=== PATIENT | female | born 1950 | race Caucasian/White ===

== ENCOUNTER 2016-07-28 13:16 | Emergency (ER) | payer OTHER ==
[2016-07-28 14:19] VITALS: RESP 16
[2016-07-28] MEDS ORDERED: PANTOPRAZOLE 40 MG/10 ML VIAL IVP STA (15:47)
--- NOTE | 2016-07-28 15:50 | ED ---
General Adult HPI - General Chief complaint: Recheck/Abnormal Lab/Rx Stated complaint: bleeding/cancer patient Time Seen by Provider: 07/28/16 15:29 Source: patient, RN notes reviewed Mode of arrival: ambulatory Limitations: no limitations - History of Present Illness Initial comments: Patient is a pleasant 65-year-old female presenting to the emergency department with concerns regarding her platelet level. Patient last had it checked 2 days ago and 29. Patient has lung cancer and is a chemotherapy. Patient has had mild bloody nose. No bleeding at this time. Patient has had some blood-tinged sputum. No dyspnea except for her chronic dyspnea. Patient has noticed some red spots on her legs. - Related Data Home Medications Medication Instructions Recorded Confirmed ALPRAZolam [Xanax] 0.25 mg PO DAILY PRN 01/08/14 07/28/16 Omeprazole 20 mg PO BID 01/08/14 07/28/16 amLODIPine BESYLATE [Amlodipine 5 mg PO QAM 01/08/14 07/28/16 Besylate] Aspirin EC [Ecotrin Low Dose] 81 mg PO HS 04/21/14 07/28/16 Atorvastatin [Lipitor] 80 mg PO HS 04/21/14 07/28/16 Budesonide [Pulmicort] 0.5 mg INHALATION RT-BID 04/21/14 07/28/16 Citalopram Hydrobromide [CeleXA] 40 mg PO HS 11/15/15 07/28/16 Levothyroxine Sodium [Synthroid] 50 mcg PO QAM 11/15/15 07/28/16 Losartan-Hctz 50-12.5 mg [Hyzaar 1 tab PO QAM 11/15/15 07/28/16 50-12.5] Insulin Aspart (For Pump) [NovoLOG 0.01 unit SQ-PUMP CONTINUOUS 03/20/16 (For Pump)] Calcium Carbonate [Calcium] 600 mg PO BID 07/28/16 07/28/16 Cholecalciferol [Vitamin D3] 5,000 unit PO DAILY 07/28/16 07/28/16 Clopidogrel [Plavix] 75 mg PO QAM 07/28/16 07/28/16 L.acidoph,Paracasei, B.lactis 1 cap PO BID 07/28/16 07/28/16 [Probiotic] Magnesium Oxide 400 mg PO DAILY 07/28/16 07/28/16 Metoprolol Succinate [Toprol XL] 25 mg PO BID 07/28/16 07/28/16 Ubidecarenone [Co Q-10] 400 mg PO DAILY 07/28/16 07/28/16 Vitamin B Complex 1 cap PO DAILY 07/28/16 07/28/16 Previous Rx's Medication Instructions Recorded Nitroglycerin Sl Tabs [Nitrostat] 0.4 mg SUBLINGUAL Q5M PRN #25 tab 01/09/14 Allergies Allergy/AdvReac Type Severity Reaction Status Date / Time adhesive Allergy Rash/Hives Verified 07/28/16 15:44 venom-honey bee Allergy Anaphylaxis Verified 07/28/16 15:44 Review of Systems ROS Statement: Those systems with pertinent positive or pertinent negative responses have been documented in the HPI. ROS Other: All systems not noted in ROS Statement are negative. Constitutional: Denies: fever Eyes: Denies: eye pain ENT: Reports: epistaxis. Denies: ear pain Respiratory: Reports: cough Cardiovascular: Denies: palpitations Endocrine: Denies: fatigue Gastrointestinal: Denies: abdominal pain Genitourinary: Denies: urgency Musculoskeletal: Denies: back pain Skin: Reports: rash Neurological: Denies: weakness Past Medical History Past Medical History: Coronary Artery Disease (CAD), Cancer, Diabetes Mellitus, GERD/Reflux, Hyperlipidemia, Hypertension, Myocardial Infarction ([place]), Osteoarthritis (OA), Skin Disorder, Sleep Apnea/CPAP/BIPAP, Thyroid Disorder Additional Past Medical History / Comment(s): PULMONARY FIBROSIS/HTN, HAS AAA THAT DR'S ARE WATCHING, USES O2 NC 2L DURING THE DAY AND 4L AT NIGHT, STATES HAS "PINCHED NERVE" RT HIP TO KNEE WHICH CAUSES NUMBNESS ON THAT SIDE AT TIMES. HX PSORIASIS ON RIGHT ANKLE. lung ca Last Myocardial Infarction Date:: 1998 History of Any Multi-Drug Resistant Organisms: None Reported Past Surgical History: Bladder Surgery, Heart Catheterization With Stent, Hysterectomy, Orthopedic Surgery Additional Past Surgical History / Comment(s): STENT X2 AT 2 DIFFERENT TIMES HX 2 BLADDER SUSPENSIONS, KNEE ARTHROSCOPIES-R KNEE X 1 AND L KNEE X2, R HAND SX WITH PINNING, NOW REMOVED. R WRIST GANGLION CYST REMOVAL X 2. CAROL CATARACT SX Numerous surgeries on BOTH FEET, R/T NEUROMA'S Past Anesthesia/Blood Transfusion Reactions: No Reported Reaction Additional Past Anesthesia/Blood Transfusion Reaction / Comment(s): NEVER RECIEVED BLOOD. Date of Last Stent Placement:: 01/08/14 Past Psychological History: Anxiety, Depression Additional Psychological History / Comment(s): PT TAKES CILITAPRAM WHICH HELPS. 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 SHE CAN TAKE CARE OF HERSELF. Smoking Status: Former smoker Past Alcohol Use History: Rare Additional Past Alcohol Use History / Comment(s): Smoked 1 1/2 PPD for 43 yrs, quit in 2010. Past Drug Use History: None Reported Additional Drug Use History / Comment(s): patient has used cannibus oil x3 recently for pulmonary fibrosis. - Past Family History Father Family Medical History: Cancer, Hypertension Additional Family Medical History / Comment(s): FATHER OF LIVER CA AT AGE 67 YRS. HE ALSO HAD AORTIC ANEURYSM. Mother Family Medical History: Coronary Artery Disease (CAD), Diabetes Mellitus, Hypertension, Osteoarthritis (OA), Pulmonary Embolus Additional Family Medical History / Comment(s): MOTHER OF EMBOLISM IN LUNG FOLLOWING REHAB FOR HIP SURGERY AT AGE 65. General Exam Limitations: no limitations General appearance: alert, in no apparent distress Head exam: Present: atraumatic Eye exam: Present: normal appearance, PERRL ENT exam: Present: normal oropharynx, other (Dried blood bilateral nares) Neck exam: Present: normal inspection Respiratory exam: Present: decreased breath sounds Cardiovascular Exam: Present: regular rate, normal rhythm GI/Abdominal exam: Present: soft. Absent: tenderness Extremities exam: Present: normal inspection Neurological exam: Present: alert Psychiatric exam: Present: normal affect, normal mood Skin exam: Present: petechiae (Minimal petechial rash bilateral legs) Course Vital Signs 07/28/16 14:15 Temperature 98.5 F Pulse Rate 85 Respiratory 16 Rate Blood Pressure 139/86 O2 Sat by Pulse 93 L Oximetry Medical Decision Making - Medical Decision Making Patient reevaluated and resting comfortably in bed. Still no active bleeding. Case was discussed in detail with Dr. Raygoza who is familiar with this patient. He does recommend discharge and holding aspirin. This was relayed to the patient. Already held Plavix. - Lab Data Result diagrams: 07/28/16 15:55 07/28/16 15:55 Lab Results 07/28/16 07/28/16 07/28/16 Range/Units 15:55 15:55 15:55 WBC 3.1 L (3.8-10.6) k/uL RBC 4.18 (3.80-5.40) m/uL Hgb 12.7 (11.4-16.0) gm/dL Hct 35.3 (34.0-46.0) % MCV 84.5 (80.0-100.0) fL MCH 30.5 (25.0-35.0) pg MCHC 36.1 (31.0-37.0) g/dL RDW 13.2 (11.5-15.5) % Plt Count 23 L* (150-450) k/uL Neutrophils % (Manual) 15.0 % Lymphocytes % (Manual) 82.0 % Monocytes % (Manual) 2.0 % Eosinophils % (Manual) 1.0 % Neutrophils # (Manual) 0.5 L (1.3-7.7) k/uL Lymphocytes # (Manual) 2.5 (1.0-4.8) k/uL Monocytes # (Manual) 0.1 (0-1.0) k/uL Eosinophils # (Manual) 0.0 (0-0.7) k/uL Nucleated RBCs 0 (0-0) /100 WBC Manual Slide Review Performed Hyperchromasia Slight PT 10.8 (9.0-12.0) sec INR 1.1 (<1.1) APTT 22.0 (22.0-30.0) sec Sodium 139 (137-145) mmol/L Potassium 4.3 (3.5-5.1) mmol/L Chloride 101 (98-107) mmol/L Carbon Dioxide 29 (22-30) mmol/L Anion Gap 9 mmol/L BUN 14 (7-17) mg/dL Creatinine 0.60 (0.52-1.04) mg/dL Est GFR (MDRD) Af Amer >60 (>60 ml/min/1.73 sqM) Est GFR (MDRD) Non-Af >60 (>60 ml/min/1.73 sqM) Glucose 151 H (74-99) mg/dL Calcium 9.0 (8.4-10.2) mg/dL Total Bilirubin 0.7 (0.2-1.3) mg/dL AST 37 H (14-36) U/L ALT 53 H (9-52) U/L Alkaline Phosphatase 125 (38-126) U/L Total Protein 8.0 (6.3-8.2) g/dL Albumin 3.9 (3.5-5.0) g/dL - Radiology Data Radiology results: image reviewed (Chest x-ray shows diffuse increased lung markings) Disposition Clinical Impression: Thrombocytopenia Disposition: HOME SELF-CARE Condition: Stable Instructions: Thrombocytopenia (ED), Nosebleed (ED) Additional Instructions: Please follow-up with your oncologist Saturday. Please have your platelet level rechecked in the next day or 2. Return for bleeding, worsening rash, worsening symptoms or other concerns. Referrals: Gema Singleton DO [Primary Care Provider] - 1-2 days
[2016-07-28 16:21] LABS: ALT 53 U/L (9-52); AST 37 U/L (14-36); Alkaline Phosphatase 125 U/L (38-126); Anion Gap 9 mmol/L; Blood Urea Nitrogen 14 mg/dL (7-17); Carbon Dioxide 29 mmol/L (22-30); Chloride 101 mmol/L (98-107); Glucose 151 mg/dL (74-99); INR 1.1 (<1.1); Non-African American GFR(MDRD) >60 (>60 ml/min/1.73 sqM); Potassium 4.3 mmol/L (3.5-5.1); Prothrombin Time 10.8 sec (9.0-12.0); Sodium 139 mmol/L (137-145); Total Bilirubin 0.7 mg/dL (0.2-1.3)
[2016-07-28 16:26] LABS: Aty Lym Flag Slight; CH 31.6; CHCM 37.4; HCT 35.3 % (34.0-46.0); HDW 3.35; HGB 12.7 gm/dL (11.4-16.0); Hyperchromasia Slight; MCH 30.5 pg (25.0-35.0); MCHC 36.1 g/dL (31.0-37.0); MCV 84.5 fL (80.0-100.0); Mean Platelet Volume 7.2; RBC 4.18 m/uL (3.80-5.40); RDW 13.2 % (11.5-15.5); WBC 3.1 k/uL (3.8-10.6); WBC (Perox) 2.94
--- NOTE | 2016-07-28 16:29 | XR ---
EXAMINATION TYPE: XR chest 2V DATE OF EXAM: 07/28/2016 4:22 PM COMPARISON: NONE INDICATION: 11/15/2015 TECHNIQUE: Single frontal view of the chest is obtained. FINDINGS: The heart size is normal. The pulmonary vasculature is normal. There is diffuse increased lung markings. Findings appear suggestive for pulmonary fibrosis. Findings appear to be worsening from 11/15/2015 IMPRESSION: 1. Correlate for pulmonary fibrosis. Atypical pulmonary edema could be considered. Lymphangitic metas tasis is not excluded.
[2016-07-28 16:46] LABS: Add Differential Manual Differential
[2016-07-28 16:53] LABS: Nucleated Red Blood Cells 0 /100 WBC (0-0); Total Cells Counted 100
[2016-07-28 16:55] LABS: Manual Review Performed
[2016-07-28 17:49] VITALS: BP 137/62; PULSE 76; TEMP 97.5
== END 2016-07-28 17:49 | disposition home or self-care (01) ==
LOC: EC 13:16
DX: D69.6 Thrombocytopenia, unspecified (principal); I25.10 Atherosclerotic heart disease of native coronary artery without angina pectoris; E11.9 Type 2 diabetes mellitus without complications; K21.9 Gastro-esophageal reflux disease without esophagitis; E78.5 Hyperlipidemia, unspecified; I10 Essential (primary) hypertension; I25.2 Old myocardial infarction; M19.90 Unspecified osteoarthritis, unspecified site; E07.9 Disorder of thyroid, unspecified; F41.9 Anxiety disorder, unspecified; F32.9 Major depressive disorder, single episode, unspecified; Z87.891 Personal history of nicotine dependence; Z85.828 Personal history of other malignant neoplasm of skin; Z79.82 Long term (current) use of aspirin; Z79.51 Long term (current) use of inhaled steroids; Z79.4 Long term (current) use of insulin; Z79.01 Long term (current) use of anticoagulants; Z79.899 Other long term (current) drug therapy; Z91.030 Bee allergy status; Z91.048 Other nonmedicinal substance allergy status
CPT/HCPCS: 99283; 96374; 36415; 80053; 85025; 85610; 85730; 71020; C9113

== ENCOUNTER 2016-08-23 23:31 | Inpatient (IN) | payer OTHER ==
[2016-08-24 00:39] LABS: Anisocytosis Marked; Basophils # (A) 0.1 k/uL (0-0.2); Basophils % (A) 0 %; CH 32.3; CHCM 35.5; Eosinophils # (A) 0.1 k/uL (0-0.7); Eosinophils % (A) 1 %; HCT 24.2 % (34.0-46.0); HDW 3.76; Luc # (Auto) 0.48; Luc % (Auto) 3; Lymphocytes # (A) 2.3 k/uL (1.0-4.8); Lymphocytes % (A) 14 %; MCH 31.8 pg (25.0-35.0); MCHC 34.6 g/dL (31.0-37.0); Macrocytosis Slight; Mean Platelet Volume 7.5; Monocytes # (A) 0.9 k/uL (0-1.0); Monocytes % (A) 5 %; Neutrophils # (A) 12.9 k/uL (1.3-7.7); Neutrophils % (A) 77 %; Poikilocytosis Slight; RBC 2.63 m/uL (3.80-5.40); RDW 24.5 % (11.5-15.5); WBC 16.8 k/uL (3.8-10.6); WBC (Perox) 17.18
[2016-08-24 00:50] LABS: ALT 48 U/L (9-52); AST 46 U/L (14-36); Alkaline Phosphatase 163 U/L (38-126); Anion Gap 9 mmol/L; Blood Urea Nitrogen 11 mg/dL (7-17); Calcium 8.7 mg/dL (8.4-10.2); Carbon Dioxide 26 mmol/L (22-30); Chloride 101 mmol/L (98-107); Glucose 222 mg/dL (74-99); Non-African American GFR(MDRD) >60 (>60 ml/min/1.73 sqM); Potassium 3.8 mmol/L (3.5-5.1); Sodium 136 mmol/L (137-145); Total Bilirubin 0.5 mg/dL (0.2-1.3)
[2016-08-24 00:55] LABS: INR 1.1 (<1.1); Prothrombin Time 11.3 sec (9.0-12.0)
--- NOTE | 2016-08-24 00:56 | XR ---
EXAM: XR Chest, 2 Views CLINICAL HISTORY: Reason: difficulty breathing TECHNIQUE: Frontal and lateral views of the chest. COMPARISON: Recent 07/28/16 radiographs. FINDINGS: Lungs: There is again diffuse coarsening of the interstitial markings suggesting the presence of chronic interstitial lung disease. No superimposed infiltrate has developed. Pleural space: No pleural effusion or pneumothorax has developed. Heart: Stable cardiomegaly. Mediastinum: The mediastinal contours are stable including aortic calcification and ectasia. Bones/joints: The bones are stable. IMPRESSION: Allowing for slight differences in technique, no significant change in findings suggestive of pulmonary fibrosis. No superimposed infiltrate or pleural effusion has developed.
[2016-08-24 01:01] LABS: Creatine Kinase 90 U/L (30-135)
[2016-08-24 01:04] LABS: Partial Thromboplastin Time 20.4 sec (22.0-30.0)
[2016-08-24 01:14] LABS: Creatine Kinase MB 1.7 ng/mL (0.0-2.4); Troponin I <0.012 ng/mL (0.000-0.034)
[2016-08-24 01:22] LABS: HGB 8.4 gm/dL (11.4-16.0)
--- NOTE | 2016-08-24 01:28 | ED ---
SOB HPI - General Chief Complaint: Shortness of Breath Stated Complaint: ELOISA Time Seen by Provider: 08/23/16 23:59 Source: patient Mode of arrival: EMS Limitations: no limitations - History of Present Illness Initial Comments: This patient is a 65-year-old woman who presents tonight after she became more short of breath than usual. 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 She states that she has been more short of breath than usual over the past couple of days but it became much worse tonight, and her home pulse oximetry readings were much lower than usual. Patient denies chest pain. No fever or chills. Denies productive cough. No change in urination or bowel movements. The patient does have some leg edema but states that this been going on for number weeks and that she did have a duplex Doppler for this previously. She is not having any pain associated with the edema. MD Complaint: shortness of breath -: hour(s) Severity: moderate Consistency: constant Improves With: oxygen Known History Of: other (Pulmonary hypertension, lung cancer) Treatments Prior to Arrival: oxygen - Related Data Home Medications Medication Instructions Recorded Confirmed ALPRAZolam [Xanax] 0.25 mg PO DAILY PRN 01/08/14 08/24/16 Omeprazole 20 mg PO BID 01/08/14 08/24/16 amLODIPine BESYLATE [Amlodipine 5 mg PO QAM 01/08/14 08/24/16 Besylate] Aspirin EC [Ecotrin Low Dose] 81 mg PO HS 04/21/14 08/24/16 Atorvastatin [Lipitor] 80 mg PO HS 04/21/14 08/24/16 Budesonide [Pulmicort] 0.5 mg INHALATION RT-BID 04/21/14 08/24/16 Citalopram Hydrobromide [CeleXA] 40 mg PO HS 11/15/15 08/24/16 Levothyroxine Sodium [Synthroid] 50 mcg PO QAM 11/15/15 08/24/16 Losartan-Hctz 50-12.5 mg [Hyzaar 1 tab PO QAM 11/15/15 08/24/16 50-12.5] Insulin Aspart (For Pump) [NovoLOG 0.01 unit SQ-PUMP CONTINUOUS 03/20/16 (For Pump)] Calcium Carbonate [Calcium] 600 mg PO BID 07/28/16 08/24/16 Cholecalciferol [Vitamin D3] 5,000 unit PO DAILY 07/28/16 08/24/16 Clopidogrel [Plavix] 75 mg PO DAILY 07/28/16 08/24/16 L.acidoph,Paracasei, B.lactis 1 cap PO BID 07/28/16 08/24/16 [Probiotic] Magnesium Oxide 400 mg PO HS 07/28/16 08/24/16 Ubidecarenone [Co Q-10] 400 mg PO DAILY 07/28/16 08/24/16 Vitamin B Complex 1 cap PO DAILY 07/28/16 08/24/16 Furosemide [Lasix] 20 mg PO DAILY PRN 08/24/16 08/24/16 Previous Rx's Medication Instructions Recorded Nitroglycerin Sl Tabs [Nitrostat] 0.4 mg SUBLINGUAL Q5M PRN #25 tab 01/09/14 Amoxicillin/Potassium Clav 1 tab PO Q12HR #10 tab 08/30/16 [Augmentin 875-125 Tablet] Ipratropium-Albuterol Nebulize 3 ml INHALATION RT-QID PRN #120 neb 08/30/16 [Duoneb 0.5 mg-3 mg/3 ml Soln] Metoprolol Succinate (ER) [Toprol 25 mg PO BID tab 08/30/16 XL] predniSONE 10 mg PO DIRECTED #30 tab 08/30/16 Allergies Allergy/AdvReac Type Severity Reaction Status Date / Time adhesive Allergy Rash/Hives Verified 08/24/16 08:10 venom-honey bee Allergy Anaphylaxis Verified 08/24/16 08:10 Review of Systems ROS Statement: Those systems with pertinent positive or pertinent negative responses have been documented in the HPI. ROS Other: All systems not noted in ROS Statement are negative. Constitutional: Denies: fever, chills, weakness Respiratory: Reports: dyspnea. Denies: wheezes, hemoptysis Cardiovascular: Reports: edema. Denies: chest pain, palpitations, dyspnea on exertion, orthopnea, syncope Gastrointestinal: Denies: abdominal pain, vomiting, diarrhea, melena, hematochezia Genitourinary: Denies: dysuria Musculoskeletal: Denies: back pain Skin: Denies: rash Neurological: Denies: headache, weakness, numbness Psychiatric: Reports: anxiety Past Medical History Past Medical History: Coronary Artery Disease (CAD), Cancer, Diabetes Mellitus, GERD/Reflux, Hyperlipidemia, Hypertension, Myocardial Infarction ([place]), Osteoarthritis (OA), Skin Disorder, Sleep Apnea/CPAP/BIPAP, Thyroid Disorder Additional Past Medical History / Comment(s): PULMONARY FIBROSIS/HTN, HAS AAA THAT DR'S ARE WATCHING, USES O2 NC 3L DURING THE DAY AND 4L AT NIGHT, STATES HAS "PINCHED NERVE" RT HIP TO KNEE WHICH CAUSES NUMBNESS ON THAT SIDE AT TIMES. HX PSORIASIS ON RIGHT ANKLE. 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 Last Myocardial Infarction Date:: 1998 History of Any Multi-Drug Resistant Organisms: None Reported Past Surgical History: Bladder Surgery, Heart Catheterization With Stent, Hysterectomy, Orthopedic Surgery Additional Past Surgical History / Comment(s): STENT X2 AT 2 DIFFERENT TIMES HX 2 BLADDER SUSPENSIONS, KNEE ARTHROSCOPIES-R KNEE X 1 AND L KNEE X2, R HAND SX WITH PINNING, NOW REMOVED. R WRIST GANGLION CYST REMOVAL X 2. CAROL CATARACT SX Numerous surgeries on BOTH FEET, R/T NEUROMA'S Past Anesthesia/Blood Transfusion Reactions: No Reported Reaction Additional Past Anesthesia/Blood Transfusion Reaction / Comment(s): NEVER RECIEVED BLOOD. Date of Last Stent Placement:: 01/08/14 Past Psychological History: Anxiety, Depression Additional Psychological History / Comment(s): PT TAKES CILITAPRAM WHICH HELPS. 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 SHE CAN TAKE CARE OF HERSELF. Smoking Status: Former smoker Past Alcohol Use History: Rare Additional Past Alcohol Use History / Comment(s): Smoked 1 1/2 PPD for 43 yrs, quit in 2010. Past Drug Use History: None Reported Additional Drug Use History / Comment(s): patient has used cannibus oil x3 recently for pulmonary fibrosis. - Past Family History Father Family Medical History: Cancer, Hypertension Additional Family Medical History / Comment(s): FATHER OF LIVER CA AT AGE 67 YRS. HE ALSO HAD AORTIC ANEURYSM. Mother Family Medical History: Coronary Artery Disease (CAD), Diabetes Mellitus, Hypertension, Osteoarthritis (OA), Pulmonary Embolus Additional Family Medical History / Comment(s): MOTHER OF EMBOLISM IN LUNG FOLLOWING REHAB FOR HIP SURGERY AT AGE 65. General Exam Limitations: no limitations General appearance: alert, in no apparent distress Head exam: Present: atraumatic, normocephalic Eye exam: Present: normal appearance. Absent: scleral icterus, conjunctival injection Respiratory exam: Present: normal lung sounds bilaterally, rales (Dry rales bilaterally), decreased breath sounds. Absent: respiratory distress, wheezes, rhonchi, stridor, chest wall tenderness, accessory muscle use, prolonged expiratory Cardiovascular Exam: Present: regular rate, normal rhythm, normal heart sounds. Absent: systolic murmur, diastolic murmur, rubs, gallop GI/Abdominal exam: Present: soft. Absent: distended, tenderness, guarding, rebound, rigid Extremities exam: Present: normal inspection, normal capillary refill, pedal edema (There is edema of the bilateral legs to just above the ankles.). Absent : calf tenderness Back exam: Present: normal inspection. Absent: CVA tenderness (R), CVA tenderness (L) Neurological exam: Present: alert Skin exam: Present: warm, dry, intact, normal color. Absent: rash Course Vital Signs 08/23/16 08/24/16 08/24/16 23:33 00:50 02:02 Temperature 97.2 F L Pulse Rate 88 81 76 Respiratory 26 H 18 18 Rate Blood Pressure 134/61 139/63 122/59 O2 Sat by Pulse 100 100 96 Oximetry 08/24/16 08/24/16 08/24/16 04:08 06:11 06:59 Temperature 100 F H 97.8 F 100.1 F H Pulse Rate 79 84 93 Respiratory 20 18 18 Rate Blood Pressure 124/56 129/59 139/71 O2 Sat by Pulse 92 L 92 L 91 L Oximetry 08/24/16 08/24/16 08/24/16 08:26 09:35 09:36 Temperature Pulse Rate 83 84 Respiratory 18 Rate Blood Pressure 119/64 138/62 O2 Sat by Pulse 97 Oximetry 08/24/16 08/24/16 09:40 13:17 Temperature Pulse Rate 84 88 Respiratory 20 Rate Blood Pressure 146/67 O2 Sat by Pulse 95 Oximetry Medical Decision Making - Lab Data Result diagrams: 08/29/16 08:27 08/29/16 08:27 Lab Results 08/23/16 08/23/16 08/23/16 Range/Units 23:54 23:54 23:54 WBC 16.8 H (3.8-10.6) k/uL RBC 2.63 L (3.80-5.40) m/uL Hgb 8.4 L D (11.4-16.0) gm/dL Hct 24.2 L (34.0-46.0) % MCV 92.0 D (80.0-100.0) fL MCH 31.8 (25.0-35.0) pg MCHC 34.6 (31.0-37.0) g/dL RDW 24.5 H (11.5-15.5) % Plt Count 73 L D (150-450) k/uL Neutrophils % 77 % Lymphocytes % 14 % Monocytes % 5 % Eosinophils % 1 % Basophils % 0 % Neutrophils # 12.9 H (1.3-7.7) k/uL Lymphocytes # 2.3 (1.0-4.8) k/uL Monocytes # 0.9 (0-1.0) k/uL Eosinophils # 0.1 (0-0.7) k/uL Basophils # 0.1 (0-0.2) k/uL Poikilocytosis Slight Anisocytosis Marked Macrocytosis Slight PT (9.0-12.0) sec INR (<1.1) APTT (22.0-30.0) sec Sodium 136 L (137-145) mmol/L Potassium 3.8 (3.5-5.1) mmol/L Chloride 101 (98-107) mmol/L Carbon Dioxide 26 (22-30) mmol/L Anion Gap 9 mmol/L BUN 11 (7-17) mg/dL Creatinine 0.70 (0.52-1.04) mg/dL Est GFR (MDRD) Af Amer >60 (>60 ml/min/1.73 sqM) Est GFR (MDRD) Non-Af >60 (>60 ml/min/1.73 sqM) Glucose 222 H (74-99) mg/dL Plasma Lactic Acid Sal (0.7-2.0) mmol/L Calcium 8.7 (8.4-10.2) mg/dL Total Bilirubin 0.5 (0.2-1.3) mg/dL AST 46 H (14-36) U/L ALT 48 (9-52) U/L Alkaline Phosphatase 163 H (38-126) U/L Total Creatine Kinase 90 (30-135) U/L CK-MB (CK-2) 1.7 (0.0-2.4) ng/mL CK-MB (CK-2) Rel Index 1.9 Troponin I <0.012 (0.000-0.034) ng/mL NT-Pro-B Natriuret Pep pg/mL Total Protein 6.0 L (6.3-8.2) g/dL Albumin 3.2 L (3.5-5.0) g/dL 08/23/16 08/23/16 08/23/16 Range/Units 23:54 23:54 23:54 WBC (3.8-10.6) k/uL RBC (3.80-5.40) m/uL Hgb (11.4-16.0) gm/dL Hct (34.0-46.0) % MCV (80.0-100.0) fL MCH (25.0-35.0) pg MCHC (31.0-37.0) g/dL RDW (11.5-15.5) % Plt Count (150-450) k/uL Neutrophils % % Lymphocytes % % Monocytes % % Eosinophils % % Basophils % % Neutrophils # (1.3-7.7) k/uL Lymphocytes # (1.0-4.8) k/uL Monocytes # (0-1.0) k/uL Eosinophils # (0-0.7) k/uL Basophils # (0-0.2) k/uL Poikilocytosis Anisocytosis Macrocytosis PT 11.3 (9.0-12.0) sec INR 1.1 (<1.1) APTT 20.4 L (22.0-30.0) sec Sodium (137-145) mmol/L Potassium (3.5-5.1) mmol/L Chloride (98-107) mmol/L Carbon Dioxide (22-30) mmol/L Anion Gap mmol/L BUN (7-17) mg/dL Creatinine (0.52-1.04) mg/dL Est GFR (MDRD) Af Amer (>60 ml/min/1.73 sqM) Est GFR (MDRD) Non-Af (>60 ml/min/1.73 sqM) Glucose (74-99) mg/dL Plasma Lactic Acid Sal 3.2 H* (0.7-2.0) mmol/L Calcium (8.4-10.2) mg/dL Total Bilirubin (0.2-1.3) mg/dL AST (14-36) U/L ALT (9-52) U/L Alkaline Phosphatase (38-126) U/L Total Creatine Kinase (30-135) U/L CK-MB (CK-2) (0.0-2.4) ng/mL CK-MB (CK-2) Rel Index Troponin I (0.000-0.034) ng/mL NT-Pro-B Natriuret Pep 471 pg/mL Total Protein (6.3-8.2) g/dL Albumin (3.5-5.0) g/dL - EKG Data -: EKG Interpreted by Me EKG shows normal: sinus rhythm, axis (Normal), intervals (Normal) Rate: normal (Rate proximal he 77 bpm) Interpretation: other (Incomplete right bundle branch block) Critical Care Time Critical Care Time: Yes (40 minutes) Disposition Clinical Impression: COPD (chronic obstructive pulmonary disease), Pneumonia, Sepsis Disposition: ADMITTED IP TO THIS HOSP
[2016-08-24] MEDS ORDERED: SODIUM CHLORIDE 0.9% 500 ML IV STA (06:14)
[2016-08-24] MEDS ORDERED: LEVOFLOXACIN 750 MG TAB PO STA (06:44)
[2016-08-24] MEDS ORDERED: PIPERACILLIN-TAZOBACTAM 3.375 GM in DEXTROSE/WATER 1 50ML.BAG IVPB STA (06:45)
[2016-08-24] MEDS ORDERED: PNEUMONIA PROTOCOL UTILIZED 1 EACH MISC PO PRN (06:45)
[2016-08-24] MEDS ORDERED: NITROGLYCERIN SL TABS 0.4 MG TAB SUBLINGUAL PRN (06:48)
[2016-08-24] MEDS: IPRATROPIUM-ALBUTEROL 3 ML NEB INHALATION SCH ×4 (09:32→20:16)
[2016-08-24] MEDS: BUDESONIDE 0.5 MG/2 ML NEBU INHALATION SCH ×2 (09:33→20:12)
[2016-08-24 11:06] LABS: Glucose,Whole Blood 152 mg/dL (75-99)
[2016-08-24] MEDS: amLODIPine 5 MG TAB PO SCH (14:00)
[2016-08-24] MEDS: LEVOTHYROXINE 50 MCG TAB PO SCH (14:01)
[2016-08-24] MEDS: METOPROLOL SUCCINATE (ER) 25 MG TAB.ER.24H PO SCH ×2 (14:02→21:55)
[2016-08-24] MEDS: CALCIUM CARBONATE 500 MG CHEWABLE PO SCH ×2 (14:02→21:55)
[2016-08-24] MEDS: LOSARTAN-HCTZ 50-12.5 MG 1 EACH TAB PO SCH (14:03)
[2016-08-24] MEDS: CLOPIDOGREL 75 MG TAB PO SCH (14:04)
[2016-08-24] MEDS: MAGNESIUM OXIDE 400 MG TAB PO SCH (14:04)
[2016-08-24] MEDS: PANTOPRAZOLE 40 MG TABLET PO SCH ×2 (14:04→16:36)
[2016-08-24] MEDS: HEPARIN SODIUM,PORCINE 5,000 UNIT/ML 1 ML VIAL SQ SCH ×2 (14:05→23:25)
[2016-08-24] MEDS: PIPERACILLIN-TAZOBACTAM 3.375 GM in DEXTROSE/WATER 1 50ML.BAG IVPB SCH ×2 (16:36→23:23)
[2016-08-24 17:36] LABS: Glucose,Whole Blood 175 mg/dL (75-99)
[2016-08-24 20:58] LABS: Glucose,Whole Blood 209 mg/dL (75-99)
[2016-08-24] MEDS: ATORVASTATIN 80 MG TAB PO SCH (21:54)
[2016-08-24] MEDS: ASPIRIN 81 MG CHEW PO SCH (21:54)
[2016-08-24] MEDS: CITALOPRAM HYDROBROMIDE 20 MG TAB PO SCH (21:55)
[2016-08-25 02:20] LABS: Glucose,Whole Blood 131 mg/dL (75-99)
[2016-08-25] MEDS: ALPRAZolam 0.25 MG TAB PO PRN ×3 (03:16→22:37)
[2016-08-25] MEDS: LEVOTHYROXINE 50 MCG TAB PO SCH (06:52)
[2016-08-25 07:26] LABS: Glucose,Whole Blood 131 mg/dL (75-99)
[2016-08-25] MEDS: MAGNESIUM OXIDE 400 MG TAB PO SCH (08:25)
[2016-08-25] MEDS: LEVOFLOXACIN 750 MG TAB PO SCH (08:25)
[2016-08-25] MEDS: CLOPIDOGREL 75 MG TAB PO SCH (08:25)
[2016-08-25] MEDS: METOPROLOL SUCCINATE (ER) 25 MG TAB.ER.24H PO SCH ×2 (08:25→22:37)
[2016-08-25] MEDS: CALCIUM CARBONATE 500 MG CHEWABLE PO SCH ×2 (08:25→22:37)
[2016-08-25] MEDS: LOSARTAN-HCTZ 50-12.5 MG 1 EACH TAB PO SCH (08:25)
[2016-08-25] MEDS: amLODIPine 5 MG TAB PO SCH (08:25)
[2016-08-25] MEDS: PANTOPRAZOLE 40 MG TABLET PO SCH ×2 (08:25→16:43)
[2016-08-25] MEDS: PIPERACILLIN-TAZOBACTAM 3.375 GM in DEXTROSE/WATER 1 50ML.BAG IVPB SCH ×2 (08:25→15:23)
[2016-08-25] MEDS: HEPARIN SODIUM,PORCINE 5,000 UNIT/ML 1 ML VIAL SQ SCH ×2 (08:28→15:23)
[2016-08-25] MEDS ORDERED: RX INFO: IV CONTRAST WAS GIVEN 1 EACH MISC MISCELLANE PRN (08:34)
--- NOTE | 2016-08-25 09:54 | CT ---
EXAMINATION TYPE: CT angio chest DATE OF EXAM: 08/25/2016 9:31 AM COMPARISON: 01/17/2014 HISTORY: 65 year-old female shortness of breath, possible PE. History of squamous cell lung cancer an d pulmonary fibrosis. TECHNIQUE: Contiguous axial scanning of the chest performed with IV Contrast, patient injected with 1 00 mL of Omnipaque 350. Coronal/sagittal MIP reconstructions performed. CT DLP: 607.8 mGycm Automated exposure control for dose reduction was used. FINDINGS: The heart is mildly enlarged without pericardial effusion. Mitral annular calcifications and coronary vessel calcifications are present. Aorta shows with conventional arch vessel branching anatomy. 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 Satisfactory opacification of the pulmonary arterial system. There is borderline to mildly enlarged c aliber to the main right and left pulmonary arteries are 2.7 and 2.5 cm, respectively, suggesting und erlying pulmonary arterial hypertension. There is respiratory motion limiting assessment for pulmonar y embolus. No definite pulmonary embolus seen. As compared to 2013, there is progressive mediastinal lymphadenopathy now conglomerate measuring up t o 1.7 cm right peritracheal region, 1.1 cm prevascular space, 1.8 cm left tracheobronchial angle, 2.5 cm subcarinal region. Redemonstrated subpleural microcystic change and centrilobular emphysema with areas of mosaic attenua tion, septal lines in the lower lungs, and groundglass opacities. No pleural effusion. Some of these subpleural cystic changes progressed in the mid to lower lungs as compared to prior exam. Moderate-sized hernia. Visualized upper abdomen shows a diverticulum of the gastric fundus similar t o prior. Bones: No osseous destructive process. IMPRESSION: 1. PULMONARY ARTERIAL HYPERTENSION WITHOUT EVIDENCE FOR PULMONARY EMBOLUS. 2. PROGRESSIVE MEDIASTINAL LYMPHADENOPATHY NOW MEASURING UP TO 2.5 CM. METASTATIC DISEASE, ATYPICAL S YSTEMIC INFECTIONS, AND INFLAMMATORY PROCESSES SUCH SARCOIDOSIS ARE IN THE DIFFERENTIAL. 3. COMBINATION OF COPD AND SUBPLEURAL CYSTIC CHANGE WHICH SHOWS AN UPPER LUNG PREDOMINANCE THOUGH THE SUBPLEURAL CHANGES HAVE PROGRESSED IN THE MID AND LOWER LUNGS COMPARED TO 2014. CORRELATE FOR ANY KNOWN DIAGNOSIS SUCH UIP/FIBROTIC NSIP. 4. EXTENSIVE RETICULATIONS AND NEW GROUND GLASS OPACITIES IN THE LOWER LUNGS. FINDINGS ARE NONSPECIFI C; CORRELATE FOR ANY INFECTIOUS SIGNS/SYMPTOMS. INFLAMMATORY PROCESSES SUCH HYPERSENSITIVITY PNEUM ONITIS ARE THE DIFFERENTIAL. OTHERWISE, FINDINGS MAY REFLECT PROGRESSION IN PATIENT'S UNDERLYING PERCH MENDER LAZ PULMONARY DISEASE. 5. MODERATE-SIZED HIATAL HERNIA.
[2016-08-25 11:48] LABS: Glucose,Whole Blood 140 mg/dL (75-99)
[2016-08-25 11:54] VITALS: BMI 37.4
[2016-08-25] MEDS: BUDESONIDE 0.5 MG/2 ML NEBU INHALATION SCH ×2 (13:01→20:30)
[2016-08-25] MEDS: IPRATROPIUM-ALBUTEROL 3 ML NEB INHALATION SCH ×2 (13:01)
--- NOTE | 2016-08-25 13:41 | P.CNPUL ---
History of Present Illness Consult date: 08/25/16 Reason for consult: dyspnea, COPD, pulmonary fibrosis Chief complaint: Shortness of breath and cough History of present illness: This is a 65-year-old female who is well-known to [facility]. The patient presented emergency department complaining of shortness of breath, and hypoxemia. The patient has known IPF, COPD, lung cancer, pulmonary hypertension. She is currently undergoing chemotherapy. She states she was very short of breath at home and checked her oxygen saturation which was in the 60s. She increased her oxygen at home but her saturation did not improve. She states her cough is nonproductive. She did recently have lower extremity edema and was started on Lasix. Her edema is improving somewhat. She had a lower extremity Doppler due to the swelling which was negative for DVT. CTA of the chest was done and shows no pulmonary embolism. It does show new groundglass opacities concerning for an acute inflammatory process. She does have chronic IPF and lymphadenopathy which is stage III squamous cell carcinoma. Review of Systems All systems: negative Past Medical History Past Medical History: Coronary Artery Disease (CAD), Cancer, Diabetes Mellitus, GERD/Reflux, Hyperlipidemia, Hypertension, Myocardial Infarction (NH), Osteoarthritis (OA), Skin Disorder, Sleep Apnea/CPAP/BIPAP, Thyroid Disorder Additional Past Medical History / Comment(s): "IDIOPATHIC PULMONARY FIBROSIS DX 2014/PULMONARY HTN DX 2016, HAS AAA THAT DR'S ARE WATCHING, USES O2 NC 3L DURING THE DAY AND 4L AT NIGHT/OR W/ WALKING AND 5 LITERS FOR RECOVERY, STATES HAS "PINCHED NERVE" RT HIP TO KNEE WHICH CAUSES NUMBNESS ON THAT SIDE AT TIMES. HX PSORIASIS ON RIGHT ANKLE. DX 2-2016 W/ LUNG CA - squamous cell with central lymph node involvement. HAS HAD 2 SERIES OF CHEMO(LATEST TX WAS ON 08-09-16) NO RADIATION, DM-HAS INSULIN PUMP, 2NDARYCATARACTS Last Myocardial Infarction Date:: 1998 History of Any Multi-Drug Resistant Organisms: None Reported Past Surgical History: Bladder Surgery, Heart Catheterization, Heart Catheterization With Stent, Hysterectomy, Orthopedic Surgery Additional Past Surgical History / Comment(s): STENT X2 AT 2 DIFFERENT TIMES HX 2 BLADDER SUSPENSIONS, KNEE ARTHROSCOPIES-R KNEE X 1 AND L KNEE X2, R HAND SX WITH PINNING, NOW REMOVED. R WRIST GANGLION CYST REMOVAL X 2. CAROL CATARACT SX Numerous surgeries on BOTH FEET, R/T NEUROMA'S, TOOTH PULLED,BRONCHOSOPY, ENLARGED LYMPH NODE BX, COLONOSOCPY/POLYPS-NEG Past Anesthesia/Blood Transfusion Reactions: No Reported Reaction Additional Past Anesthesia/Blood Transfusion Reaction / Comment(s): NEVER RECIEVED BLOOD. Date of Last Stent Placement:: 01/08/14 Past Psychological History: Anxiety, Depression Additional Psychological History / Comment(s): PT TAKES CITALOPRAM BUT SHE FEELS NOT HELPING MUCH PT LIVES AT HOME WITH AND ADULT SON. SHE CAN TAKE CARE OF HERSELF. NO OUTSIDE SERVICES. HAS HOME 02/BIPAP, INSULIN PUMP.PT USED TO WORK A CARDIOVASCULAR TECHNOLOGIST. Smoking Status: Former smoker Past Alcohol Use History: Rare Additional Past Alcohol Use History / Comment(s): STARTED SMOKING AT AGE 16, quit in 2010, WAS SMOKING 2 PPD. Past Drug Use History: None Reported Additional Drug Use History / Comment(s): patient has used cannibus oil ON RARE OCC for pulmonary fibrosis. - Past Family History Father Family Medical History: Cancer, Hypertension Additional Family Medical History / Comment(s): FATHER OF LIVER CA AT AGE 67 YRS. HE ALSO HAD AORTIC ANEURYSM. Mother Family Medical History: Coronary Artery Disease (CAD), Diabetes Mellitus, Hypertension, Osteoarthritis (OA), Pulmonary Embolus Additional Family Medical History / Comment(s): MOTHER OF EMBOLISM IN LUNG FOLLOWING REHAB FOR HIP SURGERY AT AGE 65. Medications and Allergies Home Medications Medication Instructions Recorded Confirmed Type ALPRAZolam [Xanax] 0.25 mg PO DAILY PRN 01/08/14 08/24/16 History Omeprazole 20 mg PO BID 01/08/14 08/24/16 History amLODIPine BESYLATE [Amlodipine 5 mg PO QAM 01/08/14 08/24/16 History Besylate] Aspirin EC [Ecotrin Low Dose] 81 mg PO HS 04/21/14 08/24/16 History Atorvastatin [Lipitor] 80 mg PO HS 04/21/14 08/24/16 History Budesonide [Pulmicort] 0.5 mg INHALATION RT-BID 04/21/14 08/24/16 History Citalopram Hydrobromide [CeleXA] 40 mg PO HS 11/15/15 08/24/16 History Levothyroxine Sodium [Synthroid] 50 mcg PO QAM 11/15/15 08/24/16 History Losartan-Hctz 50-12.5 mg [Hyzaar 1 tab PO QAM 11/15/15 08/24/16 History 50-12.5] Insulin Aspart (For Pump) [NovoLOG 0.01 unit SQ-PUMP CONTINUOUS 03/20/16 History (For Pump)] Calcium Carbonate [Calcium] 600 mg PO BID 07/28/16 08/24/16 History Cholecalciferol [Vitamin D3] 5,000 unit PO DAILY 07/28/16 08/24/16 History Clopidogrel [Plavix] 75 mg PO DAILY 07/28/16 08/24/16 History L.acidoph,Paracasei, B.lactis 1 cap PO BID 07/28/16 08/24/16 History [Probiotic] Magnesium Oxide 400 mg PO HS 07/28/16 08/24/16 History Ubidecarenone [Co Q-10] 400 mg PO DAILY 07/28/16 08/24/16 History Vitamin B Complex 1 cap PO DAILY 07/28/16 08/24/16 History Furosemide [Lasix] 20 mg PO DAILY PRN 08/24/16 08/24/16 History Metoprolol Succinate [Toprol XL] 25 mg PO BID 08/24/16 08/24/16 History Allergies Allergy/AdvReac Type Severity Reaction Status Date / Time adhesive Allergy Rash/Hives Verified 08/24/16 08:10 venom-honey bee Allergy Anaphylaxis Verified 08/24/16 08:10 Physical Exam Osteopathic Statement: *. No significant issues noted on an osteopathic structural exam other than those noted in the History and Physical/Consult. Vitals: Vital Signs Temp Pulse Pulse Resp BP Pulse Ox 08/25/16 13:18 80 08/25/16 13:02 84 08/25/16 07:00 97.5 F L 76 16 119/65 94 L 08/24/16 23:00 97.7 F 85 20 129/84 97 08/24/16 20:27 74 08/24/16 20:16 75 97 08/24/16 16:40 97.9 F 84 18 149/72 92 L Intake and Output 08/24/16 08/25/16 08/25/16 22:59 06:59 14:59 Intake Total 300 Balance 300 Intake: Oral 300 Other: Voiding Method Toilet Toilet # Voids 2 1 Weight 98.883 kg Patient Weight 08/26/16 06:59 Weight 98.883 kg Gen.: Patient is alert and oriented 3, no acute distress, overweight Cardiovascular: Regular rate and rhythm, S1/S2 Lungs: Diminished breath sounds bilaterally with scattered crackles Abdomen: Soft nontender nondistended positive bowel sounds Extremities: Trace to 1+ edema, right greater than left Results - Laboratory Findings CBC and BMP: 08/23/16 23:54 08/23/16 23:54 PT/INR, D-dimer PT 11.3 sec (9.0-12.0) 08/23/16 23:54 INR 1.1 (<1.1) 08/23/16 23:54 Abnormal lab findings: Abnormal Labs 08/23/16 08/23/16 08/23/16 23:54 23:54 23:54 WBC 16.8 H RBC 2.63 L Hgb 8.4 L D Hct 24.2 L RDW 24.5 H Plt Count 73 L D Neutrophils # 12.9 H APTT 20.4 L Sodium 136 L Glucose 222 H POC Glucose (mg/dL) Plasma Lactic Acid Sal AST 46 H Alkaline Phosphatase 163 H Total Protein 6.0 L Albumin 3.2 L 08/23/16 08/24/16 08/24/16 23:54 11:02 17:19 WBC RBC Hgb Hct RDW Plt Count Neutrophils # APTT Sodium Glucose POC Glucose (mg/dL) 152 H 175 H Plasma Lactic Acid Sal 3.2 H* AST Alkaline Phosphatase Total Protein Albumin 08/24/16 08/25/16 08/25/16 20:51 02:18 07:20 WBC RBC Hgb Hct RDW Plt Count Neutrophils # APTT Sodium Glucose POC Glucose (mg/dL) 209 H 131 H 131 H Plasma Lactic Acid Sal AST Alkaline Phosphatase Total Protein Albumin 08/25/16 11:46 WBC RBC Hgb Hct RDW Plt Count Neutrophils # APTT Sodium Glucose POC Glucose (mg/dL) 140 H Plasma Lactic Acid Sal AST Alkaline Phosphatase Total Protein Albumin - Diagnostic Findings Chest x-ray: report reviewed, image reviewed CT scan - chest: report reviewed, image reviewed Assessment and Plan Plan: Acute on chronic hypoxic respiratory failure Acute exacerbation of COPD Idiopathic pulmonary fibrosis Sepsis with SIRS Community acquired pneumonia Pulmonary hypertension Squamous cell carcinoma of the lung Diabetes mellitus type 2 Lower extremity edema GERD Dyslipidemia Hypertension History of coronary artery disease Obstructive sleep apnea on CPAP Hypothyroidism History of tobacco abuse, quit in 2010 O2 to maintain saturation greater than equal to 88% Pulmicort Duonebs PRN Solumedrol taper Antibiotics: Levaquin and Zosyn Sputum, blood cultures Continue Lasix once daily for now GI and DVT prophylaxis, patient encouraged to use heparin subcu due to immobility and cancer she is at higher risk of DVT Incentive spirometry and pulmonary hygiene BS control Thank you for this consultation. We will continue to follow along.
[2016-08-25] MEDS: methylPREDNISolone SOD SUCCI 40 MG/ML 1 ML VIAL IV SCH (15:24)
[2016-08-25] MEDS: IPRATROPIUM-ALBUTEROL 3 ML NEB INHALATION PRN ×2 (16:08→20:30)
[2016-08-25 17:23] LABS: Glucose,Whole Blood 185 mg/dL (75-99)
--- NOTE | 2016-08-25 18:45 | HP ---
DATE OF ADMISSION: CHIEF COMPLAINT: Fatigue and difficulty in breathing. HISTORY OF PRESENT ILLNESS: Ms. Culp is a 65-year-old female who was diagnosed with squamous cell carcinoma of the lung, completed 2 cycles of chemotherapy, type 2 diabetes mellitus, GERD, coronary artery disease, hypertension, and OH, osteoarthritis, sleep apnea admitted to the hospital with a chief complaint of difficulty in breathing and fatigue. Patient is recently diagnosed with stage III squamous lung cancer of the right lung about 3 months back and she completed 2 cycles of chemotherapy. The last chemotherapy was around the ninth of this month. She has been feeling okay but for the past 3 to 4 days has been more short of breath and was having cough, which is productive in nature and last night her symptoms became so worse when she checked her pulse ox it was showing as low as 65 and so she came in to the hospital for further evaluation. The patient denies having any fevers, chills, or rigors. No chest pain or palpitations. She denies having any loss of consciousness or weakness in her extremities. Initially the patient thought that it was because of her lung cancer that her symptoms have been worsening but she was so short of breath that she decided to come to the ER. Patient did get a CTA of the chest this morning as there was a suspicion for PE, but it was negative for PE, but positive for new ground-glass opacities in the bilateral lower lung zambrano. She has empirically been started on Zosyn and Levaquin in view of her recent chemotherapy cycles. REVIEW OF SYSTEMS: CONSTITUTIONAL: Denies having any fevers, chills, or rigors. CARDIAC: No chest pain, no palpitations. RESPIRATORY: As per HPI. GI: No nausea, vomiting, or diarrhea. : No dysuria, hematuria. HEMATOLOGICAL: No history of easy bruising or recurrent infections. MUSCULOSKELETAL: Denies having any joint pains or swelling. SKIN: No rashes. NEUROLOGICAL: Denies having any headaches, weakness or tingling or numbness. PSYCHIATRIC: Patient's reports some anxiety. All 13 review of systems are done and negative except for ones mentioned in the HPI. Past medical history significant for coronary artery disease, squamous cell lung cancer, type 2 diabetes mellitus, hypertension, hyperlipidemia, OH, osteoarthritis, sleep apnea, pulmonary fibrosis. PAST SURGICAL HISTORY: Bladder surgery, heart catheterization with stent, hysterectomy, orthopedic surgery, cardiac stent placement, bilateral cataract surgery, right wrist ganglion cyst removal, knee arthroscopies of the right knee and left knee x2. SOCIAL HISTORY: The patient is a former smoker, smoked almost for 30 years 1 pack per day. She quit 17 years back. Occasional alcohol use. No history of intravenous drug abuse. FAMILY HISTORY: Father at age of 67 due to liver cancer and he also had some bladder cancer issues. Mother significant for coronary artery disease, diabetes mellitus, hypertension, osteoarthritis, and PE. ALLERGIES: POSITIVE FOR VENOM OF HONEY BEE AND ADHESIVE TAPE. Patient's home medications: 1. Amlodipine 5 mg p.o. q.a.m. 2. Omeprazole 20 mg p.o. b.i.d. 3. Xanax 0.25 mg p.o. daily. 4. Nitroglycerin 0.4 mg sublingual q.5 minutes p.r.n. for chest pain. 5. Lipitor 80 mg p.o. q.h.s. 6. Pulmicort b.i.d. 7. Aspirin 81 mg p.o. q.h.s. 8. Losartan hydrochlorothiazide 50/12.5, 1 tablet p.o. q.a.m. 9. Citalopram 40 mg p.o. q.h.s. 10. Levothyroxine 50 mcg p.o. daily. 11. Insulin pump. 12. Coenzyme Q 400 mg p.o. daily. 13. Cholecalciferol 1000 units p.o. daily. 14. Calcium carbonate 600 mg p.o. b.i.d. 15. Magnesium oxide 400 mg p.o. q.h.s. 16. Lactobacillus probiotic 1 capsule p.o. b.i.d. 17. Vitamin B complex 1 tablet p.o. b.i.d. 18. Plavix 75 mg p.o. daily. 19. Lasix 80 mg p.o. daily. 20. Metoprolol 25 mg p.o. b.i.d. On examination, patient's vital signs temperature 96.3, heart rate 86, respiratory rate 16, blood pressure 130/82, saturating at 93% on 5 liters of nasal cannula. GENERAL EXAMINATION: Patient appears to be in slight respiratory distress as she just came out of the restroom and she then sat on a chair beside her bed. HEAD: Atraumatic. Normocephalic. EYES: Pupils round, and reactive to light. Mild pallor. No icterus. NECK: No JVD. No thyromegaly. CARDIOVASCULAR: S1, S2 heard. LUNGS: Diminished breath sounds in all lung zambrano. No active wheezing. Positive for rhonchi in all lung zambrano. ABDOMEN: Soft, nontender. Bowel sounds positive. Organomegaly difficult to appreciate due to huge body habitus. EXTREMITIES: No edema. No cyanosis. No clubbing. CLIMATOLOGY PROFESSOR: Alert, awake, oriented x3. No focal neurological deficits. PSYCHIATRIC: Appropriate mood and affect. SKIN: No rashes. Patient's labs: White count of 16.8, hemoglobin is 8.4, platelets of 73, PT of 11.1, INR 1.1. Sodium is 136, potassium 3.8, chloride 101, bicarb 26, BUN 11, creatinine 0.78, plasma lactic acid level 3.2, AST 46, ALT 48, alkaline phosphatase 163, albumin is 3.2, total protein of 3. Patient did have a CTA of the chest, which was negative for PE but positive new ground-glass opacities in bilateral lower lung zambrano and moderate sized hiatal hernia, pulmonary arterial hypertension without evidence of pulmonary embolism and there is mediastinal lymphadenopathy measuring 2.5 cm consistent with her metastatic disease. ASSESSMENT AND PLAN: 1. Sepsis secondary to health care associated pneumonia. 2. Acute on chronic hypoxic respiratory failure secondary to #1. 3. Acute exacerbation of chronic obstructive pulmonary disease. 4. Chronic obstructive pulmonary disease and pulmonary fibrosis. 5. Squamous cell carcinoma of the right lung with mediastinal lymphadenopathy. 6. Type 2 diabetes mellitus. 7. Gastroesophageal reflux disease. 8. Dyslipidemia. 9. Hypertension. 10. History of coronary artery disease, status post stenting. 11. Obstructive sleep apnea, on CPAP. 12. Hypothyroidism. 13. History of tobacco abuse, quit 17 years back. 14. Multiple orthopedic surgeries in the past. 15. History of anxiety and depression. PLAN: The plan is to continue the patient on antibiotics in the form of Zosyn and Levaquin and continue with breathing treatments, IV steroids and resume her home medications. Overall prognosis is guarded do to chronic multiple conditions and newly diagnosed lung cancer. The treatment plan was discussed in detail with the patient at the bedside.
[2016-08-25 21:08] LABS: Glucose,Whole Blood 279 mg/dL (75-99)
[2016-08-25] MEDS: ASPIRIN 81 MG CHEW PO SCH (22:37)
[2016-08-25] MEDS: CITALOPRAM HYDROBROMIDE 20 MG TAB PO SCH (22:37)
[2016-08-25] MEDS: ATORVASTATIN 80 MG TAB PO SCH (22:37)
[2016-08-26] MEDS: PIPERACILLIN-TAZOBACTAM 3.375 GM in DEXTROSE/WATER 1 50ML.BAG IVPB SCH ×3 (00:49→15:14)
[2016-08-26] MEDS: methylPREDNISolone SOD SUCCI 40 MG/ML 1 ML VIAL IV SCH ×3 (00:49→15:14)
[2016-08-26] MEDS: HEPARIN SODIUM,PORCINE 5,000 UNIT/ML 1 ML VIAL SQ SCH ×3 (00:49→15:14)
[2016-08-26 02:12] LABS: Glucose,Whole Blood 208 mg/dL (75-99)
[2016-08-26] MEDS: LEVOTHYROXINE 50 MCG TAB PO SCH (06:54)
[2016-08-26] MEDS: LEVOFLOXACIN 750 MG TAB PO SCH (06:54)
[2016-08-26 07:33] LABS: Glucose,Whole Blood 220 mg/dL (75-99)
[2016-08-26] MEDS: METOPROLOL SUCCINATE (ER) 25 MG TAB.ER.24H PO SCH ×2 (07:47→21:08)
[2016-08-26] MEDS: MAGNESIUM OXIDE 400 MG TAB PO SCH (07:48)
[2016-08-26] MEDS: LOSARTAN-HCTZ 50-12.5 MG 1 EACH TAB PO SCH (07:48)
[2016-08-26] MEDS: PANTOPRAZOLE 40 MG TABLET PO SCH ×2 (07:48→15:14)
[2016-08-26] MEDS: FUROSEMIDE 20 MG TAB PO SCH (07:48)
[2016-08-26] MEDS: CALCIUM CARBONATE 500 MG CHEWABLE PO SCH ×2 (07:48→21:07)
[2016-08-26] MEDS: amLODIPine 5 MG TAB PO SCH (07:48)
[2016-08-26] MEDS: CLOPIDOGREL 75 MG TAB PO SCH (07:48)
[2016-08-26] MEDS: BUDESONIDE 0.5 MG/2 ML NEBU INHALATION SCH ×2 (08:07→21:10)
[2016-08-26] MEDS: IPRATROPIUM-ALBUTEROL 3 ML NEB INHALATION PRN ×4 (08:07→21:10)
[2016-08-26 09:45] LABS: Anisocytosis Marked; Basophils % (A) 0 %; CHCM 33.7; Eosinophils % (A) 0 %; HCT 25.4 % (34.0-46.0); HDW 3.98; HGB 8.3 gm/dL (11.4-16.0); Hypochromasia Slight; Luc % (Auto) 1; Lymphocytes # (A) 1.3 k/uL (1.0-4.8); Lymphocytes % (A) 7 %; MCH 31.6 pg (25.0-35.0); MCHC 32.8 g/dL (31.0-37.0); MCV 96.3 fL (80.0-100.0); Macrocytosis Moderate; Mean Platelet Volume 7.5; Monocytes # (A) 0.4 k/uL (0-1.0); Monocytes % (A) 2 %; Neutrophils # (A) 17.9 k/uL (1.3-7.7); Neutrophils % (A) 90 %; Poikilocytosis Slight; RBC 2.63 m/uL (3.80-5.40); WBC 19.9 k/uL (3.8-10.6); WBC (Perox) 20.76
[2016-08-26 09:59] LABS: Anion Gap 12 mmol/L; Blood Urea Nitrogen 12 mg/dL (7-17); Calcium 9.3 mg/dL (8.4-10.2); Carbon Dioxide 24 mmol/L (22-30); Chloride 103 mmol/L (98-107); Glucose 194 mg/dL (74-99); Non-African American GFR(MDRD) >60 (>60 ml/min/1.73 sqM); Potassium 4.2 mmol/L (3.5-5.1); Sodium 139 mmol/L (137-145)
[2016-08-26 10:24] LABS: RDW 26.4 % (11.5-15.5)
[2016-08-26 12:15] LABS: Glucose,Whole Blood 286 mg/dL (75-99)
--- NOTE | 2016-08-26 15:22 | P.CONS ---
History of Present Illness - Reason for Consult Consult date: 08/25/16 Squamous cell lung cancer on chemotherapy - History of Present Illness The patient is 65-year-old lady, with a complicated past medical history. She has a long-standing history of idiopathic pulmonary fibrosis with progression, followed by Drs. Barrios and Jaime. She was actually being evaluated for a lung transplant. As part of preprocedure workup, she had a computed tomography scan done that revealed evidence of a right hilar lung mass. Biopsy was positive for squamous cell carcinoma. PET scan appear to indicate stage III disease. Given her underlying lung disease, her situation was quite complicated and she was referred to the [facility]. After extensive discussion with the 11 with the patient, it was decided to treat her with the chemotherapy and possible sequential radiation. She was started on carboplatin and Gemzar, and is status post 2 cycles. The patient is normally on 3-4 L of oxygen at home. His last chemo treatment about a week ago, she had been feeling progressively more tired. On the day of admission, the patient states that she felt " totally drained", as if she was going to collapse. Oxygen saturation dropped into the 60s. She therefore came into the emergency room. Chest x-ray showed the known changes of pulmonary fibrosis without definite evidence of pneumonia. She was therefore admitted for further management. She has a mild cough and has brought up a small amount of blood at home. However this is not very prominent. She denied any fevers, but was noted to have low grade one, in the ER. Consult was therefore placed a further evaluation and recommendations. Review of Systems Constitutional: Reports fatigue, Reports weakness Eyes: denies blurred vision, denies pain Ears: deny: decreased hearing, ear discharge, earache, tinnitus Ears, nose, mouth and throat: Denies headache, Denies sore throat Cardiovascular: Reports palpitations, Reports shortness of breath Respiratory: Reports cough, Reports dyspnea, Reports hemoptysis (minor) Gastrointestinal: Denies abdominal pain, Denies diarrhea, Denies nausea, Denies vomiting Genitourinary: Denies dysuria, Denies hematuria Menstruation: Reports postmenopausal Musculoskeletal: Reports muscle weakness Integumentary: Denies pruritus, Denies rash Neurological: Reports weakness Psychiatric: Denies anxiety, Denies depression Endocrine: Reports fatigue Hematologic/Lymphatic: Reports as per HPI Past Medical History Past Medical History: Coronary Artery Disease (CAD), Cancer, Diabetes Mellitus, GERD/Reflux, Hyperlipidemia, Hypertension, Myocardial Infarction (MS), Osteoarthritis (OA), Skin Disorder, Sleep Apnea/CPAP/BIPAP, Thyroid Disorder Additional Past Medical History / Comment(s): "IDIOPATHIC PULMONARY FIBROSIS DX 2014/PULMONARY HTN DX 2016, HAS AAA THAT DR'S ARE WATCHING, USES O2 NC 3L DURING THE DAY AND 4L AT NIGHT/OR W/ WALKING AND 5 LITERS FOR RECOVERY, STATES HAS "PINCHED NERVE" RT HIP TO KNEE WHICH CAUSES NUMBNESS ON THAT SIDE AT TIMES. HX PSORIASIS ON RIGHT ANKLE. DX 2-2017 W/ LUNG CA - squamous cell with central lymph node involvement. HAS HAD 2 SERIES OF CHEMO(LATEST TX WAS ON 08-09-16) NO RADIATION, DM-HAS INSULIN PUMP, 2NDARYCATARACTS Last Myocardial Infarction Date:: 1998 History of Any Multi-Drug Resistant Organisms: None Reported Past Surgical History: Bladder Surgery, Heart Catheterization, Heart Catheterization With Stent, Hysterectomy, Orthopedic Surgery Additional Past Surgical History / Comment(s): STENT X2 AT 2 DIFFERENT TIMES HX 2 BLADDER SUSPENSIONS, KNEE ARTHROSCOPIES-R KNEE X 1 AND L KNEE X2, R HAND SX WITH PINNING, NOW REMOVED. R WRIST GANGLION CYST REMOVAL X 2. CAROL CATARACT SX Numerous surgeries on BOTH FEET, R/T NEUROMA'S, TOOTH PULLED,BRONCHOSOPY, ENLARGED LYMPH NODE BX, COLONOSOCPY/POLYPS-NEG Past Anesthesia/Blood Transfusion Reactions: No Reported Reaction Additional Past Anesthesia/Blood Transfusion Reaction / Comm: NEVER RECIEVED BLOOD. Date of Last Stent Placement:: 01/08/14 Past Psychological History: Anxiety, Depression Additional Psychological History / Comment(s): PT TAKES CITALOPRAM BUT SHE FEELS NOT HELPING MUCH PT LIVES AT HOME WITH AND ADULT SON. SHE CAN TAKE CARE OF HERSELF. NO OUTSIDE SERVICES. HAS HOME 02/BIPAP, INSULIN PUMP.PT USED TO WORK A ASSOCIATE ART DIRECTOR. Smoking Status: Former smoker Past Alcohol Use History: Rare Additional Past Alcohol Use History / Comment(s): STARTED SMOKING AT AGE 16, quit in 2010, WAS SMOKING 2 PPD. Past Drug Use History: None Reported Additional Drug Use History / Comment(s): patient has used cannibus oil ON RARE OCC for pulmonary fibrosis. - Past Family History Father Family Medical History: Cancer, Hypertension Additional Family Medical History / Comment(s): FATHER OF LIVER CA AT AGE 67 YRS. HE ALSO HAD AORTIC ANEURYSM. Mother Family Medical History: Coronary Artery Disease (CAD), Diabetes Mellitus, Hypertension, Osteoarthritis (OA), Pulmonary Embolus Additional Family Medical History / Comment(s): MOTHER OF EMBOLISM IN LUNG FOLLOWING REHAB FOR HIP SURGERY AT AGE 65. Medications and Allergies Home Medications Medication Instructions Recorded Confirmed Type ALPRAZolam [Xanax] 0.25 mg PO DAILY PRN 01/08/14 08/24/16 History Omeprazole 20 mg PO BID 01/08/14 08/24/16 History amLODIPine BESYLATE [Amlodipine 5 mg PO QAM 01/08/14 08/24/16 History Besylate] Aspirin EC [Ecotrin Low Dose] 81 mg PO HS 04/21/14 08/24/16 History Atorvastatin [Lipitor] 80 mg PO HS 04/21/14 08/24/16 History Budesonide [Pulmicort] 0.5 mg INHALATION RT-BID 04/21/14 08/24/16 History Citalopram Hydrobromide [CeleXA] 40 mg PO HS 11/15/15 08/24/16 History Levothyroxine Sodium [Synthroid] 50 mcg PO QAM 11/15/15 08/24/16 History Losartan-Hctz 50-12.5 mg [Hyzaar 1 tab PO QAM 11/15/15 08/24/16 History 50-12.5] Insulin Aspart (For Pump) [NovoLOG 0.01 unit SQ-PUMP CONTINUOUS 03/20/16 History (For Pump)] Calcium Carbonate [Calcium] 600 mg PO BID 07/28/16 08/24/16 History Cholecalciferol [Vitamin D3] 5,000 unit PO DAILY 07/28/16 08/24/16 History Clopidogrel [Plavix] 75 mg PO DAILY 07/28/16 08/24/16 History L.acidoph,Paracasei, B.lactis 1 cap PO BID 07/28/16 08/24/16 History [Probiotic] Magnesium Oxide 400 mg PO HS 07/28/16 08/24/16 History Ubidecarenone [Co Q-10] 400 mg PO DAILY 07/28/16 08/24/16 History Vitamin B Complex 1 cap PO DAILY 07/28/16 08/24/16 History Furosemide [Lasix] 20 mg PO DAILY PRN 08/24/16 08/24/16 History Metoprolol Succinate [Toprol XL] 25 mg PO BID 08/24/16 08/24/16 History Allergies Allergy/AdvReac Type Severity Reaction Status Date / Time adhesive Allergy Rash/Hives Verified 08/24/16 08:10 venom-honey bee Allergy Anaphylaxis Verified 08/24/16 08:10 Physical Exam Vitals: Vital Signs Temp Pulse Pulse Resp BP BP Pulse Ox 08/25/16 07:00 97.5 F L 76 16 119/65 94 L 08/24/16 23:00 97.7 F 85 20 129/84 97 08/24/16 20:27 74 08/24/16 20:16 75 97 08/24/16 16:40 97.9 F 84 18 149/72 92 L 08/24/16 13:17 88 20 146/67 95 08/24/16 09:40 84 08/24/16 09:36 84 08/24/16 09:35 138/62 Intake and Output 08/24/16 08/25/16 08/25/16 22:59 06:59 14:59 Intake Total 300 Balance 300 Intake: Oral 300 Other: Voiding Method Toilet # Voids 2 - Constitutional General appearance: mild distress - EENT Eyes: EOMI, PERRLA ENT: hearing grossly normal, normal oropharynx - Neck Neck: lymphadenopathy Thyroid: bilateral: normal size - Respiratory Respiratory: bilateral: rales (coarse) - Cardiovascular Rhythm: regular Heart sounds: normal: S1, S2 - Gastrointestinal General gastrointestinal: normal bowel sounds, soft - Integumentary Integumentary: normal - Neurologic Neurologic: CNII-XII intact - Musculoskeletal Musculoskeletal: generalized weakness, strength equal bilaterally - Psychiatric Psychiatric: A&O x's 3, appropriate affect Results CBC & Chem 7: 08/26/16 08:50 08/26/16 08:50 Labs: Abnormal Lab Results - Last 24 Hours (Table) 08/24/16 08/24/16 08/24/16 Range/Units 11:02 17:19 20:51 POC Glucose (mg/dL) 152 H 175 H 209 H (75-99) mg/dL 08/25/16 08/25/16 Range/Units 02:18 07:20 POC Glucose (mg/dL) 131 H 131 H (75-99) mg/dL Microbiology - Last 24 Hours (Table) 08/23/16 23:54 Blood Culture - Preliminary Blood No Growth after 24 hours Chest x-ray: report reviewed Assessment and Plan (1) Acute and chronic respiratory failure Narrative/Plan: The patient has known idiopathic pulmonary fibrosis and is oxygen dependent. However her current event represents a definite deterioration from her baseline. There is no definite evidence of infection at this time though the patient may have some tracheal bronchitis. She is on antibiotics. I will order a CTA of the chest to rule out a pulmonary embolus, given the acute deterioration, and her increased risk. Pulmonary medicine is on consult. Status: Acute (2) Squamous cell carcinoma of lung, stage III Narrative/Plan: The patient's history is as noted. She is actually tolerated chemotherapy well other than fatigue. Hemoglobin is low from chemo, but in a safe range. Continue to monitor counts. Status: Acute
--- NOTE | 2016-08-26 16:18 | P.PN ---
Subjective Principal diagnosis: Community acquired pneumonia Patient seen and examined. Patient states she is feeling better today. Her breathing is much easier today. She denies any fevers, chills. She states she is using her incentive spirometer. She was able to get up and walk to the bathroom. Objective - Vital Signs Vital signs: Vital Signs Temp 97.4 F L 08/26/16 15:00 Pulse 89 08/26/16 15:00 Resp 16 08/26/16 15:00 BP 133/75 08/26/16 15:00 Pulse Ox 94 L 08/26/16 15:00 Intake & Output 08/25/16 08/26/16 08/26/16 18:59 06:59 18:59 Intake Total 800 Balance 800 Weight 98.883 kg Intake: Oral 800 Other: Voiding Method Toilet Toilet # Voids 1 2 3 # Bowel Movements 1 - Exam Gen.: Patient is alert and oriented 3, no acute distress, overweight Cardiovascular: Regular rate and rhythm, S1/S2 Lungs: Diminished breath sounds bilaterally with scattered crackles Abdomen: Soft nontender nondistended positive bowel sounds Extremities: Trace to 1+ edema, right greater than left - Labs CBC & Chem 7: 08/26/16 08:50 08/26/16 08:50 Labs: Abnormal Lab Results - Last 24 Hours (Table) 08/25/16 08/25/16 08/26/16 Range/Units 16:57 20:58 02:06 WBC (3.8-10.6) k/uL RBC (3.80-5.40) m/uL Hgb (11.4-16.0) gm/dL Hct (34.0-46.0) % RDW (11.5-15.5) % Neutrophils # (1.3-7.7) k/uL Glucose (74-99) mg/dL POC Glucose (mg/dL) 185 H 279 H 208 H (75-99) mg/dL 08/26/16 08/26/16 08/26/16 Range/Units 07:26 08:50 08:50 WBC 19.9 H (3.8-10.6) k/uL RBC 2.63 L (3.80-5.40) m/uL Hgb 8.3 L (11.4-16.0) gm/dL Hct 25.4 L (34.0-46.0) % RDW 26.4 H (11.5-15.5) % Neutrophils # 17.9 H (1.3-7.7) k/uL Glucose 194 H (74-99) mg/dL POC Glucose (mg/dL) 220 H (75-99) mg/dL 08/26/16 Range/Units 12:08 WBC (3.8-10.6) k/uL RBC (3.80-5.40) m/uL Hgb (11.4-16.0) gm/dL Hct (34.0-46.0) % RDW (11.5-15.5) % Neutrophils # (1.3-7.7) k/uL Glucose (74-99) mg/dL POC Glucose (mg/dL) 286 H (75-99) mg/dL Microbiology - Last 24 Hours (Table) 08/24/16 08:57 Blood Culture - Preliminary Blood No Growth after 48 hours 08/24/16 08:49 Blood Culture - Preliminary Blood No Growth after 48 hours 08/23/16 23:54 Blood Culture - Preliminary Blood No Growth after 48 hours 08/25/16 16:20 Gram Stain - Preliminary Sputum Assessment and Plan Plan: Acute on chronic hypoxic respiratory failure Acute exacerbation of COPD Idiopathic pulmonary fibrosis Sepsis with SIRS Community acquired pneumonia Pulmonary hypertension Squamous cell carcinoma of the lung Diabetes mellitus type 2 Lower extremity edema GERD Dyslipidemia Hypertension History of coronary artery disease Obstructive sleep apnea on CPAP Hypothyroidism History of tobacco abuse, quit in 2010 O2 to maintain saturation greater than equal to 88% Pulmicort Duonebs PRN Solumedrol taper Antibiotics: Levaquin and Zosyn Sputum, blood cultures Continue Lasix once daily for now GI and DVT prophylaxis, patient encouraged to use heparin subcu due to immobility and cancer she is at higher risk of DVT Incentive spirometry and pulmonary hygiene BS control
[2016-08-26 17:08] LABS: Glucose,Whole Blood 233 mg/dL (75-99)
[2016-08-26] MEDS: Insulin Aspart (For Pump) 100 UNIT/ML VIAL SQ-PUMP SCH (18:17)
--- NOTE | 2016-08-26 18:57 | PN ---
CHIEF COMPLAINT: Difficulty in breathing DATE OF SERVICE: 08/26/2016 INTERVAL HISTORY: Ms. Culp is a 65-year-old female who was diagnosed with squamous cell carcinoma of the lung, completed 2 cycles of chemotherapy, Type 2 diabetes mellitus, GERD, coronary artery disease, hypertension, NM, osteoarthritis, sleep apnea, admitted to the hospital with a chief complaint of difficulty in breathing and fatigue. She was recently diagnosed with stage III squamous cell lung cancer and completed 2 cycles of chemotherapy. The last chemotherapy was ninth of this month. She is currently being treated for ( ) associated pneumonia. She is on Levaquin and Zosyn. Patient today is sitting up in the bed, appears to be comfortable. She states that she has difficulty in breathing with mild exertion and once she is back to her bed and after a few minutes she feels better and she states that it has improved and the shortness of breath has improved to some extent compared to when she came in. REVIEW OF SYSTEMS: CONSTITUTIONAL: Denies having any fevers, chills, or rigors. CARDIAC: No chest pain or palpitations. GASTROINTESTINAL: No abdominal pain, nausea or vomiting. No diarrhea. : No dysuria, or hematuria. The patient's medications have been reviewed. On examination, patient's vital signs: temperature 97.5, heart rate 89, respiratory rate is 16, blood pressure 133/75, saturating at 94% on 6 liters of nasal cannula. GENERAL EXAMINATION: Patient appears to be no acute distress. HEAD: Atraumatic, nontraumatic. EYES: Pupils, equal, round, and reactive to light. Mild pallor. No icterus. NECK: No JVD. No thyromegaly. CARDIOVASCULAR: S1, S2 heard. LUNGS: Diminished breath sounds in all lung zambrano. Right breath sounds are less compared to the left side and no active wheezing. ABDOMEN: Soft, nontender. Bowel sounds positive. EXTREMITIES: No edema. No cyanosis, no clubbing. LAMINA SEARCHER: Alert, awake and oriented x3. No focal deficits. PSYCHIATRIC: Appropriate mood and affect. SKIN: No rash. The patient's labs: White count of 19.9, hemoglobin is 8.3, platelets of 218. Sodium is 139, potassium 4.24, chloride 103, bicarb 24, BUN 12, creatinine 0.64. ASSESSMENT AND PLAN: 1. Sepsis secondary to health care associated pneumonia. 2. Acute on chronic hypoxic respiratory failure secondary to number one. 3. Acute exacerbation of chronic obstructive pulmonary disease. 4. Squamous cell carcinoma of the lung with mediastinal lymphadenopathy. 5. Type 2 diabetes mellitus. 6. Gastroesophageal reflux disease. 7. Dyslipidemia. 8. Hypertension. 9. History of coronary artery disease, status post stenting. 10. Obstructive sleep apnea. 11. Hypothyroidism, 12. History of multiple orthopedic surgeries in the past. 13. History of anxiety and depression. PLAN: Continue the patient on Zosyn and Levaquin. Continue with IV steroids and continue the rest of the current medication regimen. Overall prognosis is guarded due to chronic multiple conditions and newly diagnosed lung cancer. Further recommendations to follow depending on the progress of the patient. MTDD
[2016-08-26 20:11] LABS: Glucose,Whole Blood 226 mg/dL (75-99)
[2016-08-26] MEDS: ATORVASTATIN 80 MG TAB PO SCH (21:04)
[2016-08-26] MEDS: CITALOPRAM HYDROBROMIDE 20 MG TAB PO SCH (21:07)
[2016-08-26] MEDS: ASPIRIN 81 MG CHEW PO SCH (21:07)
[2016-08-27] MEDS: PIPERACILLIN-TAZOBACTAM 3.375 GM in DEXTROSE/WATER 1 50ML.BAG IVPB SCH ×4 (00:38→23:16)
[2016-08-27] MEDS: HEPARIN SODIUM,PORCINE 5,000 UNIT/ML 1 ML VIAL SQ SCH ×4 (00:39→23:02)
[2016-08-27] MEDS: methylPREDNISolone SOD SUCCI 40 MG/ML 1 ML VIAL IV SCH ×2 (05:44→17:48)
[2016-08-27] MEDS: LEVOTHYROXINE 50 MCG TAB PO SCH (06:12)
[2016-08-27 07:29] LABS: Glucose,Whole Blood 148 mg/dL (75-99)
[2016-08-27 07:51] LABS: Anisocytosis Marked; Basophils % (A) 0 %; CH 31.9; CHCM 33.8; Eosinophils % (A) 0 %; HCT 24.6 % (34.0-46.0); HDW 4.23; HGB 8.2 gm/dL (11.4-16.0); Hypochromasia Slight; Luc # (Auto) 0.31; Luc % (Auto) 2; Lymphocytes # (A) 1.6 k/uL (1.0-4.8); Lymphocytes % (A) 10 %; MCHC 33.3 g/dL (31.0-37.0); MCV 95.9 fL (80.0-100.0); Macrocytosis Moderate; Mean Platelet Volume 7.2; Monocytes # (A) 0.6 k/uL (0-1.0); Monocytes % (A) 4 %; Neutrophils # (A) 13.4 k/uL (1.3-7.7); Neutrophils % (A) 84 %; Poikilocytosis Moderate; RBC 2.57 m/uL (3.80-5.40); WBC (Perox) 16.36
[2016-08-27 07:59] LABS: RDW 27.4 % (11.5-15.5)
[2016-08-27] MEDS ORDERED: INSULIN LISPRO (humaLOG) 300 UNIT/3 ML VIAL SQ PRN (08:05)
[2016-08-27] MEDS ORDERED: INSPUCOR MISCELLANE PRN ×2 (08:05→11:50)
[2016-08-27] MEDS ORDERED: INSULIN PUMP BASAL RATES 1 EACH MISC MISCELLANE PRN (08:05)
[2016-08-27] MEDS: LEVOFLOXACIN 750 MG TAB PO SCH (08:20)
[2016-08-27] MEDS: PANTOPRAZOLE 40 MG TABLET PO SCH ×2 (08:20→17:48)
[2016-08-27] MEDS: CALCIUM CARBONATE 500 MG CHEWABLE PO SCH ×2 (08:20→19:39)
[2016-08-27] MEDS: FUROSEMIDE 20 MG TAB PO SCH (08:20)
[2016-08-27] MEDS: CLOPIDOGREL 75 MG TAB PO SCH (08:20)
[2016-08-27] MEDS: LOSARTAN-HCTZ 50-12.5 MG 1 EACH TAB PO SCH (08:21)
[2016-08-27] MEDS: amLODIPine 5 MG TAB PO SCH (08:21)
[2016-08-27] MEDS: METOPROLOL SUCCINATE (ER) 25 MG TAB.ER.24H PO SCH ×2 (08:21→23:01)
[2016-08-27 08:26] LABS: Anion Gap 9 mmol/L; Blood Urea Nitrogen 14 mg/dL (7-17); Carbon Dioxide 27 mmol/L (22-30); Chloride 104 mmol/L (98-107); Glucose 129 mg/dL (74-99); Non-African American GFR(MDRD) >60 (>60 ml/min/1.73 sqM); Potassium 3.9 mmol/L (3.5-5.1); Sodium 140 mmol/L (137-145)
[2016-08-27] MEDS: BUDESONIDE 0.5 MG/2 ML NEBU INHALATION SCH ×3 (09:43→21:16)
[2016-08-27 10:27] LABS: Hemoglobin A1C 8.6 % (4.2-6.1)
[2016-08-27 11:38] LABS: Glucose,Whole Blood 244 mg/dL (75-99)
[2016-08-27] MEDS ORDERED: INSULIN PUMP TARGET GLUCOSE 1 EACH MISC MISCELLANE PRN (11:48)
[2016-08-27] MEDS ORDERED: INSULIN PUMP ACTIVE INSULIN 1 EACH MISC MISCELLANE PRN (11:48)
[2016-08-27] MEDS: IPRATROPIUM-ALBUTEROL 3 ML NEB INHALATION PRN ×3 (12:17→21:16)
[2016-08-27] MEDS ORDERED: INSULIN PUMP MEAL BOLUS 1 UNIT MISC MISCELLANE SCH (12:30)
[2016-08-27] MEDS: MAGNESIUM OXIDE 400 MG TAB PO SCH (13:25)
--- NOTE | 2016-08-27 14:32 | P.PN ---
Subjective Principal diagnosis: Patient seen and examined. Patient states she is feeling better today. She states her cough is improving. She is on 6L NC. She usually uses 4-5L at baseline. Objective - Vital Signs Vital signs: Vital Signs Temp 97.4 F L 08/27/16 07:00 Pulse 88 08/27/16 12:32 Resp 20 08/27/16 07:00 BP 137/63 08/27/16 07:00 Pulse Ox 95 08/27/16 12:15 Intake & Output 08/26/16 08/27/16 08/27/16 18:59 06:59 18:59 Intake Total 1000 Balance 1000 Intake: Oral 1000 Other: Voiding Method Toilet Toilet Toilet # Voids 3 1 - Exam Gen.: Patient is alert and oriented 3, no acute distress, overweight Cardiovascular: Regular rate and rhythm, S1/S2 Lungs: Diminished breath sounds bilaterally with scattered crackles Abdomen: Soft nontender nondistended positive bowel sounds Extremities: Trace to 1+ edema, right greater than left - Labs CBC & Chem 7: 08/27/16 07:15 08/27/16 07:15 Labs: Abnormal Lab Results - Last 24 Hours (Table) 08/26/16 08/26/16 08/27/16 Range/Units 17:04 20:06 07:10 WBC (3.8-10.6) k/uL RBC (3.80-5.40) m/uL Hgb (11.4-16.0) gm/dL Hct (34.0-46.0) % RDW (11.5-15.5) % Neutrophils # (1.3-7.7) k/uL Glucose (74-99) mg/dL POC Glucose (mg/dL) 233 H 226 H 148 H (75-99) mg/dL Hemoglobin A1c (4.2-6.1) % 08/27/16 08/27/16 08/27/16 Range/Units 07:15 07:15 07:15 WBC 16.0 H (3.8-10.6) k/uL RBC 2.57 L (3.80-5.40) m/uL Hgb 8.2 L (11.4-16.0) gm/dL Hct 24.6 L (34.0-46.0) % RDW 27.4 H (11.5-15.5) % Neutrophils # 13.4 H (1.3-7.7) k/uL Glucose 129 H (74-99) mg/dL POC Glucose (mg/dL) (75-99) mg/dL Hemoglobin A1c 8.6 H (4.2-6.1) % 08/27/16 Range/Units 11:34 WBC (3.8-10.6) k/uL RBC (3.80-5.40) m/uL Hgb (11.4-16.0) gm/dL Hct (34.0-46.0) % RDW (11.5-15.5) % Neutrophils # (1.3-7.7) k/uL Glucose (74-99) mg/dL POC Glucose (mg/dL) 244 H (75-99) mg/dL Hemoglobin A1c (4.2-6.1) % Microbiology - Last 24 Hours (Table) 08/24/16 08:57 Blood Culture - Preliminary Blood No Growth after 72 hours 08/24/16 08:49 Blood Culture - Preliminary Blood No Growth after 72 hours 08/25/16 16:20 Gram Stain - Final Sputum Sputum Culture - Final 08/23/16 23:54 Blood Culture - Preliminary Blood No Growth after 72 hours Assessment and Plan Plan: Acute on chronic hypoxic respiratory failure Acute exacerbation of COPD Idiopathic pulmonary fibrosis Sepsis with SIRS Community acquired pneumonia Pulmonary hypertension Squamous cell carcinoma of the lung Diabetes mellitus type 2 Lower extremity edema GERD Dyslipidemia Hypertension History of coronary artery disease Obstructive sleep apnea on CPAP Hypothyroidism History of tobacco abuse, quit in 2010 O2 to maintain saturation greater than equal to 88% Pulmicort Duonebs PRN Solumedrol taper Antibiotics: Levaquin and Zosyn Sputum, blood cultures Continue Lasix once daily for now GI and DVT prophylaxis, patient encouraged to use heparin subcu due to immobility and cancer she is at higher risk of DVT Incentive spirometry and pulmonary hygiene BS control
--- NOTE | 2016-08-27 15:27 | P.PN ---
Subjective Principal diagnosis: SOB, ELOISA Pt seen today in follow up, she states feeling good but her O2 needs are still quite high compared to baseline. She is tolerating oral intake, no fevers, nausea, diarrhea or constipation, she is ambulating to bathroom. Her O2 is currently at 6L requiring 10L for recovery after activity. Her baseline is 3L sitting, 4L moving and 5L for recovery. Objective - Vital Signs Vital signs: Vital Signs Temp 97.4 F L 08/27/16 07:00 Pulse 88 08/27/16 12:32 Resp 20 08/27/16 07:00 BP 137/63 08/27/16 07:00 Pulse Ox 95 08/27/16 12:15 Intake & Output 08/26/16 08/27/16 08/27/16 18:59 06:59 18:59 Intake Total 1000 Balance 1000 Intake: Oral 1000 Other: Voiding Method Toilet Toilet Toilet # Voids 3 1 - Constitutional General appearance: Present: cooperative, no acute distress - EENT Eyes: Present: EOMI, normal appearance ENT: Present: normal oropharynx - Respiratory Respiratory: bilateral: CTA, diminished - Cardiovascular Rhythm: regular Heart sounds: normal: S1, S2 - Peripheral edema leg Peripheral Edema: bilateral: None - Gastrointestinal General gastrointestinal: Present: normal bowel sounds, soft - Integumentary Integumentary: Present: pale - Neurologic Neurologic: Present: CNII-XII intact - Musculoskeletal Musculoskeletal: Present: generalized weakness, strength equal bilaterally - Psychiatric Psychiatric: Present: A&O x's 3, appropriate affect, intact judgment & insight - Labs CBC & Chem 7: 08/27/16 07:15 08/27/16 07:15 Labs: Abnormal Lab Results - Last 24 Hours (Table) 08/26/16 08/26/16 08/27/16 Range/Units 17:04 20:06 07:10 WBC (3.8-10.6) k/uL RBC (3.80-5.40) m/uL Hgb (11.4-16.0) gm/dL Hct (34.0-46.0) % RDW (11.5-15.5) % Neutrophils # (1.3-7.7) k/uL Glucose (74-99) mg/dL POC Glucose (mg/dL) 233 H 226 H 148 H (75-99) mg/dL Hemoglobin A1c (4.2-6.1) % 08/27/16 08/27/16 08/27/16 Range/Units 07:15 07:15 07:15 WBC 16.0 H (3.8-10.6) k/uL RBC 2.57 L (3.80-5.40) m/uL Hgb 8.2 L (11.4-16.0) gm/dL Hct 24.6 L (34.0-46.0) % RDW 27.4 H (11.5-15.5) % Neutrophils # 13.4 H (1.3-7.7) k/uL Glucose 129 H (74-99) mg/dL POC Glucose (mg/dL) (75-99) mg/dL Hemoglobin A1c 8.6 H (4.2-6.1) % 08/27/16 Range/Units 11:34 WBC (3.8-10.6) k/uL RBC (3.80-5.40) m/uL Hgb (11.4-16.0) gm/dL Hct (34.0-46.0) % RDW (11.5-15.5) % Neutrophils # (1.3-7.7) k/uL Glucose (74-99) mg/dL POC Glucose (mg/dL) 244 H (75-99) mg/dL Hemoglobin A1c (4.2-6.1) % Microbiology - Last 24 Hours (Table) 08/24/16 08:57 Blood Culture - Preliminary Blood No Growth after 72 hours 08/24/16 08:49 Blood Culture - Preliminary Blood No Growth after 72 hours 08/25/16 16:20 Gram Stain - Final Sputum Sputum Culture - Final 08/23/16 23:54 Blood Culture - Preliminary Blood No Growth after 72 hours - Imaging and Cardiology CT scan - chest: report reviewed Assessment and Plan (1) Squamous cell carcinoma of lung, stage III Narrative/Plan: Pt is tolerating treatment rather well. [place] that her current condition is r/t more to exacerbation of her Pulmonary fibrosis as she is improving with abx and steroids. Pulmonary following and we will defer to them for management CTA was negative for PE Status: Chronic (2) Anemia aplastic aregenerative Narrative/Plan: Secondary to chemotherapy. No acute intervention at this time. Status: Acute
[2016-08-27] MEDS: INSULIN PUMP MEAL BOLUS 1 UNIT MISC MISCELLANE SCH ×3 (15:30→23:01)
[2016-08-27 17:13] LABS: Glucose,Whole Blood 153 mg/dL (75-99)
[2016-08-27] MEDS: Insulin Aspart (For Pump) 100 UNIT/ML VIAL SQ-PUMP SCH (17:35)
[2016-08-27] MEDS: ASPIRIN 81 MG CHEW PO SCH (19:38)
[2016-08-27] MEDS: ATORVASTATIN 80 MG TAB PO SCH (19:38)
[2016-08-27] MEDS: CITALOPRAM HYDROBROMIDE 20 MG TAB PO SCH (19:39)
[2016-08-27 20:34] LABS: Glucose,Whole Blood 180 mg/dL (75-99)
[2016-08-28] MEDS: INSULIN PUMP MEAL BOLUS 1 UNIT MISC MISCELLANE SCH ×5 (00:30→23:37)
[2016-08-28 02:19] LABS: Glucose,Whole Blood 217 mg/dL (75-99)
[2016-08-28] MEDS: LEVOTHYROXINE 50 MCG TAB PO SCH (06:33)
[2016-08-28] MEDS: methylPREDNISolone SOD SUCCI 40 MG/ML 1 ML VIAL IV SCH ×2 (06:33→17:48)
[2016-08-28] MEDS: LEVOFLOXACIN 750 MG TAB PO SCH (06:33)
[2016-08-28 06:59] LABS: Glucose,Whole Blood 134 mg/dL (75-99)
[2016-08-28] MEDS: IPRATROPIUM-ALBUTEROL 3 ML NEB INHALATION PRN ×4 (07:06→20:04)
[2016-08-28] MEDS: BUDESONIDE 0.5 MG/2 ML NEBU INHALATION SCH ×2 (07:06→20:04)
[2016-08-28 07:30] VITALS: RESP 20
--- NOTE | 2016-08-28 08:19 | PN ---
DATE OF SERVICE: 08/27/2016 This 65-year-old woman who was admitted with difficulty in breathing and chronic obstructive pulmonary disease acute exacerbation. The patient is being closely monitored. The patient is also being followed by Hematology/Oncology Team as well as Dr. Sandoval. No chest pain, no palpitations. No fever. On exam, alert and oriented x3. Pulse is 80. Blood pressure 130/61, respirations 20, temperature 97.9, pulse ox 97% on 6-L. HEENT: Conjunctivae normal. NECK: No jugular venous distention. CARDIOVASCULAR: S1 and S2, muffled. RESPIRATORY: Breath sounds diminished at the bases. A few scattered rhonchi and crackles. ABDOMEN: Soft, nontender. No mass palpable. LEGS: No edema, no swelling. NERVOUS SYSTEM: No focal deficits. LABS: WBC 16, hemoglobin 8.2, glucose 244. ASSESSMENT: 1. Chronic obstructive pulmonary disease acute exacerbation with acute healthcare associated pneumonia with associated sepsis, present on admission. 2. Acute hypoxic respiratory failure secondary to chronic obstructive pulmonary disease acute exacerbation, present on admission. 3. Squamous cell carcinoma of the lung with mediastinal lymphadenopathy. 4. Diabetes mellitus type 2. 5. History of gastroesophageal reflux disease. 6. Hypertension, essential. 7. Hyperlipidemia. 8. History of coronary artery disease, coronary artery bypass graft. 9. Obstructive sleep apnea. 10. History of hypothyroidism. 11. History of multiple orthopedic surgeries in the past. 12. History of anxiety and depression, not otherwise specified. 13. Obesity with body mass index of 37.4. 14. FULL CODE. RECOMMENDATIONS AND DISCUSSION: I recommended to continue current medications. Continue to monitor and symptomatic treatment. The lungs appear to be improving at this time. Would recommend to continue broad-spectrum IV antibiotics and steroids have been tapered. Closely follow with Dr. Sandoval. Prognosis guarded because of multiple complex medical issues. Further recommendations to follow.
[2016-08-28] MEDS: amLODIPine 5 MG TAB PO SCH (08:26)
[2016-08-28] MEDS: LOSARTAN-HCTZ 50-12.5 MG 1 EACH TAB PO SCH (08:26)
[2016-08-28] MEDS: HEPARIN SODIUM,PORCINE 5,000 UNIT/ML 1 ML VIAL SQ SCH ×3 (08:26→23:38)
[2016-08-28] MEDS: CLOPIDOGREL 75 MG TAB PO SCH (08:26)
[2016-08-28] MEDS: PANTOPRAZOLE 40 MG TABLET PO SCH ×2 (08:26→17:47)
[2016-08-28] MEDS: METOPROLOL SUCCINATE (ER) 25 MG TAB.ER.24H PO SCH ×2 (08:26→21:03)
[2016-08-28] MEDS: FUROSEMIDE 20 MG TAB PO SCH (08:26)
[2016-08-28] MEDS: CALCIUM CARBONATE 500 MG CHEWABLE PO SCH ×2 (08:26→21:03)
[2016-08-28] MEDS: PIPERACILLIN-TAZOBACTAM 3.375 GM in DEXTROSE/WATER 1 50ML.BAG IVPB SCH ×3 (09:12→23:38)
[2016-08-28 11:32] LABS: Glucose,Whole Blood 245 mg/dL (75-99)
[2016-08-28] MEDS: MAGNESIUM OXIDE 400 MG TAB PO SCH (13:18)
[2016-08-28] MEDS: Insulin Aspart (For Pump) 100 UNIT/ML VIAL SQ-PUMP SCH (15:28)
[2016-08-28 17:19] LABS: Glucose,Whole Blood 184 mg/dL (75-99)
--- NOTE | 2016-08-28 18:19 | P.PN ---
Subjective Principal diagnosis: Acute on chronic hypoxic respiratory failure Patient seen and examined. Patient states her breathing is much better today. She is on 5L NC and 8L NC for recovery after activity. She says her cough is improving. She has no other concerns or needs at this time. Objective - Vital Signs Vital signs: Vital Signs Temp 98 F 08/28/16 15:00 Pulse 76 08/28/16 16:25 Resp 20 08/28/16 15:00 BP 105/54 08/28/16 15:00 Pulse Ox 98 08/28/16 16:17 Intake & Output 08/27/16 08/28/16 08/28/16 18:59 06:59 18:59 Intake Total 50 1250 50 Balance 50 1250 50 Intake: Intake, IV Titration 50 50 50 Amount Piperacillin-Tazobactam 3 50 50 50 .375 gm In Dextrose/Water 1 50ml.bag @ 12.5 mls/hr IVPB Q8HR JOSE Rx#: [id number] Oral 1200 Other: Voiding Method Toilet Toilet # Voids 3 - Exam Gen.: Patient is alert and oriented 3, no acute distress, overweight Cardiovascular: Regular rate and rhythm, S1/S2 Lungs: Diminished breath sounds bilaterally with scattered crackles Abdomen: Soft nontender nondistended positive bowel sounds Extremities: Trace to 1+ edema, right greater than left - Labs CBC & Chem 7: 08/27/16 07:15 08/27/16 07:15 Labs: Abnormal Lab Results - Last 24 Hours (Table) 08/27/16 08/28/16 08/28/16 Range/Units 20:13 02:16 06:58 POC Glucose (mg/dL) 180 H 217 H 134 H (75-99) mg/dL 08/28/16 08/28/16 Range/Units 11:26 17:17 POC Glucose (mg/dL) 245 H 184 H (75-99) mg/dL Microbiology - Last 24 Hours (Table) 08/24/16 08:57 Blood Culture - Preliminary Blood No Growth after 96 hours 08/24/16 08:49 Blood Culture - Preliminary Blood No Growth after 96 hours 08/23/16 23:54 Blood Culture - Preliminary Blood No Growth after 96 hours Assessment and Plan Plan: Acute on chronic hypoxic respiratory failure Acute exacerbation of COPD Idiopathic pulmonary fibrosis Sepsis with SIRS Community acquired pneumonia Pulmonary hypertension Squamous cell carcinoma of the lung Diabetes mellitus type 2 Lower extremity edema GERD Dyslipidemia Hypertension History of coronary artery disease Obstructive sleep apnea on CPAP Hypothyroidism History of tobacco abuse, quit in 2010 O2 to maintain saturation greater than equal to 88% Pulmicort Duonebs PRN Solumedrol taper Antibiotics: Levaquin and Zosyn Sputum, blood cultures Continue Lasix once daily for now GI and DVT prophylaxis, patient encouraged to use heparin subcu due to immobility and cancer she is at higher risk of DVT Incentive spirometry and pulmonary hygiene BS control
--- NOTE | 2016-08-28 19:39 | PN ---
DATE OF SERVICE: 08/28/2016 This 65-year-old woman who was admitted with COPD, acute exacerbation, as well as acute hypoxic respiratory failure, is being closely monitored. Patient is still periodically hypoxic. No chest pain. No palpitation. No fever. On exam, alert and oriented x3. Pulse is 68, blood pressure 120/58, respiration 20, temperature 98 degrees, pulse ox 98% on 6 L. HEENT: Conjunctivae normal. NECK: No jugular venous distention. CARDIOVASCULAR SYSTEM: S1, S2 muffled. RESPIRATORY SYSTEM: Breath sounds diminished at the bases. Bilateral scattered rhonchi and expiratory wheezing and crackles. ABDOMEN: Soft, non-tender. LEGS: No edema. No swelling. NERVOUS SYSTEM: No focal deficit. Labs at this time show glucose 135, 245. Other labs are noted. ASSESSMENT: 1. Chronic obstructive pulmonary disease, acute exacerbation, with acute healthcare-associated pneumonia with associated sepsis, due to possibly gram negative bacteria, present on admission. 2. Acute hypoxic respiratory failure secondary to chronic obstructive pulmonary disease, acute exacerbation, present on admission. 3. Squamous cell carcinoma of the lung with mediastinal lymphadenopathy. 4. Diabetes mellitus, type 2. 5. History of gastroesophageal reflux disease. 6. Hypertension, essential. 7. Hyperlipidemia. 8. History of coronary artery disease, coronary artery bypass grafting. 9. Obstructive sleep apnea. 10. History of hypothyroidism. 11. History of multiple orthopedic surgeries in the past. 12. Anxiety, depression not otherwise specified. 13. Obesity with a body mass index of 37.4. 14. FULL CODE. RECOMMENDATIONS AND DISCUSSION: I recommend to continue with the current medications, continue with the monitoring, symptomatic treatment. Otherwise, at this time we will continue with the bronchodilators and steroids, closely follow with Pulmonary. Further recommendations to follow. MTDD
[2016-08-28 20:39] LABS: Glucose,Whole Blood 183 mg/dL (75-99)
[2016-08-28] MEDS: CITALOPRAM HYDROBROMIDE 20 MG TAB PO SCH (21:03)
[2016-08-28] MEDS: ATORVASTATIN 80 MG TAB PO SCH (21:03)
[2016-08-28] MEDS: ASPIRIN 81 MG CHEW PO SCH (21:04)
[2016-08-29 02:32] LABS: Glucose,Whole Blood 205 mg/dL (75-99)
[2016-08-29] MEDS: methylPREDNISolone SOD SUCCI 40 MG/ML 1 ML VIAL IV SCH (06:30)
[2016-08-29] MEDS: LEVOTHYROXINE 50 MCG TAB PO SCH (06:30)
[2016-08-29] MEDS: PANTOPRAZOLE 40 MG TABLET PO SCH ×2 (09:11→17:15)
[2016-08-29] MEDS: amLODIPine 5 MG TAB PO SCH (09:11)
[2016-08-29] MEDS: CALCIUM CARBONATE 500 MG CHEWABLE PO SCH ×2 (09:11→21:53)
[2016-08-29] MEDS: LOSARTAN-HCTZ 50-12.5 MG 1 EACH TAB PO SCH (09:11)
[2016-08-29] MEDS: FUROSEMIDE 20 MG TAB PO SCH (09:11)
[2016-08-29] MEDS: METOPROLOL SUCCINATE (ER) 25 MG TAB.ER.24H PO SCH ×2 (09:12→21:53)
[2016-08-29] MEDS: HEPARIN SODIUM,PORCINE 5,000 UNIT/ML 1 ML VIAL SQ SCH ×2 (09:12→17:08)
[2016-08-29] MEDS: CLOPIDOGREL 75 MG TAB PO SCH (09:13)
[2016-08-29] MEDS: LEVOFLOXACIN 750 MG TAB PO SCH (09:13)
[2016-08-29] MEDS: PIPERACILLIN-TAZOBACTAM 3.375 GM in DEXTROSE/WATER 1 50ML.BAG IVPB SCH ×2 (09:14→17:06)
[2016-08-29] MEDS: IPRATROPIUM-ALBUTEROL 3 ML NEB INHALATION PRN ×4 (09:20→21:31)
[2016-08-29] MEDS: INSULIN PUMP MEAL BOLUS 1 UNIT MISC MISCELLANE SCH ×3 (09:20→17:45)
[2016-08-29] MEDS: BUDESONIDE 0.5 MG/2 ML NEBU INHALATION SCH ×2 (09:20→21:30)
[2016-08-29 09:29] LABS: ALT 71 U/L (9-52); AST 71 U/L (14-36); Alkaline Phosphatase 97 U/L (38-126); Anion Gap 9 mmol/L; Blood Urea Nitrogen 19 mg/dL (7-17); Calcium 9.3 mg/dL (8.4-10.2); Carbon Dioxide 28 mmol/L (22-30); Chloride 103 mmol/L (98-107); Glucose 98 mg/dL (74-99); Non-African American GFR(MDRD) >60 (>60 ml/min/1.73 sqM); Potassium 4.1 mmol/L (3.5-5.1); Sodium 140 mmol/L (137-145); Total Bilirubin 0.7 mg/dL (0.2-1.3)
[2016-08-29 09:53] LABS: Anisocytosis Marked; CH 32.7; CHCM 33.2; HCT 26.7 % (34.0-46.0); HDW 4.24; HGB 8.5 gm/dL (11.4-16.0); Hypochromasia Slight; MCH 32.2 pg (25.0-35.0); MCHC 31.9 g/dL (31.0-37.0); MCV 100.8 fL (80.0-100.0); Macrocytosis Marked; Mean Platelet Volume 6.9; Poikilocytosis Moderate; RBC 2.65 m/uL (3.80-5.40); WBC 13.7 k/uL (3.8-10.6); WBC (Perox) 14.34
[2016-08-29 10:18] LABS: RDW 28.2 % (11.5-15.5)
--- NOTE | 2016-08-29 11:22 | XR ---
EXAMINATION TYPE: XR chest 1V portable DATE OF EXAM: 08/29/2016 11:14 AM COMPARISON: 08/24/2016 HISTORY: Difficulty breathing TECHNIQUE: Single frontal view of the chest is obtained. FINDINGS: Mediastinal upper prominence is noted. Diffuse interstitial pattern again noted. No sizabl e effusion or pneumothorax. Arthropathy of the shoulders and mild cardiomegaly. Pulmonary artery somewhat prominent in size. IMPRESSION: 1. Stable diffuse interstitial pattern correlate for chronic interstitial lung disease or fibrosis. 2. Upper mediastinal soft tissue prominence may be related to mediastinal adenopathy previously descr ibed by CT scan. 3. Prominence of the pulmonary arteries can be seen with pulmonary arterial hypertension
--- NOTE | 2016-08-29 11:38 | CDI ---
In responding to this query, please exercise your independent professional judgment. The [facility] Coding Staff and Clinical Documentation Specialists appreciate your assistance in clarifying documentation, maintaining compliance with coding guidelines, accurately documenting patients condition and capturing severity of illness. The fact that a question is asked does not imply that any particular answer is desired or expected. Communication forms are a method of clarifying documentation and are not made part of the Legal Health Record. Thank you in advance for your clarification. Last Revision, February 2015 Gil Villalta [address] [place] [address] Documentation Clarification Form Date: 08/29/2016 11:23:00 AM From: Norma Xiong RN, CCDS Admit Date: 08/24/2016 6:45:00 AM Patient Name: Kayleigh Culp Visit Number: [id number] Dr. Berg, Conflicting documentation regarding Specificity of Pneumonia is noted. History/Risk Factors: Squamous cell lung CA, DM2, HTN, Pulmonary Fibrosis, Sepsis this admission Clinical Indicators: 08/28 Attending Progress Note: "acute healthcare-associated pneumonia." 08/28 Pulmonary Progress Note: "Community acquired pneumonia." WBC: 16.8/19.9/16 Left shift:12.9/17.9/13.4 CXR: pulmonary fibrosis 08/28 Attending Lung/Breathing assessment: RESPIRATORY SYSTEM: Breath sounds diminished at the bases. Bilateral scattered rhonchi and expiratory wheezing and crackles" Treatment: Antibiotics: Zosyn 3.375 IVPB Q 8 hrs, Levaquin 750mg PO QD, Ceftriaxone 1gm IVPB x1 O2: NRB, fluctuating between 5-10L NC Breathing TX: Duoneb QID and PRN, Pulmicort BID In order to capture the severity of condition, please clarify if the condition signifies and you are treating for: Aspiration Pneumonia, identify if: Due to solids or liquids Bacterial Pneumonia, specify causal organism (if known) Gram Negative Pneumonia Due to Strep Due to Staph Due to E. coli Other bacteria (specify) Viral Pneumonia, specify casual organism (if known) Ventilator Associated Pneumonia Unable to determine Link any associated conditions to the pneumonia: Influenza with secondary gram negative pneumonia Sepsis due to pneumonia Acute respiratory failure due to pneumonia Other, please specify Please document in your progress notes and discharge summary in order to capture severity of illness and risk of mortality. Include clinical findings that support your diagnosis. FYI: Press F11 to launch patient chart. Place X here if this finding has no clinical significance, is not applicable or if you are not able to provide any additional documentation. DEMARCUS
[2016-08-29 12:37] LABS: Glucose,Whole Blood 238 mg/dL (75-99)
[2016-08-29 13:01] LABS: Add Differential Manual Differential
[2016-08-29 13:03] LABS: Band Neutrophils % 0.5 %; Nucleated Red Blood Cells 0 /100 WBC (0-0); Total Cells Counted 200
[2016-08-29 13:04] LABS: Polychromasia Present
[2016-08-29] MEDS: MAGNESIUM OXIDE 400 MG TAB PO SCH (14:07)
[2016-08-29 16:54] LABS: Glucose,Whole Blood 227 mg/dL (75-99)
[2016-08-29] MEDS: Insulin Aspart (For Pump) 100 UNIT/ML VIAL SQ-PUMP SCH (17:13)
--- NOTE | 2016-08-29 19:57 | PN ---
DATE OF SERVICE: 08/29/2016 HISTORY OF PRESENT ILLNESS: The patient is a 65-year-old female who came in with problems with dyspnea with cough, where she does have a history of pulmonary fibrosis and COPD in addition to lung cancer, stage III, squamous cell. Patient states that she has been getting chemo. She has been having some problems with cough with sputum being dark and thick. She does have problems with chronic diarrhea. She was admitted with community-acquired pneumonia and was started on antibiotics and nebulizer treatments, including IV steroids. The patient states that she is doing better overall. She has an appointment with physicians at [facility] on September 06. On physical examination, vital signs show temperature 97.2, heart rate 82, respiratory rate 20, blood pressure 126/61, oxygen saturation 95% on 5 L. LABS: WBC is 13.7, hemoglobin 8.5, hematocrit 26.7, platelets 425. Sodium 140, potassium 4.1, chloride 103, carbon dioxide 28. BUN 19, creatinine 0.76. Glucose 238. Calcium 9.3. Total bilirubin 0.7, AST 71, ALT 71, alkaline phosphatase 97. Total protein 7. Albumin 3.8. Sputum with polymorphonuclear leukocytes, few epithelial, rare Gram-positive cocci. Blood cultures with no growth. Chest x-ray with stable diffuse interstitial pattern; correlate for chronic interstitial lung disease or fibrosis with upper mediastinal soft tissue prominence related to mediastinal adenopathy previously described on CT scan, and prominence of pulmonary arteries can be seen with pulmonary arterial hypertension. GENERAL: Patient is a 65-year-old female who appears relatively comfortable at this time. HEENT: Pupils are reactive. Mucous membranes are moist. NECK: Short, supple, thick. LUNGS: Sounds are diminished. No rhonchi or wheezes can be heard. CARDIOVASCULAR: S1, S2 heard; regular. ABDOMEN: Soft. Bowel sounds are present. EXTREMITIES: No significant edema. NEUROLOGIC: She is awake, alert. IMPRESSION: 1. Acute on chronic hypoxic respiratory failure on admission, improved. 2. Acute exacerbation of chronic obstructive pulmonary disease. 3. Idiopathic pulmonary fibrosis. 4. Sepsis with systemic inflammatory response syndrome, improved. 5. Community-acquired pneumonia. 6. Pulmonary hypertension. 7. Squamous cell carcinoma of the lung. 8. Diabetes mellitus, type 2. 9. Gastroesophageal reflux disease. 10. Dyslipidemia. 11. Hypertension. 12. History of coronary artery disease. 13. Obstructive sleep apnea where she uses CPAP. 14. Hypothyroidism. Plans are to continue with oxygen to keep saturations 90% or better. Continue with nebulizer treatments and antibiotics. Continue with GI and DVT prophylaxis. Continue with pulmonary hygiene. Increase activity as tolerated. Will continue to follow patient with you and make further changes as necessary. DEMARCUS
--- NOTE | 2016-08-29 20:06 | PN ---
DATE OF SERVICE: 08/29/2016 This 65-year-old woman was admitted with COPD, acute exacerbation. She also had pneumonia, possibly Gram-negative. No chest pain. No palpitation. No fever. On exam, alert and oriented x3. Pulse 80, blood pressure 121/80, respiration 20, temperature 97.4, pulse ox 94% on 5 L. HEENT: Conjunctivae normal. NECK: No jugular venous distention. CARDIOVASCULAR SYSTEM: S1, S2 muffled. RESPIRATORY SYSTEM: Breath sounds diminished at the bases. A few scattered rhonchi and crackles. ABDOMEN: Soft, non-tender. LEGS: No edema. No swelling. NERVOUS SYSTEM: No focal deficit. LABS: WBC 13.6, hemoglobin 8.5. AST 71, ALT 71. ASSESSMENT: 1. Chronic obstructive pulmonary disease, acute exacerbation, with acute healthcare-associated pneumonia with possibly Gram-negative bacteria with associated sepsis, present on admission. 2. Acute hypoxic respiratory failure secondary to chronic obstructive pulmonary disease, acute exacerbation, present on admission. 3. Squamous cell carcinoma of the lung with mediastinal lymphadenopathy. 4. Diabetes mellitus, type 2. 5. History of gastroesophageal reflux disease. 6. Hypertension, essential, history. 7. Hyperlipidemia. 8. History of coronary artery disease, coronary artery bypass graft. 9. History of obstructive sleep apnea. 10. History of hypothyroidism. 11. History of multiple orthopedic surgeries in the past. 12. Anxiety, depression not otherwise specified. 13. Obesity with body mass index of 37.4. 14. FULL CODE. RECOMMENDATIONS AND DISCUSSION: I recommend to continue with the current medications, continue with the monitoring, symptomatic treatment. Otherwise, at this time I recommend continuing with bronchodilators, antibiotics. The patient still requires a high dose of oxygen. We will continue with current medications, taper to p.o. steroids. Guarded prognosis. Further recommendations to follow.
[2016-08-29] MEDS: ATORVASTATIN 80 MG TAB PO SCH (21:53)
[2016-08-29] MEDS: CITALOPRAM HYDROBROMIDE 20 MG TAB PO SCH (21:53)
[2016-08-29] MEDS: ASPIRIN 81 MG CHEW PO SCH (21:53)
[2016-08-30] MEDS: HEPARIN SODIUM,PORCINE 5,000 UNIT/ML 1 ML VIAL SQ SCH ×2 (00:04→07:42)
[2016-08-30] MEDS: PIPERACILLIN-TAZOBACTAM 3.375 GM in DEXTROSE/WATER 1 50ML.BAG IVPB SCH ×2 (00:04→07:43)
[2016-08-30] MEDS: INSULIN PUMP MEAL BOLUS 1 UNIT MISC MISCELLANE SCH ×3 (00:07→13:16)
[2016-08-30 02:05] LABS: Glucose,Whole Blood 114 mg/dL (75-99)
[2016-08-30 03:14] LABS: Glucose,Whole Blood 81 mg/dL (75-99)
[2016-08-30] MEDS: LEVOTHYROXINE 50 MCG TAB PO SCH (06:21)
[2016-08-30] MEDS: LOSARTAN-HCTZ 50-12.5 MG 1 EACH TAB PO SCH (07:42)
[2016-08-30] MEDS: PANTOPRAZOLE 40 MG TABLET PO SCH (07:42)
[2016-08-30] MEDS: CLOPIDOGREL 75 MG TAB PO SCH (07:42)
[2016-08-30] MEDS: amLODIPine 5 MG TAB PO SCH (07:43)
[2016-08-30] MEDS: FUROSEMIDE 20 MG TAB PO SCH (07:43)
[2016-08-30] MEDS: METOPROLOL SUCCINATE (ER) 25 MG TAB.ER.24H PO SCH (07:43)
[2016-08-30] MEDS: CALCIUM CARBONATE 500 MG CHEWABLE PO SCH (07:43)
[2016-08-30 07:51] VITALS: BP 117/79; TEMP 96.7
[2016-08-30] MEDS: LEVOFLOXACIN 750 MG TAB PO SCH (07:51)
[2016-08-30 07:55] LABS: Glucose,Whole Blood 168 mg/dL (75-99)
[2016-08-30] MEDS: IPRATROPIUM-ALBUTEROL 3 ML NEB INHALATION PRN ×2 (08:42→11:35)
[2016-08-30] MEDS: BUDESONIDE 0.5 MG/2 ML NEBU INHALATION SCH (08:42)
[2016-08-30] MEDS ORDERED: predniSONE 20 MG TAB PO SCH (09:00)
[2016-08-30 11:33] LABS: Glucose,Whole Blood 186 mg/dL (75-99)
[2016-08-30 11:45] VITALS: PULSE 74
[2016-08-30] MEDS: MAGNESIUM OXIDE 400 MG TAB PO SCH (12:42)
--- NOTE | 2016-08-30 15:53 | PN ---
DATE OF SERVICE: 08/30/2016 HISTORY OF PRESENT ILLNESS: The patient is a 65-year-old female who is doing much better. She states that she hopes to be discharged later today. She is going to [facility] on September 06 to talk about radiation therapy. She has had 2 treatments of chemo for stage III squamous cell lung cancer. Patient has been up on her own to the bathroom. She has been doing better breathing-nguyễn. She has had no nausea or vomiting. She is eating okay. She has problems with chronic diarrhea. On physical examination, vital signs show temperature of 96.7, heart rate 70, respiratory rate 20, blood pressure 117/79, oxygen saturation on 6 L 98%. LABS: Glucose of 168. Blood cultures and sputum have been negative. GENERAL: Patient is a 65-year-old female who appears in no acute distress at this time. HEENT: Pupils are reactive. Mucous membranes are moist. NECK: Short, supple, thick. LUNGS: Sounds are diminished, but no wheezes or rhonchi are heard. CARDIOVASCULAR: S1, S2 heard; regular. ABDOMEN: Soft. Bowel sounds are present. EXTREMITIES: No edema. Gait is normal. NEUROLOGIC: She is awake, alert. IMPRESSION: 1. Acute on chronic hypoxic respiratory failure on admission, improved. 2. Acute exacerbation of chronic obstructive pulmonary disease. 3. Idiopathic pulmonary fibrosis. 4. Sepsis with systemic inflammatory response syndrome, improved. 5. Community-acquired pneumonia. 6. Pulmonary hypertension. 7. Squamous cell carcinoma of the lung where she is following at [facility] for radiation. 8. Diabetes mellitus, type 2. 9. Gastroesophageal reflux disease. 10. Dyslipidemia. 11. Hypertension. 12. History of coronary artery disease. 13. Obstructive sleep apnea where she does use CPAP. 14. Hypothyroidism. Plans are to continue patient with oxygen. Titrate to keep saturations 90% or better. Continue with her nebulizer treatments as ordered. Continue with antibiotics and continue with tapering steroids. Continue with GI and DVT prophylaxis. Continue with pulmonary hygiene. Anticipate patient to be discharged today. She appears to be stable pulmonary-nguyễn at this time. She should follow up with Dr. Barrios or Dr. Sandoval in the office in one week.
--- NOTE | 2016-08-31 08:56 | DS ---
DATE OF ADMISSION: 08/24/2016 DATE OF DISCHARGE: 08/30/2016 DATE OF SERVICE: 08/30/2016 FINAL DIAGNOSES: 1. Chronic obstructive pulmonary disease acute exacerbation with acute healthcare-associated pneumonia with possibly Gram-negative bacteria with associated sepsis, present on admission. 2. Acute hypoxic respiratory failure secondary to chronic obstructive pulmonary disease acute exacerbation, present on admission. 3. Squamous cell carcinoma of the lung with mediastinal lymphadenopathy. 4. Diabetes mellitus type 2. 5. History of gastroesophageal reflux disease. 6. Hypertension, essential, history. 7. Hyperlipidemia. 8. History of coronary artery disease, coronary artery bypass grafting. 9. History of obstructive sleep apnea. 10. History of hypothyroidism. 11. History of multiple orthopedic surgeries in the past. 12. Anxiety, depression, not otherwise specified. 13. Obesity with body mass index of 37.4. 14. FULL CODE. DISCHARGE DISPOSITION: The patient will be discharged in a stable condition with guarded prognosis. Total time taken 35 minutes. HISTORY OF PRESENT ILLNESS: This 65-year-old woman with a past medical history of multiple medical problems as mentioned earlier being followed by Dr. Gema Singleton in the outpatient setting admitted with COPD acute exacerbation and multiple medical problems. Dr. Layla Sandoval saw the patient. Care was coordinated. The patient improved significantly. The patient also uses CPAP and oxygen also. On exam, vitals are stable. CARDIOVASCULAR: S1 and S2 muffled. RESPIRATORY: A few scattered rhonchi. ABDOMEN: Soft. NERVOUS SYSTEM: normal DISCHARGE ADVICE: 1. Diet is cardiac. 2. Activity limited until followup. 3. Follow up with Dr. Singleton in 2 to 3 days. 4. Follow up with Dr. Sandoval as advised. Medications are: 1. Xanax 0.25 daily p.r.n. 2. Norvasc 5 mg q.a.m. 3. Augmentin 1 p.o. b.i.d. for 5 days. 4. Ecotrin 81 mg q.h.s. 5. Lipitor 80 mg q.h.s. 6. Pulmicort 0.5 b.i.d. 7. Calcium carbonate 600 mg p.o. b.i.d. 8. Vitamin D3, 5000 daily. 9. Celexa 40 mg q.h.s. 10. Plavix 75 mg p.o. daily. 11. Lasix 20 mg daily p.r.n. 12. Insulin pump. 13. Albuterol Atrovent updrafts q.i.d. and p.r.n. 14. Probiotic 1 p.o. b.i.d. 15. Synthroid 50 mcg p.o. q.a.m. 16. Losartan hydrochlorothiazide 1 tablet p.o. q.a.m. 17. Magnesium oxide 400 mg q.h.s. 18. Toprol XL 25 mg p.o. b.i.d.. 19. Nitroglycerin 0.4 sublingual p.r.n. 20. Omeprazole 20 mg b.i.d. 21. Prednisone taper 40 mg daily for 3 days, 30 for 3 days, 20 for 3 days, 10 for 3 days and stop. 22. Co-enzyme Q 400 mg p.o. daily. 23. Vitamin B complex 1 p.o. daily. Once again, the patient will be discharged in stable condition with guarded prognosis. DEMARCUS
== END 2016-08-30 16:32 | disposition home or self-care (01) | DRG 871 ==
LOC: EC 23:31 → 4MS4W 08-24 06:45 → 5ONC 08-26 18:47
PROVIDERS: ADMIT Internal Medicine; ATTEND Internal Medicine
DX: A41.50 Gram-negative sepsis, unspecified (principal); J96.21 Acute and chronic respiratory failure with hypoxia; D61.1 Drug-induced aplastic anemia; C34.91 Malignant neoplasm of unspecified part of right bronchus or lung; J18.9 Pneumonia, unspecified organism; C77.1 Secondary and unspecified malignant neoplasm of intrathoracic lymph nodes; J44.0 Chronic obstructive pulmonary disease with (acute) lower respiratory infection; J44.1 Chronic obstructive pulmonary disease with (acute) exacerbation; I27.2 Other secondary pulmonary hypertension; J84.112 Idiopathic pulmonary fibrosis; I10 Essential (primary) hypertension; E78.5 Hyperlipidemia, unspecified; G47.33 Obstructive sleep apnea (adult) (pediatric); E66.9 Obesity, unspecified; E11.9 Type 2 diabetes mellitus without complications; I25.10 Atherosclerotic heart disease of native coronary artery without angina pectoris; T45.1X5A Adverse effect of antineoplastic and immunosuppressive drugs, initial encounter; K21.9 Gastro-esophageal reflux disease without esophagitis; E03.9 Hypothyroidism, unspecified; F32.9 Major depressive disorder, single episode, unspecified; F41.9 Anxiety disorder, unspecified; K52.9 Noninfective gastroenteritis and colitis, unspecified; K44.9 Diaphragmatic hernia without obstruction or gangrene; I71.4 Abdominal aortic aneurysm, without rupture; R53.1 Weakness; I45.10 Unspecified right bundle-branch block; I25.2 Old myocardial infarction; L40.9 Psoriasis, unspecified; F12.90 Cannabis use, unspecified, uncomplicated; M19.90 Unspecified osteoarthritis, unspecified site; R60.0 Localized edema; Z95.5 Presence of coronary angioplasty implant and graft; Z87.891 Personal history of nicotine dependence; Z68.37 Body mass index [BMI] 37.0-37.9, adult; Z80.0 Family history of malignant neoplasm of digestive organs; Z79.02 Long term (current) use of antithrombotics/antiplatelets; Z95.1 Presence of aortocoronary bypass graft; Z79.899 Other long term (current) drug therapy; Z82.49 Family history of ischemic heart disease and other diseases of the circulatory system; Z83.3 Family history of diabetes mellitus; Z80.52 Family history of malignant neoplasm of bladder; Z99.81 Dependence on supplemental oxygen; Z71.3 Dietary counseling and surveillance; Z90.710 Acquired absence of both cervix and uterus; Z92.21 Personal history of antineoplastic chemotherapy; Z91.030 Bee allergy status; Z91.048 Other nonmedicinal substance allergy status; Z98.42 Cataract extraction status, left eye; Z98.41 Cataract extraction status, right eye; Z86.010 Personal history of colon polyps; Z79.82 Long term (current) use of aspirin; Z79.4 Long term (current) use of insulin; Z79.51 Long term (current) use of inhaled steroids; Z96.41 Presence of insulin pump (external) (internal); Y95 Nosocomial condition
CPT/HCPCS: 36415; 71010; 71020; 71275; 80048; 80053; 82550; 82553; 83036; 83605; 83880; 84484; 85025; 85610; 85730; 87040; 87070; 87205; 93005; 94640; 94760

== ENCOUNTER 2016-09-15 22:59 | Inpatient (IN) | payer OTHER ==
[2016-09-15] MEDS ORDERED: ASPIRIN 81 MG CHEW PO STA (23:39)
[2016-09-15] MEDS ORDERED: NITROGLYCERIN SL TABS 0.4 MG TAB SUBLINGUAL STA (23:39)
[2016-09-15] MEDS ORDERED: NITROGLYCERIN OINT 1 INCH/GM PACKET TOPICAL STA (23:39)
--- NOTE | 2016-09-15 23:42 | ED ---
General Adult HPI - General Chief complaint: Chest Pain Stated complaint: Chest Pain Time Seen by Provider: 09/15/16 23:00 Source: patient, RN notes reviewed Mode of arrival: wheelchair Limitations: no limitations - History of Present Illness Initial comments: This is a 65-year-old female with past medical history significant for lung cancer and coronary artery disease diabetes high blood pressure high cholesterol. Patient states about 2:00 this afternoon she started having chest pain which has progressively gotten worse throughout the day. Patient states associated with that she is also very short of breath. Patient states exertion makes it worse. Patient states she is not nauseous with the pain does radiate to her back. Patient denies any episodes of diaphoresis. Patient denies lightheadedness dizziness or near syncopal episode. Patient denies headache patient denies numbness weakness. Patient denies abdominal pain patient denies nausea vomiting diarrhea - Related Data Home Medications Medication Instructions Recorded Confirmed ALPRAZolam [Xanax] 0.25 mg PO DAILY PRN 01/08/14 08/24/16 Omeprazole 20 mg PO BID 01/08/14 08/24/16 amLODIPine BESYLATE [Amlodipine 5 mg PO QAM 01/08/14 08/24/16 Besylate] Aspirin EC [Ecotrin Low Dose] 81 mg PO HS 04/21/14 08/24/16 Atorvastatin [Lipitor] 80 mg PO HS 04/21/14 08/24/16 Budesonide [Pulmicort] 0.5 mg INHALATION RT-BID 04/21/14 08/24/16 Citalopram Hydrobromide [CeleXA] 40 mg PO HS 11/15/15 08/24/16 Levothyroxine Sodium [Synthroid] 50 mcg PO QAM 11/15/15 08/24/16 Losartan-Hctz 50-12.5 mg [Hyzaar 1 tab PO QAM 11/15/15 08/24/16 50-12.5] Insulin Aspart (For Pump) [NovoLOG 0.01 unit SQ-PUMP CONTINUOUS 03/20/16 (For Pump)] Calcium Carbonate [Calcium] 600 mg PO BID 07/28/16 08/24/16 Cholecalciferol [Vitamin D3] 5,000 unit PO DAILY 07/28/16 08/24/16 Clopidogrel [Plavix] 75 mg PO DAILY 07/28/16 08/24/16 L.acidoph,Paracasei, B.lactis 1 cap PO BID 07/28/16 08/24/16 [Probiotic] Magnesium Oxide 400 mg PO HS 07/28/16 08/24/16 Ubidecarenone [Co Q-10] 400 mg PO DAILY 07/28/16 08/24/16 Vitamin B Complex 1 cap PO DAILY 07/28/16 08/24/16 Furosemide [Lasix] 20 mg PO DAILY PRN 08/24/16 08/24/16 Previous Rx's Medication Instructions Recorded Nitroglycerin Sl Tabs [Nitrostat] 0.4 mg SUBLINGUAL Q5M PRN #25 tab 01/09/14 Amoxicillin/Potassium Clav 1 tab PO Q12HR #10 tab 08/30/16 [Augmentin 875-125 Tablet] Ipratropium-Albuterol Nebulize 3 ml INHALATION RT-QID PRN #120 neb 08/30/16 [Duoneb 0.5 mg-3 mg/3 ml Soln] Metoprolol Succinate (ER) [Toprol 25 mg PO BID tab 08/30/16 XL] predniSONE 10 mg PO DIRECTED #30 tab 08/30/16 Allergies Allergy/AdvReac Type Severity Reaction Status Date / Time adhesive Allergy Rash/Hives Verified 08/24/16 08:10 venom-honey bee Allergy Anaphylaxis Verified 08/24/16 08:10 Review of Systems ROS Statement: Those systems with pertinent positive or pertinent negative responses have been documented in the HPI. ROS Other: All systems not noted in ROS Statement are negative. Past Medical History Past Medical History: Coronary Artery Disease (CAD), Cancer, Diabetes Mellitus, GERD/Reflux, Hyperlipidemia, Hypertension, Myocardial Infarction ([place]), Osteoarthritis (OA), Skin Disorder, Sleep Apnea/CPAP/BIPAP, Thyroid Disorder Additional Past Medical History / Comment(s): PULMONARY FIBROSIS/HTN, HAS AAA THAT DR'S ARE WATCHING, USES O2 NC 3L DURING THE DAY AND 4L AT NIGHT, STATES HAS "PINCHED NERVE" RT HIP TO KNEE WHICH CAUSES NUMBNESS ON THAT SIDE AT TIMES. HX PSORIASIS ON RIGHT ANKLE. 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 Last Myocardial Infarction Date:: 1998 History of Any Multi-Drug Resistant Organisms: None Reported Past Surgical History: Bladder Surgery, Heart Catheterization With Stent, Hysterectomy, Orthopedic Surgery Additional Past Surgical History / Comment(s): STENT X2 AT 2 DIFFERENT TIMES HX 2 BLADDER SUSPENSIONS, KNEE ARTHROSCOPIES-R KNEE X 1 AND L KNEE X2, R HAND SX WITH PINNING, NOW REMOVED. R WRIST GANGLION CYST REMOVAL X 2. CAROL CATARACT SX Numerous surgeries on BOTH FEET, R/T NEUROMA'S Past Anesthesia/Blood Transfusion Reactions: No Reported Reaction Additional Past Anesthesia/Blood Transfusion Reaction / Comment(s): NEVER RECIEVED BLOOD. Date of Last Stent Placement:: 01/08/14 Past Psychological History: Anxiety, Depression Additional Psychological History / Comment(s): PT TAKES CILITAPRAM WHICH HELPS. 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 SHE CAN TAKE CARE OF HERSELF. Smoking Status: Former smoker Past Alcohol Use History: Rare Additional Past Alcohol Use History / Comment(s): Smoked 1 1/2 PPD for 43 yrs, quit in 2010. Past Drug Use History: None Reported Additional Drug Use History / Comment(s): patient has used cannibus oil x3 recently for pulmonary fibrosis. - Past Family History Father Family Medical History: Cancer, Hypertension Additional Family Medical History / Comment(s): FATHER OF LIVER CA AT AGE 67 YRS. HE ALSO HAD AORTIC ANEURYSM. Mother Family Medical History: Coronary Artery Disease (CAD), Diabetes Mellitus, Hypertension, Osteoarthritis (OA), Pulmonary Embolus Additional Family Medical History / Comment(s): MOTHER OF EMBOLISM IN LUNG FOLLOWING REHAB FOR HIP SURGERY AT AGE 65. General Exam - General Exam Comments Initial Comments: GENERAL: Patient is well-developed and well-nourished. Patient is nontoxic and well- hydrated and is in mild distress. ENT: Neck is soft and supple. No significant lymphadenopathy is noted. Oropharynx is clear. Moist mucous membranes. Neck has full range of motion without eliciting any pain. EYES: The sclera were anicteric and conjunctiva were pink and moist. Extraocular movements were intact and pupils were equal round and reactive to light. Eyelids were unremarkable. PULMONARY: Patient has diminished breath sounds on the right with dry crackles on the left lower left mid lung CARDIOVASCULAR: There is a regular rate and rhythm without any murmurs gallops or rubs. ABDOMEN: Soft and nontender with normal bowel sounds. No palpable organomegaly was noted. There is no palpable pulsatile mass. SKIN: Skin is clear with no lesions or rashes and otherwise unremarkable. NEUROLOGIC: Patient is alert and oriented x3. Cranial nerves II through XII are grossly intact. Motor and sensory are also intact. Normal speech, volume and content. Symmetrical smile. MUSCULOSKELETAL: Normal extremities with adequate strength and full range of motion. No lower extremity swelling or edema. No calf tenderness. LYMPHATICS: No significant lymphadenopathy is noted PSYCHIATRIC: Normal psychiatric evaluation. Normal interpersonal interactions appears functionally intact in deals appropriately with others. No signs of depression. No signs of anxiety. Limitations: no limitations Course Vital Signs 09/15/16 09/16/16 09/16/16 23:03 00:01 00:06 Temperature 97.7 F Pulse Rate 89 66 72 Respiratory 28 H 22 16 Rate Blood Pressure 152/78 119/62 102/57 O2 Sat by Pulse 86 L 98 97 Oximetry 09/16/16 09/16/16 09/16/16 00:32 01:28 01:30 Temperature Pulse Rate 64 68 68 Respiratory 18 18 18 Rate Blood Pressure 113/53 132/82 142/82 O2 Sat by Pulse 98 98 98 Oximetry 09/16/16 09/16/16 09/16/16 01:37 01:42 01:48 Temperature Pulse Rate 84 79 82 Respiratory 18 22 18 Rate Blood Pressure 178/81 175/106 177/98 O2 Sat by Pulse 98 100 100 Oximetry 09/16/16 01:55 Temperature Pulse Rate 80 Respiratory 18 Rate Blood Pressure 185/83 O2 Sat by Pulse 100 Oximetry Procedures - Chest Tube Insertion Consent Obtained: verbal consent Time Out Performed: Yes Side of Procedure: right Indication: Pneumothorax Site Prep: Chloroprep Local Anesthesia: Lidocaine 1%, With Epi Insertion Site: 5th Intercostal Space Scalpel: #15 Open into Pleural Space Using: Trocar Tube Size (Nigerian): 28 Returns: Air Sutured in Place: Yes Type of Suture: Vicryl Attached to Suction: Yes Type of Suction: Pleuravac Repeat X-ray Results: Lung Inflated Patient Tolerated Procedure: well Medical Decision Making - Medical Decision Making EKG shows a normal sinus rhythm at 70 bpm PA interval is 172 QRS is 104 QT interval 422 QTC is 453. Patient's EKG shows no ST segment elevation or depression or T wave abnormalities are noted Chest x-ray shows a pneumothorax. CT of the chest shows about a 50% pneumothorax. Portable chest post chest tube shows reinflation of the right lung as well as no longer any deviation of the mediastinum to the left. - Lab Data Result diagrams: 09/15/16 23:45 09/15/16 23:45 Lab Results 09/15/16 09/15/16 09/15/16 Range/Units 23:45 23:45 23:45 WBC 5.0 (3.8-10.6) k/uL RBC 3.39 L (3.80-5.40) m/uL Hgb 11.5 D (11.4-16.0) gm/dL Hct 34.5 (34.0-46.0) % MCV 101.9 H (80.0-100.0) fL MCH 33.8 (25.0-35.0) pg MCHC 33.2 (31.0-37.0) g/dL RDW 19.4 H (11.5-15.5) % Plt Count 211 (150-450) k/uL Neutrophils % 65 % Lymphocytes % 27 % Monocytes % 1 % Eosinophils % 4 % Basophils % 0 % Neutrophils # 3.3 (1.3-7.7) k/uL Lymphocytes # 1.4 (1.0-4.8) k/uL Monocytes # 0.1 (0-1.0) k/uL Eosinophils # 0.2 (0-0.7) k/uL Basophils # 0.0 (0-0.2) k/uL Anisocytosis Slight Macrocytosis Moderate PT (9.0-12.0) sec INR (<1.1) APTT (22.0-30.0) sec Sodium 137 (137-145) mmol/L Potassium 4.4 (3.5-5.1) mmol/L Chloride 101 (98-107) mmol/L Carbon Dioxide 27 (22-30) mmol/L Anion Gap 9 mmol/L BUN 21 H (7-17) mg/dL Creatinine 0.60 (0.52-1.04) mg/dL Est GFR (MDRD) Af Amer >60 (>60 ml/min/1.73 sqM) Est GFR (MDRD) Non-Af >60 (>60 ml/min/1.73 sqM) Glucose 246 H (74-99) mg/dL Calcium 8.7 (8.4-10.2) mg/dL Magnesium 1.7 (1.6-2.3) mg/dL Total Bilirubin 0.6 (0.2-1.3) mg/dL AST 83 H (14-36) U/L ALT 109 H (9-52) U/L Alkaline Phosphatase 90 (38-126) U/L Total Creatine Kinase 43 (30-135) U/L CK-MB (CK-2) 1.8 (0.0-2.4) ng/mL CK-MB (CK-2) Rel Index 4.2 Troponin I <0.012 (0.000-0.034) ng/mL NT-Pro-B Natriuret Pep pg/mL Total Protein 6.3 (6.3-8.2) g/dL Albumin 3.4 L (3.5-5.0) g/dL 09/15/16 09/15/16 Range/Units 23:45 23:45 WBC (3.8-10.6) k/uL RBC (3.80-5.40) m/uL Hgb (11.4-16.0) gm/dL Hct (34.0-46.0) % MCV (80.0-100.0) fL MCH (25.0-35.0) pg MCHC (31.0-37.0) g/dL RDW (11.5-15.5) % Plt Count (150-450) k/uL Neutrophils % % Lymphocytes % % Monocytes % % Eosinophils % % Basophils % % Neutrophils # (1.3-7.7) k/uL Lymphocytes # (1.0-4.8) k/uL Monocytes # (0-1.0) k/uL Eosinophils # (0-0.7) k/uL Basophils # (0-0.2) k/uL Anisocytosis Macrocytosis PT 10.8 (9.0-12.0) sec INR 1.1 (<1.1) APTT 21.8 L (22.0-30.0) sec Sodium (137-145) mmol/L Potassium (3.5-5.1) mmol/L Chloride (98-107) mmol/L Carbon Dioxide (22-30) mmol/L Anion Gap mmol/L BUN (7-17) mg/dL Creatinine (0.52-1.04) mg/dL Est GFR (MDRD) Af Amer (>60 ml/min/1.73 sqM) Est GFR (MDRD) Non-Af (>60 ml/min/1.73 sqM) Glucose (74-99) mg/dL Calcium (8.4-10.2) mg/dL Magnesium (1.6-2.3) mg/dL Total Bilirubin (0.2-1.3) mg/dL AST (14-36) U/L ALT (9-52) U/L Alkaline Phosphatase (38-126) U/L Total Creatine Kinase (30-135) U/L CK-MB (CK-2) (0.0-2.4) ng/mL CK-MB (CK-2) Rel Index Troponin I (0.000-0.034) ng/mL NT-Pro-B Natriuret Pep 363 pg/mL Total Protein (6.3-8.2) g/dL Albumin (3.5-5.0) g/dL Disposition Clinical Impression: Pneumothorax, Chest pain Disposition: ADMITTED IP TO THIS HOSP Referrals: Gema Singleton DO [Primary Care Provider] - 1-2 days Time of Disposition: 01:59
[2016-09-16] MEDS: NITROGLYCERIN SL TABS 0.4 MG TAB SUBLINGUAL STA ×2 (00:02→00:04)
[2016-09-16 00:12] LABS: Anisocytosis Slight; Basophils % (A) 0 %; CHCM 33.5; Eosinophils # (A) 0.2 k/uL (0-0.7); Eosinophils % (A) 4 %; HCT 34.5 % (34.0-46.0); HDW 3.25; HGB 11.5 gm/dL (11.4-16.0); Luc # (Auto) 0.12; Luc % (Auto) 3; Lymphocytes # (A) 1.4 k/uL (1.0-4.8); Lymphocytes % (A) 27 %; MCH 33.8 pg (25.0-35.0); MCHC 33.2 g/dL (31.0-37.0); MCV 101.9 fL (80.0-100.0); Macrocytosis Moderate; Mean Platelet Volume 6.5; Monocytes # (A) 0.1 k/uL (0-1.0); Monocytes % (A) 1 %; Neutrophils # (A) 3.3 k/uL (1.3-7.7); Neutrophils % (A) 65 %; RBC 3.39 m/uL (3.80-5.40); RDW 19.4 % (11.5-15.5); WBC (Perox) 5.14
[2016-09-16 00:16] LABS: INR 1.1 (<1.1); Prothrombin Time 10.8 sec (9.0-12.0)
[2016-09-16 00:23] LABS: Partial Thromboplastin Time 21.8 sec (22.0-30.0)
[2016-09-16 00:24] LABS: ALT 109 U/L (9-52); AST 83 U/L (14-36); Alkaline Phosphatase 90 U/L (38-126); Anion Gap 9 mmol/L; Blood Urea Nitrogen 21 mg/dL (7-17); Calcium 8.7 mg/dL (8.4-10.2); Carbon Dioxide 27 mmol/L (22-30); Chloride 101 mmol/L (98-107); Glucose 246 mg/dL (74-99); Magnesium 1.7 mg/dL (1.6-2.3); Non-African American GFR(MDRD) >60 (>60 ml/min/1.73 sqM); Potassium 4.4 mmol/L (3.5-5.1); Sodium 137 mmol/L (137-145); Total Bilirubin 0.6 mg/dL (0.2-1.3); Total Protein 6.3 g/dL (6.3-8.2)
[2016-09-16 00:40] LABS: Creatine Kinase 43 U/L (30-135)
[2016-09-16] MEDS ORDERED: ONDANSETRON 4 MG/2 ML VIAL IVP STA (00:43)
[2016-09-16] MEDS ORDERED: HYDROmorphone 1 MG/ML 1 ML SYRINGE IVP STA ×2 (00:43→02:05)
--- NOTE | 2016-09-16 00:51 | XR ---
Exam: XR CXR 2 VIEWS History: Chest pain. Shortness of breath. History of recent pneumonia. Pulmonary fibrosis and lung cancer. Comparison: Radiographs of the chest dated 08/24/16. Technique: 2 views. Findings: There is an apparent linear interface at the lateral portion of the right lung and increased retrosternal lucency on lateral projection. Findings are suspicious for a right-sided pneumothorax, at least approximately 25% of the right hemithoracic volume. There is questionable mild leftward shift of mediastinal structures. This may be secondary to technique or positioning. Correlate clinically for developing tension pneumothorax. Redemonstration of extensive interstitial thickening/fibrosis. This limits sensitivity in the detection of a consolidation. No significant effusion. The heart shadow is mildly enlarged. Impression: Right-sided pneumothorax. Questionable leftward shift of mediastinal structures. [employer] 09/16/16 00:54 Call Doctor Regarding Pneumothorax, called Dr. Farooq on 09/16 00:54 (-04:00)
[2016-09-16 00:53] LABS: Creatine Kinase MB 1.8 ng/mL (0.0-2.4); Troponin I <0.012 ng/mL (0.000-0.034)
--- NOTE | 2016-09-16 01:13 | CT ---
ADDENDUM - Added by Carlyle Hill M.D. on 09/16/2016 1:15 AM (-07:00) Exam: CT CHEST Without Contrast History: Pain. Concern for pneumothorax. Shortness of breath. Comparison: Contrast-enhanced CT chest dated 08/25/16. Technique: Continuous axial images of the chest were obtained without intravenous contrast. Coronal and sagittal reformatting was provided. Findings: There is a right-sided pneumothorax. This occupies approximately 30-40% of the right hemithoracic volume. It exerts mild mass effect on the mediastinal structures with minimal leftward shift of midline, raising concern for tension pneumothorax. There is redemonstration of extensive diffuse fibrosis throughout the lungs with cystic changes as previously discussed in great detail on most recent prior. Suggestion of pulmonary hypertension on this noncontrast study. Heart is not enlarged. No pericardial or pleural effusion. Coronary and aortic calcific atherosclerosis. Remainder of examination is not appreciably changed compared to 08/25/16. Impression: 1. Moderate right-sided pneumothorax with suspicion for developing tension. Correlate clinically. 2. Remainder of examination has not substantially changed. CTDI vol = 20.00 mGy DLP = 729.60 mGycm One or more of the following dose reduction techniques were used: automated exposure control, adjustment of the mA and/or kV according to patient size, use of iterative reconstruction technique. [employer] 09/16/16 01:14 Call Doctor Regarding Pneumothorax, called Dr. Farooq on 09/16 01:13 (-04:00)
[2016-09-16] MEDS ORDERED: NITROGLYCERIN SL TABS 0.4 MG TAB SUBLINGUAL PRN (02:00)
[2016-09-16] MEDS ORDERED: ETOMIDATE 2 MG/ML 10 ML VIAL IVP STA ×2 (02:05→02:06)
--- NOTE | 2016-09-16 02:34 | XR ---
Exam: XR CXR 1 VIEW History: Pneumothorax. Pain. Comparison: Radiographs and CT chest performed earlier the same day. Technique: Single frontal view. Findings/impression: Interval placement of right-sided chest tube with decreased right pneumothorax. Likely residual minute pneumothorax at the apex. There is suggestion of moderate soft tissue emphysema along the right thoracic wall. Left mediastinal shift has resolved. Remainder of examination is as previously discussed.
[2016-09-16 02:55] LABS: Glucose,Whole Blood 196 mg/dL (75-99)
[2016-09-16 03:14] VITALS: BMI 36.7
[2016-09-16] MEDS: HYDROmorphone 1 MG/ML 1 ML SYRINGE IVP PRN ×3 (03:36→19:51)
[2016-09-16 06:21] LABS: Creatine Kinase 94 U/L (30-135)
[2016-09-16 06:32] LABS: Creatine Kinase MB 1.9 ng/mL (0.0-2.4); Troponin I <0.012 ng/mL (0.000-0.034)
[2016-09-16 06:32] LABS: Glucose,Whole Blood 216 mg/dL (75-99)
[2016-09-16] MEDS: INSULIN LISPRO (humaLOG) 300 UNIT/3 ML VIAL SQ SCH ×4 (07:10→22:07)
--- NOTE | 2016-09-16 08:16 | P.GSCN ---
<Uma Doe - Last Filed: 09/16/16 08:05> History of Present Illness Consult date: 09/16/16 Reason for Consult: Right pneumothorax, chest tube management. Requesting physician: Mariusz Farooq History of present illness: This 65-year-old female with a previous history of squamous cell lung cancer currently receiving chemotherapy, CAD, diabetes, hypertension, hyperlipidemia, ROXANA, hypothyroid, and pulmonary fibrosis with home oxygen use presented to the emergency department with increasing chest pain and shortness of breath. Her symptoms were getting worse over the day especially with exertion. She denied nausea, diaphoresis, lightheadedness, dizziness, or syncopal episodes. She was here approximated 2 weeks ago with pneumonia. In the emergency room chest x- ray done demonstrated right-sided pneumothorax approximately 25%. Follow-up chest CT demonstrated pneumothorax of 30-40% with mediastinal deviation to the left. Chest tube was placed in the emergency room with subsequent full lung expansion and resolution of mediastinal deviation. Dr. Lenz was consulted for chest tube management. Review of Systems 14 point review systems was completed and was negative except as noted in HPI. Past Medical History Past Medical History: Coronary Artery Disease (CAD), Cancer, Diabetes Mellitus, GERD/Reflux, Hyperlipidemia, Hypertension, Myocardial Infarction (NE), Osteoarthritis (OA), Skin Disorder, Sleep Apnea/CPAP/BIPAP, Thyroid Disorder Additional Past Medical History / Comment(s): PULMONARY FIBROSIS/HTN, HAS AAA THAT DR'S ARE WATCHING, USES O2 NC 6L DURING THE DAY AND 7L AT NIGHT, STATES HAS "PINCHED NERVE" RT HIP TO KNEE WHICH CAUSES NUMBNESS ON THAT SIDE AT TIMES. HX PSORIASIS ON RIGHT ANKLE. 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 Last Myocardial Infarction Date:: 1998 History of Any Multi-Drug Resistant Organisms: None Reported Past Surgical History: Bladder Surgery, Heart Catheterization With Stent, Hysterectomy, Orthopedic Surgery Additional Past Surgical History / Comment(s): STENT X2 AT 2 DIFFERENT TIMES HX 2 BLADDER SUSPENSIONS, KNEE ARTHROSCOPIES-R KNEE X 1 AND L KNEE X2, R HAND SX WITH PINNING, NOW REMOVED. R WRIST GANGLION CYST REMOVAL X 2. CAROL CATARACT SX Numerous surgeries and bone work on BOTH FEET, R/T NEUROMA'S Past Anesthesia/Blood Transfusion Reactions: No Reported Reaction Additional Past Anesthesia/Blood Transfusion Reaction / Comm: NEVER RECIEVED BLOOD. Date of Last Stent Placement:: 01/08/14 Past Psychological History: Anxiety, Depression Additional Psychological History / Comment(s): PT TAKES CILITAPRAM WHICH HELPS. 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 SHE CAN TAKE CARE OF HERSELF. Smoking Status: Former smoker Past Alcohol Use History: Rare Additional Past Alcohol Use History / Comment(s): Smoked 2 PPD for 43 yrs, quit in 1999. Past Drug Use History: None Reported Additional Drug Use History / Comment(s): patient has used cannibus oil x3 recently for pulmonary fibrosis. - Past Family History Father Family Medical History: Cancer, Hypertension Additional Family Medical History / Comment(s): FATHER OF LIVER CA AT AGE 67 YRS. HE ALSO HAD AORTIC ANEURYSM. Mother Family Medical History: Coronary Artery Disease (CAD), Diabetes Mellitus, Hypertension, Osteoarthritis (OA), Pulmonary Embolus Additional Family Medical History / Comment(s): MOTHER OF EMBOLISM IN LUNG FOLLOWING REHAB FOR HIP SURGERY AT AGE 65. Medications and Allergies Home Medications Medication Instructions Recorded Confirmed Type ALPRAZolam [Xanax] 0.25 mg PO DAILY PRN 01/08/14 09/16/16 History Omeprazole 20 mg PO BID 01/08/14 09/16/16 History amLODIPine BESYLATE [Amlodipine 5 mg PO QAM 01/08/14 09/16/16 History Besylate] Aspirin EC [Ecotrin Low Dose] 81 mg PO HS 04/21/14 09/16/16 History Atorvastatin [Lipitor] 80 mg PO HS 04/21/14 09/16/16 History Budesonide [Pulmicort] 0.5 mg INHALATION RT-BID 04/21/14 09/16/16 History Citalopram Hydrobromide [CeleXA] 40 mg PO HS 11/15/15 09/16/16 History Levothyroxine Sodium [Synthroid] 50 mcg PO QAM 11/15/15 09/16/16 History Losartan-Hctz 50-12.5 mg [Hyzaar 1 tab PO QAM 11/15/15 09/16/16 History 50-12.5] Insulin Aspart (For Pump) [NovoLOG See Protocol SQ-PUMP CONTINUOUS 03/20/1602/22 History (For Pump)] Cholecalciferol [Vitamin D3] 5,000 unit PO BID 07/28/16 09/16/16 History Clopidogrel [Plavix] 75 mg PO QAM 07/28/16 09/16/16 History L.acidoph,Paracasei, B.lactis 1 cap PO BID 07/28/16 09/16/16 History [Probiotic] Magnesium Oxide 400 mg PO HS 07/28/16 09/16/16 History Ubidecarenone [Co Q-10] 400 mg PO DAILY 07/28/16 09/16/16 History Furosemide [Lasix] 20 mg PO DAILY PRN 08/24/16 09/16/16 History Calcium Carbonate 500 mg PO BID 09/16/16 09/16/16 History Metoprolol Succinate [Toprol XL] 25 mg PO BID 09/16/16 09/16/16 History Allergies Allergy/AdvReac Type Severity Reaction Status Date / Time adhesive Allergy Rash/Hives Verified 09/16/16 08:23 venom-honey bee Allergy Anaphylaxis Verified 09/16/16 08:23 Surgical - Exam Vital Signs Temp Pulse Resp BP Pulse Ox 97.7 F 89 28 H 152/78 86 L 09/15/16 23:03 09/15/16 23:03 09/15/16 23:03 09/15/16 23:03 09/15/16 23:03 - General well developed, well nourished, no distress, moderate pain - Eyes PERRL, normal ocular movement - ENT no hearing loss - Neck trachea midline - Respiratory Lungs sounds diminished bilaterally. Respirations even, nonlabored. Currently on 8 L high flow oxygen with saturations of 95%. Right pleural chest tube to - 20 cm wall suction, 13 mL serous drainage overnight, 30 mL since placement. Minimal air leak present. Able to achieve 1000 mL on incentive spirometry. - Cardiovascular S1, S2 present. Regular rate and rhythm, normal sinus rhythm on telemetry. No edema present. - Abdomen Abdomen: soft, non tender, bowel sounds - Genitourinary Deferred - Rectum Deferred - Neurologic normal coordination, normal sensation - Psychiatric oriented to time, oriented to person, oriented to place, speech is normal, memory intact Results - Labs 09/15/16 23:45 09/15/16 23:45 Abnormal Lab Results - Last 24 Hours (Table) 09/15/16 09/15/16 09/15/16 Range/Units 23:45 23:45 23:45 RBC 3.39 L (3.80-5.40) m/uL MCV 101.9 H (80.0-100.0) fL RDW 19.4 H (11.5-15.5) % APTT 21.8 L (22.0-30.0) sec BUN 21 H (7-17) mg/dL Glucose 246 H (74-99) mg/dL POC Glucose (mg/dL) (75-99) mg/dL AST 83 H (14-36) U/L ALT 109 H (9-52) U/L Albumin 3.4 L (3.5-5.0) g/dL 09/16/16 09/16/16 Range/Units 02:53 06:17 RBC (3.80-5.40) m/uL MCV (80.0-100.0) fL RDW (11.5-15.5) % APTT (22.0-30.0) sec BUN (7-17) mg/dL Glucose (74-99) mg/dL POC Glucose (mg/dL) 196 H 216 H (75-99) mg/dL AST (14-36) U/L ALT (9-52) U/L Albumin (3.5-5.0) g/dL Diabetes panel 09/15/16 Range/Units 23:45 Sodium 137 (137-145) mmol/L Potassium 4.4 (3.5-5.1) mmol/L Chloride 101 (98-107) mmol/L Carbon Dioxide 27 (22-30) mmol/L BUN 21 H (7-17) mg/dL Creatinine 0.60 (0.52-1.04) mg/dL Glucose 246 H (74-99) mg/dL Calcium 8.7 (8.4-10.2) mg/dL AST 83 H (14-36) U/L ALT 109 H (9-52) U/L Alkaline Phosphatase 90 (38-126) U/L Total Protein 6.3 (6.3-8.2) g/dL Albumin 3.4 L (3.5-5.0) g/dL Calcium panel 09/15/16 Range/Units 23:45 Calcium 8.7 (8.4-10.2) mg/dL Albumin 3.4 L (3.5-5.0) g/dL Pituitary panel 09/15/16 Range/Units 23:45 Sodium 137 (137-145) mmol/L Potassium 4.4 (3.5-5.1) mmol/L Chloride 101 (98-107) mmol/L Carbon Dioxide 27 (22-30) mmol/L BUN 21 H (7-17) mg/dL Creatinine 0.60 (0.52-1.04) mg/dL Glucose 246 H (74-99) mg/dL Calcium 8.7 (8.4-10.2) mg/dL Adrenal panel 09/15/16 Range/Units 23:45 Sodium 137 (137-145) mmol/L Potassium 4.4 (3.5-5.1) mmol/L Chloride 101 (98-107) mmol/L Carbon Dioxide 27 (22-30) mmol/L BUN 21 H (7-17) mg/dL Creatinine 0.60 (0.52-1.04) mg/dL Glucose 246 H (74-99) mg/dL Calcium 8.7 (8.4-10.2) mg/dL Total Bilirubin 0.6 (0.2-1.3) mg/dL AST 83 H (14-36) U/L ALT 109 H (9-52) U/L Alkaline Phosphatase 90 (38-126) U/L Total Protein 6.3 (6.3-8.2) g/dL Albumin 3.4 L (3.5-5.0) g/dL - Imaging Chest x-ray: report reviewed, image reviewed CT scan - chest: report reviewed, image reviewed Assessment and Plan (1) Hyperlipidemia Status: Acute (2) Obstructive sleep apnea Status: Acute (3) Pulmonary fibrosis Status: Acute (4) Tobacco dependence in remission Status: Acute (5) Chest pain Status: Acute (6) Pneumothorax Status: Acute (7) Diabetes Status: Acute (8) HTN (hypertension) Status: Acute (9) Hypothyroid Status: Acute (10) Squamous cell carcinoma of lung, stage III Status: Chronic Plan: The patient was seen and examined at the bedside. Chart/diagnostics were reviewed. The patient is currently in no distress with the exception of pain at chest tube site. Currently the chest tube is functioning well. Incentive spirometry encouraged. Wean oxygen as tolerated. Ambulate patient as tolerated. Medical comorbidities to be managed by internal medicine service. Oral pain medication added. Will discuss the case with Dr. Lenz for further recommendations. Thank you for the consult. We look forward to working to the care of your patient. 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 This patient has unresectable stage III carcinoma of the lung. She is undergoing chemotherapy. She has diffuse emphysematous bleb changes. The lung appears to be well expanded with the placement of the chest tube. I see no sign of air leak at this time. Impression: Spontaneous pneumothorax with multiple etiologies. Recommendation: Would avoid steroids and NSAIDs if at all possible. Maintain chest tube until air leak is resolved as certainly is possible. Surgical - Exam Osteopathic Statement: *. No significant issues noted on an osteopathic structural exam other than those noted in the History and Physical/Consult. Vital Signs Temp Pulse Resp BP Pulse Ox 97.7 F 89 28 H 152/78 86 L 09/15/16 23:03 09/15/16 23:03 09/15/16 23:03 09/15/16 23:03 09/15/16 23:03 Results - Labs 09/17/16 05:24 09/17/16 05:24 Abnormal Lab Results - Last 24 Hours (Table) 09/16/16 09/16/16 09/16/16 Range/Units 05:36 11:39 16:28 WBC (3.8-10.6) k/uL RBC (3.80-5.40) m/uL Hgb (11.4-16.0) gm/dL Hct (34.0-46.0) % MCV (80.0-100.0) fL RDW (11.5-15.5) % Lymphocytes # (1.0-4.8) k/uL Glucose (74-99) mg/dL POC Glucose (mg/dL) 208 H 217 H (75-99) mg/dL Hemoglobin A1c 6.3 H (4.2-6.1) % Triglycerides (<150) mg/dL 09/16/16 09/17/16 09/17/16 Range/Units 20:56 05:24 05:24 WBC 3.6 L (3.8-10.6) k/uL RBC 3.13 L (3.80-5.40) m/uL Hgb 10.5 L (11.4-16.0) gm/dL Hct 33.1 L (34.0-46.0) % MCV 105.7 H (80.0-100.0) fL RDW 19.1 H (11.5-15.5) % Lymphocytes # 0.9 L (1.0-4.8) k/uL Glucose 189 H (74-99) mg/dL POC Glucose (mg/dL) 154 H (75-99) mg/dL Hemoglobin A1c (4.2-6.1) % Triglycerides 198 H (<150) mg/dL 09/17/16 Range/Units 05:48 WBC (3.8-10.6) k/uL RBC (3.80-5.40) m/uL Hgb (11.4-16.0) gm/dL Hct (34.0-46.0) % MCV (80.0-100.0) fL RDW (11.5-15.5) % Lymphocytes # (1.0-4.8) k/uL Glucose (74-99) mg/dL POC Glucose (mg/dL) 208 H (75-99) mg/dL Hemoglobin A1c (4.2-6.1) % Triglycerides (<150) mg/dL Diabetes panel 09/16/16 09/17/16 Range/Units 05:36 05:24 Sodium 137 (137-145) mmol/L Potassium 4.4 (3.5-5.1) mmol/L Chloride 101 (98-107) mmol/L Carbon Dioxide 29 (22-30) mmol/L BUN 16 (7-17) mg/dL Creatinine 0.55 (0.52-1.04) mg/dL Glucose 189 H (74-99) mg/dL Hemoglobin A1c 6.3 H (4.2-6.1) % Calcium 8.5 (8.4-10.2) mg/dL Triglycerides 198 H (<150) mg/dL HDL Cholesterol 43 (40-60) mg/dL Calcium panel 09/17/16 Range/Units 05:24 Calcium 8.5 (8.4-10.2) mg/dL Pituitary panel 09/17/16 Range/Units 05:24 Sodium 137 (137-145) mmol/L Potassium 4.4 (3.5-5.1) mmol/L Chloride 101 (98-107) mmol/L Carbon Dioxide 29 (22-30) mmol/L BUN 16 (7-17) mg/dL Creatinine 0.55 (0.52-1.04) mg/dL Glucose 189 H (74-99) mg/dL Calcium 8.5 (8.4-10.2) mg/dL Adrenal panel 09/17/16 Range/Units 05:24 Sodium 137 (137-145) mmol/L Potassium 4.4 (3.5-5.1) mmol/L Chloride 101 (98-107) mmol/L Carbon Dioxide 29 (22-30) mmol/L BUN 16 (7-17) mg/dL Creatinine 0.55 (0.52-1.04) mg/dL Glucose 189 H (74-99) mg/dL Calcium 8.5 (8.4-10.2) mg/dL
[2016-09-16] MEDS: HYDROcodone/APAP 5-325MG 1 EACH TAB PO PRN ×3 (08:39→23:32)
[2016-09-16 11:48] LABS: Glucose,Whole Blood 208 mg/dL (75-99)
[2016-09-16 12:08] LABS: Creatine Kinase 131 U/L (30-135)
[2016-09-16 12:21] LABS: Troponin I <0.012 ng/mL (0.000-0.034)
[2016-09-16] MEDS ORDERED: FUROSEMIDE 20 MG TAB PO PRN (15:38)
[2016-09-16] MEDS ORDERED: ALPRAZolam 0.25 MG TAB PO PRN (15:38)
[2016-09-16] MEDS: IPRATROPIUM-ALBUTEROL 3 ML NEB INHALATION SCH ×2 (16:17→20:25)
[2016-09-16 16:30] LABS: Glucose,Whole Blood 217 mg/dL (75-99)
[2016-09-16] MEDS: PANTOPRAZOLE 40 MG TABLET PO SCH (16:47)
[2016-09-16] MEDS: ATORVASTATIN 80 MG TAB PO SCH (19:56)
[2016-09-16] MEDS: ASPIRIN 81 MG CHEW PO SCH (19:57)
[2016-09-16] MEDS: CITALOPRAM HYDROBROMIDE 20 MG TAB PO SCH (19:57)
[2016-09-16] MEDS: METOPROLOL SUCCINATE (ER) 25 MG TAB.ER.24H PO SCH (19:58)
[2016-09-16] MEDS: MAGNESIUM OXIDE 400 MG TAB PO SCH (19:58)
[2016-09-16] MEDS: BUDESONIDE 0.5 MG/2 ML NEBU INHALATION SCH (20:25)
[2016-09-16 21:00] LABS: Glucose,Whole Blood 154 mg/dL (75-99)
[2016-09-17] MEDS ORDERED: INSPUCOR MISCELLANE PRN ×2 (01:44→18:00)
[2016-09-17] MEDS ORDERED: INSULIN LISPRO (humaLOG) 300 UNIT/3 ML VIAL SQ PRN (01:44)
[2016-09-17] MEDS ORDERED: INSULIN PUMP BASAL RATES 1 EACH MISC MISCELLANE PRN (01:44)
[2016-09-17] MEDS: IPRATROPIUM-ALBUTEROL 3 ML NEB INHALATION SCH ×6 (03:33→23:41)
[2016-09-17 05:52] LABS: Glucose,Whole Blood 208 mg/dL (75-99)
[2016-09-17] MEDS: LEVOTHYROXINE 50 MCG TAB PO SCH (06:38)
[2016-09-17] MEDS: PANTOPRAZOLE 40 MG TABLET PO SCH ×2 (06:38→17:12)
[2016-09-17] MEDS: HYDROcodone/APAP 5-325MG 1 EACH TAB PO PRN ×3 (06:41→23:23)
[2016-09-17] MEDS: INSULIN LISPRO (humaLOG) 300 UNIT/3 ML VIAL SQ SCH ×4 (06:59→20:41)
[2016-09-17 07:09] LABS: Anisocytosis Slight; Basophils % (A) 1 %; CH 33.9; CHCM 32.2; Eosinophils # (A) 0.2 k/uL (0-0.7); Eosinophils % (A) 4 %; HCT 33.1 % (34.0-46.0); HDW 2.95; HGB 10.5 gm/dL (11.4-16.0); Luc # (Auto) 0.06; Luc % (Auto) 2; Lymphocytes # (A) 0.9 k/uL (1.0-4.8); Lymphocytes % (A) 25 %; MCH 33.4 pg (25.0-35.0); MCHC 31.6 g/dL (31.0-37.0); MCV 105.7 fL (80.0-100.0); Macrocytosis Marked; Mean Platelet Volume 6.8; Monocytes % (A) 1 %; Neutrophils # (A) 2.5 k/uL (1.3-7.7); Neutrophils % (A) 68 %; RBC 3.13 m/uL (3.80-5.40); RDW 19.1 % (11.5-15.5); WBC 3.6 k/uL (3.8-10.6)
[2016-09-17 07:44] LABS: Anion Gap 7 mmol/L; Blood Urea Nitrogen 16 mg/dL (7-17); Calcium 8.5 mg/dL (8.4-10.2); Carbon Dioxide 29 mmol/L (22-30); Chloride 101 mmol/L (98-107); Cholesterol 150 mg/dL (<200); Glucose 189 mg/dL (74-99); HDL Cholesterol 43 mg/dL (40-60); Non-African American GFR(MDRD) >60 (>60 ml/min/1.73 sqM); Potassium 4.4 mmol/L (3.5-5.1); Sodium 137 mmol/L (137-145); Triglycerides 198 mg/dL (<150)
[2016-09-17] MEDS: amLODIPine 5 MG TAB PO SCH (08:03)
[2016-09-17] MEDS: LOSARTAN-HCTZ 50-12.5 MG 1 EACH TAB PO SCH (08:03)
[2016-09-17] MEDS: CLOPIDOGREL 75 MG TAB PO SCH (08:03)
[2016-09-17] MEDS: METOPROLOL SUCCINATE (ER) 25 MG TAB.ER.24H PO SCH ×2 (08:04→19:59)
--- NOTE | 2016-09-17 08:09 | XR ---
EXAMINATION TYPE: XR chest 1V portable DATE OF EXAM: 09/17/2016 COMPARISON: Prior chest x-ray 09/16/2016 HISTORY: Pneumothorax, status post chest tube placement TECHNIQUE: Single frontal view of the chest is obtained. FINDINGS: Right-sided chest tube remains in place. Subcutaneous emphysema present. Interstitial wise ges within the lungs again noted. The heart remains enlarged. No sizable pneumothorax or pleural effu luis armando. IMPRESSION: Stable findings.
[2016-09-17] MEDS: BUDESONIDE 0.5 MG/2 ML NEBU INHALATION SCH ×2 (08:57→20:13)
[2016-09-17 09:00] LABS: Manual Review Performed
[2016-09-17] MEDS ORDERED: ASPIRIN 325 MG TAB PO SCH (09:00)
[2016-09-17] MEDS ORDERED: NON-FORMULARY DRUG (Ubidecarenone [Co Q-10] 400 MG) PO SCH (09:00)
[2016-09-17 09:20] LABS: Hemoglobin A1C 6.3 % (4.2-6.1)
--- NOTE | 2016-09-17 10:18 | P.PN ---
Progress Note - Text Subjective: Patient resting comfortably with chest tube in place on nasal cannula. Objective: Chest x-ray shows lung to be well expanded. Assessing the Pleur- evac we see no obvious evidence of ongoing air leak. Assessment: Spontaneous pneumothorax with what appears to be a resolved air leak. Plan: DC wall suction. Continue to observe chest x-rays.
[2016-09-17] MEDS: HYDROmorphone 1 MG/ML 1 ML SYRINGE IVP PRN ×2 (11:26→19:52)
[2016-09-17 11:49] LABS: Glucose,Whole Blood 207 mg/dL (75-99)
--- NOTE | 2016-09-17 12:18 | HP ---
DATE OF ADMISSION: CHIEF COMPLAINT: Chest pain with difficulty in breathing. HISTORY OF PRESENT ILLNESS: Ms. Culp is a 65-year-old female with a past medical history of stage III lung cancer, coronary artery disease, diabetes mellitus, hypertension, hyperlipidemia, pulmonary fibrosis, coming into the hospital with a chief complaint of chest pain with difficulty in breathing. Patient states that patient was having left-sided chest pain that progressively worsened throughout the day and that also she was very short of breath and exertion made it worse. Patient denies having any lightheadedness, dizziness or syncopal episodes. Denies having any headaches, blurring of vision or slurring of speech or numbness or weakness. Patient denies having abdominal pain, nausea, vomiting, or diarrhea. Patient denies having any fevers, chills, or rigors. Patient does have his diagnosis of stage III lung cancer and currently finished her chemotherapy last week. She follows with Dr. Kulkarni and Dr. Chiquita Barrios as outpatient and her primary care physician is Dr. Gema Singleton. Patient did get a chest x-ray in the ED which was showing right-sided pneumothorax so a chest tube was placed with reinflation of the right lung in the ED. Eventually, the patient is admitted for further management and care. REVIEW OF SYSTEMS: The review of systems are done and negative except for the ones mentioned in the HPI. Past medical history significant for stage III lung cancer, coronary artery disease, diabetes mellitus, hypertension, hyperlipidemia, pulmonary fibrosis. PAST SURGICAL HISTORY: Knee arthroplasty. Right wrist ganglionic cyst removal. SOCIAL HISTORY: She smoked for 43 years, 1-1/2 packs per day and quit in 2010. 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 No history of intravenous drug abuse. Occasional alcohol. FAMILY HISTORY: Denies having any family history of lung cancer. Positive for hypertension and liver cancer in father. Mother has coronary artery disease, diabetes mellitus, hypertension and PE. Patient's allergies to ADHESIVE TAPE, HONEY BEE VENOM. Patient's home medications: 1. Amlodipine 5 mg p.o. q.a.m. 2. Omeprazole 20 mg p.o. b.i.d. 3. Xanax 0.25 mg p.o. daily. 4. Nitroglycerins 0.4 mg sublingual q.5 minutes p.r.n. for chest pain. 5. Lipitor 80 mg p.o. q.h.s. 6. Pulmicort 0.5 mg b.i.d. 7. Aspirin 81 mg p.o. daily. 8. Losartan hydrochlorothiazide 50/12.5 one tablet p.o. daily. 9. Citalopram 40 mg p.o. q.h.s. 10. Levothyroxine 50 mcg p.o. daily. 11. Insulin pump. 12. Coenzyme-Q 100 mg capsule p.o. daily. 13. Vitamin D3 one thousand units p.o. daily. 14. Magnesium oxide 500 mg p.o. daily. 15. Probiotics 1 capsule p.o. b.i.d. 16. Plavix 75 mg p.o. daily. 17. Lasix 20 mg p.o. daily. 18. Calcium carbonate 500 mg p.o. b.i.d. 19. Metipranolol XL 50 mg p.o. b.i.d. PATIENT'S VITALS: Temperature 96.8, heart rate 86, respiratory rate 18, blood pressure 136/83, saturating at 98% on 8 L of high-flow oxygen. HEAD: Atraumatic, normocephalic. Pupils round and reactive to light. LUNGS: Patient has bilateral Velcro crackles, slightly diminished at the lower lung bases. CARDIOVASCULAR: S1, S2 heard. ABDOMEN: Soft, nontender. Bowel sounds positive. SKIN: No rashes. CALL CENTER SUPPORT CONSULTANT: Alert, awake, oriented x3. No focal neurological deficits. MUSCULOSKELETAL: No joint swelling or deformity. PSYCHIATRIC: Appropriate mood and affect. PATIENT'S LABS: White count of 5, hemoglobin is 11.5, platelets of 211. Sodium 137, potassium 4.4, chloride 101, bicarb 27, BUN 2, creatinine 0.60. Magnesium 1.7, calcium 8.7, troponin less than 0.012. Albumin 3.4, total protein 6.3, proBNP is 636. Patient had a CT of the chest, which is showing moderate right-sided pneumothorax with suspicion for developing tension and repeat chest x-ray after the chest tube placement showing residual minute pneumothorax at the apex on the right side. Left mediastinal shift has resolved. ASSESSMENT AND PLAN: 1. Acute right-sided pneumothorax. 2. Stage III squamous cell lung cancer. 3. Pulmonary fibrosis. 4. Chronic hypoxic respiratory failure. 5. Hyperlipidemia. 6. Obstructive sleep apnea. 7. History of coronary artery disease. 8. Type 2 diabetes mellitus, on insulin pump. 9. Hypertension. 10. Hypothyroidism. 11. History of depression. 12. Hypomagnesemia. PLAN: Status post chest tube placement. CT surgery, Dr. Lenz has been consulted for followup on chest tube. Will resume the patient's home medications. Will also consult Pulmonary, Respiratory and Oncology, Dr. Kulkarni who the patient follows for her fibrosis and lung cancer. Will resume her home medications. Further recommendations to follow depending on the progress of the patient.
--- NOTE | 2016-09-17 12:32 | P.CNPUL ---
History of Present Illness Consult date: 09/17/16 Reason for consult: dyspnea, chest pain, COPD, pneumothorax, pulmonary fibrosis Chief complaint: Spontaneous pneumothorax History of present illness: 65 year old female well[facility] to [facility] presented with chest pain and shortness of breath. The patient states it began suddenly and got worse throughout the day. She says she started making her brother a birthday cake and went to his house. She had worsening shortness of breath and came to the hospital. The patient denies any heavy lifting or exertion. She was found to have a right pneumothorax and chest tube was placed. The patient has known underlying emphysema and pulmonary fibrosis. She is also undergoing treatment for lung cancer. She was recently hospitalized for pneumonia and states she was starting to get back to her baseline. She was feeling really good at home. She felt like her breathing is back to baseline. Review of Systems All systems: negative Past Medical History Past Medical History: Coronary Artery Disease (CAD), Cancer, Diabetes Mellitus, GERD/Reflux, Hyperlipidemia, Hypertension, Myocardial Infarction ([place]), Osteoarthritis (OA), Skin Disorder, Sleep Apnea/CPAP/BIPAP, Thyroid Disorder Additional Past Medical History / Comment(s): PULMONARY FIBROSIS/HTN, HAS AAA THAT DR'S ARE WATCHING, USES O2 NC 6L DURING THE DAY AND 7L AT NIGHT, STATES HAS "PINCHED NERVE" RT HIP TO KNEE WHICH CAUSES NUMBNESS ON THAT SIDE AT TIMES. HX PSORIASIS ON RIGHT ANKLE. 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 Last Myocardial Infarction Date:: 1998 History of Any Multi-Drug Resistant Organisms: None Reported Past Surgical History: Bladder Surgery, Heart Catheterization With Stent, Hysterectomy, Orthopedic Surgery Additional Past Surgical History / Comment(s): STENT X2 AT 2 DIFFERENT TIMES HX 2 BLADDER SUSPENSIONS, KNEE ARTHROSCOPIES-R KNEE X 1 AND L KNEE X2, R HAND SX WITH PINNING, NOW REMOVED. R WRIST GANGLION CYST REMOVAL X 2. CAROL CATARACT SX Numerous surgeries and bone work on BOTH FEET, R/T NEUROMA'S Past Anesthesia/Blood Transfusion Reactions: No Reported Reaction Additional Past Anesthesia/Blood Transfusion Reaction / Comment(s): NEVER RECIEVED BLOOD. Date of Last Stent Placement:: 01/08/14 Past Psychological History: Anxiety, Depression Additional Psychological History / Comment(s): PT TAKES CILITAPRAM WHICH HELPS. 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 SHE CAN TAKE CARE OF HERSELF. Smoking Status: Former smoker Past Alcohol Use History: Rare Additional Past Alcohol Use History / Comment(s): Smoked 2 PPD for 43 yrs, quit in 1999. Past Drug Use History: None Reported Additional Drug Use History / Comment(s): patient has used cannibus oil x3 recently for pulmonary fibrosis. - Past Family History Father Family Medical History: Cancer, Hypertension Additional Family Medical History / Comment(s): FATHER OF LIVER CA AT AGE 67 YRS. HE ALSO HAD AORTIC ANEURYSM. Mother Family Medical History: Coronary Artery Disease (CAD), Diabetes Mellitus, Hypertension, Osteoarthritis (OA), Pulmonary Embolus Additional Family Medical History / Comment(s): MOTHER OF EMBOLISM IN LUNG FOLLOWING REHAB FOR HIP SURGERY AT AGE 65. Medications and Allergies Home Medications Medication Instructions Recorded Confirmed Type ALPRAZolam [Xanax] 0.25 mg PO DAILY PRN 01/08/14 09/16/16 History Omeprazole 20 mg PO BID 01/08/14 09/16/16 History amLODIPine BESYLATE [Amlodipine 5 mg PO QAM 01/08/14 09/16/16 History Besylate] Aspirin EC [Ecotrin Low Dose] 81 mg PO HS 04/21/14 09/16/16 History Atorvastatin [Lipitor] 80 mg PO HS 04/21/14 09/16/16 History Budesonide [Pulmicort] 0.5 mg INHALATION RT-BID 04/21/14 09/16/16 History Citalopram Hydrobromide [CeleXA] 40 mg PO HS 11/15/15 09/16/16 History Levothyroxine Sodium [Synthroid] 50 mcg PO QAM 11/15/15 09/16/16 History Losartan-Hctz 50-12.5 mg [Hyzaar 1 tab PO QAM 11/15/15 09/16/16 History 50-12.5] Insulin Aspart (For Pump) [NovoLOG See Protocol SQ-PUMP CONTINUOUS 03/20/1602/22 History (For Pump)] Cholecalciferol [Vitamin D3] 5,000 unit PO BID 07/28/16 09/16/16 History Clopidogrel [Plavix] 75 mg PO QAM 07/28/16 09/16/16 History L.acidoph,Paracasei, B.lactis 1 cap PO BID 07/28/16 09/16/16 History [Probiotic] Magnesium Oxide 400 mg PO HS 07/28/16 09/16/16 History Ubidecarenone [Co Q-10] 400 mg PO DAILY 07/28/16 09/16/16 History Furosemide [Lasix] 20 mg PO DAILY PRN 08/24/16 09/16/16 History Calcium Carbonate 500 mg PO BID 09/16/16 09/16/16 History Metoprolol Succinate [Toprol XL] 25 mg PO BID 09/16/16 09/16/16 History Allergies Allergy/AdvReac Type Severity Reaction Status Date / Time adhesive Allergy Rash/Hives Verified 09/16/16 08:23 venom-honey bee Allergy Anaphylaxis Verified 09/16/16 08:23 Physical Exam Osteopathic Statement: *. No significant issues noted on an osteopathic structural exam other than those noted in the History and Physical/Consult. Vitals: Vital Signs Temp Pulse Pulse Resp BP BP Pulse Ox 09/17/16 12:00 98.3 F 64 18 138/74 95 09/17/16 09:20 84 09/17/16 08:57 84 09/17/16 08:00 98.0 F 68 18 128/60 96 09/17/16 04:00 98.5 F 72 20 133/63 97 09/17/16 00:00 98.1 F 72 20 128/62 96 09/16/16 20:50 80 09/16/16 20:25 80 09/16/16 20:00 97.1 F L 72 20 133/67 99 09/16/16 16:00 96.8 F L 83 18 136/83 98 Intake and Output 09/16/16 09/17/16 09/17/16 22:59 06:59 14:59 Intake Total 180 Output Total 360 150 0 Balance -360 -150 180 Intake: Oral 180 Output: Chest Tube Drainage 30 0 0 Chest Tube Right Mid- 30 0 0 Axillary Chest Drainage 30 0 0 Right Lateral Chest 30 0 0 Urine 300 150 0 Other: Voiding Method Toilet Toilet Toilet Weight 97 kg Gen.: Patient is alert and oriented 3, no acute distress Cardiovascular: Regular rate and rhythm, S1/S2 Lungs: Diminished breath sounds bilaterally with scattered crackles Abdomen: Soft nontender nondistended positive bowel sounds Extremities: No edema Results - Laboratory Findings CBC and BMP: 09/17/16 05:24 09/17/16 05:24 PT/INR, D-dimer PT 10.8 sec (9.0-12.0) 09/15/16 23:45 INR 1.1 (<1.1) 09/15/16 23:45 Abnormal lab findings: Abnormal Labs 09/15/16 09/15/16 09/15/16 23:45 23:45 23:45 WBC RBC 3.39 L Hgb Hct MCV 101.9 H RDW 19.4 H Lymphocytes # APTT 21.8 L BUN 21 H Glucose 246 H POC Glucose (mg/dL) Hemoglobin A1c AST 83 H ALT 109 H Albumin 3.4 L Triglycerides 09/16/16 09/16/16 09/16/16 02:53 05:36 06:17 WBC RBC Hgb Hct MCV RDW Lymphocytes # APTT BUN Glucose POC Glucose (mg/dL) 196 H 216 H Hemoglobin A1c 6.3 H AST ALT Albumin Triglycerides 09/16/16 09/16/16 09/16/16 11:39 16:28 20:56 WBC RBC Hgb Hct MCV RDW Lymphocytes # APTT BUN Glucose POC Glucose (mg/dL) 208 H 217 H 154 H Hemoglobin A1c AST ALT Albumin Triglycerides 09/17/16 09/17/16 09/17/16 05:24 05:24 05:48 WBC 3.6 L RBC 3.13 L Hgb 10.5 L Hct 33.1 L MCV 105.7 H RDW 19.1 H Lymphocytes # 0.9 L APTT BUN Glucose 189 H POC Glucose (mg/dL) 208 H Hemoglobin A1c AST ALT Albumin Triglycerides 198 H 09/17/16 11:47 WBC RBC Hgb Hct MCV RDW Lymphocytes # APTT BUN Glucose POC Glucose (mg/dL) 207 H Hemoglobin A1c AST ALT Albumin Triglycerides - Diagnostic Findings Chest x-ray: report reviewed, image reviewed Assessment and Plan Plan: Acute on chronic hypoxic respiratory failure Spontaneous right pneumothorax Emphysema Idiopathic pulmonary fibrosis Pulmonary hypertension Squamous cell lung cancer Anemia, leukopenia Diabetes mellitus type 2 GERD Dyslipidemia Hypertension History of coronary artery disease Obstructive sleep apnea on CPAP Hypothyroidism History of tobacco abuse, quit in 2010 O2 to maintain saturation greater than equal to 88% Pulmicort Duo nebs Chest tube per thoracic surgery GI and DVT prophylaxis: Heparin and Protonix Incentive spirometry and pulmonary hygiene CPAP nightly Blood sugar control Thank you for this consultation we'll continue to follow along
[2016-09-17] MEDS: HEPARIN SODIUM,PORCINE 5,000 UNIT/ML 1 ML VIAL SQ SCH ×2 (15:50→23:23)
[2016-09-17 16:25] LABS: Glucose,Whole Blood 213 mg/dL (75-99)
--- NOTE | 2016-09-17 17:06 | P.CONS ---
History of Present Illness - Reason for Consult Consult date: 09/17/16 current chemotherapy Requesting physician: Marielos Hwang - Chief Complaint chest pain - History of Present Illness Ms. Culp is a very pleasan caucaian female pt of Dr. Kulkarni with a known diagnosis of idiopathic pulmonary fibrosis since early 2014 as well as advanced pulmonary hypertension since 2016, she is O2 dependent. She was being evaluated for a lung transplant at [facility] and was found to have enlarged mediastinal nodes on CT. She had bronchoscopy with EBUS and biopsies from 3 mediastinal locations and a RLL endobronchial lesion. 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 The pt was seen by Dr. Sandoval and she referred pt to Dr. Kulkarni for further evaluation and recommendations. Staging PET showed uptake in a dominant rt. hilar mass, 2.8 x 2.5 cm with SUV of 9.87, rt paratacheal node, 3.8 cm had a SUV of 14.87, with a second abnormal node at this level suspected. Pt was not felt to be a candidate for concommitant chemo/RT due to her underlying pulmonary conditions so she was referred to [facility], they agreed with the same, it was decided to treat her with Carbo/Gemzar followed by radiation, she is s/p 2 cycles day 1 & 8 and cycle 3 day 1. Pt states that she was having left sided chest pain and right sided pleuritic pain, both increased with deep breathing, she came to ER and was found to have right tension pneumothorax. She has a chest tube in place, small amount of bloody fluid noted in collection container, pt states pain is much better after procedure, she only has discomfort with deep breathing, no increased O2 needs, she denies chest trauma or terrible cough prior to symptoms, she states feeling well other nguyễn and has been handling treatment well. Review of Systems All systems: negative Constitutional: Reports as per HPI Past Medical History Past Medical History: Coronary Artery Disease (CAD), Cancer, Diabetes Mellitus, GERD/Reflux, Hyperlipidemia, Hypertension, Myocardial Infarction ([place]), Osteoarthritis (OA), Skin Disorder, Sleep Apnea/CPAP/BIPAP, Thyroid Disorder Additional Past Medical History / Comment(s): PULMONARY FIBROSIS/HTN, HAS AAA THAT 'Rosmery ARE WATCHING, USES O2 NC 6L DURING THE DAY AND 7L AT NIGHT, STATES HAS "PINCHED NERVE" RT HIP TO KNEE WHICH CAUSES NUMBNESS ON THAT SIDE AT TIMES. HX PSORIASIS ON RIGHT ANKLE. 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 Last Myocardial Infarction Date:: 1998 History of Any Multi-Drug Resistant Organisms: None Reported Past Surgical History: Bladder Surgery, Heart Catheterization With Stent, Hysterectomy, Orthopedic Surgery Additional Past Surgical History / Comment(s): STENT X2 AT 2 DIFFERENT TIMES HX 2 BLADDER SUSPENSIONS, KNEE ARTHROSCOPIES-R KNEE X 1 AND L KNEE X2, R HAND SX WITH PINNING, NOW REMOVED. R WRIST GANGLION CYST REMOVAL X 2. CAROL CATARACT SX Numerous surgeries and bone work on BOTH FEET, R/T NEUROMA'S Past Anesthesia/Blood Transfusion Reactions: No Reported Reaction Additional Past Anesthesia/Blood Transfusion Reaction / Comm: NEVER RECIEVED BLOOD. Date of Last Stent Placement:: 01/08/14 Past Psychological History: Anxiety, Depression Additional Psychological History / Comment(s): PT TAKES CILITAPRAM WHICH HELPS. 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 SHE CAN TAKE CARE OF HERSELF. Smoking Status: Former smoker Past Alcohol Use History: Rare Additional Past Alcohol Use History / Comment(s): Smoked 2 PPD for 43 yrs, quit in 1999. Past Drug Use History: None Reported Additional Drug Use History / Comment(s): patient has used cannibus oil x3 recently for pulmonary fibrosis. - Past Family History Father Family Medical History: Cancer, Hypertension Additional Family Medical History / Comment(s): FATHER OF LIVER CA AT AGE 67 YRS. HE ALSO HAD AORTIC ANEURYSM. Mother Family Medical History: Coronary Artery Disease (CAD), Diabetes Mellitus, Hypertension, Osteoarthritis (OA), Pulmonary Embolus Additional Family Medical History / Comment(s): MOTHER OF EMBOLISM IN LUNG FOLLOWING REHAB FOR HIP SURGERY AT AGE 65. Medications and Allergies Home Medications Medication Instructions Recorded Confirmed Type ALPRAZolam [Xanax] 0.25 mg PO DAILY PRN 01/08/14 09/16/16 History Omeprazole 20 mg PO BID 01/08/14 09/16/16 History amLODIPine BESYLATE [Amlodipine 5 mg PO QAM 01/08/14 09/16/16 History Besylate] Aspirin EC [Ecotrin Low Dose] 81 mg PO HS 04/21/14 09/16/16 History Atorvastatin [Lipitor] 80 mg PO HS 04/21/14 09/16/16 History Budesonide [Pulmicort] 0.5 mg INHALATION RT-BID 04/21/14 09/16/16 History Citalopram Hydrobromide [CeleXA] 40 mg PO HS 11/15/15 09/16/16 History Levothyroxine Sodium [Synthroid] 50 mcg PO QAM 11/15/15 09/16/16 History Losartan-Hctz 50-12.5 mg [Hyzaar 1 tab PO QAM 11/15/15 09/16/16 History 50-12.5] Insulin Aspart (For Pump) [NovoLOG See Protocol SQ-PUMP CONTINUOUS 03/20/1602/22 History (For Pump)] Cholecalciferol [Vitamin D3] 5,000 unit PO BID 07/28/16 09/16/16 History Clopidogrel [Plavix] 75 mg PO QAM 07/28/16 09/16/16 History L.acidoph,Paracasei, B.lactis 1 cap PO BID 07/28/16 09/16/16 History [Probiotic] Magnesium Oxide 400 mg PO HS 07/28/16 09/16/16 History Ubidecarenone [Co Q-10] 400 mg PO DAILY 07/28/16 09/16/16 History Furosemide [Lasix] 20 mg PO DAILY PRN 08/24/16 09/16/16 History Calcium Carbonate 500 mg PO BID 09/16/16 09/16/16 History Metoprolol Succinate [Toprol XL] 25 mg PO BID 09/16/16 09/16/16 History Allergies Allergy/AdvReac Type Severity Reaction Status Date / Time adhesive Allergy Rash/Hives Verified 09/16/16 08:23 venom-honey bee Allergy Anaphylaxis Verified 09/16/16 08:23 Physical Exam Vitals: Vital Signs Temp Pulse Pulse Resp BP BP Pulse Ox 09/17/16 16:13 74 09/17/16 16:05 68 09/17/16 16:00 98.1 F 65 19 129/66 98 09/17/16 14:01 80 09/17/16 13:47 84 09/17/16 12:00 98.3 F 64 18 138/74 95 09/17/16 09:20 84 09/17/16 08:57 84 09/17/16 08:00 98.0 F 68 18 128/60 96 09/17/16 04:00 98.5 F 72 20 133/63 97 09/17/16 00:00 98.1 F 72 20 128/62 96 09/16/16 20:50 80 09/16/16 20:25 80 09/16/16 20:00 97.1 F L 72 20 133/67 99 Intake and Output 09/17/16 09/17/16 09/17/16 06:59 14:59 22:59 Intake Total 330 200 Output Total 150 0 200 Balance -150 330 0 Intake: Oral 330 200 Output: Chest Tube Drainage 0 0 0 Chest Tube Right Mid- 0 0 0 Axillary Chest Drainage 0 0 0 Right Lateral Chest 0 0 0 Urine 150 0 200 Other: Voiding Method Toilet Toilet Toilet # Voids 2 Weight 97 kg - Constitutional General appearance: cooperative, no acute distress, obese - EENT Eyes: anicteric sclerae, EOMI, PERRLA, normal appearance ENT: hearing grossly normal, normal oropharynx - Neck Neck: no lymphadenopathy - Respiratory Respiratory: right: diminished (base), left: CTA - Cardiovascular Heart sounds: normal: S1, S2 leg Peripheral Edema: bilateral: None - Gastrointestinal General gastrointestinal: no absent bowel sounds, no decreased bowel sounds, no distended, no hepatomegaly, no hyperactive bowel sounds, normal bowel sounds, no organomegaly, no rigid, no scaphoid, soft, no splenomegaly, no tenderness, no umbilical hernia, no ventral hernia - Integumentary Integumentary: normal - Neurologic Neurologic: CNII-XII intact - Musculoskeletal Musculoskeletal: strength equal bilaterally - Psychiatric Psychiatric: A&O x's 3, appropriate affect, intact judgment & insight Results CBC & Chem 7: 09/17/16 05:24 09/17/16 05:24 Labs: Abnormal Lab Results - Last 24 Hours (Table) 09/16/16 09/16/16 09/17/16 Range/Units 05:36 20:56 05:24 WBC (3.8-10.6) k/uL RBC (3.80-5.40) m/uL Hgb (11.4-16.0) gm/dL Hct (34.0-46.0) % MCV (80.0-100.0) fL RDW (11.5-15.5) % Lymphocytes # (1.0-4.8) k/uL Glucose 189 H (74-99) mg/dL POC Glucose (mg/dL) 154 H (75-99) mg/dL Hemoglobin A1c 6.3 H (4.2-6.1) % Triglycerides 198 H (<150) mg/dL 09/17/16 09/17/16 09/17/16 Range/Units 05:24 05:48 11:47 WBC 3.6 L (3.8-10.6) k/uL RBC 3.13 L (3.80-5.40) m/uL Hgb 10.5 L (11.4-16.0) gm/dL Hct 33.1 L (34.0-46.0) % MCV 105.7 H (80.0-100.0) fL RDW 19.1 H (11.5-15.5) % Lymphocytes # 0.9 L (1.0-4.8) k/uL Glucose (74-99) mg/dL POC Glucose (mg/dL) 208 H 207 H (75-99) mg/dL Hemoglobin A1c (4.2-6.1) % Triglycerides (<150) mg/dL 09/17/16 Range/Units 16:23 WBC (3.8-10.6) k/uL RBC (3.80-5.40) m/uL Hgb (11.4-16.0) gm/dL Hct (34.0-46.0) % MCV (80.0-100.0) fL RDW (11.5-15.5) % Lymphocytes # (1.0-4.8) k/uL Glucose (74-99) mg/dL POC Glucose (mg/dL) 213 H (75-99) mg/dL Hemoglobin A1c (4.2-6.1) % Triglycerides (<150) mg/dL Chest x-ray: report reviewed CT scan - chest: report reviewed Assessment and Plan (1) Squamous cell carcinoma of lung, stage III Narrative/Plan: Pt is current on her treatment and follow up, she is due for weekly chemo this . Based on how quickly she recovers from her tension pneumothorax treatment may be kept on schedule. Her CBC should remain stable as she is on a weekly regimen that has milder sandy. We will monitor her CBC while inpatient. Status: Chronic (2) Leucopenia Narrative/Plan: Chemo induced, mild, ANC is adequate. Status: Acute (3) Antineoplastic chemotherapy induced anemia Narrative/Plan: Mild, no intervention Status: Acute Plan: Chest pain/tension pneumothorax-notes reviewed, defer management to Cardiothoracic Surgeon
[2016-09-17] MEDS: INSULIN PUMP MEAL BOLUS 1 UNIT MISC MISCELLANE SCH ×2 (17:12→21:31)
[2016-09-17] MEDS ORDERED: INSULIN PUMP ACTIVE INSULIN 1 EACH MISC MISCELLANE PRN (18:00)
[2016-09-17] MEDS ORDERED: INSULIN PUMP TARGET GLUCOSE 1 EACH MISC MISCELLANE PRN (18:00)
[2016-09-17] MEDS: ATORVASTATIN 80 MG TAB PO SCH (19:59)
[2016-09-17] MEDS: MAGNESIUM OXIDE 400 MG TAB PO SCH (19:59)
[2016-09-17] MEDS: ASPIRIN 81 MG CHEW PO SCH (19:59)
[2016-09-17] MEDS: CITALOPRAM HYDROBROMIDE 20 MG TAB PO SCH (19:59)
[2016-09-17 20:21] LABS: Glucose,Whole Blood 212 mg/dL (75-99)
[2016-09-18] MEDS: HYDROmorphone 1 MG/ML 1 ML SYRINGE IVP PRN ×2 (03:12→15:09)
[2016-09-18] MEDS: IPRATROPIUM-ALBUTEROL 3 ML NEB INHALATION SCH ×5 (05:01→20:33)
[2016-09-18 05:59] LABS: Glucose,Whole Blood 164 mg/dL (75-99)
[2016-09-18] MEDS: LEVOTHYROXINE 50 MCG TAB PO SCH (06:18)
[2016-09-18] MEDS: PANTOPRAZOLE 40 MG TABLET PO SCH ×2 (06:18→18:02)
[2016-09-18] MEDS: HYDROcodone/APAP 5-325MG 1 EACH TAB PO PRN ×3 (06:22→20:01)
[2016-09-18 06:48] LABS: Anisocytosis Slight; Basophils % (A) 1 %; CHCM 32.8; Eosinophils # (A) 0.1 k/uL (0-0.7); Eosinophils % (A) 2 %; HCT 32.2 % (34.0-46.0); HGB 10.3 gm/dL (11.4-16.0); Luc # (Auto) 0.05; Luc % (Auto) 1; Lymphocytes # (A) 0.6 k/uL (1.0-4.8); Lymphocytes % (A) 17 %; MCH 33.2 pg (25.0-35.0); MCHC 31.9 g/dL (31.0-37.0); Macrocytosis Marked; Mean Platelet Volume 6.7; Monocytes % (A) 1 %; Neutrophils # (A) 2.8 k/uL (1.3-7.7); Neutrophils % (A) 79 %; RDW 18.6 % (11.5-15.5); WBC 3.5 k/uL (3.8-10.6); WBC (Perox) 3.83
--- NOTE | 2016-09-18 06:48 | PN ---
DATE OF SERVICE: 09/17/2016 INTERVAL HISTORY: Ms. Culp is a 65-year-old female with a past medical history of stage III lung cancer, coronary artery disease, diabetes mellitus, hypertension, hyperlipidemia, pulmonary fibrosis admitted to the hospital with a chief complaint of chest pain and difficulty in breathing. The patient did have a chest x-ray which was showing right pneumothorax with shift of the mediastinum to the left side. So the patient had a chest tube placed and has been doing well so far. Today the patient is sitting up in the bed, appears to be in no acute distress. She does not have any active complaints. REVIEW OF SYSTEMS: CONSTITUTIONAL: Denies having any fevers, chills or rigors. RESPIRATORY: No cough or difficulty in breathing. CARDIAC: No chest pain or palpitations. GI: No abdominal pain, nausea, vomiting, or diarrhea. : No dysuria or hematuria. Patient's medications have been reviewed. On examination, patient's vital signs are temperature 98.1, heart rate 87, respiratory rate 18, blood pressure 195/89, saturating at 95% on 5 L of nasal. GENERAL: Patient appears to be in no acute distress. HEAD: Atraumatic, normocephalic. Pupils round and reactive to light. NECK: No JVD. No thyromegaly. CARDIOVASCULAR: S1, S2 heard. LUNGS: The patient has bilateral Velcro crackles, slightly diminished at the lower lung bases. ABDOMEN: Soft, nontender. Bowel sounds positive. EXTREMITIES: No edema, no cyanosis, no clubbing. Peripheral pulses are ( ). [employer]: Alert , awake, oriented x3. No focal neurological deficits. SKIN: No rashes. MUSCULOSKELETAL: No joint swelling or deformity. PSYCHIATRIC: Appropriate mood and affect. PATIENT'S LABS: White count of 3.6, hemoglobin 10.5, platelets 187. Sodium 137, potassium 4.4, chloride 101, bicarb 29. BUN 16, creatinine 0.55. ASSESSMENT AND PLAN: 1. Acute right-sided pneumothorax. 2. Stage III squamous cell lung cancer. 3. Pulmonary fibrosis. 4. Chronic hypoxic respiratory failure. 5. Hyperlipidemia. 6. Obstructive sleep apnea. 7. History of coronary artery disease. 8. Type 2 diabetes mellitus on insulin pump. 9. Hypertension. 10. Hypothyroidism. 11. History of depression. 12. Hypomagnesemia. PLAN: Patient is status post chest tube placement. CT surgery, Dr. Lenz, on board and has evaluated the patient. Continue the rest of her medication regimen. Oncology, Dr. Kulkarni, was also consulted as she is having chemotherapy for her lung cancer. Further recommendations to follow depending on the progress of the patient.
[2016-09-18] MEDS: BUDESONIDE 0.5 MG/2 ML NEBU INHALATION SCH ×2 (06:54→20:33)
[2016-09-18 06:57] LABS: Anion Gap 4 mmol/L; Blood Urea Nitrogen 16 mg/dL (7-17); Calcium 8.9 mg/dL (8.4-10.2); Carbon Dioxide 33 mmol/L (22-30); Chloride 100 mmol/L (98-107); Glucose 161 mg/dL (74-99); Non-African American GFR(MDRD) >60 (>60 ml/min/1.73 sqM); Potassium 5.2 mmol/L (3.5-5.1); Sodium 137 mmol/L (137-145)
--- NOTE | 2016-09-18 08:04 | XR ---
EXAMINATION TYPE: XR chest 1V portable DATE OF EXAM: 09/18/2016 COMPARISON: 09/17/2016 HISTORY: Pneumothorax FINDINGS: There are bilateral pleural effusions with cardiomegaly and bibasilar infiltrate. There is a diffuse interstitial pattern. Right-sided chest tube seen which appears stable. No sizable pneumothorax. Small amount of subcutaneo us emphysema. Atherosclerotic change aorta and cardiomegaly stable. IMPRESSION: 1. No sizable pneumothorax. Areas of infiltrate and interstitial changes suggest chronic interstitial pulmonary fibrosis with superimposed atelectasis or infiltrate. Superimposed venous congestion or pn eumonitis also in the differential diagnosis.
--- NOTE | 2016-09-18 08:45 | P.PN ---
Subjective Principal diagnosis: Right spontaneous pneumothorax, placement of a pleural chest tube. Patient's currently sitting up in bed in no acute distress. Does complain of pain in chest tube site. Otherwise has no overall concerns. Objective - Vital Signs Vital signs: Vital Signs Temp 98.6 F 09/18/16 00:00 Pulse 88 09/18/16 07:10 Resp 17 09/18/16 04:00 BP 141/80 09/18/16 04:00 Pulse Ox 99 09/18/16 04:00 Intake & Output 09/17/16 09/18/16 09/18/16 18:59 06:59 18:59 Intake Total 680 Output Total 200 0 Balance 480 0 Weight 97.6 kg Intake: Oral 680 Output: Chest Tube Drainage 0 0 Chest Tube Right Mid- 0 0 Axillary Chest Drainage 0 0 Right Lateral Chest 0 0 Urine 200 Other: Voiding Method Toilet Toilet # Voids 2 1 - Constitutional General appearance: Present: cooperative, no acute distress, obese - Respiratory Details: Lungs sounds diminished bilaterally. Respirations even, nonlabored. Currently on 6 L high flow nasal cannula with oxygen saturation 99%. Right pleural chest tube to waterseal, 0 output in the last 24 hours. No air leak present. - Cardiovascular Details: S1, S2 present. Regular rate and rhythm, normal sinus rhythm on telemetry. - Gastrointestinal Gastrointestinal Comment(s): Abdomen soft, nontender, nondistended. Active bowel sounds 4 quadrants. Tolerating diet. - Genitourinary Genitourinary Comment(s): Continues to void clear, yellow urine. - Musculoskeletal Musculoskeletal: Present: gait normal, strength equal bilaterally - Psychiatric Psychiatric: Present: A&O x's 3, appropriate affect, intact judgment & insight - Allied health notes Allied health notes reviewed: nursing - Labs CBC & Chem 7: 09/18/16 06:23 09/18/16 06:20 Labs: Abnormal Lab Results - Last 24 Hours (Table) 09/16/16 09/17/16 09/17/16 Range/Units 05:36 05:24 11:47 WBC 3.6 L (3.8-10.6) k/uL RBC 3.13 L (3.80-5.40) m/uL Hgb 10.5 L (11.4-16.0) gm/dL Hct 33.1 L (34.0-46.0) % MCV 105.7 H (80.0-100.0) fL RDW 19.1 H (11.5-15.5) % Lymphocytes # 0.9 L (1.0-4.8) k/uL Potassium (3.5-5.1) mmol/L Carbon Dioxide (22-30) mmol/L Glucose (74-99) mg/dL POC Glucose (mg/dL) 207 H (75-99) mg/dL Hemoglobin A1c 6.3 H (4.2-6.1) % 09/17/16 09/17/16 09/18/16 Range/Units 16:23 20:20 05:58 WBC (3.8-10.6) k/uL RBC (3.80-5.40) m/uL Hgb (11.4-16.0) gm/dL Hct (34.0-46.0) % MCV (80.0-100.0) fL RDW (11.5-15.5) % Lymphocytes # (1.0-4.8) k/uL Potassium (3.5-5.1) mmol/L Carbon Dioxide (22-30) mmol/L Glucose (74-99) mg/dL POC Glucose (mg/dL) 213 H 212 H 164 H (75-99) mg/dL Hemoglobin A1c (4.2-6.1) % 09/18/16 09/18/16 Range/Units 06:20 06:23 WBC 3.5 L (3.8-10.6) k/uL RBC 3.10 L (3.80-5.40) m/uL Hgb 10.3 L (11.4-16.0) gm/dL Hct 32.2 L (34.0-46.0) % MCV 104.0 H (80.0-100.0) fL RDW 18.6 H (11.5-15.5) % Lymphocytes # 0.6 L (1.0-4.8) k/uL Potassium 5.2 H (3.5-5.1) mmol/L Carbon Dioxide 33 H (22-30) mmol/L Glucose 161 H (74-99) mg/dL POC Glucose (mg/dL) (75-99) mg/dL Hemoglobin A1c (4.2-6.1) % - Imaging and Cardiology Chest x-ray: image reviewed Assessment and Plan (1) Hyperlipidemia Status: Acute (2) Obstructive sleep apnea Status: Acute (3) Pulmonary fibrosis Status: Acute (4) Tobacco dependence in remission Status: Acute (5) Chest pain Status: Acute (6) Pneumothorax Status: Acute (7) Diabetes Status: Acute (8) HTN (hypertension) Status: Acute (9) Hypothyroid Status: Acute (10) Squamous cell carcinoma of lung, stage III Status: Chronic Plan: 1. Toradol added to pain medication regimen for better pain control. 2. Leave chest tube to water seal for one more day. CXR in am. 3. Medical comorbidities to be managed by primary care service. 4. Wean O2 as tolerated. Encourage incentive spirometry. 5. GI/DVT prophylaxis. 6. Increase activity, ambulate in hallway. 7. More recommendations as patient progresses. Time with Patient: Greater than 30
[2016-09-18] MEDS: HEPARIN SODIUM,PORCINE 5,000 UNIT/ML 1 ML VIAL SQ SCH ×3 (09:26→23:32)
[2016-09-18] MEDS: KETOROLAC 30 MG/ML 1 ML VIAL IVP SCH ×4 (09:26→23:33)
[2016-09-18] MEDS: METOPROLOL SUCCINATE (ER) 25 MG TAB.ER.24H PO SCH ×2 (09:27→20:00)
[2016-09-18] MEDS: LOSARTAN-HCTZ 50-12.5 MG 1 EACH TAB PO SCH (09:27)
[2016-09-18] MEDS: amLODIPine 5 MG TAB PO SCH (09:27)
[2016-09-18] MEDS: CLOPIDOGREL 75 MG TAB PO SCH (09:27)
[2016-09-18] MEDS: INSULIN PUMP MEAL BOLUS 1 UNIT MISC MISCELLANE SCH ×4 (09:27→23:15)
[2016-09-18 11:18] LABS: Glucose,Whole Blood 201 mg/dL (75-99)
--- NOTE | 2016-09-18 15:31 | P.PN ---
Subjective 65-year-old female with history of idiopathic pulmonary fibrosis and chronic hypoxic respiratory failure comes in the hospital with the poor as was her chest pain. Patient was noted to have a right-sided pneumothorax. Patient underwent a chest tube placement. Currently chest tube is off suction. States to be feeling better. Denies having any headaches blurry vision nausea vomiting diarrhea. Patient's past medical history includes squamous cell lung cancer stage III U by the primary fibrosis And pulmonary hypertension secondary to pulmonary fibrosis. Objective - Vital Signs Vital signs: Vital Signs Temp 96.3 F L 09/18/16 13:08 Pulse 80 09/18/16 15:17 Resp 18 09/18/16 13:08 BP 124/59 09/18/16 13:08 Pulse Ox 99 09/18/16 13:08 Intake & Output 09/17/16 09/18/16 09/18/16 18:59 06:59 18:59 Intake Total 680 360 Output Total 200 0 0 Balance 480 0 360 Weight 97.6 kg Intake: Oral 680 360 Output: Chest Tube Drainage 0 0 0 Chest Tube Right Mid- 0 0 0 Axillary Chest Drainage 0 0 0 Right Lateral Chest 0 0 0 Urine 200 Other: Voiding Method Toilet Toilet Toilet # Voids 2 1 1 - Exam Physical exam Gen. appearance oriented 3 in no distress Neck is supple no JVD Lungs is dry crackles present posteriorly. Currently on 6 L of supplemental oxygen Heart S1-S2 heard regular rate and rhythm no murmurs appreciated Abdomen is soft nontender no organomegaly bowel sounds are intact Neurologically cranial nerves II-12 grossly intact no focal motor or sensory deficits noted Skin no abnormalities appreciated - Labs CBC & Chem 7: 09/18/16 06:23 09/18/16 06:20 Labs: Abnormal Lab Results - Last 24 Hours (Table) 09/17/16 09/17/16 09/18/16 Range/Units 16:23 20:20 05:58 WBC (3.8-10.6) k/uL RBC (3.80-5.40) m/uL Hgb (11.4-16.0) gm/dL Hct (34.0-46.0) % MCV (80.0-100.0) fL RDW (11.5-15.5) % Lymphocytes # (1.0-4.8) k/uL Potassium (3.5-5.1) mmol/L Carbon Dioxide (22-30) mmol/L Glucose (74-99) mg/dL POC Glucose (mg/dL) 213 H 212 H 164 H (75-99) mg/dL 09/18/16 09/18/16 09/18/16 Range/Units 06:20 06:23 11:14 WBC 3.5 L (3.8-10.6) k/uL RBC 3.10 L (3.80-5.40) m/uL Hgb 10.3 L (11.4-16.0) gm/dL Hct 32.2 L (34.0-46.0) % MCV 104.0 H (80.0-100.0) fL RDW 18.6 H (11.5-15.5) % Lymphocytes # 0.6 L (1.0-4.8) k/uL Potassium 5.2 H (3.5-5.1) mmol/L Carbon Dioxide 33 H (22-30) mmol/L Glucose 161 H (74-99) mg/dL POC Glucose (mg/dL) 201 H (75-99) mg/dL Assessment and Plan Plan: #1 right-sided spontaneous pneumothorax #2 acute on chronic hypoxic respiratory failure secondary to idiopathic pulmonary fibrosis #3 squamous cell lung cancer #4 objective sleep apnea #5 the diabetes most type II on insulin pump with a basal rate of 2-2.1 units per hour #6 hypertension #7 days history of depression #8 history of depression Plan Continue ongoing care chest tube management per CT surgery Blood glucose levels are appropriate did review insulin pump settings Patient appears to be stable continue ongoing care will likely discharge the patient in the next 48 hours once chest tube is discontinued we'll monitor the patient another 24 hours to ensure there is no reaccumulation of air
[2016-09-18 16:59] LABS: Glucose,Whole Blood 162 mg/dL (75-99)
--- NOTE | 2016-09-18 17:36 | P.PN ---
Subjective Principal diagnosis: Spontaneous pneumothorax Patient seen and examined. Patient states she is feeling much better today. The Toradol is helping with pain. Her breathing is back to baseline. She has no needs or complaints at this time. Objective - Vital Signs Vital signs: Vital Signs Temp 96.8 F L 09/18/16 16:58 Pulse 68 09/18/16 16:58 Resp 18 09/18/16 16:58 BP 163/70 09/18/16 16:58 Pulse Ox 98 09/18/16 16:58 Intake & Output 09/17/16 09/18/16 09/18/16 18:59 06:59 18:59 Intake Total 680 600 Output Total 200 0 0 Balance 480 0 600 Weight 97.6 kg Intake: Oral 680 600 Output: Chest Tube Drainage 0 0 0 Chest Tube Right Mid- 0 0 0 Axillary Chest Drainage 0 0 0 Right Lateral Chest 0 0 0 Urine 200 Other: Voiding Method Toilet Toilet Toilet # Voids 2 1 1 - Exam Gen.: Patient is alert and oriented 3, no acute distress Cardiovascular: Regular rate and rhythm, S1/S2 Lungs: Diminished breath sounds bilaterally with scattered crackles Abdomen: Soft nontender nondistended positive bowel sounds Extremities: No edema - Labs CBC & Chem 7: 09/18/16 06:23 09/18/16 06:20 Labs: Abnormal Lab Results - Last 24 Hours (Table) 09/17/16 09/18/16 09/18/16 Range/Units 20:20 05:58 06:20 WBC (3.8-10.6) k/uL RBC (3.80-5.40) m/uL Hgb (11.4-16.0) gm/dL Hct (34.0-46.0) % MCV (80.0-100.0) fL RDW (11.5-15.5) % Lymphocytes # (1.0-4.8) k/uL Potassium 5.2 H (3.5-5.1) mmol/L Carbon Dioxide 33 H (22-30) mmol/L Glucose 161 H (74-99) mg/dL POC Glucose (mg/dL) 212 H 164 H (75-99) mg/dL 09/18/16 09/18/16 09/18/16 Range/Units 06:23 11:14 16:57 WBC 3.5 L (3.8-10.6) k/uL RBC 3.10 L (3.80-5.40) m/uL Hgb 10.3 L (11.4-16.0) gm/dL Hct 32.2 L (34.0-46.0) % MCV 104.0 H (80.0-100.0) fL RDW 18.6 H (11.5-15.5) % Lymphocytes # 0.6 L (1.0-4.8) k/uL Potassium (3.5-5.1) mmol/L Carbon Dioxide (22-30) mmol/L Glucose (74-99) mg/dL POC Glucose (mg/dL) 201 H 162 H (75-99) mg/dL Assessment and Plan Plan: Acute on chronic hypoxic respiratory failure Spontaneous right pneumothorax Emphysema Idiopathic pulmonary fibrosis Pulmonary hypertension Squamous cell lung cancer Anemia, leukopenia Diabetes mellitus type 2 GERD Dyslipidemia Hypertension History of coronary artery disease Obstructive sleep apnea on CPAP Hypothyroidism History of tobacco abuse, quit in 2010 O2 to maintain saturation greater than equal to 88% Pulmicort Duo nebs Chest tube per thoracic surgery GI and DVT prophylaxis: Heparin and Protonix Incentive spirometry and pulmonary hygiene CPAP nightly Blood sugar control Outpatient pulmonary follow up
[2016-09-18] MEDS: ATORVASTATIN 80 MG TAB PO SCH (20:00)
[2016-09-18] MEDS: MAGNESIUM OXIDE 400 MG TAB PO SCH (20:00)
[2016-09-18] MEDS: ASPIRIN 81 MG CHEW PO SCH (20:00)
[2016-09-18] MEDS: CITALOPRAM HYDROBROMIDE 20 MG TAB PO SCH (20:00)
[2016-09-18 20:56] LABS: Glucose,Whole Blood 157 mg/dL (75-99)
[2016-09-18] MEDS ORDERED: IPRATROPIUM-ALBUTEROL 3 ML NEB INHALATION PRN (21:04)
[2016-09-19] MEDS: HYDROmorphone 1 MG/ML 1 ML SYRINGE IVP PRN ×3 (00:23→11:31)
[2016-09-19] MEDS: KETOROLAC 30 MG/ML 1 ML VIAL IVP SCH ×2 (05:53→12:38)
[2016-09-19] MEDS: HYDROcodone/APAP 5-325MG 1 EACH TAB PO PRN ×4 (05:53→21:49)
[2016-09-19 06:12] LABS: Glucose,Whole Blood 131 mg/dL (75-99)
[2016-09-19] MEDS: LEVOTHYROXINE 50 MCG TAB PO SCH (06:35)
[2016-09-19] MEDS: PANTOPRAZOLE 40 MG TABLET PO SCH ×2 (06:35→16:58)
[2016-09-19 06:39] LABS: Anisocytosis Slight; Aty Lym Flag Slight; CH 33.9; CHCM 33.8; HCT 29.7 % (34.0-46.0); HDW 3.24; HGB 10.1 gm/dL (11.4-16.0); MCH 34.2 pg (25.0-35.0); MCV 100.6 fL (80.0-100.0); Macrocytosis Moderate; Mean Platelet Volume 6.8; RBC 2.95 m/uL (3.80-5.40); WBC (Perox) 1.43
[2016-09-19 06:53] LABS: WBC 1.3 k/uL (3.8-10.6)
[2016-09-19 07:00] LABS: Anion Gap 9 mmol/L; Blood Urea Nitrogen 24 mg/dL (7-17); Calcium 8.9 mg/dL (8.4-10.2); Carbon Dioxide 23 mmol/L (22-30); Chloride 101 mmol/L (98-107); Glucose 124 mg/dL (74-99); Non-African American GFR(MDRD) >60 (>60 ml/min/1.73 sqM); Potassium 4.6 mmol/L (3.5-5.1); Sodium 133 mmol/L (137-145)
[2016-09-19] MEDS: INSULIN PUMP MEAL BOLUS 1 UNIT MISC MISCELLANE SCH ×4 (07:30→23:45)
[2016-09-19] MEDS: IPRATROPIUM-ALBUTEROL 3 ML NEB INHALATION SCH ×4 (07:57→21:45)
[2016-09-19] MEDS: BUDESONIDE 0.5 MG/2 ML NEBU INHALATION SCH ×2 (07:57→21:46)
--- NOTE | 2016-09-19 07:57 | P.PN ---
Addendum entered and electronically signed by Uma Doe, SASH INSTALLER-C 09/19/16 12:45 : Addendum: CT clamped for 2 hours, repeat CXR demonstrated no pneumothorax. Right pleural CT dc'd intact without incident. Pt pranay well. Will order CXR in the AM. Original Note: <Uma Doe - Last Filed: 09/19/16 07:52> Subjective Principal diagnosis: Right spontaneous pneumothorax, placement of a pleural chest tube. Patient's currently sitting up in bed in no acute distress. Does complain of pain in chest tube site which is better with the addition of Toradol. Anxious to have chest tube removed Objective - Vital Signs Vital signs: Vital Signs Temp 98.0 F 09/19/16 04:00 Pulse 70 09/19/16 04:00 Resp 16 09/19/16 04:00 BP 144/73 09/19/16 04:00 Pulse Ox 98 09/19/16 04:00 Intake & Output 09/18/16 09/19/16 09/19/16 18:59 06:59 18:59 Intake Total 600 10 Output Total 0 300 Balance 600 -290 Weight 98.6 kg Intake: IV 10 flush 10 Oral 600 Output: Chest Tube Drainage 0 0 Chest Tube Right Mid- 0 0 Axillary Chest Drainage 0 Right Lateral Chest 0 Urine 300 Other: Voiding Method Toilet # Voids 1 1 # Bowel Movements 1 - Constitutional General appearance: Present: cooperative, no acute distress, obese - Respiratory Details: Lungs sounds diminished bilaterally with coarse breath sounds bilateral bases. Respirations even, nonlabored. Currently on 5 L nasal cannula with oxygen saturation 96%. Able to achieve 1250 mL on her incentive spirometer. Right pleural chest tube to waterseal for greater than 48 hours, no drainage in the last 24 hours, no air leak present. - Cardiovascular Details: S1, S2 present. Regular rate and rhythm, normal sinus rhythm on telemetry. - Gastrointestinal Gastrointestinal Comment(s): Abdomen soft, nontender, nondistended. Active bowel sounds 4 quadrants. Tolerating diet. - Genitourinary Genitourinary Comment(s): Continues to void clear, yellow urine. - Musculoskeletal Musculoskeletal: Present: gait normal, strength equal bilaterally - Psychiatric Psychiatric: Present: A&O x's 3, appropriate affect, intact judgment & insight - Allied health notes Allied health notes reviewed: nursing - Labs CBC & Chem 7: 09/19/16 05:31 09/19/16 05:31 Labs: Abnormal Lab Results - Last 24 Hours (Table) 09/18/16 09/18/16 09/18/16 Range/Units 11:14 16:57 20:54 WBC (3.8-10.6) k/uL RBC (3.80-5.40) m/uL Hgb (11.4-16.0) gm/dL Hct (34.0-46.0) % MCV (80.0-100.0) fL RDW (11.5-15.5) % Plt Count (150-450) k/uL Sodium (137-145) mmol/L BUN (7-17) mg/dL Glucose (74-99) mg/dL POC Glucose (mg/dL) 201 H 162 H 157 H (75-99) mg/dL 09/19/16 09/19/16 09/19/16 Range/Units 05:31 05:31 06:10 WBC 1.3 L* (3.8-10.6) k/uL RBC 2.95 L (3.80-5.40) m/uL Hgb 10.1 L (11.4-16.0) gm/dL Hct 29.7 L (34.0-46.0) % MCV 100.6 H (80.0-100.0) fL RDW 18.0 H (11.5-15.5) % Plt Count 124 L (150-450) k/uL Sodium 133 L (137-145) mmol/L BUN 24 H (7-17) mg/dL Glucose 124 H (74-99) mg/dL POC Glucose (mg/dL) 131 H (75-99) mg/dL - Imaging and Cardiology Chest x-ray: image reviewed Assessment and Plan (1) Hyperlipidemia Status: Acute (2) Obstructive sleep apnea Status: Acute (3) Pulmonary fibrosis Status: Acute (4) Tobacco dependence in remission Status: Acute (5) Chest pain Status: Acute (6) Pneumothorax Status: Acute (7) Diabetes Status: Acute (8) HTN (hypertension) Status: Acute (9) Hypothyroid Status: Acute (10) Squamous cell carcinoma of lung, stage III Status: Chronic Plan: 1. Likely will discontinue chest tube today. Chest x-ray in the morning. 2. Medical comorbidities to be managed by primary care service. 3. Wean O2 as tolerated. Encourage incentive spirometry. 4. GI/DVT prophylaxis. 5. Increase activity, ambulate in hallway. 6. More recommendations as patient progresses. Time with Patient: Greater than 30 <Jesus Alberto Lenz - Last Filed: 09/19/16 16:06> Subjective SASH INSTALLER notes reviewed and accepted. No sign of air leak and no pneumothorax. Will DC chest tube. Will DC any NSAIDs for now. Objective - Vital Signs Vital signs: Vital Signs Temp 97.1 F L 09/19/16 15:50 Pulse 78 09/19/16 15:50 Resp 18 09/19/16 15:50 BP 123/59 09/19/16 15:50 Pulse Ox 94 L 09/19/16 15:50 Intake & Output 09/18/16 09/19/16 09/19/16 18:59 06:59 18:59 Intake Total 600 10 200 Output Total 0 300 0 Balance 600 -290 200 Weight 98.6 kg Intake: IV 10 20 flush 10 20 Oral 600 180 Output: Chest Tube Drainage 0 0 0 Chest Tube Right Mid- 0 0 0 Axillary Chest Drainage 0 0 Right Lateral Chest 0 0 Urine 300 Other: Voiding Method Toilet # Voids 1 1 1 # Bowel Movements 1 - Labs CBC & Chem 7: 09/19/16 05:31 09/19/16 05:31 Labs: Abnormal Lab Results - Last 24 Hours (Table) 09/18/16 09/18/16 09/19/16 Range/Units 16:57 20:54 05:31 WBC 1.3 L* (3.8-10.6) k/uL RBC 2.95 L (3.80-5.40) m/uL Hgb 10.1 L (11.4-16.0) gm/dL Hct 29.7 L (34.0-46.0) % MCV 100.6 H (80.0-100.0) fL RDW 18.0 H (11.5-15.5) % Plt Count 124 L (150-450) k/uL Neutrophils # (Manual) 0.5 L (1.3-7.7) k/uL Lymphocytes # (Manual) 0.8 L (1.0-4.8) k/uL Sodium (137-145) mmol/L BUN (7-17) mg/dL Glucose (74-99) mg/dL POC Glucose (mg/dL) 162 H 157 H (75-99) mg/dL 09/19/16 09/19/16 09/19/16 Range/Units 05:31 06:10 11:34 WBC (3.8-10.6) k/uL RBC (3.80-5.40) m/uL Hgb (11.4-16.0) gm/dL Hct (34.0-46.0) % MCV (80.0-100.0) fL RDW (11.5-15.5) % Plt Count (150-450) k/uL Neutrophils # (Manual) (1.3-7.7) k/uL Lymphocytes # (Manual) (1.0-4.8) k/uL Sodium 133 L (137-145) mmol/L BUN 24 H (7-17) mg/dL Glucose 124 H (74-99) mg/dL POC Glucose (mg/dL) 131 H 201 H (75-99) mg/dL
[2016-09-19 08:03] LABS: Add Differential Manual Differential
[2016-09-19 08:10] LABS: Nucleated Red Blood Cells 0 /100 WBC (0-0); Total Cells Counted 100
--- NOTE | 2016-09-19 08:17 | XR ---
EXAMINATION TYPE: XR chest 2V DATE OF EXAM: 09/19/2016 COMPARISON: 09/18/2016 TECHNIQUE: PA and lateral views submitted. HISTORY: Pneumothorax FINDINGS: There are bilateral pleural effusions with cardiomegaly and bibasilar infiltrate. There is a diffuse interstitial pattern. Right-sided chest tube seen which appears stable. No sizable pneumothorax. Smal l amount of subcutaneous emphysema. Atherosclerotic change aorta and cardiomegaly stable. IMPRESSION: 1. No sizable pneumothorax. Areas of infiltrate and interstitial changes suggest chronic interstitial pulmonary fibrosis with superimposed atelectasis or infiltrate. Superimposed venous congestion or pn eumonitis also in the differential diagnosis.
[2016-09-19] MEDS: LOSARTAN-HCTZ 50-12.5 MG 1 EACH TAB PO SCH (08:22)
[2016-09-19] MEDS: amLODIPine 5 MG TAB PO SCH (08:22)
[2016-09-19] MEDS: METOPROLOL SUCCINATE (ER) 25 MG TAB.ER.24H PO SCH ×2 (08:22→21:48)
[2016-09-19] MEDS: CLOPIDOGREL 75 MG TAB PO SCH (08:22)
[2016-09-19] MEDS: HEPARIN SODIUM,PORCINE 5,000 UNIT/ML 1 ML VIAL SQ SCH ×3 (08:22→23:48)
[2016-09-19 11:36] LABS: Glucose,Whole Blood 201 mg/dL (75-99)
--- NOTE | 2016-09-19 12:14 | XR ---
EXAMINATION TYPE: XR chest 1V portable DATE OF EXAM: 09/19/2016 COMPARISON: NONE HISTORY: pneumothorax TECHNIQUE: Single frontal view of the chest is obtained. FINDINGS: There are bilateral pleural effusions with cardiomegaly and bibasilar infiltrate. There is a diffuse interstitial pattern. Right-sided chest tube seen which appears stable. No sizable pneumot horax. Small amount of subcutaneous emphysema. Atherosclerotic change aorta and cardiomegaly stable . IMPRESSION: 1. No sizable pneumothorax. Areas of infiltrate and interstitial changes suggest chronic interstitial pulmonary fibrosis with superimposed atelectasis or infiltrate. Superimposed venous congestion or pn eumonitis also in the differential diagnosis.
--- NOTE | 2016-09-19 12:54 | P.PN ---
Subjective 65-year-old female with history of idiopathic pulmonary fibrosis and chronic hypoxic respiratory failure comes in the hospital with the poor as was her chest pain. Patient was noted to have a right-sided pneumothorax. Patient underwent a chest tube placement. Currently chest tube is off suction. States to be feeling better. Denies having any headaches blurry vision nausea vomiting diarrhea. Patient's past medical history includes squamous cell lung cancer stage III U by the primary fibrosis And pulmonary hypertension secondary to pulmonary fibrosis. 09/19/2016 Today patient states to be doing well denies having any fevers chills nausea vomiting any complaints of chest pain difficulty in breathing abdominal pain or diarrhea Repeat chest x-ray does not show any residual pneumothorax Objective - Vital Signs Vital signs: Vital Signs Temp 98.1 F 09/19/16 12:00 Pulse 77 09/19/16 12:00 Resp 18 09/19/16 12:00 BP 140/74 09/19/16 12:00 Pulse Ox 99 09/19/16 12:00 Intake & Output 09/18/16 09/19/16 09/19/16 18:59 06:59 18:59 Intake Total 600 10 Output Total 0 300 0 Balance 600 -290 0 Weight 98.6 kg Intake: IV 10 flush 10 Oral 600 Output: Chest Tube Drainage 0 0 0 Chest Tube Right Mid- 0 0 0 Axillary Chest Drainage 0 0 Right Lateral Chest 0 0 Urine 300 Other: Voiding Method Toilet # Voids 1 1 # Bowel Movements 1 - Exam Physical exam Gen. appearance oriented 3 in no distress Neck is supple no JVD Lungs is dry crackles present posteriorly. Currently on 6 L of supplemental oxygen Heart S1-S2 heard regular rate and rhythm no murmurs appreciated Abdomen is soft nontender no organomegaly bowel sounds are intact Neurologically cranial nerves II-12 grossly intact no focal motor or sensory deficits noted Skin no abnormalities appreciated - Labs CBC & Chem 7: 09/19/16 05:31 09/19/16 05:31 Labs: Abnormal Lab Results - Last 24 Hours (Table) 09/18/16 09/18/16 09/19/16 Range/Units 16:57 20:54 05:31 WBC 1.3 L* (3.8-10.6) k/uL RBC 2.95 L (3.80-5.40) m/uL Hgb 10.1 L (11.4-16.0) gm/dL Hct 29.7 L (34.0-46.0) % MCV 100.6 H (80.0-100.0) fL RDW 18.0 H (11.5-15.5) % Plt Count 124 L (150-450) k/uL Neutrophils # (Manual) 0.5 L (1.3-7.7) k/uL Lymphocytes # (Manual) 0.8 L (1.0-4.8) k/uL Sodium (137-145) mmol/L BUN (7-17) mg/dL Glucose (74-99) mg/dL POC Glucose (mg/dL) 162 H 157 H (75-99) mg/dL 09/19/16 09/19/16 09/19/16 Range/Units 05:31 06:10 11:34 WBC (3.8-10.6) k/uL RBC (3.80-5.40) m/uL Hgb (11.4-16.0) gm/dL Hct (34.0-46.0) % MCV (80.0-100.0) fL RDW (11.5-15.5) % Plt Count (150-450) k/uL Neutrophils # (Manual) (1.3-7.7) k/uL Lymphocytes # (Manual) (1.0-4.8) k/uL Sodium 133 L (137-145) mmol/L BUN 24 H (7-17) mg/dL Glucose 124 H (74-99) mg/dL POC Glucose (mg/dL) 131 H 201 H (75-99) mg/dL Assessment and Plan Plan: #1 right-sided spontaneous pneumothorax #2 acute on chronic hypoxic respiratory failure secondary to idiopathic pulmonary fibrosis #3 squamous cell lung cancer #4 objective sleep apnea #5 the diabetes most type II on insulin pump with a basal rate of 2-2.1 units per hour #6 hypertension #7 days history of depression #8 history of depression Plan Continue ongoing care chest tube management per CT surgery Blood glucose levels are appropriate did review insulin pump settings We'll give a dose of zarxio due to bicytopenia from recent chemotherapy discussed regarding calling up patient's oncologist regarding deferring chemotherapy till Saturday
[2016-09-19] MEDS: FILGRASTIM-SNDZ 300 MCG/0.5 ML SYRINGE SQ SCH (14:24)
[2016-09-19 16:53] LABS: Glucose,Whole Blood 132 mg/dL (75-99)
--- NOTE | 2016-09-19 17:53 | PN ---
DATE OF SERVICE: 09/19/2016. HISTORY OF PRESENT ILLNESS: The patient is a 65-year-old female who came in with increased difficulty with breathing that had worsened during the day. She was determined to have right pneumothorax and required chest tube placement. She does have a significant history of emphysema with pulmonary fibrosis and lung cancer. She is seen today. Her chest tube has been removed. She states that she has had some difficulty with coughing while the chest tube was placed, but she was able to get some sputum out that was thick and yellow. She states that she has been using incentive spirometer and getting about 1250 mL. She has had no nausea, vomiting or diarrhea. She is hopeful to be able to go home in the next day or 2. She is eating okay, states that she is doing better since her chest tube has been removed. On physical examination, vital signs show temperature of 98.1, heart rate 77, respiratory rate 18, blood pressure is 140/74. Oxygen saturation was 99% on 6 liters. LABS: WBC 1.3, hemoglobin 10.1, hematocrit 29.7, platelets are 124, sodium 133, potassium 4.6, chloride 101, carbon dioxide 23, BUN 24, creatinine 0.67, glucose is 124. Calcium is 8.9. GENERAL: The patient is a 65-year-old female sitting at bedside. She appears comfortable, in no acute distress at this time. HEENT: Pupils are reactive. Mucous membranes are moist. NECK: Short, supple, thick. LUNGS: Sounds are diminished with Velcro crackles heard. CARDIOVASCULAR: S1 and S2 heard, a little tachy at times, regular. ABDOMEN: Soft. Bowel sounds are present. EXTREMITIES: No edema. NEUROLOGIC: She is awake, alert, appears appropriate. IMPRESSION: 1. Acute on chronic hypoxic respiratory failure. 2. Spontaneous right pneumothorax. 3. Emphysema. 4. Idiopathic pulmonary fibrosis. 5. Pulmonary hypertension. 6. Squamous cell lung cancer. 7. Anemia with leukopenia. 8. Diabetes mellitus type 2. 9. Gastroesophageal reflux disease. 10. Dyslipidemia. 11. Hypertension. 12. History of coronary artery disease. 13. Obstructive sleep apnea, where she uses CPAP. 14. Hypothyroidism. PLAN: The patient will continue with oxygen to keep sats 88% or better. Should continue with her nebulizer treatments as ordered. Continue with GI and DVT prophylaxis. Continue with pulmonary hygiene, wear her CPAP nightly. On discharge she will need to follow up with Dr. Sandoval. She is getting a dose of Zarxio. The patient states that she is supposed to start chemo back again soon. It is recommended that she hold off and check with her oncologist. Her chest x-ray from today showed no sizable pneumothorax, areas of infiltrate and interstitial changes suggest chronic interstitial pulmonary fibrosis with superimposed atelectasis or infiltrate and superimposed venous congestion or pneumonitis also in the differential diagnosis. We will continue to follow patient with you until discharge.
[2016-09-19 20:49] LABS: Glucose,Whole Blood 127 mg/dL (75-99)
[2016-09-19] MEDS: CITALOPRAM HYDROBROMIDE 20 MG TAB PO SCH (21:48)
[2016-09-19] MEDS: ASPIRIN 81 MG CHEW PO SCH (21:48)
[2016-09-19] MEDS: MAGNESIUM OXIDE 400 MG TAB PO SCH (21:48)
[2016-09-19] MEDS: ATORVASTATIN 80 MG TAB PO SCH (21:48)
[2016-09-20] MEDS: HYDROcodone/APAP 5-325MG 1 EACH TAB PO PRN ×2 (05:30→15:48)
[2016-09-20 05:34] VITALS: RESP 18
[2016-09-20 06:03] LABS: Glucose,Whole Blood 128 mg/dL (75-99)
[2016-09-20] MEDS: PANTOPRAZOLE 40 MG TABLET PO SCH (06:31)
[2016-09-20] MEDS: LEVOTHYROXINE 50 MCG TAB PO SCH (06:31)
[2016-09-20] MEDS: IPRATROPIUM-ALBUTEROL 3 ML NEB INHALATION SCH ×3 (07:10→15:53)
[2016-09-20] MEDS: BUDESONIDE 0.5 MG/2 ML NEBU INHALATION SCH (07:10)
[2016-09-20 07:20] LABS: Anisocytosis Slight; Aty Lym Flag Slight; CH 34.2; CHCM 34.6; HCT 29.2 % (34.0-46.0); HDW 3.15; HGB 9.9 gm/dL (11.4-16.0); MCH 33.6 pg (25.0-35.0); MCHC 33.9 g/dL (31.0-37.0); MCV 99.3 fL (80.0-100.0); Macrocytosis Slight; Mean Platelet Volume 6.5; RBC 2.94 m/uL (3.80-5.40); RDW 17.9 % (11.5-15.5); WBC 3.1 k/uL (3.8-10.6); WBC (Perox) 3.34
[2016-09-20 07:34] LABS: ALT 106 U/L (9-52); AST 87 U/L (14-36); Alkaline Phosphatase 92 U/L (38-126); Anion Gap 10 mmol/L; Blood Urea Nitrogen 19 mg/dL (7-17); Calcium 8.9 mg/dL (8.4-10.2); Carbon Dioxide 25 mmol/L (22-30); Chloride 100 mmol/L (98-107); Glucose 103 mg/dL (74-99); Non-African American GFR(MDRD) >60 (>60 ml/min/1.73 sqM); Potassium 4.5 mmol/L (3.5-5.1); Sodium 135 mmol/L (137-145); Total Protein 6.4 g/dL (6.3-8.2)
--- NOTE | 2016-09-20 07:47 | XR ---
EXAMINATION TYPE: XR chest 2V DATE OF EXAM: 09/20/2016 COMPARISON: Prior chest x-ray 09/19/2016 HISTORY: Status post chest tube removal TECHNIQUE: Frontal and lateral views of the chest are obtained. FINDINGS: Right-sided chest tube has been removed. Subcutaneous emphysema is noted. There are overly ing cardiac leads. Interstitial changes again seen. Suspect minimal apical pneumothorax on the right. IMPRESSION: Minimal right-sided apical pneumothorax suspected following chest tube removal on the ri ght.
[2016-09-20] MEDS: METOPROLOL SUCCINATE (ER) 25 MG TAB.ER.24H PO SCH (08:04)
[2016-09-20] MEDS: HEPARIN SODIUM,PORCINE 5,000 UNIT/ML 1 ML VIAL SQ SCH (08:04)
[2016-09-20] MEDS: INSULIN PUMP MEAL BOLUS 1 UNIT MISC MISCELLANE SCH ×2 (08:04→12:25)
[2016-09-20] MEDS: LOSARTAN-HCTZ 50-12.5 MG 1 EACH TAB PO SCH (08:04)
[2016-09-20] MEDS: CLOPIDOGREL 75 MG TAB PO SCH (08:04)
[2016-09-20] MEDS: FILGRASTIM-SNDZ 300 MCG/0.5 ML SYRINGE SQ SCH (08:04)
[2016-09-20 08:58] LABS: Nucleated Red Blood Cells 0 /100 WBC (0-0); Total Cells Counted 100
[2016-09-20 09:10] LABS: Manual Review Performed; Toxic Granulation Present
[2016-09-20] MEDS: amLODIPine 5 MG TAB PO SCH (09:12)
--- NOTE | 2016-09-20 10:51 | P.PN ---
Subjective Principal diagnosis: Right spontaneous pneumothorax, placement of a pleural chest tube. Patient's currently sitting up in bed in no acute distress. Right pleural chest tube discontinued yesterday. Patient denies pain, shortness of breath. Objective - Vital Signs Vital signs: Vital Signs Temp 98.2 F 09/20/16 04:00 Pulse 68 09/20/16 07:10 Resp 18 09/20/16 04:00 BP 166/76 09/20/16 04:00 Pulse Ox 95 09/20/16 04:00 Intake & Output 09/19/16 09/20/16 09/20/16 18:59 06:59 18:59 Intake Total 380 10 Output Total 0 Balance 380 10 Weight 97.5 kg Intake: IV 20 10 flush 20 10 Oral 360 Output: Chest Tube Drainage 0 Chest Tube Right Mid- 0 Axillary Chest Drainage 0 Right Lateral Chest 0 Other: # Voids 1 1 - Constitutional General appearance: Present: cooperative, no acute distress - Respiratory Details: Lungs sounds diminished bilaterally. Respirations even, nonlabored. Currently on 6 L nasal cannula with oxygen saturation 95%. No subcu emphysema noted at chest tube site. - Cardiovascular Details: S1, S2 present. Regular rate and rhythm, normal sinus rhythm on telemetry. - Gastrointestinal Gastrointestinal Comment(s): Abdomen soft, nontender, nondistended. Active bowel sounds 4 quadrants. Tolerating diet. - Genitourinary Genitourinary Comment(s): Continues to void clear, yellow urine. - Musculoskeletal Musculoskeletal: Present: gait normal, strength equal bilaterally - Psychiatric Psychiatric: Present: A&O x's 3, appropriate affect, intact judgment & insight - Allied health notes Allied health notes reviewed: nursing - Labs CBC & Chem 7: 09/20/16 05:58 09/20/16 05:58 Labs: Abnormal Lab Results - Last 24 Hours (Table) 09/19/16 09/19/16 09/19/16 Range/Units 05:31 11:34 16:52 WBC (3.8-10.6) k/uL RBC (3.80-5.40) m/uL Hgb (11.4-16.0) gm/dL Hct (34.0-46.0) % RDW (11.5-15.5) % Neutrophils # (Manual) 0.5 L (1.3-7.7) k/uL Lymphocytes # (Manual) 0.8 L (1.0-4.8) k/uL Sodium (137-145) mmol/L BUN (7-17) mg/dL Glucose (74-99) mg/dL POC Glucose (mg/dL) 201 H 132 H (75-99) mg/dL AST (14-36) U/L ALT (9-52) U/L Albumin (3.5-5.0) g/dL 09/19/16 09/20/16 09/20/16 Range/Units 20:45 05:46 05:58 WBC 3.1 L (3.8-10.6) k/uL RBC 2.94 L (3.80-5.40) m/uL Hgb 9.9 L (11.4-16.0) gm/dL Hct 29.2 L (34.0-46.0) % RDW 17.9 H (11.5-15.5) % Neutrophils # (Manual) (1.3-7.7) k/uL Lymphocytes # (Manual) (1.0-4.8) k/uL Sodium (137-145) mmol/L BUN (7-17) mg/dL Glucose (74-99) mg/dL POC Glucose (mg/dL) 127 H 128 H (75-99) mg/dL AST (14-36) U/L ALT (9-52) U/L Albumin (3.5-5.0) g/dL 09/20/16 Range/Units 05:58 WBC (3.8-10.6) k/uL RBC (3.80-5.40) m/uL Hgb (11.4-16.0) gm/dL Hct (34.0-46.0) % RDW (11.5-15.5) % Neutrophils # (Manual) (1.3-7.7) k/uL Lymphocytes # (Manual) (1.0-4.8) k/uL Sodium 135 L (137-145) mmol/L BUN 19 H (7-17) mg/dL Glucose 103 H (74-99) mg/dL POC Glucose (mg/dL) (75-99) mg/dL AST 87 H (14-36) U/L ALT 106 H (9-52) U/L Albumin 3.4 L (3.5-5.0) g/dL - Imaging and Cardiology Chest x-ray: report reviewed, image reviewed Assessment and Plan (1) Hyperlipidemia Status: Acute (2) Obstructive sleep apnea Status: Acute (3) Pulmonary fibrosis Status: Acute (4) Tobacco dependence in remission Status: Acute (5) Chest pain Status: Acute (6) Pneumothorax Status: Acute (7) Diabetes Status: Acute (8) HTN (hypertension) Status: Acute (9) Hypothyroid Status: Acute (10) Squamous cell carcinoma of lung, stage III Status: Chronic Plan: 1. Chest tube discontinued yesterday. Chest x-ray reviewed. Minimal apical pneumothorax present. Subcu air present on x-ray. Additional Vaseline gauze placed and dressing reinforced. Patient is in no distress. 2. Medical comorbidities to be managed by primary care service. 3. Wean O2 as tolerated. Encourage incentive spirometry. 4. GI/DVT prophylaxis. 5. Increase activity, ambulate in hallway. 6. May discharge home from our standpoint. Time with Patient: Greater than 30
[2016-09-20 11:56] LABS: Glucose,Whole Blood 156 mg/dL (75-99)
[2016-09-20 12:16] VITALS: BP 130/60; TEMP 96.3
--- NOTE | 2016-09-20 13:42 | XR ---
EXAMINATION TYPE: XR chest 1V portable DATE OF EXAM: 09/20/2016 COMPARISON: 09/20/2016 HISTORY: Chest tube removal TECHNIQUE: Single frontal view of the chest is obtained. FINDINGS: There is extensive subcutaneous emphysema including overlying the right chest wall, right and left neck soft tissues. Coarsened interstitium suggest pulmonary fibrosis with subsegmental areas of consolidation which are stable. Heart size stable. Atherosclerotic change aorta. Suspicion for stable 5-10% right apical pneumothorax.. IMPRESSION: 1. Stable suspected 5-10% right-sided pneumothorax with extensive subcutaneous and edema..
--- NOTE | 2016-09-20 15:11 | P.DS ---
Providers Date of admission: 09/16/16 02:05 Attending physician: Deidre Berg Consults: 09/16/16 02:00 Consult Physician Urgent Consulting Provider: Jesus Alberto Lenz Consult Reason/Comments: Chest tube management Do you want consulting provider notified?: Yes 09/16/16 16:28 Consult Physician Routine Consulting Provider: Suman Kulkarni Consult Reason/Comments: current chemotherapy patient of yours Do you want consulting provider notified?: Yes Consult Physician Urgent Consulting Provider: Denny Barrios Consult Reason/Comments: pneumothorax pulmonary fibrosis Do you want consulting provider notified?: Yes Primary care physician: Gema Singleton [facility] Course: 65-year-old female with history of idiopathic pulmonary fibrosis and chronic hypoxic respiratory failure comes in the hospital with the poor as was her chest pain. Patient was noted to have a right-sided pneumothorax. Patient underwent a chest tube placement. Currently chest tube is off suction. States to be feeling better. Denies having any headaches blurry vision nausea vomiting diarrhea. Patient's past medical history includes squamous cell lung cancer stage III U by the primary fibrosis And pulmonary hypertension secondary to pulmonary fibrosis. 09/19/2016 Today patient states to be doing well denies having any fevers chills nausea vomiting any complaints of chest pain difficulty in breathing abdominal pain or diarrhea Repeat chest x-ray does not show any residual pneumothorax - Exam Physical exam Gen. appearance oriented 3 in no distress Neck is supple no JVD Lungs is dry crackles present posteriorly. Currently on 6 L of supplemental oxygen Heart S1-S2 heard regular rate and rhythm no murmurs appreciated Abdomen is soft nontender no organomegaly bowel sounds are intact Neurologically cranial nerves II-12 grossly intact no focal motor or sensory deficits noted Skin no abnormalities appreciated Assessment and Plan Plan: #1 right-sided spontaneous pneumothorax #2 acute on chronic hypoxic respiratory failure secondary to idiopathic pulmonary fibrosis #3 squamous cell lung cancer #4 objective sleep apnea #5 the diabetes most type II on insulin pump with a basal rate of 2-2.1 units per hour #6 hypertension #7 days history of depression #8 history of depression dose of zarxio is given due to bicytopenia pt does have sub cutanous emphysema repeat xray shows a trace pneumothorax, discussed regarding increasing 02, to 7- 8 l for the next 24 hrs complaints of pain. discussed if pain worsens she should come back to the er Plan - Discharge Summary New Discharge Prescriptions: Continue amLODIPine BESYLATE [Amlodipine Besylate] 5 mg PO QAM Omeprazole 20 mg PO BID ALPRAZolam [Xanax] 0.25 mg PO DAILY PRN PRN Reason: Anxiety Nitroglycerin Sl Tabs [Nitrostat] 0.4 mg SUBLINGUAL Q5M PRN #25 tab PRN Reason: Chest Pain Atorvastatin [Lipitor] 80 mg PO HS Budesonide [Pulmicort] 0.5 mg INHALATION RT-BID Aspirin EC [Ecotrin Low Dose] 81 mg PO HS Losartan-Hctz 50-12.5 mg [Hyzaar 50-12.5] 1 tab PO QAM Citalopram Hydrobromide [CeleXA] 40 mg PO HS Levothyroxine Sodium [Synthroid] 50 mcg PO QAM Insulin Aspart (For Pump) [NovoLOG (For Pump)] See Protocol SQ-PUMP CONTINUOUS Ubidecarenone [Co Q-10] 400 mg PO DAILY Cholecalciferol [Vitamin D3] 5,000 unit PO BID Magnesium Oxide 400 mg PO HS L.acidoph,Paracasei, B.lactis [Probiotic] 1 cap PO BID Clopidogrel [Plavix] 75 mg PO QAM Furosemide [Lasix] 20 mg PO DAILY PRN PRN Reason: Edema Ipratropium-Albuterol Nebulize [Duoneb 0.5 mg-3 mg/3 ml Soln] 3 ml INHALATION RT-QID PRN #120 neb PRN Reason: Shortness Of Breath Calcium Carbonate 500 mg PO BID Metoprolol Succinate [Toprol XL] 25 mg PO BID Discharge Medication List ALPRAZolam [Xanax] 0.25 mg PO DAILY PRN 01/08/14 [History] Omeprazole 20 mg PO BID 01/08/14 [History] amLODIPine BESYLATE [Amlodipine Besylate] 5 mg PO QAM 01/08/14 [History] Nitroglycerin Sl Tabs [Nitrostat] 0.4 mg SUBLINGUAL Q5M PRN #25 tab 01/09/14 [Rx ] Aspirin EC [Ecotrin Low Dose] 81 mg PO HS 04/21/14 [History] Atorvastatin [Lipitor] 80 mg PO HS 04/21/14 [History] Budesonide [Pulmicort] 0.5 mg INHALATION RT-BID 04/21/14 [History] Citalopram Hydrobromide [CeleXA] 40 mg PO HS 11/15/15 [History] Levothyroxine Sodium [Synthroid] 50 mcg PO QAM 11/15/15 [History] Losartan-Hctz 50-12.5 mg [Hyzaar 50-12.5] 1 tab PO QAM 11/15/15 [History] Insulin Aspart (For Pump) [NovoLOG (For Pump)] See Protocol SQ-PUMP CONTINUOUS 03/20/16 [History] Cholecalciferol [Vitamin D3] 5,000 unit PO BID 07/28/16 [History] Clopidogrel [Plavix] 75 mg PO QAM 07/28/16 [History] L.acidoph,Paracasei, B.lactis [Probiotic] 1 cap PO BID 07/28/16 [History] Magnesium Oxide 400 mg PO HS 07/28/16 [History] Ubidecarenone [Co Q-10] 400 mg PO DAILY 07/28/16 [History] Furosemide [Lasix] 20 mg PO DAILY PRN 08/24/16 [History] Ipratropium-Albuterol Nebulize [Duoneb 0.5 mg-3 mg/3 ml Soln] 3 ml INHALATION RT -QID PRN #120 neb 08/30/16 [Rx] Calcium Carbonate 500 mg PO BID 09/16/16 [History] Metoprolol Succinate [Toprol XL] 25 mg PO BID 09/16/16 [History] Follow up Appointment(s)/Referral(s): Gema Singleton DO [Primary Care Provider] - 09/24/16 2:00 pm () Layla Sandoval DO [Doctor of Osteopathic Medicine] - 09/27/16 3:45 pm Patient Instructions/Handouts: Spontaneous Pneumothorax (DC) Discharge Disposition: HOME SELF-CARE
[2016-09-20 16:08] VITALS: PULSE 74
--- NOTE | 2016-09-20 19:51 | PN ---
DATE OF SERVICE: 09/20/2016 Patient is a 65-year-old female who is seen sitting up at the bedside. She is awake and alert, has a family member visiting. Patient is eager to go home and has been discharged; just waiting for the final paperwork. Chest tube had been removed, I believe yesterday. Dressing to that right side has some serous drainage on it, is a bit moist; needs to be changed prior to discharge. Patient does state that it sounds like the chest tube site is passing flatus every time she moves around or there is excess pressure on that side. Patient still complains of some shortness of breath; however, she is comfortable going home and is afebrile, in no acute distress. On physical exam, vital signs are temperature 96.3, heart rate 72, respiratory rate 18, blood pressure 130/60. Oxygen saturation is 93% on 5 L oxygen via nasal cannula. HEENT: Head is normocephalic, atraumatic. NECK: Supple. Trachea is midline. LUNGS: Diminished throughout. HEART: S1 and S2 are heard. Not tachycardic. ABDOMEN: Soft. Bowel sounds are heard. EXTREMITIES: No edema. NEUROLOGIC: Patient is awake and alert. LABS: White count is 3.1, hemoglobin 9.9, hematocrit 29.2, with 99,000 platelets. Sodium is 135, potassium 4.5, chloride 100. CO2 is 25. Anion gap is 10. BUN is 19, creatinine 0.68. Glucose 103. Calcium 8.9. Total bilirubin 1.0. AST is 87. ALT is 106. Alkaline phosphatase is 92. Total protein 6.4. Albumin is 3.4. IMAGING: Chest x-ray done this a.m. shows stable suspected 5% to 10% right-sided pneumothorax with extensive subcutaneous emphysema. IMPRESSION: 1. Acute on chronic hypoxic respiratory failure. 2. Spontaneous right pneumothorax. 3. Emphysema. 4. Idiopathic pulmonary fibrosis. 5. Pulmonary hypertension. 6. Squamous cell lung cancer. 7. Anemia with leukopenia. 8. Diabetes mellitus, type 2. 9. Gastroesophageal reflux disease. 10. Dyslipidemia. 11. Hypertension. 12. History of coronary artery disease. 13. Obstructive sleep apnea. 14. Hypothyroidism. PLAN: Continue current medications, which have been reviewed. Continue nebulizer treatments at home. Patient should continue to wear her CPAP nightly at home as well. Will follow up with Dr. Sandoval as directed.
== END 2016-09-20 16:59 | disposition home or self-care (01) | DRG 200 ==
LOC: EC 22:59 → 6SEL 09-16 02:05
PROVIDERS: ADMIT Hospitalist; ATTEND Hospitalist
PROC: 0W9930Z Drainage of Right Pleural Cavity with Drainage Device, Percutaneous Approach (ICD-10-PCS; principal; 2016-09-16)
DX: J93.0 Spontaneous tension pneumothorax (principal); C34.90 Malignant neoplasm of unspecified part of unspecified bronchus or lung; J96.11 Chronic respiratory failure with hypoxia; J84.112 Idiopathic pulmonary fibrosis; I27.2 Other secondary pulmonary hypertension; Z99.81 Dependence on supplemental oxygen; E83.42 Hypomagnesemia; D64.81 Anemia due to antineoplastic chemotherapy; I10 Essential (primary) hypertension; I25.10 Atherosclerotic heart disease of native coronary artery without angina pectoris; I25.2 Old myocardial infarction; G47.33 Obstructive sleep apnea (adult) (pediatric); E03.9 Hypothyroidism, unspecified; F32.9 Major depressive disorder, single episode, unspecified; F41.9 Anxiety disorder, unspecified; K21.9 Gastro-esophageal reflux disease without esophagitis; E78.5 Hyperlipidemia, unspecified; I71.4 Abdominal aortic aneurysm, without rupture; E78.00 Pure hypercholesterolemia, unspecified; L40.9 Psoriasis, unspecified; M19.91 Primary osteoarthritis, unspecified site; T45.1X5A Adverse effect of antineoplastic and immunosuppressive drugs, initial encounter; J44.9 Chronic obstructive pulmonary disease, unspecified; E11.9 Type 2 diabetes mellitus without complications; F17.201 Nicotine dependence, unspecified, in remission; Z91.030 Bee allergy status; Z91.048 Other nonmedicinal substance allergy status; Z98.42 Cataract extraction status, left eye; Z98.41 Cataract extraction status, right eye; Z96.41 Presence of insulin pump (external) (internal); Z87.01 Personal history of pneumonia (recurrent); Z90.710 Acquired absence of both cervix and uterus; Z79.82 Long term (current) use of aspirin; Z79.51 Long term (current) use of inhaled steroids; Z79.02 Long term (current) use of antithrombotics/antiplatelets; Z79.4 Long term (current) use of insulin; Z79.899 Other long term (current) drug therapy
CPT/HCPCS: 32551; 36415; 71010; 71020; 71250; 80048; 80053; 80061; 82550; 82553; 83036; 83735; 83880; 84484; 85025; 85610; 85730; 93005; 94640; 94760; 96374; 96375; 96376; 99285

== ENCOUNTER → 2016-09-21 | Outpatient (CLI) | payer OTHER ==
--- NOTE | 2016-09-21 16:12 | XR ---
EXAMINATION TYPE: XR chest 2V DATE OF EXAM: 09/21/2016 COMPARISON: Prior chest x-ray 09/20/2016 HISTORY: Pneumothorax, pulmonary hypertension TECHNIQUE: Frontal and lateral views of the chest are obtained. FINDINGS: There is extensive subcutaneous emphysema over the right chest as on prior, there may been development of the subcutaneous emphysema on the left and into the neck. No sizable pneumothorax, mi nimal apical pneumothorax on the right thought to persist. Pleural parenchymal changes are stable. He art size is on changed. IMPRESSION: Progression of patient's subcutaneous emphysema. Suspect minimal residual right-sided pn eumothorax.
== END | disposition home or self-care (01) ==
LOC: RADXRMAIN 15:46
PROVIDERS: ATTEND Nurse Practitioner Acute Care
DX: J43.9 Emphysema, unspecified (principal)
CPT/HCPCS: 71020

== ENCOUNTER 2016-09-24 04:56 | Inpatient (IN) | payer OTHER ==
[2016-09-24] MEDS ORDERED: ALBUTEROL NEBULIZED 2.5 MG/3 ML INHALATION STA (05:19)
--- NOTE | 2016-09-24 05:30 | ED ---
SOB HPI - General Chief Complaint: Shortness of Breath Stated Complaint: SOB Time Seen by Provider: 09/24/16 05:07 Source: patient Mode of arrival: wheelchair Limitations: no limitations - History of Present Illness Initial Comments: This patient is a 65-year-old woman with history of pulmonary fibrosis and also previous squamous cell lung cancer. She presents to be evaluated after feeling that her chest and neck Been expanding over the past couple of days. She states she had been discharged from the hospital on after having had a chest tube for number of days due to spontaneous pneumothorax. Patient states that she may also be a little more short of breath than his usual, but she states that at baseline she uses 8 L of oxygen at home. She is not having fever or chills. She has not had any change in her baseline cough. She is not having any leg pain or swelling. She has not noted any change in urination or bowel movements, including no bright red blood or dark tarry stools. MD Complaint: shortness of breath -: hour(s) Consistency: constant Improves With: nothing Worsens With: nothing Known History Of: other (Pulmonary fibrosis. Recent pneumothorax) Associated Symptoms: denies other symptoms Treatments Prior to Arrival: oxygen, bronchodilator - Related Data Home Medications Medication Instructions Recorded Confirmed ALPRAZolam [Xanax] 0.25 mg PO DAILY PRN 01/08/14 09/24/16 Omeprazole 20 mg PO BID 01/08/14 09/24/16 amLODIPine BESYLATE [Amlodipine 5 mg PO QAM 01/08/14 09/24/16 Besylate] Aspirin EC [Ecotrin Low Dose] 81 mg PO HS 04/21/14 09/24/16 Atorvastatin [Lipitor] 80 mg PO HS 04/21/14 09/24/16 Budesonide [Pulmicort] 0.5 mg INHALATION RT-BID 04/21/14 09/24/16 Citalopram Hydrobromide [CeleXA] 40 mg PO HS 11/15/15 09/24/16 Levothyroxine Sodium [Synthroid] 50 mcg PO QAM 11/15/15 09/24/16 Losartan-Hctz 50-12.5 mg [Hyzaar 1 tab PO QAM 11/15/15 09/24/16 50-12.5] Insulin Aspart (For Pump) [NovoLOG See Protocol SQ-PUMP CONTINUOUS 03/20/16 (For Pump)] Cholecalciferol [Vitamin D3] 5,000 unit PO BID 07/28/16 09/24/16 Clopidogrel [Plavix] 75 mg PO QAM 07/28/16 09/24/16 L.acidoph,Paracasei, B.lactis 1 cap PO BID 07/28/16 09/24/16 [Probiotic] Magnesium Oxide 400 mg PO HS 07/28/16 09/24/16 Ubidecarenone [Co Q-10] 400 mg PO DAILY 07/28/16 09/24/16 Furosemide [Lasix] 20 mg PO DAILY PRN 08/24/16 09/24/16 Calcium Carbonate 500 mg PO BID 09/16/16 09/24/16 Metoprolol Succinate [Toprol XL] 25 mg PO BID 09/16/16 09/24/16 Previous Rx's Medication Instructions Recorded Nitroglycerin Sl Tabs [Nitrostat] 0.4 mg SUBLINGUAL Q5M PRN #25 tab 01/09/14 Ipratropium-Albuterol Nebulize 3 ml INHALATION RT-QID PRN #120 neb 08/30/16 [Duoneb 0.5 mg-3 mg/3 ml Soln] Allergies Allergy/AdvReac Type Severity Reaction Status Date / Time adhesive Allergy Rash/Hives Verified 09/16/16 08:23 venom-honey bee Allergy Anaphylaxis Verified 09/16/16 08:23 Review of Systems ROS Statement: Those systems with pertinent positive or pertinent negative responses have been documented in the HPI. ROS Other: All systems not noted in ROS Statement are negative. Constitutional: Denies: fever, chills ENT: Denies: throat pain Respiratory: Reports: cough, dyspnea, other. Denies: wheezes, hemoptysis, stridor Cardiovascular: Denies: chest pain, palpitations, edema, syncope Gastrointestinal: Denies: abdominal pain, nausea, vomiting Musculoskeletal: Denies: back pain Skin: Denies: rash Neurological: Denies: headache, weakness, numbness Past Medical History Past Medical History: Coronary Artery Disease (CAD), Cancer, Diabetes Mellitus, GERD/Reflux, Hyperlipidemia, Hypertension, Myocardial Infarction ([place]), Osteoarthritis (OA), Skin Disorder, Sleep Apnea/CPAP/BIPAP, Thyroid Disorder Additional Past Medical History / Comment(s): PULMONARY FIBROSIS/HTN, HAS AAA THAT DR'S ARE WATCHING, USES O2 NC 6L DURING THE DAY AND 7L AT NIGHT, STATES HAS "PINCHED NERVE" RT HIP TO KNEE WHICH CAUSES NUMBNESS ON THAT SIDE AT TIMES. HX PSORIASIS ON RIGHT ANKLE. 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 Last Myocardial Infarction Date:: 1998 History of Any Multi-Drug Resistant Organisms: None Reported Past Surgical History: Bladder Surgery, Heart Catheterization With Stent, Hysterectomy, Orthopedic Surgery Additional Past Surgical History / Comment(s): STENT X2 AT 2 DIFFERENT TIMES HX 2 BLADDER SUSPENSIONS, KNEE ARTHROSCOPIES-R KNEE X 1 AND L KNEE X2, R HAND SX WITH PINNING, NOW REMOVED. R WRIST GANGLION CYST REMOVAL X 2. CAROL CATARACT SX Numerous surgeries and bone work on BOTH FEET, R/T NEUROMA'S Past Anesthesia/Blood Transfusion Reactions: No Reported Reaction Additional Past Anesthesia/Blood Transfusion Reaction / Comment(s): NEVER RECIEVED BLOOD. Date of Last Stent Placement:: 01/08/14 Past Psychological History: Anxiety, Depression Smoking Status: Former smoker Past Alcohol Use History: Rare Past Drug Use History: None Reported - Past Family History Father Family Medical History: Cancer, Hypertension Additional Family Medical History / Comment(s): FATHER OF LIVER CA AT AGE 67 YRS. HE ALSO HAD AORTIC ANEURYSM. Mother Family Medical History: Coronary Artery Disease (CAD), Diabetes Mellitus, Hypertension, Osteoarthritis (OA), Pulmonary Embolus Additional Family Medical History / Comment(s): MOTHER OF EMBOLISM IN LUNG FOLLOWING REHAB FOR HIP SURGERY AT AGE 65. General Exam Limitations: no limitations General appearance: alert, in no apparent distress, obese Head exam: Present: atraumatic, normocephalic Eye exam: Present: normal appearance. Absent: scleral icterus, conjunctival injection Neck exam: Present: normal inspection. Absent: tenderness Respiratory exam: Present: wheezes, rales, other (There is moderately extensive Subcutaneous emphysema involving the chest and neck bilaterally.). Absent: rhonchi, stridor Cardiovascular Exam: Present: regular rate, normal rhythm, normal heart sounds. Absent: systolic murmur, diastolic murmur, rubs, gallop GI/Abdominal exam: Present: soft. Absent: distended, tenderness, guarding, rebound Extremities exam: Present: normal inspection, normal capillary refill. Absent: pedal edema, calf tenderness Neurological exam: Present: alert Skin exam: Present: warm, dry, intact, normal color. Absent: rash Course Vital Signs 09/24/16 09/24/16 09/24/16 05:00 05:31 05:37 Temperature 97.3 F L Pulse Rate 87 80 84 Respiratory 24 Rate Blood Pressure 140/63 O2 Sat by Pulse 93 L Oximetry 09/24/16 09/24/16 06:37 07:10 Temperature 98.7 F Pulse Rate 82 82 Respiratory 18 20 Rate Blood Pressure 117/82 114/53 O2 Sat by Pulse 98 98 Oximetry Medical Decision Making - Medical Decision Making Patient is a 65-year-old woman with extensive subcutaneous emphysema and what appears to be some recurrence of the right-sided pneumothorax. I discussed the case with Dr. Lenz, who had been managing her case and he states that he is currently out of town and requests that she be seen by another cardiothoracic surgeon. Case was discussed with Dr. Gordon. I also discussed the case with the admitting physician Dr. Giraldo, and with the self pay specialist, Dr. Sandoval. The patient's respiratory status does appear to be relatively stable for her. Will wait for the specialist rather than attempting repeat chest replacement in the emergency department. - Lab Data Result diagrams: 09/24/16 05:37 09/24/16 05:37 Lab Results 09/24/16 09/24/16 09/24/16 Range/Units 05:37 05:37 05:37 WBC 2.0 L* (3.8-10.6) k/uL RBC 2.93 L (3.80-5.40) m/uL Hgb 9.8 L (11.4-16.0) gm/dL Hct 28.1 L (34.0-46.0) % MCV 95.7 (80.0-100.0) fL MCH 33.5 (25.0-35.0) pg MCHC 35.0 (31.0-37.0) g/dL RDW 17.4 H (11.5-15.5) % Plt Count 51 L (150-450) k/uL Neutrophils % (Manual) 19.0 % Band Neutrophils % 3.0 % Lymphocytes % (Manual) 58.0 % Monocytes % (Manual) 16.0 % Eosinophils % (Manual) 4.0 % Neutrophils # (Manual) 0.4 L (1.3-7.7) k/uL Lymphocytes # (Manual) 1.2 (1.0-4.8) k/uL Monocytes # (Manual) 0.3 (0-1.0) k/uL Eosinophils # (Manual) 0.1 (0-0.7) k/uL Nucleated RBCs 0 (0-0) /100 WBC Manual Slide Review Performed Poikilocytosis Slight Anisocytosis Slight PT (9.0-12.0) sec INR (<1.1) APTT (22.0-30.0) sec Sodium 137 (137-145) mmol/L Potassium 4.0 (3.5-5.1) mmol/L Chloride 100 (98-107) mmol/L Carbon Dioxide 26 (22-30) mmol/L Anion Gap 11 mmol/L BUN 15 (7-17) mg/dL Creatinine 0.60 (0.52-1.04) mg/dL Est GFR (MDRD) Af Amer >60 (>60 ml/min/1.73 sqM) Est GFR (MDRD) Non-Af >60 (>60 ml/min/1.73 sqM) Glucose 165 H (74-99) mg/dL Calcium 8.9 (8.4-10.2) mg/dL Total Bilirubin 0.8 (0.2-1.3) mg/dL AST 58 H (14-36) U/L ALT 128 H (9-52) U/L Alkaline Phosphatase 129 H (38-126) U/L Total Creatine Kinase 59 (30-135) U/L CK-MB (CK-2) 1.8 (0.0-2.4) ng/mL CK-MB (CK-2) Rel Index 3.1 Troponin I <0.012 (0.000-0.034) ng/mL NT-Pro-B Natriuret Pep pg/mL Total Protein 6.5 (6.3-8.2) g/dL Albumin 3.6 (3.5-5.0) g/dL 09/24/16 09/24/16 Range/Units 05:37 05:37 WBC (3.8-10.6) k/uL RBC (3.80-5.40) m/uL Hgb (11.4-16.0) gm/dL Hct (34.0-46.0) % MCV (80.0-100.0) fL MCH (25.0-35.0) pg MCHC (31.0-37.0) g/dL RDW (11.5-15.5) % Plt Count (150-450) k/uL Neutrophils % (Manual) % Band Neutrophils % % Lymphocytes % (Manual) % Monocytes % (Manual) % Eosinophils % (Manual) % Neutrophils # (Manual) (1.3-7.7) k/uL Lymphocytes # (Manual) (1.0-4.8) k/uL Monocytes # (Manual) (0-1.0) k/uL Eosinophils # (Manual) (0-0.7) k/uL Nucleated RBCs (0-0) /100 WBC Manual Slide Review Poikilocytosis Anisocytosis PT 10.7 (9.0-12.0) sec INR 1.1 (<1.1) APTT 20.1 L (22.0-30.0) sec Sodium (137-145) mmol/L Potassium (3.5-5.1) mmol/L Chloride (98-107) mmol/L Carbon Dioxide (22-30) mmol/L Anion Gap mmol/L BUN (7-17) mg/dL Creatinine (0.52-1.04) mg/dL Est GFR (MDRD) Af Amer (>60 ml/min/1.73 sqM) Est GFR (MDRD) Non-Af (>60 ml/min/1.73 sqM) Glucose (74-99) mg/dL Calcium (8.4-10.2) mg/dL Total Bilirubin (0.2-1.3) mg/dL AST (14-36) U/L ALT (9-52) U/L Alkaline Phosphatase (38-126) U/L Total Creatine Kinase (30-135) U/L CK-MB (CK-2) (0.0-2.4) ng/mL CK-MB (CK-2) Rel Index Troponin I (0.000-0.034) ng/mL NT-Pro-B Natriuret Pep 119 pg/mL Total Protein (6.3-8.2) g/dL Albumin (3.5-5.0) g/dL Disposition Clinical Impression: Pneumothorax, Subcutaneous emphysema, Pulmonary fibrosis Disposition: ADMITTED IP TO THIS HOSP Condition: Serious
--- NOTE | 2016-09-24 06:04 | XR ---
EXAM: XR Chest, 2 Views CLINICAL HISTORY: Reason: dyspnea TECHNIQUE: Frontal and lateral views of the chest. COMPARISON: 09/21/16 FINDINGS: Lungs: Bilateral mixed interstitial and airspace disease, overall unchanged. Pleural space: Overlying extensive soft tissue emphysema limit evaluation for pneumothorax. Suspect small bilateral apical pneumothoraces, right greater than left. Suspect tiny left effusion. Heart: Unremarkable. No cardiomegaly. Mediastinum: Unremarkable. Bones/joints: Unremarkable. Soft tissues: Extensive subcutaneous emphysema again seen in the right supraclavicular region and lateral chest wall. Interval worsening subcutaneous emphysema in the left supraclavicular region and chest wall. IMPRESSION: 1. Interval worsening left supraclavicular and chest wall subcutaneous emphysema. 2. Suspect small developing left apical pneumothorax. 3. Small right apical pneumothorax, unchanged 4. Extensive right chest wall subcutaneous emphysema, unchanged.
[2016-09-24 06:12] LABS: ALT 128 U/L (9-52); AST 58 U/L (14-36); Alkaline Phosphatase 129 U/L (38-126); Anion Gap 11 mmol/L; Blood Urea Nitrogen 15 mg/dL (7-17); Calcium 8.9 mg/dL (8.4-10.2); Carbon Dioxide 26 mmol/L (22-30); Chloride 100 mmol/L (98-107); Glucose 165 mg/dL (74-99); Non-African American GFR(MDRD) >60 (>60 ml/min/1.73 sqM); Sodium 137 mmol/L (137-145); Total Bilirubin 0.8 mg/dL (0.2-1.3); Total Protein 6.5 g/dL (6.3-8.2)
[2016-09-24 06:19] LABS: Anisocytosis Slight; Aty Lym Flag Marked; CH 34.3; CHCM 35.9; Creatine Kinase 59 U/L (30-135); HCT 28.1 % (34.0-46.0); HDW 3.66; HGB 9.8 gm/dL (11.4-16.0); MCH 33.5 pg (25.0-35.0); MCV 95.7 fL (80.0-100.0); Mean Platelet Volume 8.2; Poikilocytosis Slight; RBC 2.93 m/uL (3.80-5.40); RDW 17.4 % (11.5-15.5); WBC (Perox) 1.87
[2016-09-24 06:21] LABS: INR 1.1 (<1.1); Prothrombin Time 10.7 sec (9.0-12.0)
[2016-09-24 06:31] LABS: Partial Thromboplastin Time 20.1 sec (22.0-30.0)
[2016-09-24 06:32] LABS: Creatine Kinase MB 1.8 ng/mL (0.0-2.4); Troponin I <0.012 ng/mL (0.000-0.034)
[2016-09-24] MEDS ORDERED: NALOXONE 0.4 MG/ML 1 ML VIAL IV PRN (06:40)
[2016-09-24 06:42] LABS: Add Differential Manual Differential
[2016-09-24 06:46] LABS: Manual Review Performed; Nucleated Red Blood Cells 0 /100 WBC (0-0); Total Cells Counted 100
[2016-09-24] MEDS: SODIUM CHLORIDE 0.9% 1,000 ML IV SCH (06:53)
--- NOTE | 2016-09-24 07:04 | CT ---
EXAM: CT Chest Without Intravenous Contrast CLINICAL HISTORY: Reason: dyspnea TECHNIQUE: Axial computed tomography images of the chest without intravenous contrast. CTDI is 16.7 mGy and DLP is 744.6 mGy-cm. This CT exam was performed using one or more of the following dose reduction techniques: automated exposure control, adjustment of the mA and/or kV according to patient size, and/or use of iterative reconstruction technique. COMPARISON: 09/16/16 FINDINGS: Lungs: Extensive chest wall emphysema seen bilaterally, right worse than left. Pleural space: Redemonstration of small to moderate right pneumothorax, unchanged. Again seen are peripheral cystic changes bilaterally, more pronounced in the upper lung zones. Nodular streaky density over the right apical region, unchanged likely scarring. Interstitial thickening and lung disease bilaterally. No obvious left pneumothorax. No significant effusion. Heart: Coronary artery calcification. No significant pericardial effusion. Mediastinum: Interval development of mediastinal air. Linear density in the lower trachea just above the alvarez which may represent mucosal thickening. This appears new compared to the prior study. Recommend correlation with bronchoscopy as indicated. Bones/joints: Unremarkable. No acute fracture. No dislocation. Soft tissues: There is extensive subcutaneous emphysema in the visualized lower cervical region and supraclavicular region which appear new compared to the prior chest CT. Vasculature: Calcified tortuous thoracic aorta. Mild aneurysmal dilatation in the visualized upper abdomen, unchanged. Lymph nodes: Stable enlarged paratracheal lymph node. Absent of the contrast limit evaluation. Gallbladder and bile ducts: Probable sludge in the gallbladder. IMPRESSION: 1. Stable moderate-sized right pneumothorax. 2. Interval development of pneumomediastinum. Finding in the distal trachea which may represent focal mucosal thickening. Follow-up bronchoscopy to exclude underlying abnormality as indicated as well as exclude bronchial injury. 3. Extensive subcutaneous emphysema in the supraclavicular region and chest wall, right worse than left. 4. Stable appearance of the lungs likely chronic. 5. Mild aneurysmal dilatation of the visualized upper abdominal aorta, unchanged.
[2016-09-24] MEDS ORDERED: LIDOCAINE 1% INJ 10MG/ML (20 ML MDV) SQ STA (10:00)
[2016-09-24] MEDS: FAMOTIDINE 20 MG TAB PO SCH ×2 (11:21→21:48)
--- NOTE | 2016-09-24 11:31 | P.PCN ---
Date of Procedure: 09/24/16 Preoperative Diagnosis: R pneumothorax Postoperative Diagnosis: same, lung CA, IPF Procedure(s) Performed: Insertion R Thoravent Implants: Thoravent 13F Anesthesia: local Surgeon: Dwayne Gordon Pathology: none sent Condition: stable Disposition: no change Indications for Procedure: Recurrent R pneumothorax Operative Findings: same as well as extensive subcutaneous emphysema Description of Procedure: Aseptic technique. Local anesthesia lidocaine 1%. 13F , 13 cm Thoravent inserted without difficulty in the second intercostal space mid-clavicular line. Air leak positive. Tolerated well. CXR ordered.
--- NOTE | 2016-09-24 12:02 | XR ---
EXAMINATION TYPE: XR chest 1V portable DATE OF EXAM: 09/24/2016 COMPARISON: 09/24/2016 HISTORY: Chest tube insertion TECHNIQUE: Single frontal view of the chest is obtained. FINDINGS: Tubing overlying the right chest with no definite sizable pneumothorax. There is massive s ubcutaneous emphysema. Chronic pleural-parenchymal changes within the lungs are stable. Suspect a com ponent of pneumomediastinum. IMPRESSION: 1. Exam limited due to extensive subcutaneous emphysema throughout the chest and neck. No obvious siz able pneumothorax. Correlate clinically.
[2016-09-24] MEDS ORDERED: INSULIN PUMP TARGET GLUCOSE 1 EACH MISC MISCELLANE PRN (12:37)
[2016-09-24] MEDS ORDERED: INSULIN LISPRO (humaLOG) 300 UNIT/3 ML VIAL SQ PRN (12:37)
[2016-09-24] MEDS ORDERED: INSULIN PUMP BASAL RATES 1 EACH MISC MISCELLANE PRN (12:37)
[2016-09-24] MEDS ORDERED: INSPUCOR MISCELLANE PRN (12:37)
[2016-09-24] MEDS ORDERED: INSULIN PUMP ACTIVE INSULIN 1 EACH MISC MISCELLANE PRN (12:37)
--- NOTE | 2016-09-24 13:13 | P.GSCN ---
History of Present Illness Consult date: 09/24/16 Reason for Consult: Right pneumothorax Requesting physician: Deidre Berg History of present illness: Patient is well-known to the thoracic surgery division as she was recently discharged. Patient was hospitalized last week for right-sided pneumothorax managed conservatively with a right chest tube. Tube was eventually removed and patient was discharged. However she presented back with increasing puffiness pain and some shortness of breath. Patient was found to have a large amount of subcutaneous emphysema as well as a right-sided pneumothorax on CAT scan. The surgical consult was called. Dr. Lenz is out of town and I was asked to see the patient. Review of Systems - Constitutional Reports as per HPI - Cardiovascular Reports chest pain, Reports dyspnea on exertion - Respiratory Reports dyspnea, Reports home oxygen, Reports pain, Reports pain on inspiration Past Medical History Past Medical History: Coronary Artery Disease (CAD), Cancer, Diabetes Mellitus, GERD/Reflux, Hyperlipidemia, Hypertension, Myocardial Infarction ([place]), Osteoarthritis (OA), Skin Disorder, Sleep Apnea/CPAP/BIPAP, Thyroid Disorder Additional Past Medical History / Comment(s): PULMONARY FIBROSIS/HTN, HAS AAA THAT 'S ARE WATCHING, USES O2 NC 6L DURING THE DAY AND 7L AT NIGHT, STATES HAS "PINCHED NERVE" RT HIP TO KNEE WHICH CAUSES NUMBNESS ON THAT SIDE AT TIMES. HX PSORIASIS ON RIGHT ANKLE. 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 Last Myocardial Infarction Date:: 1998 History of Any Multi-Drug Resistant Organisms: None Reported Past Surgical History: Bladder Surgery, Heart Catheterization With Stent, Hysterectomy, Orthopedic Surgery Additional Past Surgical History / Comment(s): STENT X2 AT 2 DIFFERENT TIMES HX 2 BLADDER SUSPENSIONS, KNEE ARTHROSCOPIES-R KNEE X 1 AND L KNEE X2, R HAND SX WITH PINNING, NOW REMOVED. R WRIST GANGLION CYST REMOVAL X 2. CAROL CATARACT SX Numerous surgeries and bone work on BOTH FEET, R/T NEUROMA'S Past Anesthesia/Blood Transfusion Reactions: No Reported Reaction Additional Past Anesthesia/Blood Transfusion Reaction / Comm: NEVER RECIEVED BLOOD. Date of Last Stent Placement:: 01/08/14 Past Psychological History: Anxiety, Depression Smoking Status: Former smoker Past Alcohol Use History: Rare Past Drug Use History: None Reported - Past Family History Father Family Medical History: Cancer, Hypertension Additional Family Medical History / Comment(s): FATHER OF LIVER CA AT AGE 67 YRS. HE ALSO HAD AORTIC ANEURYSM. Mother Family Medical History: Coronary Artery Disease (CAD), Diabetes Mellitus, Hypertension, Osteoarthritis (OA), Pulmonary Embolus Additional Family Medical History / Comment(s): MOTHER OF EMBOLISM IN LUNG FOLLOWING REHAB FOR HIP SURGERY AT AGE 65. Medications and Allergies Home Medications Medication Instructions Recorded Confirmed Type ALPRAZolam [Xanax] 0.25 mg PO DAILY PRN 01/08/14 09/24/16 History Omeprazole 20 mg PO BID 01/08/14 09/24/16 History amLODIPine BESYLATE [Amlodipine 5 mg PO QAM 01/08/14 09/24/16 History Besylate] Aspirin EC [Ecotrin Low Dose] 81 mg PO HS 04/21/14 09/24/16 History Atorvastatin [Lipitor] 80 mg PO HS 04/21/14 09/24/16 History Budesonide [Pulmicort] 0.5 mg INHALATION RT-BID 04/21/14 09/24/16 History Citalopram Hydrobromide [CeleXA] 40 mg PO HS 11/15/15 09/24/16 History Levothyroxine Sodium [Synthroid] 50 mcg PO QAM 11/15/15 09/24/16 History Losartan-Hctz 50-12.5 mg [Hyzaar 1 tab PO QAM 11/15/15 09/24/16 History 50-12.5] Insulin Aspart (For Pump) [NovoLOG See Protocol SQ-PUMP CONTINUOUS 03/20/16 History (For Pump)] Cholecalciferol [Vitamin D3] 5,000 unit PO BID 07/28/16 09/24/16 History Clopidogrel [Plavix] 75 mg PO QAM 07/28/16 09/24/16 History L.acidoph,Paracasei, B.lactis 1 cap PO BID 07/28/16 09/24/16 History [Probiotic] Magnesium Oxide 400 mg PO HS 07/28/16 09/24/16 History Ubidecarenone [Co Q-10] 400 mg PO DAILY 07/28/16 09/24/16 History Furosemide [Lasix] 20 mg PO DAILY PRN 08/24/16 09/24/16 History Calcium Carbonate 500 mg PO BID 09/16/16 09/24/16 History Metoprolol Succinate [Toprol XL] 25 mg PO BID 09/16/16 09/24/16 History Allergies Allergy/AdvReac Type Severity Reaction Status Date / Time adhesive Allergy Rash/Hives Verified 09/16/16 08:23 venom-honey bee Allergy Anaphylaxis Verified 09/16/16 08:23 Surgical - Exam Vital Signs Temp Pulse Resp BP Pulse Ox 97.3 F L 87 24 140/63 93 L 09/24/16 05:00 09/24/16 05:00 09/24/16 05:00 09/24/16 05:00 09/24/16 05:00 - General obese - ENT Extensive bilateral subcutaneous emphysema with decreased breath sounds in the right field - Neck Extensive subcutaneous emphysema - Cardiovascular Rhythm: regular Heart Sounds: normal: S1, S2 - Abdomen Abdomen: soft, non tender, no guarding, no rigid, no rebound - Genitourinary Deferred - Neurologic no disoriented, no combative - Psychiatric oriented to time, oriented to person, oriented to place, speech is normal, memory intact Results - Labs 09/24/16 05:37 09/24/16 05:37 Abnormal Lab Results - Last 24 Hours (Table) 09/24/16 09/24/16 09/24/16 Range/Units 05:37 05:37 05:37 WBC 2.0 L* (3.8-10.6) k/uL RBC 2.93 L (3.80-5.40) m/uL Hgb 9.8 L (11.4-16.0) gm/dL Hct 28.1 L (34.0-46.0) % RDW 17.4 H (11.5-15.5) % Plt Count 51 L (150-450) k/uL Neutrophils # (Manual) 0.4 L (1.3-7.7) k/uL APTT 20.1 L (22.0-30.0) sec Glucose 165 H (74-99) mg/dL AST 58 H (14-36) U/L ALT 128 H (9-52) U/L Alkaline Phosphatase 129 H (38-126) U/L Diabetes panel 09/24/16 Range/Units 05:37 Sodium 137 (137-145) mmol/L Potassium 4.0 (3.5-5.1) mmol/L Chloride 100 (98-107) mmol/L Carbon Dioxide 26 (22-30) mmol/L BUN 15 (7-17) mg/dL Creatinine 0.60 (0.52-1.04) mg/dL Glucose 165 H (74-99) mg/dL Calcium 8.9 (8.4-10.2) mg/dL AST 58 H (14-36) U/L ALT 128 H (9-52) U/L Alkaline Phosphatase 129 H (38-126) U/L Total Protein 6.5 (6.3-8.2) g/dL Albumin 3.6 (3.5-5.0) g/dL Calcium panel 09/24/16 Range/Units 05:37 Calcium 8.9 (8.4-10.2) mg/dL Albumin 3.6 (3.5-5.0) g/dL Pituitary panel 09/24/16 Range/Units 05:37 Sodium 137 (137-145) mmol/L Potassium 4.0 (3.5-5.1) mmol/L Chloride 100 (98-107) mmol/L Carbon Dioxide 26 (22-30) mmol/L BUN 15 (7-17) mg/dL Creatinine 0.60 (0.52-1.04) mg/dL Glucose 165 H (74-99) mg/dL Calcium 8.9 (8.4-10.2) mg/dL Adrenal panel 09/24/16 Range/Units 05:37 Sodium 137 (137-145) mmol/L Potassium 4.0 (3.5-5.1) mmol/L Chloride 100 (98-107) mmol/L Carbon Dioxide 26 (22-30) mmol/L BUN 15 (7-17) mg/dL Creatinine 0.60 (0.52-1.04) mg/dL Glucose 165 H (74-99) mg/dL Calcium 8.9 (8.4-10.2) mg/dL Total Bilirubin 0.8 (0.2-1.3) mg/dL AST 58 H (14-36) U/L ALT 128 H (9-52) U/L Alkaline Phosphatase 129 H (38-126) U/L Total Protein 6.5 (6.3-8.2) g/dL Albumin 3.6 (3.5-5.0) g/dL - Imaging CT scan - chest: report reviewed, image reviewed Assessment and Plan Plan: 65 years old lady undergoing chemotherapy for a stage III unresectable squamous cell carcinoma with right-sided pneumothorax related to her recent admission and management with a tube thoracostomy. Patient has extensive bullous disease on CAT scan. I'll be attempting placement of an anterior Thoravent for conservative management of recurrent right-sided pneumothorax with subcu emphysema. Rest of management per the primary service. Thank you for the privilege of this consult
[2016-09-24] MEDS ORDERED: ALPRAZolam 0.25 MG TAB PO PRN (15:27)
[2016-09-24] MEDS: MORPHINE SULFATE 4 MG/ML SYRINGE IV PRN ×2 (15:28→21:55)
--- NOTE | 2016-09-24 16:05 | P.CNPUL ---
History of Present Illness Consult date: 09/24/16 Reason for consult: COPD, hypoxemia, pneumothorax, pulmonary fibrosis Chief complaint: Subcutaneous emphysema History of present illness: This is a 65-year-old female who is well-known to [facility] pulmonary practice. The patient was recently admitted with right pneumothorax and had a chest tube. She was discharged and doing all over the weekend. She states she woke up suddenly Saturday night with worsening subcutaneous emphysema and a little bit of shortness of breath. The patient denies any chest pain. The patient states that her breathing is just slightly worse than her baseline. She denies fever, chills. Review of Systems All systems: negative Past Medical History Past Medical History: Coronary Artery Disease (CAD), Cancer, Diabetes Mellitus, GERD/Reflux, Hyperlipidemia, Hypertension, Myocardial Infarction ([place]), Osteoarthritis ([place]), Pneumonia, Skin Disorder, Sleep Apnea/CPAP/BIPAP, Thyroid Disorder Additional Past Medical History / Comment(s): Pt recently admitted 09/16/16 with spontaneous R pneumothorax with chest tube. 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 Last Myocardial Infarction Date:: 1998 History of Any Multi-Drug Resistant Organisms: None Reported Past Surgical History: Bladder Surgery, Heart Catheterization With Stent, Hysterectomy, Orthopedic Surgery Additional Past Surgical History / Comment(s): 09/24/16 R sided thoravent, R lung bx, STENT X2 AT 2 DIFFERENT TIMES HX 2 BLADDER SUSPENSIONS, KNEE ARTHROSCOPIES-R KNEE X 1 AND L KNEE X2, R HAND SX WITH PINNING, NOW REMOVED. R WRIST GANGLION CYST REMOVAL X 2. CAROL CATARACT SX Numerous surgeries and bone work on BOTH FEET, R/T NEUROMA'S, EGD/colonoscopy Past Anesthesia/Blood Transfusion Reactions: No Reported Reaction, Motion Sickness Additional Past Anesthesia/Blood Transfusion Reaction / Comment(s): NEVER RECIEVED BLOOD. Date of Last Stent Placement:: 01/08/14 Smoking Status: Former smoker - Past Family History Father Family Medical History: Cancer, Hypertension Additional Family Medical History / Comment(s): FATHER OF LIVER CA AT AGE 67 YRS. HE ALSO HAD AORTIC ANEURYSM. Mother Family Medical History: Coronary Artery Disease (CAD), Diabetes Mellitus, Hypertension, Osteoarthritis (OA), Pulmonary Embolus Additional Family Medical History / Comment(s): MOTHER OF EMBOLISM IN LUNG FOLLOWING REHAB FOR HIP SURGERY AT AGE 65. Medications and Allergies Home Medications Medication Instructions Recorded Confirmed Type ALPRAZolam [Xanax] 0.25 mg PO DAILY PRN 01/08/14 09/24/16 History Omeprazole 20 mg PO BID 01/08/14 09/24/16 History amLODIPine BESYLATE [Amlodipine 5 mg PO QAM 01/08/14 09/24/16 History Besylate] Aspirin EC [Ecotrin Low Dose] 81 mg PO HS 04/21/14 09/24/16 History Atorvastatin [Lipitor] 80 mg PO HS 04/21/14 09/24/16 History Budesonide [Pulmicort] 0.5 mg INHALATION RT-BID 04/21/14 09/24/16 History Citalopram Hydrobromide [CeleXA] 40 mg PO HS 11/15/15 09/24/16 History Levothyroxine Sodium [Synthroid] 50 mcg PO QAM 11/15/15 09/24/16 History Losartan-Hctz 50-12.5 mg [Hyzaar 1 tab PO QAM 11/15/15 09/24/16 History 50-12.5] Insulin Aspart (For Pump) [NovoLOG See Protocol SQ-PUMP CONTINUOUS 03/20/16 History (For Pump)] Cholecalciferol [Vitamin D3] 5,000 unit PO BID 07/28/16 09/24/16 History Clopidogrel [Plavix] 75 mg PO QAM 07/28/16 09/24/16 History L.acidoph,Paracasei, B.lactis 1 cap PO BID 07/28/16 09/24/16 History [Probiotic] Magnesium Oxide 400 mg PO HS 07/28/16 09/24/16 History Ubidecarenone [Co Q-10] 400 mg PO DAILY 07/28/16 09/24/16 History Furosemide [Lasix] 20 mg PO DAILY PRN 08/24/16 09/24/16 History Calcium Carbonate 500 mg PO BID 09/16/16 09/24/16 History Metoprolol Succinate [Toprol XL] 25 mg PO BID 09/16/16 09/24/16 History Allergies Allergy/AdvReac Type Severity Reaction Status Date / Time adhesive Allergy Rash/Hives Verified 09/16/16 08:23 venom-honey bee Allergy Anaphylaxis Verified 09/16/16 08:23 Physical Exam Osteopathic Statement: *. No significant issues noted on an osteopathic structural exam other than those noted in the History and Physical/Consult. Vitals: Vital Signs Temp Pulse Pulse Resp BP BP Pulse Ox 09/24/16 12:00 76 18 132/73 100 09/24/16 10:29 98 09/24/16 08:05 78 18 143/71 100 09/24/16 07:10 98.7 F 82 20 114/53 98 09/24/16 06:37 82 18 117/82 98 09/24/16 05:37 84 09/24/16 05:31 80 09/24/16 05:00 97.3 F L 87 24 140/63 93 L Intake and Output 09/24/16 09/24/16 09/24/16 06:59 14:59 22:59 Intake Total 337 Balance 337 Intake: Oral 337 Other: Weight 97.522 kg Gen.: Patient is alert and oriented 3, no acute distress, overweight Cardiovascular: Regular rate and rhythm, S1/S2 Lungs: Crackles bilaterally, diffuse subcutaneous emphysema Abdomen: Soft nontender nondistended positive bowel sounds Extremities: No edema Results - Laboratory Findings CBC and BMP: 09/24/16 05:37 09/24/16 05:37 PT/INR, D-dimer PT 10.7 sec (9.0-12.0) 09/24/16 05:37 INR 1.1 (<1.1) 09/24/16 05:37 Abnormal lab findings: Abnormal Labs 09/24/16 09/24/16 09/24/16 05:37 05:37 05:37 WBC 2.0 L* RBC 2.93 L Hgb 9.8 L Hct 28.1 L RDW 17.4 H Plt Count 51 L Neutrophils # (Manual) 0.4 L APTT 20.1 L Glucose 165 H AST 58 H ALT 128 H Alkaline Phosphatase 129 H - Diagnostic Findings Chest x-ray: report reviewed, image reviewed CT scan - chest: report reviewed, image reviewed Assessment and Plan Plan: Acute on chronic hypoxic respiratory failure Right pneumothorax Pneumomediastinum Subcutaneous emphysema Idiopathic pulmonary fibrosis Squamous cell lung cancer Pancytopenia, likely secondary to chemotherapy Pulmonary hypertension Diabetes mellitus type 2 GERD Dyslipidemia Hypertension Objective sleep apnea on CPAP History of coronary artery disease Hypothyroidism History of tobacco abuse, quit in 2010 O2 to maintain saturation greater than or equal to 88% Case is discussed with thoracic surgery, plan fou thoravent placement today, possible talc pleurodesis in the future Bronchodilators and Pulmicort Singulair Pain control Check echocardiogram CPAP nightly GI and DVT prophylaxis Incentive spirometry and pulmonary hygiene Thank you for this consultation we'll continue to follow along
[2016-09-24 17:13] LABS: Glucose,Whole Blood 131 mg/dL (75-99)
[2016-09-24] MEDS: PANTOPRAZOLE 40 MG TABLET PO SCH (17:21)
[2016-09-24] MEDS: HEPARIN SODIUM,PORCINE 5,000 UNIT/ML 1 ML VIAL SQ SCH (18:16)
[2016-09-24] MEDS: KETOROLAC 30 MG/ML 1 ML VIAL IVP SCH (18:16)
[2016-09-24] MEDS: INSULIN PUMP MEAL BOLUS 1 UNIT MISC MISCELLANE SCH ×2 (18:17→21:00)
--- NOTE | 2016-09-24 19:32 | HP ---
DATE OF ADMISSION: REASON FOR ADMISSION: Difficulty in breathing and discomfort. HISTORY OF PRESENTING ILLNESS: This is a 65-year-old female with chronic hypoxic respiratory failure, pulmonary fibrosis and lung cancer who was recently in the hospital with difficulty in breathing. She was noted to have a spontaneous pneumothorax on the right side. Patient had a chest tube placed and was discharged after removal of the tube. Patient did have a residual 5% to 10% pneumothorax at that time. A repeat x-ray after discharge also noted a similar amount of residual pneumothorax. Patient did have some subcutaneous emphysema at that time which was stable. Patient stated that she noted pain over the last 48 hours which has progressively gotten worse and noted crepitus all through her chest cavity; stated that there was some discharge around her previous chest tube placement. With concern about worsening of symptoms, patient came to the hospital. Patient underwent imaging studies, including a CT scan of the chest which showed diffuse subcutaneous emphysema and a 40% pneumothorax on the right side. Patient is currently on 6 L of supplemental oxygen, saturating well. She states that she has diffuse pain all over her chest cavity. Denies having any headaches, blurry vision, fevers, nausea, vomiting, diarrhea, urinary urgency or frequency. Fourteen-point review of systems was done; none pertinent other than what was mentioned above. Past medical history includes: 1. CAD. 2. Diabetes mellitus. 3. Hypertension. 4. Dyslipidemia. 5. Obstructive sleep apnea. 6. Chronic hypoxic respiratory failure. 7. Pulmonary fibrosis. 8. Lung cancer. Surgical history includes: 1. Cardiac catheterization. 2. Previous chest tube placement. 3. Orthopedic surgery. 4. Arthroscopies. 5. Bladder suspensions. SOCIAL HISTORY: Former smoker. Denies illicit drug use or alcohol use. Home medications include: 1. Synthroid. 2. Hyzaar. 3. Insulin pump with NovoLog ( ) 4. Plavix. 5. Probiotics. 6. Magnesium oxide. 7. ( ) 8. Calcium carbonate. 9. Toprol XL. Doses were reviewed and appropriately reconciled. ALLERGIES: 1. VENOM HONEYBEE. 2. ADHESIVE. Vital signs include temperature 97.3, heart rate 87, respiratory rate 24, blood pressure 140/63. Saturating 93% on 6 to 8 L supplemental oxygen. GENERAL APPEARANCE: Appears comfortable. Alert and oriented x3. Does not appear to be in distress. NECK: Supple. No JVD. Examination of the chest wall and neck shows diffuse subcutaneous emphysema with palpable crepitus. LUNGS: Inspiratory crackles bilaterally. Diminished breath sounds on the right lung field. CARDIOVASCULAR: Regular rate and rhythm. No murmurs appreciated. ABDOMEN: Soft, nontender. No organomegaly. Bowel sounds are intact. NEUROLOGICAL EXAMINATION: No focal motor or sensory deficits noted. LOWER EXTREMITIES: No edema noted. Laboratory data include hemoglobin 9.8, hematocrit 28.1, white count of 2, platelets of 51. Sodium 137, potassium 4, chloride 100, bicarb 26. BUN 15, creatinine 0.60. ASSESSMENT AND PLAN: 1. Recurrent right-sided pneumothorax with extensive subcutaneous emphysema. 2. Chronic hypoxemic respiratory failure secondary to pulmonary fibrosis. 3. Squamous cell carcinoma of the lung, stage III, currently undergoing chemotherapy. 4. Bicytopenia due to recent chemotherapy. 5. Hypertension. 6. Coronary artery disease. 7. Depression. 8. Previous history of tobacco use. 9. Diabetes mellitus. 10. Gastroesophageal reflux disease. PLAN: Will have Cardiothoracic Surgery evaluate the patient regarding placement of another chest tube. Patient's wound of the previous chest tube was evaluated with a CT team. Restart insulin pump. Will defer to Dr. Gordon regarding placement of a ( ) vent versus a chest tube. Pain control at this time. Medications were reconciled. DVT prophylaxis with subcutaneous heparin. Would increase the oxygen to 8 L on high flow in order for absorption of excess air if conservative measures are indicated. Other consultation will be made to Pulmonology as well. Hold off on her scheduled chemotherapy at this time, as patient does have an acute illness at this time.
[2016-09-24] MEDS: IPRATROPIUM-ALBUTEROL 3 ML NEB INHALATION SCH (20:03)
[2016-09-24] MEDS: BUDESONIDE 0.5 MG/2 ML NEBU INHALATION SCH (20:03)
[2016-09-24 21:31] LABS: Glucose,Whole Blood 127 mg/dL (75-99)
[2016-09-24] MEDS: ASPIRIN 81 MG CHEW PO SCH (21:48)
[2016-09-24] MEDS: ATORVASTATIN 80 MG TAB PO SCH (21:48)
[2016-09-24] MEDS: METOPROLOL SUCCINATE (ER) 50 MG TAB.ER.24H PO SCH (21:49)
[2016-09-24] MEDS: MONTELUKAST 10 MG TAB PO SCH (21:49)
[2016-09-25] MEDS: KETOROLAC 30 MG/ML 1 ML VIAL IVP SCH ×5 (01:49→23:35)
[2016-09-25] MEDS: HEPARIN SODIUM,PORCINE 5,000 UNIT/ML 1 ML VIAL SQ SCH ×4 (01:49→21:45)
[2016-09-25] MEDS: LEVOTHYROXINE 50 MCG TAB PO SCH (05:29)
[2016-09-25 05:59] LABS: Glucose,Whole Blood 180 mg/dL (75-99)
[2016-09-25] MEDS: PANTOPRAZOLE 40 MG TABLET PO SCH ×2 (07:04→17:25)
[2016-09-25] MEDS: SODIUM CHLORIDE 0.9% 1,000 ML IV SCH (07:14)
--- NOTE | 2016-09-25 07:22 | XR ---
EXAMINATION TYPE: XR chest 1V portable DATE OF EXAM: 09/25/2016 HISTORY: Pneumothorax. REFERENCE: Previous study dated 09/24/2016. FINDINGS: A right pleural drain is in place. There is subcutaneous emphysema. This has improved from the previous study. No definite pneumothorax is seen. The lungs are difficult to assess with the degr ee of subcutaneous emphysema. There appears to be some pleural thickening bilaterally. There is alveo lar airspace disease present bilaterally, unchanged from previous. The heart appears enlarged. IMPRESSION: SLIGHT IMPROVEMENT IN DEGREE OF SUBCUTANEOUS EMPHYSEMA.
[2016-09-25] MEDS: IPRATROPIUM-ALBUTEROL 3 ML NEB INHALATION SCH ×4 (08:14→20:55)
[2016-09-25] MEDS: BUDESONIDE 0.5 MG/2 ML NEBU INHALATION SCH ×2 (08:14→20:55)
[2016-09-25] MEDS: MORPHINE SULFATE 4 MG/ML SYRINGE IV PRN ×2 (10:00→16:13)
[2016-09-25] MEDS: LOSARTAN-HCTZ 50-12.5 MG 1 EACH TAB PO SCH (10:09)
[2016-09-25] MEDS: amLODIPine 5 MG TAB PO SCH (10:09)
[2016-09-25] MEDS: CLOPIDOGREL 75 MG TAB PO SCH (10:09)
[2016-09-25] MEDS: FAMOTIDINE 20 MG TAB PO SCH (10:09)
[2016-09-25] MEDS: METOPROLOL SUCCINATE (ER) 50 MG TAB.ER.24H PO SCH ×2 (10:22→21:45)
[2016-09-25] MEDS: INSULIN PUMP MEAL BOLUS 1 UNIT MISC MISCELLANE SCH ×5 (10:26→23:39)
--- NOTE | 2016-09-25 11:31 | P.PN ---
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 Status post day #1 right Thoravent placement 13-[place]. Patient awake and alert, no distress noted, no specific complaints. Patient reports she has some remaining tenderness to her chest and neck due to the subcutaneous emphysema. She denies complaints of shortness of breath. She is sitting to the bedside eating her breakfast. Vital Signs: Afebrile Vital Signs - 24 hr 09/24/16 09/24/16 09/24/16 08:05 10:29 12:00 Temperature Pulse Rate Pulse Rate [ 78 76 Pulse Oximetery ] Respiratory 18 18 Rate Blood Pressure 143/71 132/73 [Right Arm] O2 Sat by Pulse 100 98 100 Oximetry 09/24/16 09/24/16 09/24/16 15:15 20:00 20:03 Temperature 97.1 F L 97.1 F L Pulse Rate 80 Pulse Rate [ 74 71 Pulse Oximetery ] Respiratory 18 18 Rate Blood Pressure 132/74 135/73 [Right Arm] O2 Sat by Pulse 100 99 Oximetry 09/24/16 09/25/16 09/25/16 20:13 00:00 04:00 Temperature 97.3 F L Pulse Rate 84 Pulse Rate [ 81 67 Pulse Oximetery ] Respiratory 18 17 Rate Blood Pressure 136/80 125/79 [Right Arm] O2 Sat by Pulse 98 100 Oximetry Labs: No new labs this a.m. IV Fluids: 0.9% normal saline at 20 mL per hour. Lungs: Scattered crackles throughout, diminished bilateral bases. Respirations are symmetrical and unlabored. O2 sat: 100% on 8 L high flow nasal cannula. Decreased her oxygen to 6 L which is her home dose. I/S: 1500 mL, reviewed with the patient the importance of using her incentive spirometry every hour while awake. The patient did give a good return demonstration on her incentive spirometry. Heart: S1S2, regular rhythm and rate, negative for S3, gallop or murmur. Remote telemetry showing normal sinus rhythm with first-degree heart block heart rate 60. Right lateral chest old chest tube insertion site with [address] Draining scant serous drainage. Right anterior chest Thoravent 13- [place] intact with positive air leak, remains to low continuous wall suction at -20 cm H2O. 10 mL of thin serosanguineous drainage output in the last 24 hours. Sequential compression devices in place to her bilateral lower extremities. Abdomen: Soft, nontender. Positive bowel sounds present in all 4 quadrants. CBGs: 127-180 mg/dL in the last 24 hours. U/O: Adequate. 24 hr Total: Intake & Output 09/23/16 09/24/16 09/25/16 09/26/16 06:59 06:59 06:59 06:59 Intake Total 1017 Output Total 0 Balance 1017 Weight 97.522 kg 98.2 kg Active Medications Albuterol/Ipratropium (Duoneb 0.5 Mg-3 Mg/3 Ml Soln) 3 ml INHALATION RT-QID [facility] [place] Last Admin: 09/24/16 20:03 Dose: 3 ml Alprazolam (Xanax) 0.25 mg PO DAILY PRN PRN Reason: Anxiety Amlodipine Besylate (Norvasc) 5 mg PO QAM [facility] [place] Aspirin (Aspirin) 81 mg PO [facility] Last Admin: 09/24/16 21:48 Dose: 81 mg Atorvastatin Calcium (Lipitor) 80 mg PO [facility] Last Admin: 09/24/16 21:48 Dose: 80 mg Budesonide (Pulmicort) 0.5 mg INHALATION RT-BID [facility] [place] Last Admin: 09/24/16 20:03 Dose: 0.5 mg Clopidogrel Bisulfate (Plavix) 75 mg PO QAM [facility] [place] Famotidine (Pepcid) 20 mg PO BID [facility] [place] Last Admin: 09/24/16 21:48 Dose: 20 mg HCTZ/Losartan Potassium (Hyzaar 50-12.5) 1 each PO QAM [facility] [place] Heparin Sodium (Porcine) (Heparin) 5,000 unit SQ Q8HR [facility] [place] Last Admin: 09/25/16 01:49 Dose: 5,000 unit Insulin Human Lispro (Humalog) 0 unit SQ DAILY PRN PRN Reason: Insulin Pump Replacement Ketorolac Tromethamine (Toradol) 30 mg IVP Q6HR [facility] [place] Stop: 09/28/16 16:03 Last Admin: 09/25/16 05:28 Dose: 30 mg Levothyroxine Sodium (Synthroid) 50 mcg PO 0630 [facility] [place] Last Admin: 09/25/16 05:29 Dose: 50 mcg Metoprolol Succinate (Toprol Xl) 25 mg PO BID [facility] [place] Last Admin: 09/24/16 21:49 Dose: 25 mg Miscellaneous Information (Insulin Pump Active Insulin) 1 each MISCELLANE ACHS PRN; Protocol PRN Reason: Blood Sugar - High Miscellaneous Information (Insulin Pump Basal Rates) 1 each MISCELLANE Q6HR PRN ; Protocol PRN Reason: Blood Sugar - High Miscellaneous Information (Insulin Pump Correction Bolus) 1 unit MISCELLANE ACHS PRN; Protocol PRN Reason: Blood Sugar - High Miscellaneous Information (Insulin Pump Meal Bolus) 1 unit MISCELLANE ACHS JOSE PRN Reason: Protocol Last Admin: 09/24/16 21:00 Dose: 1 unit Miscellaneous Information (Insulin Pump Target Glucose) 1 each MISCELLANE ACHS PRN; Protocol PRN Reason: Blood Sugar - High Montelukast Sodium (Singulair) 10 mg PO HS [facility] [place] Last Admin: 09/24/16 21:49 Dose: 10 mg Morphine Sulfate (Morphine Sulfate (Inj)) 4 mg IV Q4HR PRN PRN Reason: Severe Pain Last Admin: 09/24/16 21:55 Dose: 4 mg Naloxone HCl (Narcan) 0.2 mg IV Q2M PRN PRN Reason: Opioid Reversal Pantoprazole Sodium (Protonix) 40 mg PO AC-BID [facility] [place] Last Admin: 09/25/16 07:04 Dose: 40 mg Plan: 1. Thoravent will remain in place and remained to low continuous wall suction - 20 cm H2O. 2. We will obtain a repeat chest x-ray in a.m. to reevaluate her pneumothorax. 3. Wean O2 as tolerated. Pulmonary management and recommendations per Dr. Sandoval. 4. GI and DVT prophylaxis in place. 5. Increase activity as tolerated, physical therapy to evaluate and treat. 6. Further recommendations as the patient progresses.
[2016-09-25 11:43] LABS: Glucose,Whole Blood 203 mg/dL (75-99)
--- NOTE | 2016-09-25 13:10 | P.PN ---
Subjective Principal diagnosis: Recurrent right pneumothorax Patient seen and examined. Patient states she is feeling much better today. Her subcutaneous emphysema is improving. A right thoravent was placed. The patient has no issues or complaints at this time. Objective - Vital Signs Vital signs: Vital Signs Temp 97.1 F L 09/25/16 09:45 Pulse 84 09/25/16 12:11 Resp 18 09/25/16 09:45 BP 144/91 09/25/16 09:45 Pulse Ox 98 09/25/16 09:45 Intake & Output 09/24/16 09/25/16 09/25/16 18:59 06:59 18:59 Intake Total 497 520 140 Output Total 0 Balance 497 520 140 Weight 98.2 kg Intake: Intake, IV Titration 160 160 20 Amount Sodium Chloride 0.9% 1, 160 160 20 000 ml @ 20 mls/hr IV . Q24H JOSE Rx#:[id number] Oral 337 360 120 Output: Urine 0 Other: Voiding Method Toilet Toilet # Voids 2 1 # Bowel Movements 1 - Exam Gen.: Patient is alert and oriented 3, no acute distress, overweight Cardiovascular: Regular rate and rhythm, S1/S2 Lungs: Crackles bilaterally, diffuse subcutaneous emphysema Abdomen: Soft nontender nondistended positive bowel sounds Extremities: No edema - Labs CBC & Chem 7: 09/24/16 05:37 09/24/16 05:37 Labs: Abnormal Lab Results - Last 24 Hours (Table) 09/24/16 09/24/16 09/25/16 Range/Units 17:09 21:18 05:57 POC Glucose (mg/dL) 131 H 127 H 180 H (75-99) mg/dL 09/25/16 Range/Units 11:38 POC Glucose (mg/dL) 203 H (75-99) mg/dL Assessment and Plan Plan: Acute on chronic hypoxic respiratory failure Right pneumothorax, spontaneous, recurrent Pneumomediastinum Subcutaneous emphysema Idiopathic pulmonary fibrosis Squamous cell lung cancer Pancytopenia, likely secondary to chemotherapy Pulmonary hypertension Diabetes mellitus type 2 GERD Dyslipidemia Hypertension Objective sleep apnea on CPAP History of coronary artery disease Hypothyroidism History of tobacco abuse, quit in 2010 O2 to maintain saturation greater than or equal to 88% Thoravent per thoracic surgery Consult Dr. Kulkarni per patient request Bronchodilators and Pulmicort Singulair Pain control Echocardiogram unable to be completed due to subcutaneous emphysema BiPAP nightly GI and DVT prophylaxis Incentive spirometry and pulmonary hygiene
[2016-09-25 17:12] LABS: Glucose,Whole Blood 137 mg/dL (75-99)
--- NOTE | 2016-09-25 17:42 | P.PN ---
Subjective Date of service 09/25/2016. Personal being dictated for Dr. Spencer. Interval history: This a 65-year-old female admitted with recurrent right pneumothorax status post placement of right thoravent in a patient with history of lung CA. Chest x-ray reporting improving subcutaneous emphysema. Feels better today. Good diet intake. Wearing insulin pump, blood sugars controlled. Maintaining O2 sats of 94% on 5-6 L nasal cannula. Incentive spirometer up to 1500. Afebrile. Telemetry sinus rhythm with first-degree AV block. Denies chest pain, palpitations or increased in shortness of breath. Objective - Vital Signs Vital signs: Vital Signs Temp 97.1 F L 09/25/16 09:45 Pulse 84 09/25/16 12:11 Resp 18 09/25/16 09:45 BP 144/91 09/25/16 09:45 Pulse Ox 98 09/25/16 09:45 Intake & Output 09/24/16 09/25/16 09/25/16 18:59 06:59 18:59 Intake Total 497 520 140 Output Total 0 Balance 497 520 140 Weight 98.2 kg Intake: Intake, IV Titration 160 160 20 Amount Sodium Chloride 0.9% 1, 160 160 20 000 ml @ 20 mls/hr IV . Q24H JOSE Rx#:[id number] Oral 337 360 120 Output: Urine 0 Other: Voiding Method Toilet Toilet # Voids 2 1 # Bowel Movements 1 - Exam PHYSICAL EXAM: VITAL SIGNS: As above GENERAL: [Sitting up at side of bed, no acute distress,] HEENT: [Pupils equal conjunctiva normal.] NECK: [Supple, no JVD, diffuse subcutaneous emphysema chest wall and neck, palpable crepitus-improving] RESPIRATORY EFFORT:[ Normal] LUNGS: [Bibasilar inspiratory crackles, Right anterior chest wall with thoravent present.] CARDIOVASCULAR[ regular S1 and S2, no murmurs, rubs, or gallops, no edema] GI: [Abdomen soft, nontender, positive bowel sounds.] PSYCH: [Alert and oriented -3, mood and affect normal.] NEURO: No focal deficits, moves all 4 extremities, bilateral lower extremities with compression stockings in place,strength and sensation grossly intact - Labs CBC & Chem 7: 09/24/16 05:37 09/24/16 05:37 Labs: Abnormal Lab Results - Last 24 Hours (Table) 09/24/16 09/24/16 09/25/16 Range/Units 17:09 21:18 05:57 POC Glucose (mg/dL) 131 H 127 H 180 H (75-99) mg/dL 09/25/16 Range/Units 11:38 POC Glucose (mg/dL) 203 H (75-99) mg/dL Assessment and Plan Plan: 1. [ Recurrent right-sided pneumothorax with extensive subcutaneous emphysema, improving]. Status post placement of thoravent. 2. [ Chronic hypoxemic respiratory failure secondary to pulmonary fibrosis]. 3. [ Squamous LCA of lung, stage III, currently undergoing chemotherapy]. 4. [ Bicytopenia secondary chemotherapy]. 5. [ Hypertension]. 6. CAD 7. [ Depression]. 8. Previous history of tobacco use 9. Diabetes mellitus, wears insulin pump 10. Gastroesophageal reflux disease Plan: Continue on current medication regime , nebulized bronchodilators, monitoring and symptomatic treatment. PT/OT. Aggressive pulmonary toileting with IS. Transfer off telemetry unit if cleared by cardiothoracic surgery. Close monitoring of LFTs with repeat CMP in am. Further recommendations to follow. The impression and plan of care has been dictated as directed. : I performed a H&P examination of this patient and discussed the same with the dictator. I agree with the dictator's note. Any additional findings/opinions/ etc. will be noted.
[2016-09-25 20:06] LABS: Glucose,Whole Blood 142 mg/dL (75-99)
[2016-09-25] MEDS: MONTELUKAST 10 MG TAB PO SCH (21:45)
[2016-09-25] MEDS: ATORVASTATIN 80 MG TAB PO SCH (21:45)
[2016-09-25] MEDS: ASPIRIN 81 MG CHEW PO SCH (21:45)
[2016-09-26] MEDS ORDERED: SODIUM CHLORIDE 0.9% 1,000 ML BAG ONE
[2016-09-26] MEDS: LEVOTHYROXINE 50 MCG TAB PO SCH (06:11)
[2016-09-26] MEDS: KETOROLAC 30 MG/ML 1 ML VIAL IVP SCH ×4 (06:11→23:52)
[2016-09-26 07:19] LABS: Glucose,Whole Blood 147 mg/dL (75-99)
[2016-09-26] MEDS: BUDESONIDE 0.5 MG/2 ML NEBU INHALATION SCH ×2 (07:25→21:09)
[2016-09-26] MEDS: IPRATROPIUM-ALBUTEROL 3 ML NEB INHALATION SCH ×4 (07:25→21:09)
--- NOTE | 2016-09-26 07:40 | XR ---
EXAMINATION TYPE: XR chest 1V portable DATE OF EXAM: 09/26/2016 HISTORY: Pneumothorax. REFERENCE: Previous study dated 09/25/2016. FINDINGS: The right-sided home as well as in place. There is improving subcutaneous edema. No pneumothorax is seen. There appears to be improved aeration of the right lung. There is continuing the alveolar airspace disease on the left. The heart is not e nlarged. No definite pleural fluid is seen. IMPRESSION: 1. NO EVIDENCE OF PNEUMOTHORAX THIS TIME. 2. IMPROVING SUBCUTANEOUS EMPHYSEMA. 3. IMPROVED RIGHT-SIDED AIRSPACE DISEASE. 4. CONTINUING LEFT-SIDED ALVEOLAR AIRSPACE DISEASE.
[2016-09-26 08:00] LABS: ALT 77 U/L (9-52); AST 43 U/L (14-36); Alkaline Phosphatase 103 U/L (38-126); Anion Gap 8 mmol/L; Blood Urea Nitrogen 15 mg/dL (7-17); Calcium 8.6 mg/dL (8.4-10.2); Carbon Dioxide 28 mmol/L (22-30); Chloride 103 mmol/L (98-107); Glucose 123 mg/dL (74-99); Non-African American GFR(MDRD) >60 (>60 ml/min/1.73 sqM); Potassium 4.3 mmol/L (3.5-5.1); Sodium 139 mmol/L (137-145); Total Bilirubin 0.8 mg/dL (0.2-1.3); Total Protein 6.2 g/dL (6.3-8.2)
[2016-09-26] MEDS ORDERED: ALBUTEROL NEBULIZED 2.5 MG/3 ML INHALATION STA (08:22)
[2016-09-26 08:32] LABS: Anisocytosis Slight; CH 34.1; CHCM 34.3; HCT 25.2 % (34.0-46.0); HDW 3.45; HGB 8.5 gm/dL (11.4-16.0); MCH 33.5 pg (25.0-35.0); MCHC 33.5 g/dL (31.0-37.0); Macrocytosis Slight; Mean Platelet Volume 7.9; Poikilocytosis Slight; RBC 2.52 m/uL (3.80-5.40); WBC 2.8 k/uL (3.8-10.6)
[2016-09-26 08:50] LABS: Magnesium 1.7 mg/dL (1.6-2.3); Phosphorous 4.1 mg/dL (2.5-4.5)
[2016-09-26] MEDS: INSULIN PUMP MEAL BOLUS 1 UNIT MISC MISCELLANE SCH ×3 (09:44→21:29)
[2016-09-26] MEDS: MORPHINE SULFATE 4 MG/ML SYRINGE IV PRN ×2 (09:46→13:32)
[2016-09-26] MEDS: CLOPIDOGREL 75 MG TAB PO SCH (09:51)
[2016-09-26] MEDS: HEPARIN SODIUM,PORCINE 5,000 UNIT/ML 1 ML VIAL SQ SCH ×3 (09:51→23:55)
[2016-09-26] MEDS: PANTOPRAZOLE 40 MG TABLET PO SCH ×2 (09:51→21:29)
[2016-09-26] MEDS: amLODIPine 5 MG TAB PO SCH (09:52)
[2016-09-26] MEDS: METOPROLOL SUCCINATE (ER) 50 MG TAB.ER.24H PO SCH ×2 (09:52→23:02)
[2016-09-26] MEDS: LOSARTAN-HCTZ 50-12.5 MG 1 EACH TAB PO SCH (09:53)
[2016-09-26 11:24] LABS: Glucose,Whole Blood 161 mg/dL (75-99)
--- NOTE | 2016-09-26 13:35 | P.PN ---
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 Status post day #2 right Thoravent placement 13-[place]. Patient awake and alert, she was standing in the bathroom complaining of shortness of breath. The patient had a pulse ox of her own on her finger registering 75% SaO2. She denies complaints of pain. She is oriented 3. She was assisted to the chair and her oxygen was increased to 10 L high flow nasal cannula. The patient's nurse and respiratory therapist will call to the room. The patient's oxygen saturations did recover with coaching on her breathing and increasing her FiO2 to the 10 L high flow nasal cannula. Her current pulse ox reading is 95% on the 10 L high flow nasal cannula. Vital Signs: Afebrile Vital Signs - 24 hr 09/25/16 09/25/16 09/25/16 09:45 11:54 12:11 Temperature 97.1 F L Pulse Rate 82 84 Pulse Rate [ 80 Pulse Oximetery ] Respiratory 18 Rate Blood Pressure 144/91 [Right Arm] O2 Sat by Pulse 98 Oximetry 09/25/16 09/25/16 09/25/16 12:20 15:24 15:59 Temperature 97.3 F L 97.1 F L Pulse Rate Pulse Rate [ 80 82 82 Pulse Oximetery ] Respiratory 18 18 18 Rate Blood Pressure 144/91 118/79 [Right Arm] O2 Sat by Pulse 98 94 L Oximetry 09/25/16 09/25/16 09/25/16 17:11 17:20 20:56 Temperature Pulse Rate 70 76 81 Pulse Rate [ Pulse Oximetery ] Respiratory Rate Blood Pressure [Right Arm] O2 Sat by Pulse Oximetry 09/25/16 09/25/16 09/26/16 21:14 23:00 07:25 Temperature 98.1 F Pulse Rate 78 78 Pulse Rate [ 95 Pulse Oximetery ] Respiratory 16 Rate Blood Pressure 153/85 [Right Arm] O2 Sat by Pulse 97 96 Oximetry 09/26/16 09/26/16 09/26/16 07:40 08:26 08:31 Temperature Pulse Rate 76 96 Pulse Rate [ Pulse Oximetery ] Respiratory Rate Blood Pressure [Right Arm] O2 Sat by Pulse 95 91 L Oximetry Labs: CBC results pending. BMP 09/26/16 07:09 Sodium 139 Potassium 4.3 Chloride 103 Carbon Dioxide 28 BUN 15 Creatinine 0.69 Glucose 123 H Calcium 8.6 Liver Function 09/26/16 Range/Units 07:09 Total Bilirubin 0.8 (0.2-1.3) mg/dL AST 43 H (14-36) U/L ALT 77 H (9-52) U/L Alkaline Phosphatase 103 (38-126) U/L Albumin 3.2 L (3.5-5.0) g/dL Lungs: Diminished throughout, tight expiratory wheezes throughout. Respirations are symmetrical and tachypnic at 33 breath per minute. O2 sat: 95% on 10 L high flow nasal cannula I/S: Not tolerated this time due to her shortness of breath. The patient states she was doing about 1500 mL this morning. Heart: S1S2, regular rhythm with tachycardic rate. Negative for S3, gallop or murmur. Current heart rate is 107 bpm. Right anterior Thoravent tube intact. Site was reinforced with tape. No airleak noted. Remaining thin serous drainage. Abdomen: Soft, nontender. Positive bowel sounds present in all 4 quadrants. CBGs: 137-203 mg/dL in the last 24 hours. U/O: Adequate. 24 hr Total: Intake & Output 09/24/16 09/25/16 09/26/16 09/27/16 06:59 06:59 06:59 06:59 Intake Total 1017 140 Output Total 0 5 Balance 1017 135 Weight 97.522 kg 98.2 kg 101 kg Active Medications Albuterol/Ipratropium (Duoneb 0.5 Mg-3 Mg/3 Ml Soln) 3 ml INHALATION RT-QID [facility] Last Admin: 09/26/16 07:25 Dose: 3 ml Alprazolam (Xanax) 0.25 mg PO TID PRN PRN Reason: Anxiety Amlodipine Besylate (Norvasc) 5 mg PO QAM [facility] Last Admin: 09/25/16 10:09 Dose: 5 mg Aspirin (Aspirin) 81 mg PO HS [facility] Last Admin: 09/25/16 21:45 Dose: 81 mg Atorvastatin Calcium (Lipitor) 80 mg PO HS [facility] Last Admin: 09/25/16 21:45 Dose: 80 mg Budesonide (Pulmicort) 0.5 mg INHALATION RT-BID [facility] Last Admin: 09/26/16 07:25 Dose: 0.5 mg Clopidogrel Bisulfate (Plavix) 75 mg PO QAM [facility] Last Admin: 09/25/16 10:09 Dose: 75 mg HCTZ/Losartan Potassium (Hyzaar 50-12.5) 1 each PO QAM [facility] Last Admin: 09/25/16 10:09 Dose: 1 each Heparin Sodium (Porcine) (Heparin) 5,000 unit SQ Q8HR [facility] Last Admin: 09/25/16 21:45 Dose: 5,000 unit Insulin Human Lispro (Humalog) 0 unit SQ DAILY PRN PRN Reason: Insulin Pump Replacement Ketorolac Tromethamine (Toradol) 30 mg IVP Q6HR [facility] Stop: 09/28/16 16:03 Last Admin: 09/26/16 06:11 Dose: 30 mg Levothyroxine Sodium (Synthroid) 50 mcg PO 0630 [facility] Last Admin: 09/26/16 06:11 Dose: 50 mcg Metoprolol Succinate (Toprol Xl) 25 mg PO BID [facility] Last Admin: 09/25/16 21:45 Dose: 25 mg Miscellaneous Information (Insulin Pump Active Insulin) 1 each MISCELLANE ACHS PRN; Protocol PRN Reason: Blood Sugar - High Miscellaneous Information (Insulin Pump Basal Rates) 1 each MISCELLANE Q6HR PRN ; Protocol PRN Reason: Blood Sugar - High Miscellaneous Information (Insulin Pump Correction Bolus) 1 unit MISCELLANE ACHS PRN; Protocol PRN Reason: Blood Sugar - High Miscellaneous Information (Insulin Pump Meal Bolus) 1 unit MISCELLANE ACHS [facility] PRN Reason: Protocol Last Admin: 09/25/16 23:39 Dose: 1 unit Miscellaneous Information (Insulin Pump Target Glucose) 1 each MISCELLANE ACHS PRN; Protocol PRN Reason: Blood Sugar - High Montelukast Sodium (Singulair) 10 mg PO HS [facility] Last Admin: 09/25/16 21:45 Dose: 10 mg Morphine Sulfate (Morphine Sulfate (Inj)) 4 mg IV Q4HR PRN PRN Reason: Severe Pain Last Admin: 09/25/16 16:13 Dose: 4 mg Naloxone HCl (Narcan) 0.2 mg IV Q2M PRN PRN Reason: Opioid Reversal Pantoprazole Sodium (Protonix) 40 mg PO AC-BID [facility] Last Admin: 09/25/16 17:25 Dose: 40 mg Plan: 1. Thoravent will remain in place and will be placed to waterseal today. 2. We will obtain a repeat chest x-ray in a.m. to reevaluate for pneumothorax. 3. Wean O2 as tolerated. Pulmonary management and recommendations per Dr. Sandoval. 4. GI and DVT prophylaxis in place. 5. Increase activity as tolerated, physical therapy to evaluate and treat. 6. Further recommendations as the patient progresses.
--- NOTE | 2016-09-26 16:56 | P.CONS ---
History of Present Illness - Reason for Consult Consult date: 09/26/16 pancytopenia Requesting physician: Layla Sandoval - Chief Complaint SOB, ELOISA - History of Present Illness Please refer to consult dictated 09/17/16 as pt has not received any other treatments or been seen in the outpatient setting since that time. Pt was being evaluated for a lung transplant at [facility] in mid 2015 when she was found to have enlarged mediastinal nodes, bronchoscopy with EBUS and biopsies, positive for squamous cell carcinoma. Staging PET scan revealed limited stage diseas, Pathologically pt was staged as [id number] IIIA. She was not felt to be a candidate for concommitant chemo/RT due to comorbidities, chemo was started, pt is s/p day 1 and 8 x 2 cycles and day 1 of cycle 3. Pt developed a tension pneumothroax and was inpatient 9 days ago and treated for the same with chest tube. She was discharged with small residual pneumothorax present. She returned to hospital with pain in the right chest, swelling in the neck, chest and upper arm on the right and increasing ELOISA. She was found to have recurrent pneumothorax and subcutaneous emphysema, pt had thoravent placed, she has been seen by Pulmonary and Cardiothroacic Surgery with possible plans for talc pleurodesis. When seen today pt is still having ELOISA, she is in the tripod position, O2 at 8L. She denies fever, appetite is ok, no nausea, her chest hurts at the thoravent insertion site, she is working with the incentive spirometer. Review of Systems All systems: negative Constitutional: Reports as per HPI Past Medical History Past Medical History: Coronary Artery Disease (CAD), Cancer, Diabetes Mellitus, GERD/Reflux, Hyperlipidemia, Hypertension, Myocardial Infarction ([place]), Osteoarthritis (OA), Pneumonia, Skin Disorder, Sleep Apnea/CPAP/BIPAP, Thyroid Disorder Additional Past Medical History / Comment(s): Pt recently admitted 09/16/16 with spontaneous R pneumothorax with chest tube. 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 Last Myocardial Infarction Date:: 1998 History of Any Multi-Drug Resistant Organisms: None Reported Past Surgical History: Bladder Surgery, Heart Catheterization With Stent, Hysterectomy, Orthopedic Surgery Additional Past Surgical History / Comment(s): 09/24/16 R sided thoravent, R lung bx, STENT X2 AT 2 DIFFERENT TIMES HX 2 BLADDER SUSPENSIONS, KNEE ARTHROSCOPIES-R KNEE X 1 AND L KNEE X2, R HAND SX WITH PINNING, NOW REMOVED. R WRIST GANGLION CYST REMOVAL X 2. CAROL CATARACT SX Numerous surgeries and bone work on BOTH FEET, R/T NEUROMA'S, EGD/colonoscopy Past Anesthesia/Blood Transfusion Reactions: No Reported Reaction, Motion Sickness Additional Past Anesthesia/Blood Transfusion Reaction / Comm: NEVER RECIEVED BLOOD. Date of Last Stent Placement:: 01/08/14 Smoking Status: Former smoker - Past Family History Father Family Medical History: Cancer, Hypertension Additional Family Medical History / Comment(s): FATHER OF LIVER CA AT AGE 67 YRS. HE ALSO HAD AORTIC ANEURYSM. Mother Family Medical History: Coronary Artery Disease (CAD), Diabetes Mellitus, Hypertension, Osteoarthritis (OA), Pulmonary Embolus Additional Family Medical History / Comment(s): MOTHER OF EMBOLISM IN LUNG FOLLOWING REHAB FOR HIP SURGERY AT AGE 65. Medications and Allergies Home Medications Medication Instructions Recorded Confirmed Type ALPRAZolam [Xanax] 0.25 mg PO DAILY PRN 01/08/14 09/24/16 History Omeprazole 20 mg PO BID 01/08/14 09/24/16 History amLODIPine BESYLATE [Amlodipine 5 mg PO QAM 01/08/14 09/24/16 History Besylate] Aspirin EC [Ecotrin Low Dose] 81 mg PO HS 04/21/14 09/24/16 History Atorvastatin [Lipitor] 80 mg PO HS 04/21/14 09/24/16 History Budesonide [Pulmicort] 0.5 mg INHALATION RT-BID 04/21/14 09/24/16 History Citalopram Hydrobromide [CeleXA] 40 mg PO HS 11/15/15 09/24/16 History Levothyroxine Sodium [Synthroid] 50 mcg PO QAM 11/15/15 09/24/16 History Losartan-Hctz 50-12.5 mg [Hyzaar 1 tab PO QAM 11/15/15 09/24/16 History 50-12.5] Insulin Aspart (For Pump) [NovoLOG See Protocol SQ-PUMP CONTINUOUS 03/20/16 History (For Pump)] Cholecalciferol [Vitamin D3] 5,000 unit PO BID 07/28/16 09/24/16 History Clopidogrel [Plavix] 75 mg PO QAM 07/28/16 09/24/16 History L.acidoph,Paracasei, B.lactis 1 cap PO BID 07/28/16 09/24/16 History [Probiotic] Magnesium Oxide 400 mg PO HS 07/28/16 09/24/16 History Ubidecarenone [Co Q-10] 400 mg PO DAILY 07/28/16 09/24/16 History Furosemide [Lasix] 20 mg PO DAILY PRN 08/24/16 09/24/16 History Calcium Carbonate 500 mg PO BID 09/16/16 09/24/16 History Metoprolol Succinate [Toprol XL] 25 mg PO BID 09/16/16 09/24/16 History Allergies Allergy/AdvReac Type Severity Reaction Status Date / Time adhesive Allergy Rash/Hives Verified 09/16/16 08:23 venom-honey bee Allergy Anaphylaxis Verified 09/16/16 08:23 Physical Exam Vitals: Vital Signs Temp Pulse Pulse Resp BP Pulse Ox 09/26/16 08:31 91 L 09/26/16 08:26 96 95 09/26/16 07:40 76 09/26/16 07:25 78 96 09/26/16 07:00 97.3 F L 85 24 155/72 09/25/16 23:00 98.1 F 95 16 153/85 97 09/25/16 21:14 78 09/25/16 20:56 81 09/25/16 17:20 76 09/25/16 17:11 70 09/25/16 15:59 82 18 09/25/16 15:24 97.1 F L 82 18 118/79 94 L Intake and Output 09/25/16 09/26/16 09/26/16 22:59 06:59 14:59 Output Total 5 Balance -5 Output: Drainage 5 Right Medial Back 5 Other: Voiding Method Toilet Toilet Toilet # Voids 1 Weight 98.2 kg 101 kg - Constitutional General appearance: average body habitus, cooperative, disheveled, severe distress - EENT Eyes: anicteric sclerae, EOMI ENT: normal oropharynx - Neck Subcutaneous emphysema on the right neck, supraclavicular area, upper arm, chest - Respiratory Respiratory: right: other (absent ), left: rales - Cardiovascular Heart sounds: normal: S1, S2 leg Peripheral Edema: bilateral: None - Gastrointestinal General gastrointestinal: normal bowel sounds, soft - Integumentary palpable subcutaneous emphysema right chest, upper arm, axilla, shoulder Integumentary: pale - Neurologic Neurologic: CNII-XII intact - Musculoskeletal Musculoskeletal: strength equal bilaterally - Psychiatric Psychiatric: A&O x's 3, appropriate affect, intact judgment & insight Results CBC & Chem 7: 09/26/16 07:09 09/26/16 07:09 Labs: Abnormal Lab Results - Last 24 Hours (Table) 09/25/16 09/25/16 09/26/16 Range/Units 17:09 20:05 07:09 WBC 2.8 L (3.8-10.6) k/uL RBC 2.52 L (3.80-5.40) m/uL Hgb 8.5 L (11.4-16.0) gm/dL Hct 25.2 L (34.0-46.0) % RDW 19.0 H (11.5-15.5) % Plt Count 95 L D (150-450) k/uL Glucose (74-99) mg/dL POC Glucose (mg/dL) 137 H 142 H (75-99) mg/dL AST (14-36) U/L ALT (9-52) U/L Total Protein (6.3-8.2) g/dL Albumin (3.5-5.0) g/dL 09/26/16 09/26/16 09/26/16 Range/Units 07:09 07:15 11:14 WBC (3.8-10.6) k/uL RBC (3.80-5.40) m/uL Hgb (11.4-16.0) gm/dL Hct (34.0-46.0) % RDW (11.5-15.5) % Plt Count (150-450) k/uL Glucose 123 H (74-99) mg/dL POC Glucose (mg/dL) 147 H 161 H (75-99) mg/dL AST 43 H (14-36) U/L ALT 77 H (9-52) U/L Total Protein 6.2 L (6.3-8.2) g/dL Albumin 3.2 L (3.5-5.0) g/dL Chest x-ray: report reviewed, image reviewed Assessment and Plan (1) Pancytopenia due to antineoplastic chemotherapy Narrative/Plan: No acute intervention, CBC daily, conservative transfusion PRN. Status: Acute (2) Squamous cell carcinoma of lung, stage III Narrative/Plan: Pt will follow up for treatment plans in the outpatient setting once her current condition is managed. Status: Chronic
[2016-09-26 17:52] LABS: Glucose,Whole Blood 170 mg/dL (75-99)
[2016-09-26] MEDS ORDERED: PROPOFOL 50 ML IV ONE ×4 (18:01→21:46)
--- NOTE | 2016-09-26 18:18 | XR ---
EXAMINATION TYPE: XR chest 1V portable DATE OF EXAM: 09/26/2016 COMPARISON: Today at 7:00 AM HISTORY: Intubation TECHNIQUE: Single frontal view of the chest is obtained. FINDINGS: Endotracheal tube appears in good position. There is a large right-sided pneumothorax that is new compared to exam earlier today. There is a right chest tube. There is subcutaneous emphysema over the entire chest. IMPRESSION: Endotracheal tube is in good position. Right chest tube is in similar position to exam e arlier today but there is a increased or new right pneumothorax. There is bilateral pulmonary edema.
[2016-09-26] MEDS ORDERED: LORazepam 2 MG/ML SYRINGE ONE (18:36)
[2016-09-26] MEDS ORDERED: IV VANCOMYCIN PER PHARMACY 1 EACH MISC MISCELLANE PRN (18:47)
[2016-09-26] MEDS ORDERED: FUROSEMIDE 10 MG/ML 4 ML VIAL IV STA (18:48)
[2016-09-26] MEDS ORDERED: FUROSEMIDE 10 MG/ML 10 ML VIAL IV STA (18:48)
[2016-09-26] MEDS ORDERED: methylPREDNISolone SOD SUCCI 125 MG/2 ML VIAL IV STA (18:48)
--- NOTE | 2016-09-26 18:53 | P.PN ---
Subjective Principal diagnosis: Spontaneous pneumothorax Late entry. Patient seen and examined at 10:45 AM. Patient states she is feeling a little bit short of breath but just returned from walking around her room. She states her breathing is getting better. She has had reading treatments today. She states she is otherwise feeling well. Objective - Vital Signs Vital signs: Vital Signs Temp 97.1 F L 09/26/16 15:00 Pulse 89 09/26/16 16:21 Resp 26 H 09/26/16 15:00 BP 138/70 09/26/16 15:00 Pulse Ox 89 L 09/26/16 16:03 Intake & Output 09/25/16 09/26/16 09/26/16 18:59 06:59 18:59 Intake Total 140 Output Total 5 Balance 140 -5 Weight 98.2 kg 101 kg Intake: Intake, IV Titration 20 Amount Sodium Chloride 0.9% 1, 20 000 ml @ 20 mls/hr IV . Q24H JOSE Rx#:[id number] Oral 120 Output: Drainage 5 Right Medial Back 5 Other: Voiding Method Toilet Toilet Toilet # Voids 1 1 3 # Bowel Movements 1 - Exam Gen.: Patient is alert and oriented 3, no acute distress, overweight Cardiovascular: Regular rate and rhythm, S1/S2 Lungs: Crackles bilaterally, diffuse subcutaneous emphysema - improving Abdomen: Soft nontender nondistended positive bowel sounds Extremities: No edema - Labs CBC & Chem 7: 09/26/16 07:09 09/26/16 07:09 Labs: Abnormal Lab Results - Last 24 Hours (Table) 09/25/16 09/26/16 09/26/16 Range/Units 20:05 07:09 07:09 WBC 2.8 L (3.8-10.6) k/uL RBC 2.52 L (3.80-5.40) m/uL Hgb 8.5 L (11.4-16.0) gm/dL Hct 25.2 L (34.0-46.0) % RDW 19.0 H (11.5-15.5) % Plt Count 95 L D (150-450) k/uL Glucose 123 H (74-99) mg/dL POC Glucose (mg/dL) 142 H (75-99) mg/dL AST 43 H (14-36) U/L ALT 77 H (9-52) U/L Total Protein 6.2 L (6.3-8.2) g/dL Albumin 3.2 L (3.5-5.0) g/dL 09/26/16 09/26/16 09/26/16 Range/Units 07:15 11:14 17:32 WBC (3.8-10.6) k/uL RBC (3.80-5.40) m/uL Hgb (11.4-16.0) gm/dL Hct (34.0-46.0) % RDW (11.5-15.5) % Plt Count (150-450) k/uL Glucose (74-99) mg/dL POC Glucose (mg/dL) 147 H 161 H 170 H (75-99) mg/dL AST (14-36) U/L ALT (9-52) U/L Total Protein (6.3-8.2) g/dL Albumin (3.5-5.0) g/dL Assessment and Plan Plan: Acute on chronic hypoxic respiratory failure Right pneumothorax, spontaneous, recurrent - s/p right thoravent Pneumomediastinum Subcutaneous emphysema Idiopathic pulmonary fibrosis Squamous cell lung cancer Pancytopenia, likely secondary to chemotherapy Pulmonary hypertension Diabetes mellitus type 2 GERD Dyslipidemia Hypertension Objective sleep apnea on CPAP History of coronary artery disease Hypothyroidism History of tobacco abuse, quit in 2010 O2 to maintain saturation greater than or equal to 88% Thoravent per thoracic surgery Consult Dr. Kulkarni per patient request Bronchodilators and Pulmicort Singulair Pain control Echocardiogram unable to be completed due to subcutaneous emphysema BiPAP nightly GI and DVT prophylaxis Incentive spirometry and pulmonary hygiene
--- NOTE | 2016-09-26 18:57 | XR ---
EXAMINATION TYPE: XR chest 1V portable DATE OF EXAM: 09/26/2016 COMPARISON: Today HISTORY: Pneumothorax TECHNIQUE: Single frontal view of the chest is obtained. FINDINGS: There is a right chest tube over the right lung apex. It is not clear if the chest tube is in satisfactory position. There is an endotracheal tube in good position. There is a large right pne umothorax. Heart and mediastinum are shifted to the left side. There is extensive interstitial pulmon fanta edema. IMPRESSION: There is mild tension pneumothorax. The chest tube on the right side could be malpositi oned. Extensive subcutaneous emphysema. Right chest tube appears in different position than the exam one hour ago.
--- NOTE | 2016-09-26 19:01 | ED ---
Medical Decision Making - Medical Decision Making Called the patient for CODE BLUE. Patient was in respiratory distress. Some decreased breath sounds on the right side. Patient was intubated by SALES REPRESENTATIVES. Chest x-ray showed a right-sided pneumothorax. Patient was transferred to ICU. Prior to chest tube placement doctor tu did contact me and recommends not to place chest tube. This practitioner Uma did arrive and assisted with the case. Thora vent was replaced without improvement of pneumothorax. At this time Dr. gordon still does not want chest tube placed. He states patient has long-standing multiple bulla and believes this will not help with symptoms. He does want wall suction and patient will have repeat chest x-ray done and a half an hour. Practitioner Uma is still at bedside at this time. Nursing staff also did get in contact with Dr. Bellamy as well. Critical care time 75 minutes. - Lab Data Result diagrams: 09/26/16 07:09 09/26/16 07:09 Lab Results 09/24/16 09/24/16 09/24/16 Range/Units 05:37 05:37 05:37 WBC 2.0 L* (3.8-10.6) k/uL RBC 2.93 L (3.80-5.40) m/uL Hgb 9.8 L (11.4-16.0) gm/dL Hct 28.1 L (34.0-46.0) % MCV 95.7 (80.0-100.0) fL MCH 33.5 (25.0-35.0) pg MCHC 35.0 (31.0-37.0) g/dL RDW 17.4 H (11.5-15.5) % Plt Count 51 L (150-450) k/uL Neutrophils % (Manual) 19.0 % Band Neutrophils % 3.0 % Lymphocytes % (Manual) 58.0 % Monocytes % (Manual) 16.0 % Eosinophils % (Manual) 4.0 % Neutrophils # (Manual) 0.4 L (1.3-7.7) k/uL Lymphocytes # (Manual) 1.2 (1.0-4.8) k/uL Monocytes # (Manual) 0.3 (0-1.0) k/uL Eosinophils # (Manual) 0.1 (0-0.7) k/uL Nucleated RBCs 0 (0-0) /100 WBC Manual Slide Review Performed Poikilocytosis Slight Anisocytosis Slight PT (9.0-12.0) sec INR (<1.1) APTT (22.0-30.0) sec Sodium 137 (137-145) mmol/L Potassium 4.0 (3.5-5.1) mmol/L Chloride 100 (98-107) mmol/L Carbon Dioxide 26 (22-30) mmol/L Anion Gap 11 mmol/L BUN 15 (7-17) mg/dL Creatinine 0.60 (0.52-1.04) mg/dL Est GFR (MDRD) Af Amer >60 (>60 ml/min/1.73 sqM) Est GFR (MDRD) Non-Af >60 (>60 ml/min/1.73 sqM) Glucose 165 H (74-99) mg/dL Calcium 8.9 (8.4-10.2) mg/dL Total Bilirubin 0.8 (0.2-1.3) mg/dL AST 58 H (14-36) U/L ALT 128 H (9-52) U/L Alkaline Phosphatase 129 H (38-126) U/L Total Creatine Kinase 59 (30-135) U/L CK-MB (CK-2) 1.8 (0.0-2.4) ng/mL CK-MB (CK-2) Rel Index 3.1 Troponin I <0.012 (0.000-0.034) ng/mL NT-Pro-B Natriuret Pep pg/mL Total Protein 6.5 (6.3-8.2) g/dL Albumin 3.6 (3.5-5.0) g/dL 09/24/16 09/24/16 Range/Units 05:37 05:37 WBC (3.8-10.6) k/uL RBC (3.80-5.40) m/uL Hgb (11.4-16.0) gm/dL Hct (34.0-46.0) % MCV (80.0-100.0) fL MCH (25.0-35.0) pg MCHC (31.0-37.0) g/dL RDW (11.5-15.5) % Plt Count (150-450) k/uL Neutrophils % (Manual) % Band Neutrophils % % Lymphocytes % (Manual) % Monocytes % (Manual) % Eosinophils % (Manual) % Neutrophils # (Manual) (1.3-7.7) k/uL Lymphocytes # (Manual) (1.0-4.8) k/uL Monocytes # (Manual) (0-1.0) k/uL Eosinophils # (Manual) (0-0.7) k/uL Nucleated RBCs (0-0) /100 WBC Manual Slide Review Poikilocytosis Anisocytosis PT 10.7 (9.0-12.0) sec INR 1.1 (<1.1) APTT 20.1 L (22.0-30.0) sec Sodium (137-145) mmol/L Potassium (3.5-5.1) mmol/L Chloride (98-107) mmol/L Carbon Dioxide (22-30) mmol/L Anion Gap mmol/L BUN (7-17) mg/dL Creatinine (0.52-1.04) mg/dL Est GFR (MDRD) Af Amer (>60 ml/min/1.73 sqM) Est GFR (MDRD) Non-Af (>60 ml/min/1.73 sqM) Glucose (74-99) mg/dL Calcium (8.4-10.2) mg/dL Total Bilirubin (0.2-1.3) mg/dL AST (14-36) U/L ALT (9-52) U/L Alkaline Phosphatase (38-126) U/L Total Creatine Kinase (30-135) U/L CK-MB (CK-2) (0.0-2.4) ng/mL CK-MB (CK-2) Rel Index Troponin I (0.000-0.034) ng/mL NT-Pro-B Natriuret Pep 119 pg/mL Total Protein (6.3-8.2) g/dL Albumin (3.5-5.0) g/dL Disposition Clinical Impression: Pneumothorax, Subcutaneous emphysema, Pulmonary fibrosis Disposition: ADMITTED IP TO THIS [facility] Condition: Serious Procedures - Chest Tube Insertion Consent Obtained: emergent situation (With Dr. Gordon on the phone for consultation previous thora-vent was removed. Area was cleansed with ChloraPrep. New Thora vent was placed in the same region as directed. No complications during placement.) Time Out Performed: Yes Side of Procedure: right Placed on monitor/pulse oximetry: Yes Site Prep: Chloroprep Open into Pleural Space Using: Trocar Tube Size (Angolan): Other (thora-vent) Attached to Suction: Yes Type of Suction: Pleuravac Repeat X-ray Results: Other (Persistent pneumothorax) Patient Tolerated Procedure: well
--- NOTE | 2016-09-26 19:10 | XR ---
EXAMINATION TYPE: XR chest 1V portable DATE OF EXAM: 09/26/2016 COMPARISON: Today HISTORY: Pneumothorax TECHNIQUE: Single frontal view of the chest is obtained. FINDINGS: Endotracheal tube is in good position. There is a right chest tube that appears to be in g ood position over the right lung apex. There is large right pneumothorax. Heart is shifted slightly t o the left side. There is extensive pulmonary edema. There is extensive subcutaneous edema over the c hest wall. IMPRESSION: There is tension pneumothorax without significant change compared to the exam 20 minutes ago. The right chest tube appears to be in good position however.
[2016-09-26] MEDS: PROPOFOL 500 MG in EMPTY BAG 1 BAG IV SCH ×3 (19:30→23:55)
[2016-09-26 19:43] LABS: Glucose,Whole Blood 203 mg/dL (75-99)
[2016-09-26] MEDS ORDERED: NOREPINEPHRIN 4 MG-0.9% NS PMX 4 MG/250 ML ML IV ONE (19:54)
--- NOTE | 2016-09-26 19:55 | XR ---
EXAMINATION TYPE: XR chest 1V portable DATE OF EXAM: 09/26/2016 COMPARISON: Today HISTORY: Chest tube placement TECHNIQUE: Single frontal view of the chest is obtained. FINDINGS: Endotracheal tube is in fairly good position 2 cm from the alvarez. There is a second large right chest tube that appears in good position. There is reexpansion of the right lung. There is no evidence of tension pneumothorax. There is extensive subcutaneous emphysema. There is interstitial ed ish in both lungs. IMPRESSION: Satisfactory expansion of the right lung. No evidence of tension pneumothorax. Persisten t pulmonary edema.
--- NOTE | 2016-09-26 19:55 | ED ---
Medical Decision Making - Medical Decision Making Call received from ICU stating alena mae does want chest tube in place because patient is not improving. Patient with persistent hypoxia and tachycardia. Chest tube was placed without Complication. Repeat chest x-ray shows markedly improved and flexion of lung. Chest tube appears in appropriate place. Endotracheal tube in appropriate place. There is diffuse subcutaneous emphysema. Rib fractures are noted on x-ray that were also present on previous x-ray. Patient did have improvement with heart rate and oxygen saturation following chest tube placement. - Lab Data Result diagrams: 09/26/16 07:09 09/26/16 07:09 Lab Results 09/24/16 09/24/16 09/24/16 Range/Units 05:37 05:37 05:37 WBC 2.0 L* (3.8-10.6) k/uL RBC 2.93 L (3.80-5.40) m/uL Hgb 9.8 L (11.4-16.0) gm/dL Hct 28.1 L (34.0-46.0) % MCV 95.7 (80.0-100.0) fL MCH 33.5 (25.0-35.0) pg MCHC 35.0 (31.0-37.0) g/dL RDW 17.4 H (11.5-15.5) % Plt Count 51 L (150-450) k/uL Neutrophils % (Manual) 19.0 % Band Neutrophils % 3.0 % Lymphocytes % (Manual) 58.0 % Monocytes % (Manual) 16.0 % Eosinophils % (Manual) 4.0 % Neutrophils # (Manual) 0.4 L (1.3-7.7) k/uL Lymphocytes # (Manual) 1.2 (1.0-4.8) k/uL Monocytes # (Manual) 0.3 (0-1.0) k/uL Eosinophils # (Manual) 0.1 (0-0.7) k/uL Nucleated RBCs 0 (0-0) /100 WBC Manual Slide Review Performed Poikilocytosis Slight Anisocytosis Slight PT (9.0-12.0) sec INR (<1.1) APTT (22.0-30.0) sec Sodium 137 (137-145) mmol/L Potassium 4.0 (3.5-5.1) mmol/L Chloride 100 (98-107) mmol/L Carbon Dioxide 26 (22-30) mmol/L Anion Gap 11 mmol/L BUN 15 (7-17) mg/dL Creatinine 0.60 (0.52-1.04) mg/dL Est GFR (MDRD) Af Amer >60 (>60 ml/min/1.73 sqM) Est GFR (MDRD) Non-Af >60 (>60 ml/min/1.73 sqM) Glucose 165 H (74-99) mg/dL Calcium 8.9 (8.4-10.2) mg/dL Total Bilirubin 0.8 (0.2-1.3) mg/dL AST 58 H (14-36) U/L ALT 128 H (9-52) U/L Alkaline Phosphatase 129 H (38-126) U/L Total Creatine Kinase 59 (30-135) U/L CK-MB (CK-2) 1.8 (0.0-2.4) ng/mL CK-MB (CK-2) Rel Index 3.1 Troponin I <0.012 (0.000-0.034) ng/mL NT-Pro-B Natriuret Pep pg/mL Total Protein 6.5 (6.3-8.2) g/dL Albumin 3.6 (3.5-5.0) g/dL 09/24/16 09/24/16 Range/Units 05:37 05:37 WBC (3.8-10.6) k/uL RBC (3.80-5.40) m/uL Hgb (11.4-16.0) gm/dL Hct (34.0-46.0) % MCV (80.0-100.0) fL MCH (25.0-35.0) pg MCHC (31.0-37.0) g/dL RDW (11.5-15.5) % Plt Count (150-450) k/uL Neutrophils % (Manual) % Band Neutrophils % % Lymphocytes % (Manual) % Monocytes % (Manual) % Eosinophils % (Manual) % Neutrophils # (Manual) (1.3-7.7) k/uL Lymphocytes # (Manual) (1.0-4.8) k/uL Monocytes # (Manual) (0-1.0) k/uL Eosinophils # (Manual) (0-0.7) k/uL Nucleated RBCs (0-0) /100 WBC Manual Slide Review Poikilocytosis Anisocytosis PT 10.7 (9.0-12.0) sec INR 1.1 (<1.1) APTT 20.1 L (22.0-30.0) sec Sodium (137-145) mmol/L Potassium (3.5-5.1) mmol/L Chloride (98-107) mmol/L Carbon Dioxide (22-30) mmol/L Anion Gap mmol/L BUN (7-17) mg/dL Creatinine (0.52-1.04) mg/dL Est GFR (MDRD) Af Amer (>60 ml/min/1.73 sqM) Est GFR (MDRD) Non-Af (>60 ml/min/1.73 sqM) Glucose (74-99) mg/dL Calcium (8.4-10.2) mg/dL Total Bilirubin (0.2-1.3) mg/dL AST (14-36) U/L ALT (9-52) U/L Alkaline Phosphatase (38-126) U/L Total Creatine Kinase (30-135) U/L CK-MB (CK-2) (0.0-2.4) ng/mL CK-MB (CK-2) Rel Index Troponin I (0.000-0.034) ng/mL NT-Pro-B Natriuret Pep 119 pg/mL Total Protein (6.3-8.2) g/dL Albumin (3.5-5.0) g/dL Disposition Clinical Impression: Pneumothorax, Subcutaneous emphysema, Pulmonary fibrosis Disposition: ADMITTED IP TO THIS [facility] Condition: Serious Procedures - Chest Tube Insertion Consent Obtained: emergent situation Time Out Performed: Yes Side of Procedure: right Indication: Pneumothorax Site Prep: Chloroprep Local Anesthesia: Lidocaine 1% Insertion Site: 5th Intercostal Space Scalpel: #10 Open into Pleural Space Using: Hemostats Tube Size (Kinyarwanda): 28 Returns: Air Sutured in Place: Yes Type of Suture: Nylon Dressing Applied: 4x4, Tape Attached to Suction: Yes Type of Suction: Pleuravac Repeat X-ray Results: Lung Inflated Patient Tolerated Procedure: well, no complications
[2016-09-26] MEDS: PROPOFOL 50 ML IV ONE ×3 (20:15→22:30)
--- NOTE | 2016-09-26 20:56 | P.PCN ---
Date of Procedure: 09/26/16 Preoperative Diagnosis: Hypoxic respiratory failure and hemodynamic instability Postoperative Diagnosis: Hypoxic respiratory failure and hemodynamics instability Procedure(s) Performed: Right radial arterial line Implants: Surgeon: Layla Sandoval Condition: critical Disposition: ICU Indications for Procedure: Blood pressure monitoring and frequent ABGs Operative Findings: Description of Procedure: Consent: Detailed explanation of the procedure, treatment options, risks including but not limited to infection and bleeding, and benefits were explained to the patient (or family). A written informed consent was obtained. Technique: A time out was preformed identifying the correct procedure, the correct location with the nursing staff. The right wrist was prepped with 2% chlorhexidine and draped with a sterile sheet in the usual fashion. The radial artery was cannulated with a 20 gauge catheter. The catheter was sutured in place and a sterile dressing was applied over the site prior to removal of drapes. The patient tolerated the procedure well and there were no complications. Complication: None
--- NOTE | 2016-09-26 21:00 | P.PCN ---
Date of Procedure: 09/26/16 Preoperative Diagnosis: Hypoxic respiratory failure and hemodynamic instability Postoperative Diagnosis: Hypoxic respiratory failure and hemodynamic instability Procedure(s) Performed: Right internal jugular central venous access Implants: Surgeon: Layla Sandoval Condition: critical Disposition: ICU Indications for Procedure: Hemodynamic instability and IV access Operative Findings: Description of Procedure: Consent: Detailed explanation of the procedure, treatment options, risks including but not limited to infection and bleeding, and benefits were explained to the family. A written informed consent was obtained. Technique: A time out was preformed identifying the correct procedure, the correct location with the nursing staff. The right neck was prepped with 2% chlorhexidine and draped with a full length sterile sheet in the usual fashion. The right internal jugular vein was accessed under ultrasound guidance with an 18 gauge thin wall needle. A triple lumen catheter was inserted via the seldinger technique. Blood was withdrawn from all lumens and flushed with normal saline. The catheter was sutured in place and a sterile dressing was applied over the site prior to removal of drapes. The patient tolerated the procedure well and there were no complications. Chest x ray is pending at this time. Complication: None
--- NOTE | 2016-09-26 21:02 | P.PN ---
Progress Note - Text Called by nursing staff after rapid response was called. Patient was in respiratory distress and was on nonrebreather along with 10 L high flow nasal cannula. The patient's O2 saturation was in the 70s to 80s. The patient was intubated by SENIOR MANAGEMENT CONSULTANT. She was transferred to the intensive care unit. The patient was found to have a large right pneumothorax. Chest tube was placed by cardiothoracic surgery. The patient's saturation improved. The patient's family is present and is updated to the condition and the plan of care. The patient does have multiple chronic conditions including idiopathic pulmonary fibrosis, emphysema, squamous cell lung cancer which make her overall prognosis poor. The family is aware of this. They would like to continue full code and full care at this time.
--- NOTE | 2016-09-26 21:18 | XR ---
EXAMINATION TYPE: XR chest 1V confirm line plcmt DATE OF EXAM: 09/26/2016 COMPARISON: Today at 7:44 PM HISTORY: Check line placement TECHNIQUE: Single frontal view of the chest is obtained. FINDINGS: There is a right chest tube in good position. There is a second right upper chest tube batsheva t is probably in good position. There is extensive subcutaneous emphysema. Endotracheal tube is noted and the tip is 1.5 cm from the alvarez. There is a nasogastric tube. There is a right central venous catheter with tip in the right a trium. I see no pneumothorax. There is pulmonary interstitial edema. IMPRESSION: Right central venous catheter appears in good position. No obvious pneumothorax. Endotra cheal tube could be pulled back 1 to 2 cm. Pulmonary edema without change.
[2016-09-26 21:21] LABS: ABG Base Excess 1.7 mmol/L; ABG HCO3 25 mmol/L (21-25); ABG PCO2 36 mmHg (35-45); ABG PH 7.46 (7.35-7.45); ABG PO2 342 mmHg (83-108); ABG TCO2 26 mmol/L (19-24)
[2016-09-26] MEDS: PIPERACILLIN-TAZOBACTAM 3.375 GM in DEXTROSE/WATER 1 50ML.BAG IVPB SCH (21:33)
[2016-09-26] MEDS: VANCOMYCIN 1,500 MG in SODIUM CHLORIDE 0.9% 250 ML IVPB SCH (21:33)
[2016-09-26] MEDS ORDERED: INSULIN REGULAR BOLUS (FROM DRIP BAG) IV ONE (22:30)
[2016-09-26] MEDS: ASPIRIN 81 MG CHEW PO SCH (23:01)
[2016-09-26] MEDS: ATORVASTATIN 80 MG TAB PO SCH (23:02)
[2016-09-26] MEDS: MONTELUKAST 10 MG TAB PO SCH (23:07)
--- NOTE | 2016-09-26 23:16 | P.PN ---
Subjective Date of service 09/26/2016. Personal being dictated for Dr. Spencer. Interval history: This a 65-year-old female admitted with recurrent right pneumothorax status post placement of right thoravent in a patient with history of lung CA. F/U Chest x-ray reporting improving subcutaneous emphysema, no pneumothorax, continuing left-sided aveolar airspace disease.this morning after ambulating to the bathroom on 6 L, desatted to mid 70s, required short-term use to 15 L high flow which has since been titrated down to 8 liters, currently maintaining O2 sats of 91%. Hemoglobin 8.5. Occasional nonproductive cough .Blood sugars controlled on insulin pump. Incentive spirometer up to 1500 earlier this am. Afebrile. LFTs improving. Objective - Vital Signs Vital signs: Vital Signs Temp 97.3 F L 09/26/16 07:00 Pulse 94 09/26/16 12:45 Resp 24 09/26/16 07:00 BP 155/72 09/26/16 07:00 Pulse Ox 91 L 09/26/16 08:31 Intake & Output 09/25/16 09/26/16 09/26/16 18:59 06:59 18:59 Intake Total 140 Output Total 5 Balance 140 -5 Weight 98.2 kg 101 kg Intake: Intake, IV Titration 20 Amount Sodium Chloride 0.9% 1, 20 000 ml @ 20 mls/hr IV . Q24H [facility] Rx#:[id number] Oral 120 Output: Drainage 5 Right Medial Back 5 Other: Voiding Method Toilet Toilet Toilet # Voids 1 1 # Bowel Movements 1 - Exam PHYSICAL EXAM: VITAL SIGNS: As above GENERAL: [Sitting up at side of bed, more tired today, HEENT: [Pupils equal conjunctiva normal.] NECK: [Supple, no JVD, diffuse subcutaneous emphysema chest wall and neck, palpable crepitus-improving] RESPIRATORY EFFORT:[ Mildly increased] LUNGS: [Bibasilar inspiratory crackles, Right anterior chest wall with thoravent present. Fine expiratory wheeze Scattered.] CARDIOVASCULAR[ regular S1 and S2, no murmurs, rubs, or gallops, no edema] GI: [Abdomen soft, nontender, positive bowel sounds.] PSYCH: [Alert and oriented -3, mood and affect normal.] NEURO: No focal deficits, moves all 4 extremities, bilateral lower extremities with compression stockings in place,strength and sensation grossly intact - Labs CBC & Chem 7: 09/26/16 07:09 09/26/16 07:09 Labs: Abnormal Lab Results - Last 24 Hours (Table) 09/25/16 09/25/16 09/26/16 Range/Units 17:09 20:05 07:09 WBC 2.8 L (3.8-10.6) k/uL RBC 2.52 L (3.80-5.40) m/uL Hgb 8.5 L (11.4-16.0) gm/dL Hct 25.2 L (34.0-46.0) % RDW 19.0 H (11.5-15.5) % Plt Count 95 L D (150-450) k/uL Glucose (74-99) mg/dL POC Glucose (mg/dL) 137 H 142 H (75-99) mg/dL AST (14-36) U/L ALT (9-52) U/L Total Protein (6.3-8.2) g/dL Albumin (3.5-5.0) g/dL 09/26/16 09/26/16 09/26/16 Range/Units 07:09 07:15 11:14 WBC (3.8-10.6) k/uL RBC (3.80-5.40) m/uL Hgb (11.4-16.0) gm/dL Hct (34.0-46.0) % RDW (11.5-15.5) % Plt Count (150-450) k/uL Glucose 123 H (74-99) mg/dL POC Glucose (mg/dL) 147 H 161 H (75-99) mg/dL AST 43 H (14-36) U/L ALT 77 H (9-52) U/L Total Protein 6.2 L (6.3-8.2) g/dL Albumin 3.2 L (3.5-5.0) g/dL Assessment and Plan Plan: 1. [ Recurrent right-sided pneumothorax with extensive subcutaneous emphysema, improving]. Status post placement of thoravent. 2. [ Chronic hypoxemic respiratory failure secondary to pulmonary fibrosis]. 3. [ Squamous LCA of lung, stage III, currently undergoing chemotherapy]. 4. [ Bicytopenia secondary chemotherapy]. 5. [ Hypertension]. 6. CAD 7. [ Depression]. 8. Previous history of tobacco use 9. Diabetes mellitus, wears insulin pump 10. Gastroesophageal reflux disease Plan: Continue on current medication regime , nebulized bronchodilators, monitoring and symptomatic treatment. PT/OT. Aggressive pulmonary toileting with IS. Maintain Close monitoring of Accu-Cheks. Close monitoring of CBC with repeat labs ordered for a.m. prognosis guarded given multiple complex medical issues. The impression and plan of care has been dictated as directed. : I performed a H&P examination of this patient and discussed the same with the dictator. I agree with the dictator's note. Any additional findings/opinions/ etc. will be noted.
[2016-09-26] MEDS: INSULIN REGULAR 100 UNIT in SODIUM CHLORIDE 0.9% 100 ML IV SCH (23:18)
[2016-09-26 23:30] LABS: Glucose,Whole Blood 213 mg/dL (75-99)
[2016-09-26] MEDS: SODIUM CHLORIDE 0.9% 1,000 ML IV SCH (23:36)
[2016-09-26] MEDS: methylPREDNISolone SOD SUCCI 125 MG/2 ML VIAL IV SCH (23:52)
[2016-09-26 23:59] LABS: Glucose,Whole Blood 205 mg/dL (75-99)
[2016-09-27 00:41] LABS: Glucose,Whole Blood 189 mg/dL (75-99)
[2016-09-27] MEDS ORDERED: Magnesium Replacement Protocol 1 EACH MISC MISCELLANE PRN (00:50)
[2016-09-27] MEDS: PROPOFOL 500 MG in EMPTY BAG 1 BAG IV SCH ×6 (01:42→08:48)
[2016-09-27] MEDS: PIPERACILLIN-TAZOBACTAM 3.375 GM in DEXTROSE/WATER 1 50ML.BAG IVPB SCH ×4 (01:45→23:34)
[2016-09-27] MEDS: MAGNESIUM SULFATE-D5W PMX 1 GM in DEXTROSE/WATER 1 100ML.BAG IVPB SCH ×2 (01:46→03:14)
[2016-09-27 01:58] LABS: Appearance,Urine Turbid (Clear); Bilirubin,Urine Negative (Negative); Glucose,Urine (UA) Negative (Negative); Ketones,Urine Negative (Negative); Leukocyte Esterase,Urine Negative (Negative); Nitrite,Urine Negative (Negative); Particle Count 1291; Protein,Urine Negative (Negative); RBC,Urine 2 /hpf (0-5); Specific Gravity,Urine 1.015 (1.001-1.035); UA Billing (MACRO vs. MICRO) MICRO; Uric Acid Crystals,Urine Moderate /hpf; Urobilinogen,Urine <2.0 mg/dL (<2.0)
[2016-09-27 02:24] LABS: Glucose,Whole Blood 197 mg/dL (75-99)
[2016-09-27 03:15] LABS: Glucose,Whole Blood 192 mg/dL (75-99)
[2016-09-27 04:17] LABS: Glucose,Whole Blood 205 mg/dL (75-99)
[2016-09-27 05:18] LABS: ABG Base Excess 3.4 mmol/L; ABG HCO3 27 mmol/L (21-25); ABG PCO2 36 mmHg (35-45); ABG PH 7.49 (7.35-7.45); ABG PO2 154 mmHg (83-108); ABG TCO2 28 mmol/L (19-24)
[2016-09-27 05:26] LABS: Glucose,Whole Blood 189 mg/dL (75-99)
[2016-09-27] MEDS: methylPREDNISolone SOD SUCCI 125 MG/2 ML VIAL IV SCH ×4 (05:29→23:34)
[2016-09-27] MEDS: KETOROLAC 30 MG/ML 1 ML VIAL IVP SCH ×4 (05:32→23:35)
[2016-09-27 06:06] LABS: Anion Gap 7 mmol/L; Blood Urea Nitrogen 14 mg/dL (7-17); Calcium 7.9 mg/dL (8.4-10.2); Carbon Dioxide 28 mmol/L (22-30); Chloride 102 mmol/L (98-107); Glucose 165 mg/dL (74-99); Non-African American GFR(MDRD) >60 (>60 ml/min/1.73 sqM); Potassium 3.6 mmol/L (3.5-5.1); Sodium 137 mmol/L (137-145)
[2016-09-27 06:11] LABS: Glucose,Whole Blood 169 mg/dL (75-99)
--- NOTE | 2016-09-27 06:50 | XR ---
EXAMINATION TYPE: XR chest 1V portable DATE OF EXAM: 09/27/2016 HISTORY: Pneumothorax. REFERENCE: Previous study dated 09/26/2016. FINDINGS: There is a Heimlich valve in place on the right. There is a right pleural drain in place. A right internal jugular catheter are maintained in place with its tip at the cavoatrial junction. The patient's ET tube has been withdrawn slightly. The patient's NG tube remains in place, unchanged in appearance. There is continuing subcutaneous emphysema on the right. This has not changed significantly from prev ious. There is stable alveolar airspace disease, worse on the left than the right. This is confluent at the left lung base. Heart size is obscured. I could not exclude a left-sided effusion. IMPRESSION: NO SIGNIFICANT CHANGE IN THE APPEARANCE OF THE LUNGS.
[2016-09-27] MEDS: LEVOTHYROXINE 50 MCG TAB PO SCH (07:11)
[2016-09-27 07:27] LABS: Glucose,Whole Blood 166 mg/dL (75-99)
[2016-09-27 07:35] LABS: ALT 60 U/L (9-52); AST 42 U/L (14-36); Alkaline Phosphatase 81 U/L (38-126); Magnesium 2.4 mg/dL (1.6-2.3); Phosphorous 3.4 mg/dL (2.5-4.5); Total Bilirubin 0.8 mg/dL (0.2-1.3); Total Protein 5.6 g/dL (6.3-8.2)
[2016-09-27] MEDS: IPRATROPIUM-ALBUTEROL 3 ML NEB INHALATION SCH ×4 (07:51→19:42)
[2016-09-27] MEDS: BUDESONIDE 0.5 MG/2 ML NEBU INHALATION SCH ×2 (07:51→19:42)
--- NOTE | 2016-09-27 08:02 | P.PN ---
Addendum entered and electronically signed by Barber Hernandez RNFA 09/27/16 08: 14: Right anterior Thoravent tube removed without incident. 4 x 4 gauze, Vaseline impregnated gauze, placed over site and secured with tape. 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 Status post day #2 right Thoravent placement 13-Chinese. Status post day #1 right pleural chest tube placement and #1 status post second Thoravent placement 13-Chinese. Patient is intubated with mechanical ventilator support, she is currently sedated on a propofol drip at 50 mcg/kg/m. The patient was intubated last evening after having an episode of acute respiratory distress and right spontaneous pneumothorax. The patient was subsequently intubated with a right pleural chest tube placed, her original Thoravent was removed and the new right Thoravent was placed. Patient is not following any simple commands at this time with the sedation on board. She does withdrawal from noxious stimuli. Vital Signs: Afebrile Vital Signs - 24 hr 09/26/16 09/26/16 09/26/16 08:26 08:31 12:45 Temperature Pulse Rate 96 94 Pulse Rate [ Technical Support Consultant ] Pulse Rate [ Pulse Oximetery ] Respiratory Rate Blood Pressure Blood Pressure [Left Arm] Blood Pressure [Right Arm] Blood Pressure [Right Radial Artery] O2 Sat by Pulse 95 91 L Oximetry 09/26/16 09/26/16 09/26/16 15:00 16:03 16:21 Temperature 97.1 F L Pulse Rate 89 89 Pulse Rate [ Technical Support Consultant ] Pulse Rate [ 94 Pulse Oximetery ] Respiratory 26 H Rate Blood Pressure Blood Pressure [Left Arm] Blood Pressure 138/70 [Right Arm] Blood Pressure [Right Radial Artery] O2 Sat by Pulse 90 L 89 L Oximetry 09/26/16 09/26/16 09/26/16 17:56 18:00 19:00 Temperature Pulse Rate 0 L 0 L 137 H Pulse Rate [ 132 H Technical Support Consultant ] Pulse Rate [ Pulse Oximetery ] Respiratory 22 Rate Blood Pressure 102/67 Blood Pressure [Left Arm] Blood Pressure 114/57 [Right Arm] Blood Pressure [Right Radial Artery] O2 Sat by Pulse 91 L Oximetry 09/26/16 09/26/16 09/26/16 19:30 20:00 20:30 Temperature 98.9 F Pulse Rate 99 Pulse Rate [ 118 H 100 94 Technical Support Consultant ] Pulse Rate [ 100 Pulse Oximetery ] Respiratory 22 20 17 Rate Blood Pressure 93/50 Blood Pressure 87/44 [Left Arm] Blood Pressure 149/68 101/57 [Right Arm] Blood Pressure 110/62 [Right Radial Artery] O2 Sat by Pulse 100 100 100 Oximetry 09/26/16 09/26/16 09/26/16 21:00 21:10 21:25 Temperature Pulse Rate 110 H 94 98 Pulse Rate [ Technical Support Consultant ] Pulse Rate [ Pulse Oximetery ] Respiratory 34 H Rate Blood Pressure 116/45 Blood Pressure [Left Arm] Blood Pressure [Right Arm] Blood Pressure [Right Radial Artery] O2 Sat by Pulse Oximetry 09/26/16 09/26/16 09/27/16 22:00 23:00 00:00 Temperature 98.5 F Pulse Rate 92 89 90 Pulse Rate [ Technical Support Consultant ] Pulse Rate [ Pulse Oximetery ] Respiratory 17 16 16 Rate Blood Pressure 147/60 147/60 155/70 Blood Pressure [Left Arm] Blood Pressure [Right Arm] Blood Pressure [Right Radial Artery] O2 Sat by Pulse 100 100 100 Oximetry 09/27/16 09/27/16 09/27/16 01:00 02:00 03:00 Temperature Pulse Rate 89 85 86 Pulse Rate [ Technical Support Consultant ] Pulse Rate [ Pulse Oximetery ] Respiratory 16 18 14 Rate Blood Pressure 155/70 132/56 132/56 Blood Pressure [Left Arm] Blood Pressure [Right Arm] Blood Pressure [Right Radial Artery] O2 Sat by Pulse 100 100 100 Oximetry 09/27/16 09/27/16 09/27/16 04:00 05:00 06:00 Temperature 98.9 F Pulse Rate 81 83 69 Pulse Rate [ Technical Support Consultant ] Pulse Rate [ Pulse Oximetery ] Respiratory 14 26 H 23 Rate Blood Pressure 124/52 124/52 Blood Pressure [Left Arm] Blood Pressure [Right Arm] Blood Pressure [Right Radial Artery] O2 Sat by Pulse 100 100 100 Oximetry 09/27/16 07:00 Temperature Pulse Rate 66 Pulse Rate [ Technical Support Consultant ] Pulse Rate [ Pulse Oximetery ] Respiratory 17 Rate Blood Pressure 113/50 Blood Pressure [Left Arm] Blood Pressure [Right Arm] Blood Pressure [Right Radial Artery] O2 Sat by Pulse 100 Oximetry ABP, PAP, CO, CI - Last 8 Hours Arterial Blood Pressure 109/43 Arterial Blood Pressure 109/43 Arterial Blood Pressure 153/62 Arterial Blood Pressure 107/38 Arterial Blood Pressure 125/44 Arterial Blood Pressure 127/47 Arterial Blood Pressure 128/48 Arterial Blood Pressure 129/48 Labs: CBC results pending. Short CBC 09/26/16 Range/Units 07:09 WBC 2.8 L (3.8-10.6) k/uL Hgb 8.5 L (11.4-16.0) gm/dL Hct 25.2 L (34.0-46.0) % Plt Count 95 L D (150-450) k/uL BMP 09/26/16 09/27/16 07:09 05:45 Sodium 139 137 Potassium 4.3 3.6 Chloride 103 102 Carbon Dioxide 28 28 BUN 15 14 Creatinine 0.69 0.80 Glucose 123 H 165 H Calcium 8.6 7.9 L Liver Function 09/26/16 09/27/16 Range/Units 07:09 05:45 Total Bilirubin 0.8 0.8 (0.2-1.3) mg/dL AST 43 H 42 H (14-36) U/L ALT 77 H 60 H (9-52) U/L Alkaline Phosphatase 103 81 (38-126) U/L Albumin 3.2 L 2.6 L (3.5-5.0) g/dL Urine 09/27/16 Range/Units 01:40 Urine Color Yellow Urine Appearance Turbid H (Clear) Urine pH 5.0 (5.0-8.0) Ur Specific [place] 1.015 (1.001-1.035) Urine Protein Negative (Negative) Urine Glucose (UA) Negative (Negative) IV Fluids: 0.9% normal saline at 75 mL per hour Propofol drip at 50 mcg/kg/m Insulin drip at 8 units per hour. CVP: 4 Lungs: Scattered crackles throughout, diminished bilateral bases. Respirations are symmetrical and unlabored with mechanical ventilator support. Current ventilator settings are as follows: AC 14, TV 450, FiO2 50%, PEEP 5. Current peak pressures are 34, plateau pressures 19. O2 sat: 100% with mechanical ventilator support and current FiO2 setting of 50%. Heart: S1S2, regular rhythm and rate, negative for S3, gallop or murmur. Bedside telemetry showing normal sinus rhythm heart rate 64. Right lateral chest incision where a previous chest tube has been placed has 2 sutures intact with the incision well approximated. No drainage noted. Subcutaneous emphysema noted to her chest and and neck. Sequential compression devices in place to her bilateral lower extremities. Abdomen: Soft, nontender. Positive bowel sounds present in all 4 quadrants, OG tube in place to low intermittent wall suction. OG tube draining bile- colored drainage. CBGs: 169-205 mg/dL in the last 24 hours. U/O: Adequate, Chew catheter for accurate I&O. 705 mL output in the last 8 hours. The patient was given Lasix last p.m. and diuresed well. Chest Tubes: Right pleural chest tube with positive air leak, remains to continuous low wall suction. Draining thin serosanguineous drainage. 60 mL output since her chest tube has been placed. Right anterior chest Thoravent without air leak. 24 hr Total: Intake & Output 09/25/16 09/26/16 09/27/16 09/28/16 06:59 06:59 06:59 06:59 Intake Total 6711 153 2112.287 75 Output Total 0 5 1582 30 Balance 1017 135 935.287 45 Weight 98.2 kg 101 kg 102.1 kg Active Medications Albuterol/Ipratropium (Duoneb 0.5 Mg-3 Mg/3 Ml Soln) 3 ml INHALATION RT-QID [facility] Last Admin: 09/27/16 07:51 Dose: 3 ml Alprazolam (Xanax) 0.25 mg PO TID PRN PRN Reason: Anxiety [facility] [place] Admin: 09/26/16 09:52 Dose: 5 mg Aspirin (Aspirin) 81 mg PO [facility] Last Admin: 09/26/16 23:01 Dose: Not Given Atorvastatin Calcium (Lipitor) 80 mg PO [facility] Last Admin: 09/26/16 23:02 Dose: 80 mg Budesonide (Pulmicort) 0.5 mg INHALATION RT-BID [facility] Last Admin: 09/27/16 07:51 Dose: 0.5 mg Clopidogrel [facility] (Plavix) [facility] [place] Admin: 09/26/16 09:51 Dose: 75 mg HCTZ/Losartan Potassium (Hyzaar 50-12.5) 1 each PO QAM [facility] Last Admin: 09/26/16 09:53 Dose: 1 each Heparin Sodium (Porcine) (Heparin) 5,000 unit SQ Q8HR [facility] Last Admin: 09/26/16 23:55 Dose: Not Given Piperacillin/Tazobactam/ (Dextrose 3.375 gm/ IV Solution) 50 mls @ 12.5 mls/hr IVPB Q8HR [facility] Last Admin: 09/27/16 01:45 Dose: 12.5 mls/hr Vancomycin HCl 1,500 mg/ (Sodium Chloride) 250 mls @ 125 mls/hr IVPB Q12H [facility] Last Admin: 09/26/16 21:33 Dose: 125 mls/hr Insulin Human Regular 100 unit (/ Sodium Chloride) 101 mls @ 0 mls/hr IV .Q0M [facility]; Per Protocol PRN Reason: Protocol Last Titration: 09/27/16 06:30 Dose: 8 units/hr, 8.08 mls/hr Propofol 500 mg/ IV Solution 50 mls @ 0 mls/hr IV .Q0M [facility]; Titrate PRN Reason: Protocol Last Admin: 09/27/16 07:14 Dose: 50 mcg/kg/min, 30.3 mls/hr Sodium Chloride (Saline 0.9%) 1,000 mls @ 75 mls/hr IV .[id number] [facility] Last Admin: 09/26/16 23:36 Dose: 75 mls/hr Ketorolac Tromethamine (Toradol) 30 mg IVP Q6HR [facility] Stop: 09/28/16 16:03 Last Admin: 09/27/16 05:32 Dose: 30 mg Levothyroxine Sodium (Synthroid) 50 mcg PO 0630 [facility] Last Admin: 09/27/16 07:11 Dose: 50 mcg Methylprednisolone Sodium Succinate (Solu-Medrol) 60 mg IV Q6HR [facility] Last Admin: 09/27/16 05:29 Dose: 60 mg Metoprolol Succinate (Toprol Xl) 25 mg PO BID [facility] Last Admin: 09/26/16 23:02 Dose: 25 mg Miscellaneous Information (Magnesium Per Protocol) 1 each MISCELLANE DAILY PRN ; Protocol PRN Reason: Per Protocol Montelukast Sodium (Singulair) 10 mg PO HS [facility] Last Admin: 09/26/16 23:07 Dose: 10 mg Morphine Sulfate (Morphine Sulfate (Inj)) 4 mg IV Q4HR PRN PRN Reason: Severe Pain Last Admin: 09/26/16 13:32 Dose: 4 mg Naloxone HCl (Narcan) 0.2 mg IV Q2M PRN PRN Reason: Opioid Reversal Pantoprazole Sodium (Protonix) 40 mg IV DAILY [facility] Plan: 1. Thoravent will be discontinued today. Her right pleural chest tube will remain in place to low continuous wall suction. 2. We will obtain a repeat chest x-ray in a.m. 3. Mechanical ventilator management per Pulmonary medicine and recommendations per Dr. Sandoval. 4. GI and DVT prophylaxis in place. 5. Medical management and diabetic management per Dr. Giraldo. 6. Further recommendations as the patient progresses. <Brian Brown - Last Filed: 09/27/16 10:59> Progress Note - Text The patient was seen and examined. I agree with the above assessment and plan. The patient had worsening respiratory status overnight which required intubation. A right-sided chest tube was placed last night and the thoravent was removed. This morning she has an air leak on suction. Her chest x-ray does not reveal a significant pneumothorax. We will continue with the chest tube to suction for now.
[2016-09-27 08:15] LABS: Anisocytosis Slight; Basophils % (A) 0 %; CH 34.5; CHCM 34.8; Eosinophils % (A) 1 %; HCT 23.2 % (34.0-46.0); HDW 3.64; HGB 7.6 gm/dL (11.4-16.0); Luc # (Auto) 0.08; Luc % (Auto) 2; Lymphocytes # (A) 0.7 k/uL (1.0-4.8); Lymphocytes % (A) 20 %; MCH 32.8 pg (25.0-35.0); MCHC 32.9 g/dL (31.0-37.0); MCV 99.8 fL (80.0-100.0); Macrocytosis Slight; Mean Platelet Volume 7.5; Monocytes # (A) 0.1 k/uL (0-1.0); Monocytes % (A) 4 %; Neutrophils # (A) 2.4 k/uL (1.3-7.7); Neutrophils % (A) 72 %; Poikilocytosis Slight; RBC 2.32 m/uL (3.80-5.40); RDW 19.5 % (11.5-15.5); WBC 3.4 k/uL (3.8-10.6); WBC (Perox) 3.23
[2016-09-27] MEDS: VANCOMYCIN 1,500 MG in SODIUM CHLORIDE 0.9% 250 ML IVPB SCH ×2 (08:18→18:07)
[2016-09-27] MEDS: HEPARIN SODIUM,PORCINE 5,000 UNIT/ML 1 ML VIAL SQ SCH ×3 (08:18→23:34)
[2016-09-27 08:47] LABS: Glucose,Whole Blood 154 mg/dL (75-99)
[2016-09-27] MEDS: PANTOPRAZOLE 40 MG/10 ML VIAL IV SCH (08:49)
[2016-09-27] MEDS ORDERED: POTASSIUM CHLORIDE ORAL LIQUID 40 MEQ/30 ML CUP NG-TUBE ONE (09:00)
[2016-09-27] MEDS: METOPROLOL SUCCINATE (ER) 50 MG TAB.ER.24H PO SCH (09:40)
[2016-09-27] MEDS: LOSARTAN-HCTZ 50-12.5 MG 1 EACH TAB PO SCH (09:40)
[2016-09-27] MEDS: amLODIPine 5 MG TAB PO SCH (09:40)
[2016-09-27] MEDS: CLOPIDOGREL 75 MG TAB PO SCH (09:41)
[2016-09-27] MEDS ORDERED: CHLORHEXIDINE GLUCONATE 15 ML CUP MUCOUS MEM SCH (10:00)
[2016-09-27 10:01] LABS: Glucose,Whole Blood 152 mg/dL (75-99)
[2016-09-27 11:18] LABS: Glucose,Whole Blood 155 mg/dL (75-99)
[2016-09-27] MEDS: INSULIN REGULAR 100 UNIT in SODIUM CHLORIDE 0.9% 100 ML IV SCH ×2 (12:07→18:06)
[2016-09-27 12:14] LABS: ABG PCO2 32 mmHg (35-45); ABG PH 7.51 (7.35-7.45); ABG PO2 87 mmHg (83-108)
[2016-09-27 12:15] LABS: ABG HCO3 26 mmol/L (21-25); ABG TCO2 27 mmol/L (19-24)
[2016-09-27] MEDS: SODIUM CHLORIDE 0.9% 1,000 ML IV SCH (12:20)
[2016-09-27 12:27] LABS: Glucose,Whole Blood 163 mg/dL (75-99)
[2016-09-27 12:47] LABS: Hemoglobin A1C 6.2 % (4.2-6.1)
[2016-09-27 13:11] LABS: Glucose,Whole Blood 155 mg/dL (75-99)
[2016-09-27 14:15] LABS: Glucose,Whole Blood 153 mg/dL (75-99)
[2016-09-27] MEDS: MORPHINE SULFATE 4 MG/ML SYRINGE IV PRN ×2 (14:54→20:10)
[2016-09-27 15:08] LABS: Glucose,Whole Blood 136 mg/dL (75-99)
[2016-09-27 16:14] LABS: Glucose,Whole Blood 162 mg/dL (75-99)
[2016-09-27] MEDS: ALPRAZolam 0.25 MG TAB PO PRN (16:44)
[2016-09-27 17:10] LABS: Glucose,Whole Blood 139 mg/dL (75-99)
--- NOTE | 2016-09-27 17:16 | PN ---
DATE OF SERVICE: 09/27/2016 This patient had just been extubated prior to me seeing her. She is on nasal cannula oxygen. She is talking and does not seem to be in respiratory distress. On physical examination, her blood pressure is 146/68, respiratory rate of 16, pulse rate of 80, temperature 97.8, oxygen saturation on 10 L by nasal cannula is 97%. HEENT reveals pupils that are equal. Chest reveals decreased breath sounds on the right with a chest tube in place. Velcro-type crackles bilaterally in the lower zones. Cardiovascular system reveals an S1, S2. Abdomen is soft. There is trace to 1+ pedal edema. Labs reveal an ABG pH of 7.51, pCO2 of 32, pO2 of 87, bicarb of 26, oxygen saturation of 98%. Chest x-ray was reviewed which showed evidence of a right-sided chest tube in place. IMPRESSION AT THIS TIME: 1. Acute respiratory failure with right-sided pneumothorax which had been intubated. Subsequently a chest tube had been placed, the lung re-inflated, and she has been extubated. 2. Pulmonary fibrosis that is chronic. 3. [id number] cancer of the lung, for which she is status post treatment. At this point in time, from a pulmonary standpoint, would keep her off the ventilator, discontinue her arterial line, continue the chest tube. Consider talc pleurodesis. Watch her closely in the ICU. Her medications were reviewed, and the same will continue at this time.
[2016-09-27 17:57] LABS: Glucose,Whole Blood 174 mg/dL (75-99)
--- NOTE | 2016-09-27 18:23 | P.PN ---
Subjective Date of service 09/27/2016. Personal being dictated for Dr. Spencer. Interval history: This a 65-year-old female admitted with recurrent right pneumothorax status post placement of right thoravent in a patient with history of lung CA. Yesterday afternoon, patient developed further respiratory distress , respiratory arrested, intubated and transferred to ICU. Developed a right spontaneous pneumothorax with right pleural chest tube placed, with original Thoravent discontinued. Chest x-ray reporting no significant change in lung appearance with continuing right subcutaneous emphysema, stable alveolar airspace disease worse on the left, possible left-sided effusion. Maintained on FiO2 of 40%/+5 of PEEP, weaned trials in progress. Moving all extremities, Following commands. Sinus rhythm with bundle branch block, maintained on insulin drip. Blood sugars 120s to 170s. Objective - Vital Signs Vital signs: Vital Signs Temp 97.8 F 09/27/16 12:00 Pulse 87 09/27/16 17:00 Resp 29 H 09/27/16 17:00 BP 161/75 09/27/16 17:00 Pulse Ox 95 09/27/16 17:00 Intake & Output 09/26/16 09/27/16 09/27/16 18:59 06:59 18:59 Intake Total 2517.287 1297.669 Output Total 1582 1093 Balance 935.287 204.669 Weight 102.1 kg Intake: IV 2225 1137.5 Magnesium Sulfate-D5w Pmx 200 1 gm In Dextrose/Water 1 100ml.bag @ 100 mls/hr IVPB Q1H [facility] Rx#: [id number] Piperacillin-Tazobactam 3 200 62.5 .375 gm In Dextrose/Water 1 50ml.bag @ 12.5 mls/hr IVPB Q8HR [facility] Rx#: [id number] Sodium Chloride 0.9% 1, 1325 825 000 ml @ 75 mls/hr IV . [id number] [facility] Rx#:[id number] Vancomycin 1,500 mg In 500 250 Sodium Chloride 0.9% 250 ml @ 125 mls/hr IVPB Q12H [facility] Rx#:[id number] Intake, IV Titration 292.287 160.169 Amount Insulin Regular 100 unit 52.402 71.490 In Sodium Chloride 0.9% 100 ml @ Per Protocol IV .Q0M [facility] Rx#:[id number] Propofol 500 mg In Empty 239.885 88.679 Bag 1 bag @ Titrate IV . Q0M [facility] Rx#:[id number] Output: Chest Tube Drainage 50 33 Chest Tube Right Lateral 50 33 Chest Right Anterior Chest 0 Urine 1532 1060 Other: Voiding Method Toilet Indwelling Catheter Indwelling Catheter # Voids 3 # Bowel Movements 1 ABP, PAP, CO, CI - Last Documented Arterial Blood Pressure 130/86 - Exam PHYSICAL EXAM: VITAL SIGNS: As above GENERAL: [Sitting up in bed, intubated, alert HEENT: [Pupils equal conjunctiva normal.] NECK: [Supple, no JVD, improving diffuse subcutaneous emphysema chest wall and neck, palpable crepitus RESPIRATORY EFFORT:[ Normal] LUNGS: [Bibasilar scattered inspiratory crackles. Right pleural chest tube. CARDIOVASCULAR[ regular S1 and S2, no murmurs, rubs, or gallops, no edema] GI: [Abdomen soft, nontender, positive bowel sounds.] PSYCH/NEURO: [Alert, moving all extremities, following commands appropriately; weaning trials in progress; extubation pending : No focal deficits, moves all 4 extremities, bilateral lower extremities with compression stockings in place,strength and sensation grossly intact - Labs CBC & Chem 7: 09/27/16 05:45 09/27/16 11:15 Labs: Abnormal Lab Results - Last 24 Hours (Table) 09/26/16 09/26/16 09/26/16 Range/Units 19:40 20:50 23:13 WBC (3.8-10.6) k/uL RBC (3.80-5.40) m/uL Hgb (11.4-16.0) gm/dL Hct (34.0-46.0) % RDW (11.5-15.5) % Plt Count (150-450) k/uL Lymphocytes # (1.0-4.8) k/uL ABG pH 7.46 H (7.35-7.45) ABG pCO2 (35-45) mmHg ABG pO2 342 H (83-108) mmHg ABG HCO3 (21-25) mmol/L ABG Total CO2 26 H (19-24) mmol/L ABG O2 Saturation 100.0 H (94-97) % Glucose (74-99) mg/dL POC Glucose (mg/dL) 203 H 213 H (75-99) mg/dL Hemoglobin A1c (4.2-6.1) % Calcium (8.4-10.2) mg/dL Magnesium (1.6-2.3) mg/dL AST (14-36) U/L ALT (9-52) U/L Total Protein (6.3-8.2) g/dL Albumin (3.5-5.0) g/dL Urine Appearance (Clear) Uric Acid Crystals (None) /hpf 09/26/16 09/27/16 09/27/16 Range/Units 23:57 00:39 01:40 WBC (3.8-10.6) k/uL RBC (3.80-5.40) m/uL Hgb (11.4-16.0) gm/dL Hct (34.0-46.0) % RDW (11.5-15.5) % Plt Count (150-450) k/uL Lymphocytes # (1.0-4.8) k/uL ABG pH (7.35-7.45) ABG pCO2 (35-45) mmHg ABG pO2 (83-108) mmHg ABG HCO3 (21-25) mmol/L ABG Total CO2 (19-24) mmol/L ABG O2 Saturation (94-97) % Glucose (74-99) mg/dL POC Glucose (mg/dL) 205 H 189 H (75-99) mg/dL Hemoglobin A1c (4.2-6.1) % Calcium (8.4-10.2) mg/dL Magnesium (1.6-2.3) mg/dL AST (14-36) U/L ALT (9-52) U/L Total Protein (6.3-8.2) g/dL Albumin (3.5-5.0) g/dL Urine Appearance Turbid H (Clear) Uric Acid Crystals Moderate H (None) /hpf 09/27/16 09/27/16 09/27/16 Range/Units 02:23 03:13 04:14 WBC (3.8-10.6) k/uL RBC (3.80-5.40) m/uL Hgb (11.4-16.0) gm/dL Hct (34.0-46.0) % RDW (11.5-15.5) % Plt Count (150-450) k/uL Lymphocytes # (1.0-4.8) k/uL ABG pH (7.35-7.45) ABG pCO2 (35-45) mmHg ABG pO2 (83-108) mmHg ABG HCO3 (21-25) mmol/L ABG Total CO2 (19-24) mmol/L ABG O2 Saturation (94-97) % Glucose (74-99) mg/dL POC Glucose (mg/dL) 197 H 192 H 205 H (75-99) mg/dL Hemoglobin A1c (4.2-6.1) % Calcium (8.4-10.2) mg/dL Magnesium (1.6-2.3) mg/dL AST (14-36) U/L ALT (9-52) U/L Total Protein (6.3-8.2) g/dL Albumin (3.5-5.0) g/dL Urine Appearance (Clear) Uric Acid Crystals (None) /hpf 09/27/16 09/27/16 09/27/16 Range/Units 05:12 05:25 05:45 WBC (3.8-10.6) k/uL RBC (3.80-5.40) m/uL Hgb (11.4-16.0) gm/dL Hct (34.0-46.0) % RDW (11.5-15.5) % Plt Count (150-450) k/uL Lymphocytes # (1.0-4.8) k/uL ABG pH 7.49 H (7.35-7.45) ABG pCO2 (35-45) mmHg ABG pO2 154 H (83-108) mmHg ABG HCO3 27 H (21-25) mmol/L ABG Total CO2 28 H (19-24) mmol/L ABG O2 Saturation 100.0 H (94-97) % Glucose (74-99) mg/dL POC Glucose (mg/dL) 189 H (75-99) mg/dL Hemoglobin A1c 6.2 H (4.2-6.1) % Calcium (8.4-10.2) mg/dL Magnesium (1.6-2.3) mg/dL AST (14-36) U/L ALT (9-52) U/L Total Protein (6.3-8.2) g/dL Albumin (3.5-5.0) g/dL Urine Appearance (Clear) Uric Acid Crystals (None) /hpf 09/27/16 09/27/16 09/27/16 Range/Units 05:45 05:45 06:10 WBC 3.4 L (3.8-10.6) k/uL RBC 2.32 L (3.80-5.40) m/uL Hgb 7.6 L (11.4-16.0) gm/dL Hct 23.2 L (34.0-46.0) % RDW 19.5 H (11.5-15.5) % Plt Count 134 L (150-450) k/uL Lymphocytes # 0.7 L (1.0-4.8) k/uL ABG pH (7.35-7.45) ABG pCO2 (35-45) mmHg ABG pO2 (83-108) mmHg ABG HCO3 (21-25) mmol/L ABG Total CO2 (19-24) mmol/L ABG O2 Saturation (94-97) % Glucose 165 H (74-99) mg/dL POC Glucose (mg/dL) 169 H (75-99) mg/dL Hemoglobin A1c (4.2-6.1) % Calcium 7.9 L (8.4-10.2) mg/dL Magnesium 2.4 H (1.6-2.3) mg/dL AST 42 H (14-36) U/L ALT 60 H (9-52) U/L Total Protein 5.6 L (6.3-8.2) g/dL Albumin 2.6 L (3.5-5.0) g/dL Urine Appearance (Clear) Uric Acid Crystals (None) /hpf 09/27/16 09/27/16 09/27/16 Range/Units 07:25 08:45 09:59 WBC (3.8-10.6) k/uL RBC (3.80-5.40) m/uL Hgb (11.4-16.0) gm/dL Hct (34.0-46.0) % RDW (11.5-15.5) % Plt Count (150-450) k/uL Lymphocytes # (1.0-4.8) k/uL ABG pH (7.35-7.45) ABG pCO2 (35-45) mmHg ABG pO2 (83-108) mmHg ABG HCO3 (21-25) mmol/L ABG Total CO2 (19-24) mmol/L ABG O2 Saturation (94-97) % Glucose (74-99) mg/dL POC Glucose (mg/dL) 166 H 154 H 152 H (75-99) mg/dL Hemoglobin A1c (4.2-6.1) % Calcium (8.4-10.2) mg/dL Magnesium (1.6-2.3) mg/dL AST (14-36) U/L ALT (9-52) U/L Total Protein (6.3-8.2) g/dL Albumin (3.5-5.0) g/dL Urine Appearance (Clear) Uric Acid Crystals (None) /hpf 09/27/16 09/27/16 09/27/16 Range/Units 11:15 12:03 12:11 WBC (3.8-10.6) k/uL RBC (3.80-5.40) m/uL Hgb (11.4-16.0) gm/dL Hct (34.0-46.0) % RDW (11.5-15.5) % Plt Count (150-450) k/uL Lymphocytes # (1.0-4.8) k/uL ABG pH 7.51 H (7.35-7.45) ABG pCO2 32 L (35-45) mmHg ABG pO2 (83-108) mmHg ABG HCO3 26 H (21-25) mmol/L ABG Total CO2 27 H (19-24) mmol/L ABG O2 Saturation 98.0 H (94-97) % Glucose (74-99) mg/dL POC Glucose (mg/dL) 155 H 163 H (75-99) mg/dL Hemoglobin A1c (4.2-6.1) % Calcium (8.4-10.2) mg/dL Magnesium (1.6-2.3) mg/dL AST (14-36) U/L ALT (9-52) U/L Total Protein (6.3-8.2) g/dL Albumin (3.5-5.0) g/dL Urine Appearance (Clear) Uric Acid Crystals (None) /hpf 0609/27/16 09/27/16 Range/Units 13:08 14:01 15:06 WBC (3.8-10.6) k/uL RBC (3.80-5.40) m/uL Hgb (11.4-16.0) gm/dL Hct (34.0-46.0) % RDW (11.5-15.5) % Plt Count (150-450) k/uL Lymphocytes # (1.0-4.8) k/uL ABG pH (7.35-7.45) ABG pCO2 (35-45) mmHg ABG pO2 (83-108) mmHg ABG HCO3 (21-25) mmol/L ABG Total CO2 (19-24) mmol/L ABG O2 Saturation (94-97) % Glucose (74-99) mg/dL POC Glucose (mg/dL) 155 H 153 H 136 H (75-99) mg/dL Hemoglobin A1c (4.2-6.1) % Calcium (8.4-10.2) mg/dL Magnesium (1.6-2.3) mg/dL AST (14-36) U/L ALT (9-52) U/L Total Protein (6.3-8.2) g/dL Albumin (3.5-5.0) g/dL Urine Appearance (Clear) Uric Acid Crystals (None) /hpf 09/27/16 09/27/16 09/27/16 Range/Units 16:12 17:08 17:56 WBC (3.8-10.6) k/uL RBC (3.80-5.40) m/uL Hgb (11.4-16.0) gm/dL Hct (34.0-46.0) % RDW (11.5-15.5) % Plt Count (150-450) k/uL Lymphocytes # (1.0-4.8) k/uL ABG pH (7.35-7.45) ABG pCO2 (35-45) mmHg ABG pO2 (83-108) mmHg ABG HCO3 (21-25) mmol/L ABG Total CO2 (19-24) mmol/L ABG O2 Saturation (94-97) % Glucose (74-99) mg/dL POC Glucose (mg/dL) 162 H 139 H 174 H (75-99) mg/dL Hemoglobin A1c (4.2-6.1) % Calcium (8.4-10.2) mg/dL Magnesium (1.6-2.3) mg/dL AST (14-36) U/L ALT (9-52) U/L Total Protein (6.3-8.2) g/dL Albumin (3.5-5.0) g/dL Urine Appearance (Clear) Uric Acid Crystals (None) /hpf Microbiology - Last 24 Hours (Table) 09/27/16 03:20 Gram Stain - Preliminary Sputum Sputum Culture - Preliminary 09/27/16 01:40 Urine Culture - Preliminary Urine,Catheterized Assessment and Plan Plan: 1. [ Recurrent right-sided pneumothorax with extensive subcutaneous emphysema, improving]. thoravent Discontinued. Right spontaneous pneumothorax Status post insertion of New right pleural chest tube. 2. Acute hypoxic failure, status post respiratory arrest, currently mechanical ventilator-dependent 2. [Chronic hypoxemic respiratory failure secondary to pulmonary fibrosis]. 3. [ Squamous LCA of lung, stage III, currently undergoing chemotherapy]. 4. [ Bicytopenia secondary chemotherapy]. 5. [ Hypertension]. 6. CAD 7. [ Depression]. 8. Previous history of tobacco use 9. Diabetes mellitus, wears insulin pump, hemoglobin A1c 6.2 10. Gastroesophageal reflux disease Plan: Continue on current medication regime , nebulized bronchodilators, monitoring and symptomatic treatment. Weaning trials in progress, anticipate extubation soon. Follow closely with pulmonary and cardiothoracic surgery. Further recommendations to follow. Prognosis guarded given multiple complex medical issues. The impression and plan of care has been dictated as directed. : I performed a H&P examination of this patient and discussed the same with the dictator. I agree with the dictator's note. Any additional findings/opinions/ etc. will be noted.
[2016-09-27 18:54] LABS: Glucose,Whole Blood 170 mg/dL (75-99)
[2016-09-27 20:10] LABS: Glucose,Whole Blood 157 mg/dL (75-99)
[2016-09-27] MEDS: ATORVASTATIN 80 MG TAB PO SCH (20:26)
[2016-09-27] MEDS: METOPROLOL SUCCINATE (ER) 25 MG TAB.ER.24H PO SCH (20:26)
[2016-09-27] MEDS: ASPIRIN 81 MG CHEW PO SCH (20:27)
[2016-09-27] MEDS: MONTELUKAST 10 MG TAB PO SCH (20:27)
[2016-09-27 21:00] LABS: Glucose,Whole Blood 149 mg/dL (75-99)
[2016-09-27 22:18] LABS: Glucose,Whole Blood 144 mg/dL (75-99)
[2016-09-27 23:16] LABS: Glucose,Whole Blood 137 mg/dL (75-99)
[2016-09-28 00:18] LABS: Glucose,Whole Blood 156 mg/dL (75-99)
[2016-09-28] MEDS: MORPHINE SULFATE 4 MG/ML SYRINGE IV PRN ×4 (00:24→20:17)
[2016-09-28 01:13] LABS: Glucose,Whole Blood 167 mg/dL (75-99)
[2016-09-28 02:14] LABS: Glucose,Whole Blood 156 mg/dL (75-99)
[2016-09-28 03:11] LABS: Glucose,Whole Blood 154 mg/dL (75-99)
[2016-09-28 04:54] LABS: Glucose,Whole Blood 137 mg/dL (75-99)
[2016-09-28] MEDS: KETOROLAC 30 MG/ML 1 ML VIAL IVP SCH ×2 (05:10→11:49)
[2016-09-28 05:11] LABS: Anisocytosis Moderate; Basophils % (A) 0 %; CH 33.7; CHCM 33.7; Eosinophils % (A) 0 %; HDW 3.82; HGB 7.4 gm/dL (11.4-16.0); Luc # (Auto) 0.25; Luc % (Auto) 4; Lymphocytes # (A) 0.7 k/uL (1.0-4.8); Lymphocytes % (A) 12 %; MCH 32.5 pg (25.0-35.0); MCHC 32.2 g/dL (31.0-37.0); MCV 100.8 fL (80.0-100.0); Macrocytosis Moderate; Mean Platelet Volume 8.2; Monocytes # (A) 0.4 k/uL (0-1.0); Monocytes % (A) 7 %; Neutrophils # (A) 4.5 k/uL (1.3-7.7); Neutrophils % (A) 77 %; Poikilocytosis Slight; RBC 2.28 m/uL (3.80-5.40); RDW 20.5 % (11.5-15.5); WBC 5.9 k/uL (3.8-10.6)
[2016-09-28 05:17] LABS: Anion Gap 4 mmol/L; Blood Urea Nitrogen 18 mg/dL (7-17); Calcium 7.7 mg/dL (8.4-10.2); Carbon Dioxide 29 mmol/L (22-30); Chloride 107 mmol/L (98-107); Glucose 127 mg/dL (74-99); Magnesium 2.3 mg/dL (1.6-2.3); Non-African American GFR(MDRD) >60 (>60 ml/min/1.73 sqM); Phosphorous 4.3 mg/dL (2.5-4.5); Potassium 4.1 mmol/L (3.5-5.1); Sodium 140 mmol/L (137-145)
[2016-09-28] MEDS: SODIUM CHLORIDE 0.9% 1,000 ML IV SCH ×2 (05:18→09:42)
[2016-09-28] MEDS: methylPREDNISolone SOD SUCCI 125 MG/2 ML VIAL IV SCH ×4 (05:18→23:05)
[2016-09-28 06:14] LABS: Glucose,Whole Blood 180 mg/dL (75-99)
[2016-09-28] MEDS: IPRATROPIUM-ALBUTEROL 3 ML NEB INHALATION SCH ×4 (07:22→19:37)
[2016-09-28] MEDS: BUDESONIDE 0.5 MG/2 ML NEBU INHALATION SCH ×2 (07:22→19:37)
--- NOTE | 2016-09-28 07:49 | XR ---
EXAM: XR Chest, 1 View CLINICAL HISTORY: Reason: Tube placement TECHNIQUE: Frontal view of the chest. COMPARISON: Chest CT and chest x-ray 09/24/2016. FINDINGS: Lungs: Worsening diffuse bilateral airspace disease. Pleural space: Persistent moderate size right apical pneumothorax. Heart: Obscured cardiac silhouette. Mediastinum: Unremarkable. Bones/joints: Unremarkable. Soft tissues: Interval improvement of soft tissue emphysema. Tubes, lines and devices: Right apical chest tube. Right internal jugular approach catheter terminating at the cavoatrial junction. IMPRESSION: 1. Right apical chest tube. 2. Persistent moderate size right apical pneumothorax. 3. Worsening diffuse bilateral airspace disease. 4. Interval improvement of soft tissue emphysema.
[2016-09-28 07:55] LABS: Glucose,Whole Blood 163 mg/dL (75-99)
--- NOTE | 2016-09-28 08:03 | XR ---
EXAMINATION TYPE: XR chest 1V portable DATE OF EXAM: 09/28/2016 HISTORY: check chest tube placement. REFERENCE: A previous study dated 09/28/2016. FINDINGS: The patient's right internal jugular catheter and right pleural drain remain in place, unch anged in appearance. The heart enlarged. There is bilateral alveolar airspace disease. I suspect a left effusion. The over all appearance is not changed significantly. IMPRESSION: NO SIGNIFICANT INTERVAL CHANGE IN THE APPEARANCE OF THE CHEST SINCE THE PRIOR STUDY.
[2016-09-28] MEDS: LEVOTHYROXINE 50 MCG TAB PO SCH (08:11)
[2016-09-28] MEDS: HEPARIN SODIUM,PORCINE 5,000 UNIT/ML 1 ML VIAL SQ SCH ×3 (08:11→23:05)
[2016-09-28] MEDS: PIPERACILLIN-TAZOBACTAM 3.375 GM in DEXTROSE/WATER 1 50ML.BAG IVPB SCH ×3 (08:11→23:05)
[2016-09-28] MEDS: VANCOMYCIN 1,500 MG in SODIUM CHLORIDE 0.9% 250 ML IVPB SCH ×2 (08:11→18:27)
[2016-09-28] MEDS: CLOPIDOGREL 75 MG TAB PO SCH (08:11)
[2016-09-28] MEDS: METOPROLOL SUCCINATE (ER) 25 MG TAB.ER.24H PO SCH ×2 (08:11→20:11)
[2016-09-28] MEDS: PANTOPRAZOLE 40 MG/10 ML VIAL IV SCH (08:12)
[2016-09-28 08:58] LABS: Glucose,Whole Blood 165 mg/dL (75-99)
[2016-09-28] MEDS: LOSARTAN-HCTZ 50-12.5 MG 1 EACH TAB PO SCH (09:43)
[2016-09-28] MEDS: amLODIPine 5 MG TAB PO SCH (09:43)
[2016-09-28 09:59] LABS: Glucose,Whole Blood 183 mg/dL (75-99)
[2016-09-28 11:21] LABS: Glucose,Whole Blood 170 mg/dL (75-99)
[2016-09-28 11:49] LABS: Glucose,Whole Blood 166 mg/dL (75-99)
[2016-09-28] MEDS: INSULIN REGULAR 100 UNIT in SODIUM CHLORIDE 0.9% 100 ML IV SCH (11:49)
[2016-09-28] MEDS ORDERED: FUROSEMIDE 40 MG TAB PO SCH (13:00)
[2016-09-28] MEDS: ALPRAZolam 0.25 MG TAB PO PRN (13:09)
--- NOTE | 2016-09-28 13:43 | P.PN ---
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 Status post day #2 right Thoravent placement 13-Icelandic - Removed 09/26/16 Status post day #2 right pleural chest tube placement . #1 status post second Thoravent placement 13-Icelandic- removed 09/27/16. Patient awake and alert, no distress noted, no specific complaints. She desaturates into the 80s with minimal activity. Vital Signs: Afebrile Vital Signs - 24 hr 09/27/16 09/27/16 09/27/16 07:51 08:00 08:01 Temperature 96.8 F L Pulse Rate 72 64 74 Respiratory 15 Rate Blood Pressure 113/50 O2 Sat by Pulse 100 Oximetry 09/27/16 09/27/16 09/27/16 09:00 10:00 11:00 Temperature Pulse Rate 68 124 H 70 Respiratory 14 13 15 Rate Blood Pressure 143/60 O2 Sat by Pulse 99 99 100 Oximetry 09/27/16 09/27/16 09/27/16 11:31 11:41 12:00 Temperature 97.8 F Pulse Rate 74 76 80 Respiratory 16 Rate Blood Pressure 143/60 O2 Sat by Pulse 97 Oximetry 09/27/16 09/27/16 09/27/16 12:30 13:00 14:00 Temperature Pulse Rate 80 79 Respiratory 21 28 H Rate Blood Pressure O2 Sat by Pulse 94 L 96 95 Oximetry 09/27/16 09/27/16 09/27/16 15:00 16:00 16:04 Temperature Pulse Rate 85 77 74 Respiratory 25 H 14 Rate Blood Pressure 143/67 133/59 O2 Sat by Pulse 93 L 95 Oximetry 09/27/16 09/27/16 09/27/16 16:17 17:00 18:00 Temperature Pulse Rate 78 87 85 Respiratory 29 H 19 Rate Blood Pressure 161/75 140/68 O2 Sat by Pulse 95 98 Oximetry 09/27/16 09/27/16 09/27/16 19:00 19:43 20:00 Temperature 97.9 F Pulse Rate 87 94 93 Respiratory 20 26 H Rate Blood Pressure 153/75 148/70 O2 Sat by Pulse 96 100 Oximetry 09/27/16 09/27/16 09/27/16 21:00 22:00 23:00 Temperature Pulse Rate 91 85 83 Respiratory 22 21 18 Rate Blood Pressure 147/55 149/77 114/57 O2 Sat by Pulse 96 99 99 Oximetry 09/28/16 09/28/16 09/28/16 00:00 01:00 02:00 Temperature 97.8 F Pulse Rate 82 80 74 Respiratory 21 17 15 Rate Blood Pressure 124/55 133/66 126/65 O2 Sat by Pulse 95 94 L 98 Oximetry 09/28/16 09/28/16 09/28/16 03:00 04:00 05:00 Temperature 97.9 F Pulse Rate 74 71 73 Respiratory 18 18 18 Rate Blood Pressure 126/64 122/51 131/56 O2 Sat by Pulse 94 L 94 L 94 L Oximetry 09/28/16 09/28/16 09/28/16 06:00 07:00 07:24 Temperature Pulse Rate 74 71 72 Respiratory 19 14 Rate Blood Pressure 138/71 162/65 O2 Sat by Pulse 94 L 95 Oximetry 09/28/16 07:25 Temperature Pulse Rate Respiratory Rate Blood Pressure O2 Sat by Pulse 92 L Oximetry Labs: Short CBC 09/27/16 09/28/16 Range/Units 05:45 04:55 WBC 3.4 L 5.9 (3.8-10.6) k/uL Hgb 7.6 L 7.4 L (11.4-16.0) gm/dL Hct 23.2 L 23.0 L (34.0-46.0) % Plt Count 134 L 162 (150-450) k/uL Neutrophils # 2.4 4.5 (1.3-7.7) k/uL BMP 09/27/16 09/28/16 11:15 04:55 Sodium 140 Potassium 4.2 4.1 Chloride 107 Carbon Dioxide 29 BUN 18 H Creatinine 0.84 Glucose 127 H Calcium 7.7 L Liver Function 09/27/16 Range/Units 05:45 Total Bilirubin 0.8 (0.2-1.3) mg/dL AST 42 H (14-36) U/L ALT 60 H (9-52) U/L Alkaline Phosphatase 81 (38-126) U/L Albumin 2.6 L (3.5-5.0) g/dL IV Fluids: 0.9% normal saline at 75 mL per hour. CVP: 12 Lungs: Few scattered crackles throughout, with diminished breath sounds throughout. Respirations are symmetrical and unlabored although with minimal activity the patient does become short of breath and desaturates into the mid 80s. The patient still has some remaining subcutaneous emphysema to her chest and back. O2 sat: 95% on 15 L high flow nasal cannula. I/S: 500-750 mL, reviewed with the patient important of using her incentive spirometry every hour while awake. The patient did give a good return demonstration on her incentive spirometry and states her goal is to be delicate back up to 1500 mL on her incentive spirometry. Heart: S1S2, regular rhythm and rate, negative for S3, gallop or murmur. Bedside telemetry showing normal sinus rhythm heart rate 83. Right lateral chest incision where a previous chest tube had been placed has 2 sutures intact with the incision well approximated. No drainage noted. Sequential compression devices in place to her bilateral lower extremities. Abdomen: Soft, nontender. Positive bowel sounds present in all 4 quadrants. CBGs: 137-180 mg/dL in the last 24 hours. U/O: Adequate, Chew catheter for accurate I&O. 350 mL output in the last 8 hours. Chest Tubes: Right pleural chest tube with positive continuous air leak. Her chest tube remains to low continuous wall suction. 10 mL output in the last 8 hours, 65 mL output in the last 24 hours. 24 hr Total: Intake & Output 09/26/16 09/27/16 09/28/16 09/29/16 06:59 06:59 06:59 06:59 Intake Total 140 2517.287 2623.473 75 Output Total 5 1582 1614 30 Balance 135 551.890 5631.473 45 Weight 101 kg 102.1 kg Active Medications Albuterol/Ipratropium (Duoneb 0.5 Mg-3 Mg/3 Ml Soln) 3 ml INHALATION RT-QID [facility] Last Admin: 09/28/16 07:22 Dose: 3 ml Alprazolam (Xanax) 0.25 mg PO TID PRN PRN Reason: Anxiety Last Admin: 09/27/16 16:44 Dose: 0.25 mg Amlodipine Besylate (Norvasc) 5 mg PO QAM [facility] Last Admin: 09/27/16 09:40 Dose: Not Given Aspirin (Aspirin) 81 mg PO HS [facility] Last Admin: 09/27/16 20:27 Dose: 81 mg Atorvastatin Calcium (Lipitor) 80 mg PO HS [facility] Last Admin: 09/27/16 20:26 Dose: 80 mg Budesonide (Pulmicort) 0.5 mg INHALATION RT-BID [facility] Last Admin: 09/28/16 07:22 Dose: 0.5 mg Clopidogrel Bisulfate (Plavix) 75 mg PO QAM [facility] Last Admin: 09/27/16 09:41 Dose: 75 mg HCTZ/Losartan Potassium (Hyzaar 50-12.5) 1 [facility] [place] Last Admin: 09/27/16 09:40 Dose: Not Given Heparin Sodium (Porcine) (Heparin) 5,000 unit SQ Q8HR [facility] Last Admin: 09/27/16 23:34 Dose: 5,000 unit Piperacillin/Tazobactam/ (Dextrose 3.375 gm/ IV Solution) 50 mls @ 12.5 mls/hr IVPB Q8HR [facility] Last Admin: 09/27/16 23:34 Dose: 12.5 mls/hr Vancomycin HCl 1,500 mg/ (Sodium Chloride) 250 mls @ 125 mls/hr IVPB Q12H [facility] Last Admin: 09/27/16 18:07 Dose: 125 mls/hr Insulin Human Regular 100 unit (/ Sodium Chloride) 101 mls @ 0 mls/hr IV .Q0M [facility]; Per Protocol PRN Reason: Protocol Last Titration: 09/28/16 06:13 Dose: 6 units/hr, 6.06 mls/hr Sodium Chloride (Saline 0.9%) 1,000 mls @ 75 mls/hr IV .[id number] [facility] Last Admin: 09/28/16 05:18 Dose: 75 mls/hr Ketorolac Tromethamine (Toradol) 30 mg IVP Q6HR [facility] Stop: 09/28/16 16:03 Last Admin: 09/28/16 05:10 Dose: 30 mg Levothyroxine Sodium (Synthroid) 50 mcg PO 0630 [facility] Last Admin: 09/27/16 07:11 Dose: 50 mcg Methylprednisolone Sodium Succinate (Solu-Medrol) 60 mg IV Q6HR [facility] Last Admin: 09/28/16 05:18 Dose: 60 mg Metoprolol Succinate (Toprol Xl) 25 mg PO BID [facility] Last Admin: 09/27/16 20:26 Dose: 25 mg Miscellaneous Information (Magnesium Per Protocol) 1 each MISCELLANE DAILY PRN ; Protocol PRN Reason: Per Protocol Miscellaneous Information (Vancomycin Trough Due) 0 each MISCELLANE DIRECTED ONE Stop: 09/28/16 18:01 Montelukast Sodium (Singulair) 10 mg PO HS [facility] Last Admin: 09/27/16 20:27 Dose: 10 mg Morphine Sulfate (Morphine Sulfate (Inj)) 4 mg IV Q4HR PRN PRN Reason: Severe Pain Last Admin: 09/28/16 06:42 Dose: 4 mg Naloxone HCl (Narcan) 0.2 mg IV Q2M PRN PRN Reason: Opioid Reversal Pantoprazole Sodium (Protonix) 40 mg IV DAILY [facility] Last Admin: 09/27/16 08:49 Dose: 40 mg Plan: 1. Her right pleural chest tube will remain in place to low continuous wall suction. 2. We will obtain a repeat chest x-ray in a.m. 3. Pulmonary medicine recommendations per Dr. Sandoval. 4. GI and DVT prophylaxis in place. 5. Medical management and diabetic management per Dr. Giraldo. 6. Increase activity as tolerated, physical therapy consulted to to evaluate and treat. 7. Further recommendations as the patient progresses.
[2016-09-28 14:22] LABS: Glucose,Whole Blood 179 mg/dL (75-99)
--- NOTE | 2016-09-28 15:08 | P.PN ---
Subjective Date of service 09/28/2016. Personal being dictated for Dr. Cui. Interval history: This a 65-year-old female admitted with recurrent right pneumothorax status post placement of right thoravent in a patient with history of lung CA. Remains in ICU, status post respiratory arrest, with development of a right spontaneous pneumothorax with right pleural chest tube placed, with original Thoravent discontinued. Extubated yesterday. Currently on 100% nonrebreather. Continuous air leak of right pleural chest tube .hemoglobin 7.4 .Chest x-ray reporting persistent moderate size right apical pneumothorax, worsening diffuse bilateral airspace disease, interval improvement of soft tissue emphysema. Moving all extremities, Following commands. Sinus rhythm with bundle branch block, maintained on insulin drip. Blood sugars better controlled. Denies chest pain, or palpitations. Objective - Vital Signs Vital signs: Vital Signs Temp 97.9 F 09/28/16 04:00 Pulse 74 09/28/16 06:00 Resp 19 09/28/16 06:00 BP 138/71 09/28/16 06:00 Pulse Ox 94 L 09/28/16 06:00 Intake & Output 09/27/16 09/27/16 09/28/16 06:59 18:59 06:59 Intake Total 2517.287 3583.994 1242.855 Output Total 1582 1138 476 Balance 935.287 364.618 644.855 Weight 102.1 kg Intake: IV 2225 1337.5 1075 Magnesium Sulfate-D5w Pmx 200 1 gm In Dextrose/Water 1 100ml.bag @ 100 mls/hr IVPB Q1H [facility] Rx#: [id number] Piperacillin-Tazobactam 3 200 62.5 50 .375 gm In Dextrose/Water 1 50ml.bag @ 12.5 mls/hr IVPB Q8HR [facility] Rx#: [id number] Sodium Chloride 0.9% 1, 1325 900 900 000 ml @ 75 mls/hr IV . [id number] [facility] Rx#:[id number] Vancomycin 1,500 mg In 500 375 125 Sodium Chloride 0.9% 250 ml @ 125 mls/hr IVPB Q12H [facility] Rx#:[id number] Intake, IV Titration 292.287 165.118 45.855 Amount Insulin Regular 100 unit 52.402 76.439 45.855 In Sodium Chloride 0.9% 100 ml @ Per Protocol IV .Q0M [facility] Rx#:[id number] Propofol 500 mg In Empty 239.885 88.679 Bag 1 bag @ Titrate IV . Q0M [facility] Rx#:[id number] Output: Chest Tube Drainage 50 33 31 Chest Tube Right Lateral 50 33 31 Chest Right Anterior Chest 0 Urine 1532 1105 445 Other: Voiding Method Indwelling Catheter Indwelling Catheter Indwelling Catheter # Bowel Movements 1 ABP, PAP, CO, CI - Last Documented Arterial Blood Pressure 130/86 - Exam PHYSICAL EXAM: VITAL SIGNS: As above GENERAL: [Sitting up in bed, respiratory effort increased HEENT: [Pupils equal conjunctiva normal.] NECK: [Supple, no JVD, improving diffuse subcutaneous emphysema chest wall and neck, back palpable crepitus RESPIRATORY EFFORT:[ Increased ] LUNGS: [Diminished bases with Bibasilar scattered inspiratory crackles. Right pleural chest tube with positive air leak. CARDIOVASCULAR[ regular S1 and S2, no murmurs, rubs, or gallops, no edema] GI: [Abdomen soft, nontender, positive bowel sounds. No guarding, no rigidity] PSYCH/NEURO: [Alert and oriented 3, mood and affect normal : No focal deficits, moves all 4 extremities, bilateral lower extremities with compression stockings in place,strength and sensation grossly intact - Labs CBC & Chem 7: 09/28/16 04:55 09/28/16 04:55 Labs: Abnormal Lab Results - Last 24 Hours (Table) 09/27/16 09/27/16 09/27/16 Range/Units 05:45 05:45 05:45 WBC 3.4 L (3.8-10.6) k/uL RBC 2.32 L (3.80-5.40) m/uL Hgb 7.6 L (11.4-16.0) gm/dL Hct 23.2 L (34.0-46.0) % MCV (80.0-100.0) fL RDW 19.5 H (11.5-15.5) % Plt Count 134 L (150-450) k/uL Lymphocytes # 0.7 L (1.0-4.8) k/uL ABG pH (7.35-7.45) ABG pCO2 (35-45) mmHg ABG HCO3 (21-25) mmol/L ABG Total CO2 (19-24) mmol/L ABG O2 Saturation (94-97) % BUN (7-17) mg/dL Glucose 165 H (74-99) mg/dL POC Glucose (mg/dL) (75-99) mg/dL Hemoglobin A1c 6.2 H (4.2-6.1) % Calcium 7.9 L (8.4-10.2) mg/dL Magnesium 2.4 H (1.6-2.3) mg/dL AST 42 H (14-36) U/L ALT 60 H (9-52) U/L Total Protein 5.6 L (6.3-8.2) g/dL Albumin 2.6 L (3.5-5.0) g/dL 09/27/16 09/27/16 09/27/16 Range/Units 07:25 08:45 09:59 WBC (3.8-10.6) k/uL RBC (3.80-5.40) m/uL Hgb (11.4-16.0) gm/dL Hct (34.0-46.0) % MCV (80.0-100.0) fL RDW (11.5-15.5) % Plt Count (150-450) k/uL Lymphocytes # (1.0-4.8) k/uL ABG pH (7.35-7.45) ABG pCO2 (35-45) mmHg ABG HCO3 (21-25) mmol/L ABG Total CO2 (19-24) mmol/L ABG O2 Saturation (94-97) % BUN (7-17) mg/dL Glucose (74-99) mg/dL POC Glucose (mg/dL) 166 H 154 H 152 H (75-99) mg/dL Hemoglobin A1c (4.2-6.1) % Calcium (8.4-10.2) mg/dL Magnesium (1.6-2.3) mg/dL AST (14-36) U/L ALT (9-52) U/L Total Protein (6.3-8.2) g/dL Albumin (3.5-5.0) g/dL 09/27/16 09/27/16 09/27/16 Range/Units 11:15 12:03 12:11 WBC (3.8-10.6) k/uL RBC (3.80-5.40) m/uL Hgb (11.4-16.0) gm/dL Hct (34.0-46.0) % MCV (80.0-100.0) fL RDW (11.5-15.5) % Plt Count (150-450) k/uL Lymphocytes # (1.0-4.8) k/uL ABG pH 7.51 H (7.35-7.45) ABG pCO2 32 L (35-45) mmHg ABG HCO3 26 H (21-25) mmol/L ABG Total CO2 27 H (19-24) mmol/L ABG O2 Saturation 98.0 H (94-97) % BUN (7-17) mg/dL Glucose (74-99) mg/dL POC Glucose (mg/dL) 155 H 163 H (75-99) mg/dL Hemoglobin A1c (4.2-6.1) % Calcium (8.4-10.2) mg/dL Magnesium (1.6-2.3) mg/dL AST (14-36) U/L ALT (9-52) U/L Total Protein (6.3-8.2) g/dL Albumin (3.5-5.0) g/dL 09/27/16 09/27/16 09/27/16 Range/Units 13:08 14:01 15:06 WBC (3.8-10.6) k/uL RBC (3.80-5.40) m/uL Hgb (11.4-16.0) gm/dL Hct (34.0-46.0) % MCV (80.0-100.0) fL RDW (11.5-15.5) % Plt Count (150-450) k/uL Lymphocytes # (1.0-4.8) k/uL ABG pH (7.35-7.45) ABG pCO2 (35-45) mmHg ABG HCO3 (21-25) mmol/L ABG Total CO2 (19-24) mmol/L ABG O2 Saturation (94-97) % BUN (7-17) mg/dL Glucose (74-99) mg/dL POC Glucose (mg/dL) 155 H 153 H 136 H (75-99) mg/dL Hemoglobin A1c (4.2-6.1) % Calcium (8.4-10.2) mg/dL Magnesium (1.6-2.3) mg/dL AST (14-36) U/L ALT (9-52) U/L Total Protein (6.3-8.2) g/dL Albumin (3.5-5.0) g/dL 09/27/16 09/27/16 09/27/16 Range/Units 16:12 17:08 17:56 WBC (3.8-10.6) k/uL RBC (3.80-5.40) m/uL Hgb (11.4-16.0) gm/dL Hct (34.0-46.0) % MCV (80.0-100.0) fL RDW (11.5-15.5) % Plt Count (150-450) k/uL Lymphocytes # (1.0-4.8) k/uL ABG pH (7.35-7.45) ABG pCO2 (35-45) mmHg ABG HCO3 (21-25) mmol/L ABG Total CO2 (19-24) mmol/L ABG O2 Saturation (94-97) % BUN (7-17) mg/dL Glucose (74-99) mg/dL POC Glucose (mg/dL) 162 H 139 H 174 H (75-99) mg/dL Hemoglobin A1c (4.2-6.1) % Calcium (8.4-10.2) mg/dL Magnesium (1.6-2.3) mg/dL AST (14-36) U/L ALT (9-52) U/L Total Protein (6.3-8.2) g/dL Albumin (3.5-5.0) g/dL 09/27/16 09/27/16 09/27/16 Range/Units 18:52 20:08 20:58 WBC (3.8-10.6) k/uL RBC (3.80-5.40) m/uL Hgb (11.4-16.0) gm/dL Hct (34.0-46.0) % MCV (80.0-100.0) fL RDW (11.5-15.5) % Plt Count (150-450) k/uL Lymphocytes # (1.0-4.8) k/uL ABG pH (7.35-7.45) ABG pCO2 (35-45) mmHg ABG HCO3 (21-25) mmol/L ABG Total CO2 (19-24) mmol/L ABG O2 Saturation (94-97) % BUN (7-17) mg/dL Glucose (74-99) mg/dL POC Glucose (mg/dL) 170 H 157 H 149 H (75-99) mg/dL Hemoglobin A1c (4.2-6.1) % Calcium (8.4-10.2) mg/dL Magnesium (1.6-2.3) mg/dL AST (14-36) U/L ALT (9-52) U/L Total Protein (6.3-8.2) g/dL Albumin (3.5-5.0) g/dL 09/27/16 09/27/16 09/28/16 Range/Units 22:16 23:09 00:16 WBC (3.8-10.6) k/uL RBC (3.80-5.40) m/uL Hgb (11.4-16.0) gm/dL Hct (34.0-46.0) % MCV (80.0-100.0) fL RDW (11.5-15.5) % Plt Count (150-450) k/uL Lymphocytes # (1.0-4.8) k/uL ABG pH (7.35-7.45) ABG pCO2 (35-45) mmHg ABG HCO3 (21-25) mmol/L ABG Total CO2 (19-24) mmol/L ABG O2 Saturation (94-97) % BUN (7-17) mg/dL Glucose (74-99) mg/dL POC Glucose (mg/dL) 144 H 137 H 156 H (75-99) mg/dL Hemoglobin A1c (4.2-6.1) % Calcium (8.4-10.2) mg/dL Magnesium (1.6-2.3) mg/dL AST (14-36) U/L ALT (9-52) U/L Total Protein (6.3-8.2) g/dL Albumin (3.5-5.0) g/dL 09/28/16 09/28/16 09/28/16 Range/Units 01:11 02:12 03:09 WBC (3.8-10.6) k/uL RBC (3.80-5.40) m/uL Hgb (11.4-16.0) gm/dL Hct (34.0-46.0) % MCV (80.0-100.0) fL RDW (11.5-15.5) % Plt Count (150-450) k/uL Lymphocytes # (1.0-4.8) k/uL ABG pH (7.35-7.45) ABG pCO2 (35-45) mmHg ABG HCO3 (21-25) mmol/L ABG Total CO2 (19-24) mmol/L ABG O2 Saturation (94-97) % BUN (7-17) mg/dL Glucose (74-99) mg/dL POC Glucose (mg/dL) 167 H 156 H 154 H (75-99) mg/dL Hemoglobin A1c (4.2-6.1) % Calcium (8.4-10.2) mg/dL Magnesium (1.6-2.3) mg/dL AST (14-36) U/L ALT (9-52) U/L Total Protein (6.3-8.2) g/dL Albumin (3.5-5.0) g/dL 09/28/16 09/28/16 09/28/16 Range/Units 04:51 04:55 04:55 WBC (3.8-10.6) k/uL RBC 2.28 L (3.80-5.40) m/uL Hgb 7.4 L (11.4-16.0) gm/dL Hct 23.0 L (34.0-46.0) % MCV 100.8 H (80.0-100.0) fL RDW 20.5 H (11.5-15.5) % Plt Count (150-450) k/uL Lymphocytes # 0.7 L (1.0-4.8) k/uL ABG pH (7.35-7.45) ABG pCO2 (35-45) mmHg ABG HCO3 (21-25) mmol/L ABG Total CO2 (19-24) mmol/L ABG O2 Saturation (94-97) % BUN 18 H (7-17) mg/dL Glucose 127 H (74-99) mg/dL POC Glucose (mg/dL) 137 H (75-99) mg/dL Hemoglobin A1c (4.2-6.1) % Calcium 7.7 L (8.4-10.2) mg/dL Magnesium (1.6-2.3) mg/dL AST (14-36) U/L ALT (9-52) U/L Total Protein (6.3-8.2) g/dL Albumin (3.5-5.0) g/dL 09/28/16 Range/Units 06:13 WBC (3.8-10.6) k/uL RBC (3.80-5.40) m/uL Hgb (11.4-16.0) gm/dL Hct (34.0-46.0) % MCV (80.0-100.0) fL RDW (11.5-15.5) % Plt Count (150-450) k/uL Lymphocytes # (1.0-4.8) k/uL ABG pH (7.35-7.45) ABG pCO2 (35-45) mmHg ABG HCO3 (21-25) mmol/L ABG Total CO2 (19-24) mmol/L ABG O2 Saturation (94-97) % BUN (7-17) mg/dL Glucose (74-99) mg/dL POC Glucose (mg/dL) 180 H (75-99) mg/dL Hemoglobin A1c (4.2-6.1) % Calcium (8.4-10.2) mg/dL Magnesium (1.6-2.3) mg/dL AST (14-36) U/L ALT (9-52) U/L Total Protein (6.3-8.2) g/dL Albumin (3.5-5.0) g/dL Microbiology - Last 24 Hours (Table) 09/27/16 03:20 Gram Stain - Preliminary Sputum Sputum Culture - Preliminary 09/27/16 01:40 Urine Culture - Preliminary Urine,Catheterized Assessment and Plan Plan: 1. [ Recurrent right-sided pneumothorax with extensive subcutaneous emphysema, improving]. thoravent Discontinued. Right spontaneous pneumothorax Status post insertion of New right pleural chest tube. 2. Acute hypoxic failure, status post respiratory arrest, currently mechanical ventilator-dependent 2. [Chronic hypoxemic respiratory failure secondary to pulmonary fibrosis]. 3. [ Squamous LCA of lung, stage III, currently undergoing chemotherapy]. 4. [ Bicytopenia secondary chemotherapy]. 5. [ Hypertension]. 6. CAD 7. [ Depression]. 8. Previous history of tobacco use 9. Diabetes mellitus, wears insulin pump, hemoglobin A1c 6.2 10. Gastroesophageal reflux disease Plan: Continue on current medication regime , nebulized bronchodilators, monitoring and symptomatic treatment. GI and DVT prophylaxis in place. Sputum culture in progress .Further weaning of O2 as per pulmonary.Follow closely with pulmonary and cardiothoracic surgery. PT/OT. Prognosis guarded given multiple complex medical issues. The impression and plan of care has been dictated as directed. : I performed a H&P examination of this patient and discussed the same with the dictator. I agree with the dictator's note. Any additional findings/opinions/ etc. will be noted.
--- NOTE | 2016-09-28 15:08 | PN ---
DATE OF SERVICE: 09/28/2016. The patient is a 65-year-old female who is seen in the ICU, sitting up in bed, is awake and alert, hemodynamically stable, afebrile, currently on high flow oxygen. The patient is in no acute distress. On physical exam, vital signs, temp is 97.4, heart rate is 76, respiratory rate 27, blood pressure is 124/66. O2 sat is 97% on high flow at 80% FiO2. HEENT: Head is normocephalic, atraumatic. NECK: Supple. Trachea is midline. LUNGS: With coarse wheezes throughout. HEART: S1 and S2 are heard. Not tachycardic. ABDOMEN: Soft. Bowel sounds are heard. EXTREMITIES: With no edema. NEUROLOGIC: The patient is awake, alert, oriented. LABS: White count 5.9, hemoglobin 7.4, hematocrit is 23.0 with 162,000 platelets. Sodium is 140, potassium is 4.1, chloride 107, CO2 is 29. Anion gap is 4. BUN is 18, creatinine 0.84. Glucose 127. Calcium 7.7, phosphorus 4.3. Magnesium is 2.3. IMAGING: Chest x-ray done this a.m. shows no significant interval change in the appearance of the chest since the prior study. The prior study showed bilateral alveolar air space disease with a left effusion. IMPRESSION: 1. Acute respiratory failure with right-sided pneumothorax, which the patient currently has a chest tube with reinflation of that right lung. Patient was successfully extubated yesterday. 2. Pulmonary fibrosis that is chronic. 3. Non-small cell cancer of the lung for which she is status post treatment. 4. Fluid overload. PLAN: Continue current medications which have been reviewed. We will add Lasix 40 mg p.o. daily. KVO the IV fluids and continue to follow the patient closely in the ICU and make further changes as necessary.
[2016-09-28 15:54] LABS: Glucose,Whole Blood 171 mg/dL (75-99)
[2016-09-28] MEDS ORDERED: VANCOMYCIN TROUGH DUE 1 EACH MISC MISCELLANE ONE (18:00)
[2016-09-28 18:07] LABS: Glucose,Whole Blood 142 mg/dL (75-99)
[2016-09-28 20:10] LABS: Glucose,Whole Blood 139 mg/dL (75-99)
[2016-09-28] MEDS: MONTELUKAST 10 MG TAB PO SCH (20:11)
[2016-09-28] MEDS: ATORVASTATIN 80 MG TAB PO SCH (20:12)
[2016-09-28] MEDS: ASPIRIN 81 MG CHEW PO SCH (20:12)
[2016-09-28] MEDS ORDERED: FUROSEMIDE 10 MG/ML 4 ML VIAL IV SCH (21:00)
[2016-09-28] MEDS ORDERED: CITALOPRAM HYDROBROMIDE 20 MG TAB PO SCH (21:00)
[2016-09-28 22:10] LABS: Glucose,Whole Blood 150 mg/dL (75-99)
[2016-09-29 00:02] VITALS: TEMP 98.5
[2016-09-29 00:10] LABS: Glucose,Whole Blood 142 mg/dL (75-99)
[2016-09-29] MEDS: MORPHINE SULFATE 4 MG/ML SYRINGE IV PRN (01:14)
[2016-09-29 01:21] VITALS: BP 167/76
[2016-09-29] MEDS ORDERED: LORazepam 2 MG/ML SYRINGE IV PRN (02:00)
[2016-09-29] MEDS ORDERED: DRY MOUTH SPRAY 44.3 SPRAY/44.3 ML SPRAY MUCOUS MEM PRN (02:00)
[2016-09-29] MEDS ORDERED: SCOPOLAMINE 1.5MG/72HR PATCH TRANSDERM PRN (02:00)
[2016-09-29] MEDS ORDERED: ARTIFICIAL TEARS-HYPROMELLOSE DROPS 15 ML BTL BOTH EYES PRN (02:00)
[2016-09-29] MEDS ORDERED: MORPHINE SULFATE 4 MG/ML SYRINGE IV PRN (02:00)
[2016-09-29] MEDS ORDERED: MORPHINE SULFATE (100 MG/2 ML) 100 MG in SODIUM CHLORIDE 0.9% 100 ML IV SCH (03:00)
[2016-09-29] MEDS ORDERED: VANCOMYCIN TROUGH DUE 1 EACH MISC MISCELLANE ONE (06:00)
[2016-09-29] MEDS: IPRATROPIUM-ALBUTEROL 3 ML NEB INHALATION SCH ×2 (07:53→11:36)
[2016-09-29] MEDS: BUDESONIDE 0.5 MG/2 ML NEBU INHALATION SCH (07:53)
--- NOTE | 2016-09-29 07:58 | P.PN ---
Subjective Principal diagnosis: Spontaneous right pneumothorax. Pulmonary fibrosis. Pulmonary hypertension. 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 Home oxygen dependency. Diabetes mellitus type 2. Hypothyroid. Hypertension. POD #5 right Thoravent placement, removed 09/26/16 POD #3 second right Thoravent placement, removed 09/27/16 POD #3 right pleural chest tube placement. The patient's currently sitting up in bed in no acute distress. She has continued to have episodes of oxygen desaturation with any activity at all. She has a very slow recovery time back to normal saturations. Multiple discussions have been had with the patient and her family. Last night she changed her CODE STATUS to no code. Hospice was consulted. She is currently on a morphine drip and states that she is comfortable. Objective - Vital Signs Vital signs: Vital Signs Temp 98.5 F 09/29/16 00:00 Pulse 80 09/29/16 01:00 Resp 20 09/29/16 01:00 BP 167/76 09/29/16 01:00 Pulse Ox 91 L 09/29/16 01:00 Intake & Output 09/28/16 09/29/16 09/29/16 18:59 06:59 18:59 Intake Total 990.584 487.189 Output Total 1721 1925 Balance -730.416 -1437.811 Intake: IV 735.0 162.5 Piperacillin-Tazobactam 3 75.0 62.5 .375 gm In Dextrose/Water 1 50ml.bag @ 12.5 mls/hr IVPB Q8HR [facility] Rx#: [id number] Sodium Chloride 0.9% 1, 170 100 000 ml @ 20 mls/hr IV . Q24H [facility] Rx#:[id number] Sodium Chloride 0.9% 1, 240 000 ml @ 75 mls/hr IV . [id number] [facility] Rx#:[id number] Vancomycin 1,500 mg In 250 Sodium Chloride 0.9% 250 ml @ 125 mls/hr IVPB Q12H [facility] Rx#:[id number] Intake, IV Titration 55.584 14.689 Amount Insulin Regular 100 unit 55.584 12.020 In Sodium Chloride 0.9% 100 ml @ Per Protocol IV .Q0M [facility] Rx#:[id number] Morphine Sulfate (100 mg/ 2.669 2 ml) 100 mg In Sodium Chloride 0.9% 100 ml @ 1 MG/HR 1.02 mls/hr IV . Q24H [facility] Rx#:[id number] Oral 200 Blood Product 0 310 Rc As-1 Unit 0 310 [id number] Output: Chest Tube Drainage 151 50 Chest Tube Right Lateral 151 50 Chest Urine 1570 1875 Other: Voiding Method Indwelling Catheter Indwelling Catheter ABP, PAP, CO, CI - Last Documented Arterial Blood Pressure 130/86 - Constitutional General appearance: Present: cooperative, no acute distress - Respiratory Details: Lungs sounds coarse bilaterally. Respirations even, nonlabored. Currently on OptiFlow, 50 L, 90%. Right pleural chest tube to -20 cm wall suction, 10 mL output overnight, positive air leak. - Cardiovascular Details: S1, S2 present. Regular rate and rhythm, normal sinus rhythm on telemetry. - Gastrointestinal Gastrointestinal Comment(s): Abdomen soft, nontender, nondistended. Active bowel sounds 4 quadrants. Tolerating diet. - Genitourinary Genitourinary Comment(s): Chew present draining clear, yellow urine. - Psychiatric Psychiatric: Present: A&O x's 3, appropriate affect, intact judgment & insight - Allied health notes Allied health notes reviewed: nursing - Labs CBC & Chem 7: 09/28/16 04:55 09/28/16 04:55 Labs: Abnormal Lab Results - Last 24 Hours (Table) 09/28/16 09/28/16 09/28/16 Range/Units 07:52 08:56 09:57 POC Glucose (mg/dL) 163 H 165 H 183 H (75-99) mg/dL Crossmatch 09/28/16 09/28/16 09/28/16 Range/Units 11:19 11:48 14:20 POC Glucose (mg/dL) 170 H 166 H 179 H (75-99) mg/dL Crossmatch 09/28/16 09/28/16 09/28/16 Range/Units 15:00 15:52 18:05 POC Glucose (mg/dL) 171 H 142 H (75-99) mg/dL Crossmatch See Detail 09/28/16 09/28/16 09/29/16 Range/Units 20:08 22:07 00:08 POC Glucose (mg/dL) 139 H 150 H 142 H (75-99) mg/dL Crossmatch Microbiology - Last 24 Hours (Table) 09/27/16 01:40 Urine Culture - Final Urine,Catheterized Assessment and Plan (1) Pneumothorax Status: Acute (2) Pulmonary fibrosis Status: Acute (3) Subcutaneous emphysema Status: Acute (4) Diabetes Status: Acute (5) Hypothyroid Status: Acute (6) Squamous cell carcinoma of lung, stage III Status: Chronic Plan: 1. Medical management per internal medicine/hospitalist. 2. Keep patient is comfortable as possible. 3. Will monitor chest tube output, air leak. Will discontinue when appropriate or at the patient's request. Time with Patient: Greater than 30
[2016-09-29 08:21] VITALS: RESP 15
[2016-09-29] MEDS: INSULIN PUMP MEAL BOLUS 1 UNIT MISC MISCELLANE SCH (08:29)
[2016-09-29] MEDS ORDERED: PANTOPRAZOLE 40 MG TABLET PO SCH (09:00)
[2016-09-29] MEDS: SODIUM CHLORIDE 0.9% 1,000 ML IV SCH (10:25)
[2016-09-29 11:50] VITALS: PULSE 72
--- NOTE | 2016-09-29 13:03 | PN ---
DATE OF SERVICE: 09/29/2016 She has been hemodynamically stable. I was informed at 2:00 a.m. this morning that will be considering hospice care. She is alert, oriented. She required high-flow oxygen. O2 sats in the 90s. She does not seem to be in respiratory distress. On physical examination, respiratory rate is 20, pulse rate of 80, blood pressure 167/76, O2 sat on high-flow nasal cannula is 91%. HEENT reveals nasal catheter in place. Chest reveals scattered crackles decreased breath sounds at the bases. Cardiovascular system reveals an S1 and S2. ABDOMEN: Soft. There is trace to 1+ pedal edema. Right chest tube is in place. IMPRESSION: 1. Lung fibrosis. 2. Non-small cell cancer of the lung. 3. Right-sided pneumothorax, which is recurrent. 4. Elevated blood sugars. 5. Possible congestive heart failure and fluid overload. At this point in time, the patient has considered comfort care. Would keep her as comfortable as possible with benzodiazepines and opiates. Keep her on supplemental oxygen. Would recommend leaving the chest tube in as long as there is an air leak at this time. She was counseled regarding her condition. We will follow her during her hospital stay.
== END 2016-09-29 12:09 | disposition home health service (06) | DRG 199 ==
LOC: EC 04:56 → 6SEL 06:44 → 5ONC 09-25 15:05 → 6ICU 09-26 17:54
PROVIDERS: ADMIT Hospitalist; ATTEND Hospitalist
PROC: 0W9930Z Drainage of Right Pleural Cavity with Drainage Device, Percutaneous Approach (ICD-10-PCS; principal; 2016-09-24)
PROC: 03HB33Z Insertion of Infusion Device into Right Radial Artery, Percutaneous Approach (ICD-10-PCS; 2016-09-26)
PROC: 05HM33Z Insertion of Infusion Device into Right Internal Jugular Vein, Percutaneous Approach (ICD-10-PCS; 2016-09-26)
DX: J93.83 Other pneumothorax (principal); D61.810 Antineoplastic chemotherapy induced pancytopenia; J96.21 Acute and chronic respiratory failure with hypoxia; C34.90 Malignant neoplasm of unspecified part of unspecified bronchus or lung; C77.9 Secondary and unspecified malignant neoplasm of lymph node, unspecified; I27.2 Other secondary pulmonary hypertension; J84.112 Idiopathic pulmonary fibrosis; E11.65 Type 2 diabetes mellitus with hyperglycemia; J44.9 Chronic obstructive pulmonary disease, unspecified; E87.70 Fluid overload, unspecified; E03.9 Hypothyroidism, unspecified; E78.5 Hyperlipidemia, unspecified; F32.9 Major depressive disorder, single episode, unspecified; G47.33 Obstructive sleep apnea (adult) (pediatric); I10 Essential (primary) hypertension; I25.10 Atherosclerotic heart disease of native coronary artery without angina pectoris; I25.2 Old myocardial infarction; I44.0 Atrioventricular block, first degree; K21.9 Gastro-esophageal reflux disease without esophagitis; T45.1X5A Adverse effect of antineoplastic and immunosuppressive drugs, initial encounter; F41.9 Anxiety disorder, unspecified; I71.4 Abdominal aortic aneurysm, without rupture; L40.9 Psoriasis, unspecified; M19.90 Unspecified osteoarthritis, unspecified site; E66.9 Obesity, unspecified; J98.2 Interstitial emphysema; J93.82 Other air leak; Z68.38 Body mass index [BMI] 38.0-38.9, adult; Z79.02 Long term (current) use of antithrombotics/antiplatelets; Z79.899 Other long term (current) drug therapy; Z79.82 Long term (current) use of aspirin; Z87.891 Personal history of nicotine dependence; Z96.41 Presence of insulin pump (external) (internal); Z99.81 Dependence on supplemental oxygen; Z95.5 Presence of coronary angioplasty implant and graft; Z80.0 Family history of malignant neoplasm of digestive organs; Z82.49 Family history of ischemic heart disease and other diseases of the circulatory system
CPT/HCPCS: 36415; 71010; 71020; 71250; 80048; 80053; 81001; 82550; 82553; 82805; 83036; 83735; 83880; 84100; 84132; 84484; 85025; 85027; 85610; 85730; 86850; 86900; 86901; 86920; 87070; 87077; 87086; 87186; 87205; 94002; 94003; 94640; 94760; 99285

== ENCOUNTER 2016-09-29 11:54 | Inpatient (IN) | payer MEDICAID ==
[2016-09-29] MEDS ORDERED: ATROPINE OPHTH SOLN 1% 5ML BTL SUBLINGUAL PRN (12:29)
[2016-09-29] MEDS ORDERED: ACETAMINOPHEN SUPPOSITORY 650 MG SUPP RECTAL PRN (12:29)
[2016-09-29] MEDS ORDERED: LORazepam 2 MG/ML SYRINGE IV PRN (12:31)
[2016-09-29] MEDS ORDERED: ONDANSETRON 4 MG/2 ML VIAL IVP PRN (12:31)
[2016-09-29] MEDS ORDERED: MORPHINE SULFATE 2 MG/ML SYRINGE IVP ONE (12:31)
[2016-09-29] MEDS ORDERED: SCOPOLAMINE 1.5MG/72HR PATCH TRANSDERM PRN (12:31)
[2016-09-29] MEDS ORDERED: BISACODYL 10 MG SUPP RECTAL PRN (12:38)
[2016-09-29] MEDS ORDERED: PROCHLORPERAZINE 10 MG TAB PO PRN (12:39)
[2016-09-29] MEDS ORDERED: LORazepam 2 MG/ML SYRINGE IV ONE (12:41)
[2016-09-29] MEDS ORDERED: MORPHINE SULFATE (100 MG/2 ML) 100 MG in SODIUM CHLORIDE 0.9% 100 ML IV SCH (12:45)
[2016-09-29 13:42] VITALS: BMI 38.6
== END 2016-09-29 18:21 | disposition expired | DRG 181 ==
LOC: 6SEL 11:54 → 6ICU 12:13 → 4MS4W 15:48
PROVIDERS: ADMIT Internal Medicine; ATTEND Internal Medicine
DX: C34.90 Malignant neoplasm of unspecified part of unspecified bronchus or lung (principal); J96.11 Chronic respiratory failure with hypoxia; T79.7XXA Traumatic subcutaneous emphysema, initial encounter; J84.10 Pulmonary fibrosis, unspecified; J93.9 Pneumothorax, unspecified; K21.9 Gastro-esophageal reflux disease without esophagitis; Z66 Do not resuscitate; Z51.5 Encounter for palliative care; I10 Essential (primary) hypertension; I25.10 Atherosclerotic heart disease of native coronary artery without angina pectoris; T45.1X5A Adverse effect of antineoplastic and immunosuppressive drugs, initial encounter; E11.9 Type 2 diabetes mellitus without complications; G47.33 Obstructive sleep apnea (adult) (pediatric); E78.5 Hyperlipidemia, unspecified; F32.9 Major depressive disorder, single episode, unspecified; Z87.891 Personal history of nicotine dependence; Z92.21 Personal history of antineoplastic chemotherapy; Z91.030 Bee allergy status; Z91.048 Other nonmedicinal substance allergy status; Z79.02 Long term (current) use of antithrombotics/antiplatelets; Z79.4 Long term (current) use of insulin; Z79.899 Other long term (current) drug therapy; Z96.41 Presence of insulin pump (external) (internal); Z99.81 Dependence on supplemental oxygen; Z87.09 Personal history of other diseases of the respiratory system